=== PATIENT | male | born 1955 | race Caucasian/White ===

== ENCOUNTER 2020-01-27 12:35 | Outpatient (CLI) | payer MEDICARE, SELFPAY ==
--- NOTE | ~2020-01-27 | MR_ITS ---
EXAMINATION: MR cervical spine wo con EXAM DATE: 01/27/2020 13:47 INDICATION: Cervical radiculopathy. TECHNIQUE: Multi-sequential, multiplanar MR images of the cervical spine were obtained without contra st. Axial T2, axial T2 MERGE sequence. Sagittal T1, T2, T2 fat saturation images also obtained. Com parison is made to prior examination from 01/29/2010. FINDINGS: There is cervical fusion with vertebral body osseous bridging at C3-4, interbody fusion at C4-5 and C5-6, with previously seen anterior supporting plate at these 2 levels removed. Anterior fu ermias C6-C7 and C7-T1. The vertebral bodies are aligned in the AP dimension. The spinal cord signal in tensity and intrinsic morphology is normal. Cervicomedullary junction is normal in appearance. Parasp inal soft tissue is unremarkable. Level by level evaluation: C2-C3: Disc does not extend beyond the endplate margin. Uncovertebral joint arthropathy: Mild bilateral. Facet joint arthropathy: Mild to moderate left, mild right. Neural foraminal stenosis: No stenosis. Central canal stenosis: No stenosis. C3-C4: This level is fused. Uncovertebral joint arthropathy: Mild to moderate left, mild right. Facet joint arthropathy: Mild to moderate bilateral. Neural foraminal stenosis: Mild to moderate bilateral. Central canal stenosis: No stenosis. C4-C5: This level is fused. Uncovertebral joint arthropathy: Mild bilateral. Facet joint arthropathy: Mild to moderate bilateral. Neural foraminal stenosis: Mild bilateral. Central canal stenosis: No stenosis. C5-C6: This level is fused. Uncovertebral joint arthropathy: Mild bilateral. Facet joint arthropathy: None. Neural foraminal stenosis: No stenosis. Central canal stenosis: No stenosis. C6-C7: This level is fused. Uncovertebral joint arthropathy: Mild to moderate left, mild right. Facet joint arthropathy: Mild to moderate left, mild right. Neural foraminal stenosis: No stenosis. Central canal stenosis: No stenosis. C7-T1: There is a mild diffuse disc bulge. Uncovertebral joint arthropathy: Moderate bilateral. Facet joint arthropathy: Mild bilateral. Neural foraminal stenosis: Moderate left, mild to moderate right. Central canal stenosis: Mild. IMPRESSION: 1. Cervical fusion C3-T1. 2. Spondylosis as detailed above. Reviewed, dictated and finalized at location B.
--- NOTE | ~2020-01-27 | MR_ITS ---
EXAMINATION: MR lumbar spine wo con EXAM DATE: 01/27/2020 13:53 INDICATION: Low back pain, left arm and leg pain. TECHNIQUE: Multi-sequential, multiplanar MR images of the lumbar spine were obtained without contrast . Sagittal T1, T2, T2 fat saturation images. Axial T2 weighted images. Comparison is made to prior examination from 03/07/2017. FINDINGS: Moderate to severe disc disease L4-5 and L5-S1, mild to moderate at L3-4. The conus medulla ris terminates at the T12-L1 level and has normal signal intensity and morphology. There is 3 mm ret rolisthesis L5 on S1. The vertebral bodies are otherwise aligned. There are no suspicious marrow sign al abnormalities. Paraspinal soft tissue is unremarkable. Level by level evaluation: T12-L1: Disc does not extend beyond the endplate margin. Facet arthropathy: None. Neural foraminal stenosis: No stenosis. Central canal stenosis: No stenosis. L1-L2: There is a mild diffuse disc bulge. Facet arthropathy: Mild. Neural foraminal stenosis: No stenosis. Central canal stenosis: No stenosis. L2-L3: There is a mild diffuse disc bulge. Facet arthropathy: Mild to moderate. Neural foraminal stenosis: Mild bilateral. Central canal stenosis: Mild. L3-L4: There is a mild to moderate diffuse disc bulge. Facet arthropathy: Mild to moderate. Neural foraminal stenosis: Mild to moderate bilateral. Central canal stenosis: Mild. Probable old left hemilaminotomy. L4-L5: There is a moderate diffuse disc bulge. [id number] Facet arthropathy: Mild to moderate. Neural foraminal stenosis: Moderate left, mild to moderate right. Central canal stenosis: Mild. L5-S1: There is a mild diffuse disc bulge. Facet arthropathy: Mild to moderate. Neural foraminal stenosis: Moderate right, mild to moderate left. Central canal stenosis: Mild. Compared to 2017, mild interval progression in spondylosis. IMPRESSION: 1. Lower lumbar predominant spondylosis as detailed above. Reviewed, dictated and finalized at location B.
== END 2020-01-27 12:36 | disposition home or self-care (01) ==
PROVIDERS: PCP Internal Medicine; Visit Provider Nurse Practitioner Adult Health
DX: M47.896 Other spondylosis, lumbar region (principal); M47.22 Other spondylosis with radiculopathy, cervical region; Z98.1 Arthrodesis status
CPT/HCPCS: 72141; 72148

== ENCOUNTER 2020-02-01 12:48 | Outpatient (CLI) | payer MEDICARE, SELFPAY ==
--- NOTE | ~2020-02-01 | CT_ITS ---
EXAMINATION: CT brain wo/w con DATE: 02/01/2020 14:31 INDICATION: Amaurosis fugax. TECHNIQUE: Computed tomography (CT) of the head was performed without and with 100 mL Omnipaque 350 i ntravenous contrast. The mA was adjusted according to patient size. Iterative reconstruction techniqu e was employed. The dose-length product was 1210.67 mGy-cm. COMPARISON: None FINDINGS: There is no intracranial hemorrhage, acute infarction, or abnormal intracranial mass lesion . The ventricles are normal in size. The paranasal sinuses are clear. The orbits are normal. The mast oid air cells are normal. IMPRESSION: 1. Normal brain. Reviewed, dictated and finalized at location B. IMPRESSION: 1. Normal brain.
--- NOTE | ~2020-02-01 | US_ITS ---
EXAMINATION: US carotid duplex BI DATE: 02/01/2020 13:25 INDICATION: Amaurosis fugax TECHNIQUE: Grayscale, color Doppler, and pulsed Doppler images of the cervical carotid arteries were obtained. The degree of vessel stenosis is placed in one of the following categories: normal, <50%, 5 0-69%, >=70% but less than near-occlusion, near-occlusion, or total occlusion. Note that percent sten osis relative to normal distal artery lumen diameter is indirectly measured from velocity measurement s as described by Cristofer, et al. Radiology 2003; 229:340-346. COMPARISON: None. FINDINGS: RIGHT: The right common carotid artery (CCA) peak systolic velocity (PSV) is 66 cm/s. The right internal car otid artery (ICA) PSV is 82 cm/s. The right ICA end-diastolic velocity (EDV) is 18 cm/s. The right IC A/CCA PSV ratio is 1.2. Grayscale and color Doppler images yield an estimate of <50% diameter reducti on from plaque in the ICA. The external carotid artery (ECA) PSV is 117 cm/s. There is antegrade flow in the right vertebral artery. LEFT: The left CCA PSV is 66 cm/s. The left ICA PSV is 102 cm/s. The left ICA EDV is 22 cm/s. The left ICA/ CCA PSV ratio is 1.5. Grayscale and color Doppler images yield an estimate of <50% diameter reduction from plaque in the ICA. The ECA PSV is 73 cm/s. There is antegrade flow in the left vertebral artery . IMPRESSION: 1. <50% stenosis in the right internal carotid artery. 2. <50% stenosis in the left internal carotid artery. Reviewed, dictated and finalized at location A.
--- NOTE | ~2020-02-01 | XR_ITS ---
EXAMINATION: XR hip BI wo pelvis DATE: 02/01/2020 13:44 INDICATION: Osteoarthritis of multiple joints. TECHNIQUE: 2 views of right hip and 2 views of left hip on a total of 5 radiographs were obtained. COMPARISON: Bilateral hip radiographs 02/19/2010, CT 10/12/2012 FINDINGS: There is a total right hip arthroplasty in near-anatomic alignment. No periprosthetic lucen cy to suggest loosening or infection. There is a total left hip arthroplasty in near-anatomic alignme nt with 2 cables around the femoral component. There is lucency adjacent to the proximal aspect of th e femoral component measuring up to 5 mm anteriorly. There is lucency at the lateral and medial aceta bulum adjacent to the acetabular cup. There is an old fracture versus osteotomy involving the left gr eater trochanter with nonunion. No acute fracture. There is at least moderate lumbar spondylosis. IMPRESSION: 1. Total right hip arthroplasty in near-anatomic alignment. 2. Total left hip arthroplasty revision in near-anatomic alignment. Areas of lucency adjacent to the acetabular cup and femoral component may be the normal postoperative appearance or abnormal osteolysi s from loosening, infection, or particle disease. Correlation with postoperative radiographs is recom mended. Reviewed, dictated and finalized at location B. IMPRESSION: 1. Total right hip arthroplasty in near-anatomic alignment. 2. Total left hip arthroplasty revision in near-anatomic alignment. Areas of jerry cency adjacent to the acetabular cup and femoral component may be the normal po stoperative appearance or abnormal osteolysis from loosening, infection, or par ticle disease. Correlation with postoperative radiographs is recommended.
[2020-02-01 14:20] LABS: Estimated Glomerular Filt Rate > 60
== END 2020-02-01 12:49 | disposition home or self-care (01) ==
PROVIDERS: PCP Internal Medicine; Visit Provider Internal Medicine
DX: I65.23 Occlusion and stenosis of bilateral carotid arteries (principal)
CPT/HCPCS: 70470; 73521; 93880; Q9967

== ENCOUNTER 2020-02-16 14:27 | Outpatient (CLI) | payer MEDICARE, SELFPAY ==
--- NOTE | 2020-02-16 | ECHO_ITS ---
Patient Info Name: Brian Bland Age: 64 years : 1955 Gender: Male Ht: 73 in Wt: 215 lbs BSA: 2.26 m2 HR: 95 bpm BP: 149 / 94 mmHg Technical Quality: Good Exam Date: 02/16/2020 3:17 PM Exam Location: [facility] Patient Status: Outpatient Admit Date: 02/16/2020 Staff Ordering Physician: Harry Malagon MD Microwave Supervisor: Meghan Maria RDCS Attending Provider: Harry Malagon MD Referring Physician: Manas ALEXANDER; Exam Type: CA echo doppler color flow Study Info Indications - amaurosis fugax AVR Complete two-dimensional, color flow and Doppler transthoracic echocardiogram is performed. Summary 1. Complete two-dimensional, color flow and Doppler transthoracic echocardiogram is performed. 2. Left ventricular chamber dimension is normal. 3. Left ventricular systolic function is normal, estimated at 65-70%. 4. There is moderately increased left ventricular wall thickness. 5. The left ventricular diastolic function is grade I diastolic dysfunction. 6. E/e' 14 is mildly elevated. 7. The bioprosthetic aortic valve is not well visualized. 8. The mitral valve has moderately calcified annulus. 9. There is trace tricuspid valve regurgitation. 10. No pulmonary hypertension, estimated pulmonary arterial systolic pressure is 26 mmHg. Left Ventricle E/e' 14 is mildly elevated. Left ventricular chamber dimension is normal. Left ventricular systolic function is normal, estimated at 65-70%. There is moderately increased left ventricular wall thickness. The left ventricular diastolic function is grade I diastolic dysfunction. Right Ventricle Right ventricular chamber dimension is normal. Right ventricular systolic function is normal. Left Atria Left atrial chamber dimension is normal. Right Atria Right atrial chamber dimension is normal. Aortic Valve The bioprosthetic aortic valve is not well visualized. There is no bioprosthetic aortic valve stenosis. There is no regurgitation of the bioprosthetic aortic valve. Pulmonic Valve There is no pulmonic regurgitation. Mitral Valve The mitral valve has moderately calcified annulus. There is no mitral valve stenosis. There is no mitral valve regurgitation. Tricuspid Valve There is trace tricuspid valve regurgitation. No pulmonary hypertension, estimated pulmonary arterial systolic pressure is 26 mmHg. Pericardium/Pleural There is no pericardial effusion. Inferior Vena Cava Normal inferior vena cava with >50% collapse upon inspiration consistent with normal right atrial pressure, 5 mmHg. Aorta The aortic root size at the sinus of Valsalva is not well visualized. Left Ventricular Outflow Tract Name Value Normal LVOT 2D LVOT Diameter 2.2 cm LVOT Doppler LVOT Peak Gradient 8 mmHg LVOT Mean Gradient 6 mmHg LVOT VTI 21 cm LVOT VTI/AV VTI Ratio 0.6 LVOT Stroke Volume 82 ml LVOT CO 28.2 l/min LVOT CI 12.5 l/min/m2
== END 2020-02-16 14:28 | disposition home or self-care (01) ==
PROVIDERS: PCP Internal Medicine; Visit Provider Internal Medicine
DX: G45.3 Amaurosis fugax (principal); I05.8 Other rheumatic mitral valve diseases
CPT/HCPCS: 93306

== ENCOUNTER → 2020-11-22 13:52 | Outpatient (CLI) | payer MEDICARE, SELFPAY ==
--- NOTE | ~2020-11-22 | XR_ITS ---
XR shoulder RT min 2V DATE: 11/22/2020 14:16 INDICATION: Right shoulder pain TECHNIQUE: 4 views COMPARISON: None FINDINGS: Status post sternotomy. Status post anterior cervical thoracic spine surgical fusion There is joint space narrowing and spurring at the glenohumeral joint consistent with osteoarthritis. There is mild degenerative change at the acromioclavicular joint. There are calcifications near the insertion site of the rotator cuff at the greater tuberosity sugges ting calcific tendinosis. IMPRESSION: Calcifications at rotator cuff insertion at greater tuberosity suggesting calcific tendin osis Degenerative change of the coronoid navicular joint Osteoarthritis at glenohumeral joint Reviewed, dictated and finalized at location A. 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
== END ==
PROVIDERS: PCP Internal Medicine; Visit Provider Internal Medicine
DX: M25.511 Pain in right shoulder (principal); M25.811 Other specified joint disorders, right shoulder; M19.011 Primary osteoarthritis, right shoulder
CPT/HCPCS: 73030

== ENCOUNTER 2020-12-13 08:45 | Outpatient (CLI) | payer MEDICARE, SELFPAY ==
--- NOTE | ~2020-12-13 | CT_ITS ---
EXAMINATION: CT chest abdomen pelvis w con EXAM DATE: 12/13/2020 09:21 INDICATION: R63.4 - Abnormal weight loss. TECHNIQUE: Spiral CT of the chest, abdomen and pelvis was performed following intravenous injection o f 100 mL Omnipaque 350. Axial, coronal and sagittal images chest, abdomen and pelvis were reviewed. Coronal maximum intensity pixel images of chest reviewed. The dose-length product (DLP) for this ex amination was 1196.02 mGy-cm. The exposure was tailored according to patient size (auto mA exposure control), and iterative reconstruction (ASIR) was used as additional dose reduction technique. Vasquez rison made to CT chest 10/24/2016, CT abdomen 10/12/2012 FINDINGS: CHEST: The lungs are clear. Mild emphysema. There are no pleural or pericardial effusions. Tracheo bronchial tree is patent. There is no mediastinal, hilar or axillary lymphadenopathy. There is no pneumothorax. Heart normal in size. There is mild coronary arterial calcification, arterial scle rosis. Sternotomy wires and aortic valve replacement. Cervical fusion hardware. ABDOMEN PELVIS: The liver, spleen, adrenal glands and pancreas are unremarkable. Gallbladder is unre markable. No biliary obstruction. Portal and splenic veins are patent. Kidneys enhance symmetrical ly. There is no hydronephrosis. The prostate and bladder are poorly visualized due to bilateral hi p replacements. There is no retroperitoneal or pelvic lymphadenopathy. There is moderate scattered arteriosclerotic disease. Possible identification of an unremarkable appendix. No pericecal inflammation. There is mild to mode rate scattered colonic diverticulosis. There is no adjacent inflammatory change to suggest diverticu litis. The stomach and small bowel are unremarkable. There is expected amount of colonic stool. No free intraperitoneal gas. There are no osteoblastic or osteolytic lesions identified. Chronic lucen cies deep to the right hip acetabular component, unchanged. IMPRESSION: 1. Mild to moderate colonic diverticulosis. 2. Clear lungs. Reviewed, dictated and finalized at location B.
== END 2020-12-13 08:46 ==
PROVIDERS: PCP Internal Medicine; Visit Provider Internal Medicine
DX: R63.4 Abnormal weight loss (principal); K57.30 Diverticulosis of large intestine without perforation or abscess without bleeding
CPT/HCPCS: 71260; 74177; Q9967

== ENCOUNTER → 2020-12-14 02:25 | Outpatient (CLI) | payer MEDICARE, SELFPAY ==
[2020-12-14 17:20] LABS: SARS-CoV-2 RNA PCR Negative
== END ==
PROVIDERS: PCP Internal Medicine; Visit Provider Internal Medicine Gastroenterology
DX: U07.1 COVID-19 (principal)
CPT/HCPCS: C9803; U0003; U0005

== ENCOUNTER 2020-12-17 01:53 | Day surgery (SDC) | payer MEDICARE, SELFPAY ==
[2020-12-05 12:07] VITALS: BMI 25.7
[2020-12-17 09:42] VITALS: BP 116/76; PULSE 103; RESP 18; TEMP 36.7; O2SAT 95; BMI 24.7
[2020-12-17 09:51] LABS: Glucose Point of Care 94 mg/dl (65-105)
--- NOTE | 2020-12-17 10:06 | WPDANESEPPF ---
Anes - Initial Pre Proc Eval Procedure: Operation Date: 12/17/20 08:30 Proposed Procedures p Colonoscopy - Viral Quinones MD Date/Time: 12/17/20 10:06 Surgeon: Viral Quinones MD Pre Op Diagnosis: positive cologuard Patient Data Age: 65 Gender: M Height: 1.83 m Weight: 82.6 kg Last Vital Signs Temp 36.7 C 12/17/20 09:42 Pulse 103 H 12/17/20 09:42 Resp 18 12/17/20 09:42 BP 116/76 12/17/20 09:42 Pulse Ox 95 12/17/20 09:42 Allergies Allergy/AdvReac Type Severity Reaction Status Date / Time No Known Allergies Allergy Verified 12/05/20 12:04 Home Medications Medication Instructions Recorded Confirmed Type metformin 1,000 mg tablet 1,000 mg PO BID #180 tablet 04/30/20 12/05/20 Rx syringe with needle 3 mL 23 x 1 #12 ea 05/28/20 12/04/20 Rx nitroglycerin 0.4 mg sublingual See Rx Instructions .ROUTE 06/19/20 12/05/20 Rx tablet .COMPLEX #75 tablet finasteride 5 mg tablet 5 mg PO DAILY #90 tablet 07/05/20 12/05/20 Rx sildenafil (pulm.hypertension) 20 See Rx Instructions PO .COMPLEX 08/22/20 12/05/20 Rx mg tablet #90 tablet cholecalciferol (vitamin D3) 25 25 mcg PO DAILY 09/11/20 12/05/20 History mcg (1,000 unit) capsule rosuvastatin 40 mg tablet 40 mg PO DAILY #90 tablet 09/11/20 12/05/20 Rx carvedilol 25 mg tablet 25 mg PO Q12H #180 tablet 09/24/20 12/05/20 Rx hydralazine 100 mg tablet 100 mg PO TID #270 tablet 09/24/20 12/05/20 Rx testosterone cypionate 200 mg/mL 200 mg IM .every 2 weeks #1 ml 10/10/20 12/05/20 Rx intramuscular oil cyanocobalamin (vitamin B-12) 1,000 mcg SUBCUT MONTHLY #3 ml 10/11/20 12/05/20 Rx 1,000 mcg/mL injection solution syringe with needle 3 mL 21 gauge #6 ea 10/22/20 12/04/20 Rx x 1 alprazolam 1 mg tablet 1 mg PO TID PRN #90 tablet 11/21/20 12/05/20 Rx dextroamphetamine-amphetamine 15 15 mg PO BID 12/04/20 12/05/20 History mg tablet tamsulosin 0.8 mg PO DAILY 12/05/20 12/05/20 History trazodone 100 mg PO HS 12/05/20 12/05/20 History Laboratory Tests 12/17/20 09:48 POC Capillary Glucose 94 mg/dl mg/dl (65-105) Patient hx anesthesia problems: none Family hx anesthesia problems: none PMFSH Past Medical History Medical History Abnormal finding of blood chemistry Abnormal thyroid function test ADD (attention deficit disorder) ADD (attention deficit disorder) Amaurosis fugax Anxiety with depression BMI 25.0-25.9,adult BMI 26.0-26.9,adult BMI 28.0-28.9,adult BMI 29.0-29.9,adult Borderline abnormal TFTs Chronic low back pain Chronic right hip pain Cognitive dysfunction Colon cancer screening Depression DJD (degenerative joint disease), multiple sites DM w/o complication type II Dysuria Encounter for Medicare annual wellness exam Encounter for routine adult health examination with abnormal findings Encounter for routine adult health examination without abnormal findings Encounter for special screening examination for neoplasm of prostate Exposure to hepatitis C Follow up Hyperlipidemia Hypervitaminosis D Insomnia 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 Onychomycosis Possible exposure to STD Pre-diabetes Right shoulder pain Testosterone deficiency Unintentional weight loss URI (upper respiratory infection) Vitamin B 12 deficiency Vitamin D deficiency Surgical History Surgical History History of bilateral knee replacement Hx of bilateral hip replacements Family History Family History Sibling Family history of diabetes mellitus in first degree relative Diabetes mellitus Social History Social History Smoking status: Never smoker Second hand tobacco smoke exposure: No Alcohol intake: never Living arrangements: with family Spiritual care concerns: No Anes - Eval Final PreProcedure Day of Procedur
[2020-12-17] MEDS: LACTATED RINGERS 1,000 ML 150 ML IV CONT (10:18)
[2020-12-17] MEDS: AMPICILLIN 2 GM/NS 100 ML 2 GM/100 ML BAG IVPB (10:19)
--- NOTE | 2020-12-17 10:19 | PM.HPGS ---
History of Present Illness History of Present Illness Consent: Risks, benefits, and alternatives have been discussed and questions answered. Patient agrees to proceed with procedure. Chief complaint: positive cologuard Narrative: Brian Bland Jr. is a 65 year old male referred for colon cancer screening. He had a positive cologuard test. Review of Systems Review of Systems: All systems reviewed & are unremarkable except as noted in HPI and below PMFSH Past Medical History Medical History Abnormal finding of blood chemistry Abnormal thyroid function test ADD (attention deficit disorder) ADD (attention deficit disorder) Amaurosis fugax Anxiety with depression BMI 25.0-25.9,adult BMI 26.0-26.9,adult BMI 28.0-28.9,adult BMI 29.0-29.9,adult Borderline abnormal TFTs Chronic low back pain Chronic right hip pain Cognitive dysfunction Colon cancer screening Depression DJD (degenerative joint disease), multiple sites DM w/o complication type II Dysuria Encounter for Medicare annual wellness exam Encounter for routine adult health examination with abnormal findings Encounter for routine adult health examination without abnormal findings Encounter for special screening examination for neoplasm of prostate Exposure to hepatitis C Follow up Hyperlipidemia Hypervitaminosis D Insomnia 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 Onychomycosis Possible exposure to STD Pre-diabetes Right shoulder pain Testosterone deficiency Unintentional weight loss URI (upper respiratory infection) Vitamin B 12 deficiency Vitamin D deficiency Surgical History Surgical History History of bilateral knee replacement Hx of bilateral hip replacements Family History Family History Sibling Family history of diabetes mellitus in first degree relative Diabetes mellitus Social History Social History Smoking status: Never smoker Second hand tobacco smoke exposure: No Alcohol intake: never Living arrangements: with family Spiritual care concerns: No Meds Home Medications and Allergies Home Medications Medication Instructions Recorded Confirmed Type metformin 1,000 mg tablet 1,000 mg PO BID #180 tablet 04/30/20 12/05/20 Rx syringe with needle 3 mL 23 x 1 #12 ea 05/28/20 12/04/20 Rx nitroglycerin 0.4 mg sublingual See Rx Instructions .ROUTE 06/19/20 12/05/20 Rx tablet .COMPLEX #75 tablet finasteride 5 mg tablet 5 mg PO DAILY #90 tablet 07/05/20 12/05/20 Rx sildenafil (pulm.hypertension) 20 See Rx Instructions PO .COMPLEX 08/22/20 12/05/20 Rx mg tablet #90 tablet cholecalciferol (vitamin D3) 25 25 mcg PO DAILY 09/11/20 12/05/20 History mcg (1,000 unit) capsule rosuvastatin 40 mg tablet 40 mg PO DAILY #90 tablet 09/11/20 12/05/20 Rx carvedilol 25 mg tablet 25 mg PO Q12H #180 tablet 09/24/20 12/05/20 Rx hydralazine 100 mg tablet 100 mg PO TID #270 tablet 09/24/20 12/05/20 Rx testosterone cypionate 200 mg/mL 200 mg IM .every 2 weeks #1 ml 10/10/20 12/05/20 Rx intramuscular oil cyanocobalamin (vitamin B-12) 1,000 mcg SUBCUT MONTHLY #3 ml 10/11/20 12/05/20 Rx 1,000 mcg/mL injection solution syringe with needle 3 mL 21 gauge #6 ea 10/22/20 12/04/20 Rx x 1 alprazolam 1 mg tablet 1 mg PO TID PRN #90 tablet 11/21/20 12/05/20 Rx dextroamphetamine-amphetamine 15 15 mg PO BID 12/04/20 12/05/20 History mg tablet tamsulosin 0.8 mg PO DAILY 12/05/20 12/05/20 History trazodone 100 mg PO HS 12/05/20 12/05/20 History Allergies Allergy/AdvReac Type Severity Reaction Status Date / Time No Known Allergies Allergy Verified 12/05/20 12:04 Vital Signs Vital Signs - 24 hr 12/17/20 09:42 Temperature 36.7 C Pulse Rate 103 H Respiratory Rate 18 Blood Pressure 116/76 Pulse Oximetry 95 Exam Resp: Auscultation: c
[2020-12-17 10:57] VITALS: BP 98/64; PULSE 87; RESP 15; O2SAT 92
[2020-12-17 11:07] VITALS: BP 112/69; PULSE 85; RESP 15; O2SAT 93
[2020-12-17 11:17] VITALS: BP 129/90; PULSE 87; RESP 15; O2SAT 100
[2020-12-17] MEDS: PROPARACAINE HCL 0.5% 15 ML OPHTH SOLN 1 DROP EACH EYE (11:52)
--- NOTE | 2020-12-17 12:54 | SUR.PHASEII ---
Pt woke up in recovery c/o eye feeling scratched. Left eye appeared to be red and watering. Dr. Mills made aware. Eye drops ordered (see MAR). Eye discomfort much improved upon discharge.
== END 2020-12-17 12:10 | disposition home or self-care (01) ==
PROVIDERS: PCP Internal Medicine; Visit Provider Internal Medicine Gastroenterology
PROC: 0DJD8ZZ Inspection of Lower Intestinal Tract, Via Natural or Artificial Opening Endoscopic (ICD-10-PCS; CPT 45378; principal; 2020-12-17 08:30)
DX: Z12.11 Encounter for screening for malignant neoplasm of colon (principal); K63.5 Polyp of colon; K57.30 Diverticulosis of large intestine without perforation or abscess without bleeding; R19.5 Other fecal abnormalities; F98.8 Other specified behavioral and emotional disorders with onset usually occurring in childhood and adolescence; R94.6 Abnormal results of thyroid function studies; F32.9 Major depressive disorder, single episode, unspecified; E11.9 Type 2 diabetes mellitus without complications; M19.90 Unspecified osteoarthritis, unspecified site; E78.5 Hyperlipidemia, unspecified
CPT/HCPCS: 45380; 45385; 82948; 88305; A9270; J0290; J1580; J2001; J2704; J7120

== ENCOUNTER 2021-02-22 11:36 | Outpatient (CLI) | payer MEDICARE, SELFPAY ==
--- NOTE | ~2021-02-22 | XR_ITS ---
EXAMINATION: XR hip BI 2V w AP pelvis EXAM DATE: 02/22/2021 12:41 INDICATION: Bilateral hip pain. TECHNIQUE: Each hip imaged independently (separate right and also left hip) 'frog leg' and frontal p rojections for interpretation. Frontal projection pelvis. Comparison is made to prior examination fr 02/01/2020. FINDINGS: There is bilateral hip replacement hardware. There is lucency surrounding the proximal aspe ct of the left femoral stem component and medial portion of the acetabular cup, similar appearance to the previous examination with differential diagnosis including normal postoperative appearance for r evision, small particle disease, infection. This does not appear significant change compared to previ ous examination. Right hip arthroplasty hardware is intact. No osseous fracture identified. Old left greater trochanteric transverse fracture or osteotomy. IMPRESSION: 1. Persistent lucency surrounding left arthroplasty hardware along the proximal aspect of the stem a nd medial aspect acetabular component, could be small particle disease, loosening, postoperative appe arance, or osteomyelitis. Would favor more chronic process given no change in appearance compared to one year ago. 2. Intact right hip arthroplasty. Reviewed, dictated and finalized at location B. IMPRESSION: 1. Persistent lucency surrounding left arthroplasty hardware along the proxima l aspect of the stem and medial aspect acetabular component, could be small par ticle disease, loosening, postoperative appearance, or osteomyelitis. Would fav or more chronic process given no change in appearance compared to one year ago. 2. Intact right hip arthroplasty.
--- NOTE | ~2021-02-22 | US_ITS ---
EXAMINATION: US joint non vasc comp LT DATE: 02/22/2021 12:28 INDICATION: Left hip pain TECHNIQUE: Multiple grayscale and Doppler ultrasound images of the left hip were obtained. COMPARISON: None FINDINGS: Hypoechoic region measuring approximately 7 mm in maximal thickness along the neck of the femoral com ponent of a left total hip arthroplasty which could represent either synovitis or small joint effusio n. IMPRESSION: 1. Small left hip joint effusion versus small amount of synovitis along the neck of the femoral compo nent of a left total hip arthroplasty. Reviewed, dictated and finalized at location A. IMPRESSION: 1. Small left hip joint effusion versus small amount of synovitis along the nec k of the femoral component of a left total hip arthroplasty.
== END 2021-02-22 11:37 | disposition home or self-care (01) ==
PROVIDERS: PCP Internal Medicine; Visit Provider Internal Medicine
DX: M25.452 Effusion, left hip (principal); Z96.643 Presence of artificial hip joint, bilateral
CPT/HCPCS: 73521; 76881

== ENCOUNTER 2022-08-09 10:12 | Outpatient (CLI) | payer MEDICARE, SELFPAY ==
--- NOTE | ~2022-08-09 | MR_ITS ---
EXAMINATION: MR shoulder RT wo con DATE: 08/09/2022 11:10 INDICATION: Right shoulder pain. TECHNIQUE: Magnetic resonance imaging (MRI) of the right shoulder was performed without intravenous c ontrast. Sequences included axial PD-weighted FS FSE, coronal oblique PD-weighted FS FSE and T2-weigh candi FS FSE, and sagittal oblique T2-weighted FS FSE and T1-weighted FSE. COMPARISON: Right shoulder radiographs 11/22/2020 FINDINGS: Coracoacromial arch: The acromion undersurface is curved in morphology with anterior hook (type III). There is severe acro mioclavicular joint osteoarthritis including inferiorly directed osteophytes. There is moderate subac romial/subdeltoid bursitis. Rotator cuff: There is a full-thickness tear of supraspinatus and infraspinatus tendons measuring 4.0 cm anterior t o posterior by 5.0 cm proximal to distal. Teres minor tendon is normal. There is a partial thickness articular-sided tear of subscapularis tendon. There is volume loss of infraspinatus and subscapularis muscle bellies with mild fatty atrophy. Biceps tendon and glenoid labrum: There is a partial tear of biceps tendon, which is medially dislocated from the bicipital groove. The re is degenerative tearing of the glenoid labrum. Fluid: There is a moderate-sized humeral joint effusion. Bones/cartilage: There is full-thickness cartilage loss of inferior glenoid. There is extensive deep partial thickness cartilage loss of humeral head. Osteophytes are noted. IMPRESSION: 1. Massive full-thickness rotator cuff tear. 2. Severe osteoarthritis of glenohumeral joint and acromioclavicular joint. 3. Partial tear of proximal biceps tendon, which is medially dislocated from the bicipital groove. 4. Moderate-sized glenohumeral joint effusion and moderate subacromial/subdeltoid bursitis. Reviewed, dictated and finalized at location A. ORK LIAISON IMPRESSION: 1. Massive full-thickness rotator cuff tear. 2. Severe osteoarthritis of glenohumeral joint and acromioclavicular joint. 3. Partial tear of proximal biceps tendon, which is medially dislocated from th e bicipital groove. 4. Moderate-sized glenohumeral joint effusion and moderate subacromial/subdelto id bursitis.
== END 2022-08-09 10:13 | disposition home or self-care (01) ==
LOC: ANHIMG 10:21
PROVIDERS: PCP Internal Medicine; Visit Provider Internal Medicine
DX: M19.011 Primary osteoarthritis, right shoulder (principal); M75.101 Unspecified rotator cuff tear or rupture of right shoulder, not specified as traumatic; M25.411 Effusion, right shoulder
CPT/HCPCS: 73221

== ENCOUNTER 2023-01-30 13:03 | Outpatient (CLI) | payer MEDICARE, SELFPAY ==
--- NOTE | ~2023-01-30 | US_ITS ---
EXAMINATION: US carotid duplex BI DATE: 01/30/2023 15:02 INDICATION: Aortic valve disorder TECHNIQUE: Grayscale, color Doppler, and pulsed Doppler images of the cervical carotid arteries were obtained. The degree of vessel stenosis is placed in one of the following categories: normal, <50%, 5 0-69%, >=70% but less than near-occlusion, near-occlusion, or total occlusion. Note that percent sten osis relative to normal distal artery lumen diameter is indirectly measured from velocity measurement s as described by Cristofer, et al. Radiology 2003; 229:340-346. Notes: Normal: Peak systolic velocity <125 centimeters/sec and no plaque <50%. Peak systolic velocity <125 ( EDV <40; ICA/CCA PSV ratio <2.0; used these factors only a tandem lesions or low cardiac output or co ntralateral disease) 50-69 %: PSV 125-230 (EDV 40-100; ratio 2-4) >= 70% but less than near occlusion: PSV greater than 230 (EDV > 100; ratio> 4.0) Near Occlusion: PSV that is variable; markedly narrowed lumen Occlusion: Absent flow on color/spectral Doppler and no lumen on souza scale. COMPARISON: None. FINDINGS: RIGHT: The right common carotid artery (CCA) peak systolic velocity (PSV) is 64 cm/s. The right internal car otid artery (ICA) PSV is 79 cm/s. The right ICA end-diastolic velocity (EDV) is 16 cm/s. The right IC A/CCA PSV ratio is 1.2. The external carotid artery (ECA) PSV is 89 cm/s. There is antegrade flow in the right vertebral artery. LEFT: The left CCA PSV is 74 cm/s. The left ICA PSV is 91 cm/s. The left ICA EDV is 24 cm/s. The left ICA/C CA PSV ratio is 1.2. The ECA PSV is 83 cm/s. There is antegrade flow in the left vertebral artery. IMPRESSION: 1. Less than 50% stenosis in the right internal carotid artery by sonographic criteria. 2. Less than 50% stenosis in the left internal carotid artery by sonographic criteria. Reviewed, dictated and finalized at location B. IMPRESSION: 1. Less than 50% stenosis in the right internal carotid artery by sonographic eliel ely. 2. Less than 50% stenosis in the left internal carotid artery by sonographic kurtis adams.
--- NOTE | ~2023-01-30 | CT_ITS ---
EXAMINATION: CT brain wo/w con DATE: 01/30/2023 13:58 INDICATION: Amaurosis fugax. Visual loss. TECHNIQUE: Computed tomography (CT) of the head was performed without and with 100 mL Omnipaque 350 i ntravenous contrast. The mA was adjusted according to patient size. Iterative reconstruction techniqu e was employed. The dose-length product was 1362.00 mGy-cm. COMPARISON: Head CT 02/01/2020 FINDINGS: There is no intracranial hemorrhage, acute infarction, or abnormal intracranial mass lesion . There are scattered areas of low attenuation in the cerebral white matter, which is within normal l imits for the patient's age. The ventricles are normal in size. The paranasal sinuses are clear. The orbits are normal. The mastoid air cells are normal. IMPRESSION: 1. Normal aging brain. Reviewed, dictated and finalized at location A. IMPRESSION: 1. Normal aging brain.
[2023-01-30 13:47] LABS: Estimated Glomerular Filt Rate > 60
== END 2023-01-30 13:04 | disposition home or self-care (01) ==
PROVIDERS: PCP Internal Medicine; Visit Provider Internal Medicine
DX: G45.3 Amaurosis fugax (principal); I35.9 Nonrheumatic aortic valve disorder, unspecified
CPT/HCPCS: 70470; 93880; Q9967

== ENCOUNTER 2023-02-10 16:21 | Observation (INO) | payer MEDICARE, SELFPAY ==
[2023-02-10] VITALS (15 sets, daily range): BP systolic 137–196; BP diastolic 66–93; PULSE 63–81; RESP 10–20; TEMP 35.8–37.3; O2SAT 94–98
--- NOTE | ~2023-02-10 | MR_ITS ---
MRI of the cervical spine Clinical History: Multiple sclerosis Technique: Axial T2-weighted and gradient images, and sagittal T1-weighted, T2-weighted, and STIR mandy ges were acquired. Following intravenous administration of 18 cc MultiHance gadolinium, T1-weighted f at-sat imaging was performed in the axial and sagittal planes. COMPARISON: 01/27/2020 Findings: There is no acute fracture or subluxation of the cervical spine. Osseous alignment is uncha nged from prior exam. Osseous fusion from C4 through T1 is unchanged. At C2-C3, there is no disc bulge or herniation. No spinal canal stenosis, cord compression, or neural foraminal narrowing. At C3-C4, there is no disc bulge or herniation. No spinal canal stenosis or cord compression. There i s mild facet arthropathy, with left neural foraminal narrowing, and possible minimal right neural for aminal narrowing. At C4-C5, there is no disc bulge or herniation. No central canal stenosis or cord compression. There is facet arthropathy with bilateral neural foraminal narrowing, left worse than right. At C5-C6, there is no disc bulge or herniation. No spinal canal stenosis or cord compression. No defi nite neural foraminal narrowing. At C6-C7, there is no disc bulge or herniation. No spinal canal stenosis, cord compression, or neural foraminal narrowing. No abnormal signal seen in the spinal cord. Paravertebral soft tissues are unremarkable. No abnormal postcontrast enhancement identified. Impression: No evidence for multiple sclerosis/spinal cord lesion. Mild degenerative spondylosis, as above. Stable extensive osseous fusion, as detailed above. Reviewed, dictated and finalized at [facility]. Impression: No evidence for multiple sclerosis/spinal cord lesion. Mild degenerative spondylosis, as above. Stable extensive osseous fusion, as detailed above.
--- NOTE | ~2023-02-10 | MR_ITS ---
MRI of the thoracic spine Clinical History: Multiple sclerosis Technique: Axial T2-weighted and gradient images, and sagittal T1-weighted, T2-weighted, and STIR mandy ges were acquired. Following intravenous administration of 18 cc MultiHance gadolinium, T1-weighted f at-sat imaging was performed in the axial and sagittal planes. Findings: There is no fracture or subluxation of the thoracic spine. Vertebral bodies maintain normal height and alignment. No suspicious bone marrow signal abnormality identified. There is mild left paracentral disc bulge at T4-T5, which mildly flattens the ventral cord. No other significant disc bulge or herniation seen in the thoracic spine. No other areas of canal stenosis or cord compression identified. No epidural mass or collection is seen. No abnormal signal identified in the spinal cord itself. Paravertebral soft tissues are unremarkable. No abnormal postcontrast enhancement identified. Impression: No evidence for multiple sclerosis or intrinsic spinal cord lesion. Left paracentral disc bulge at T4-T5 which mildly flattens the ventral cord. Reviewed, dictated and finalized at [facility]. Impression: No evidence for multiple sclerosis or intrinsic spinal cord lesion. Left paracentral disc bulge at T4-T5 which mildly flattens the ventral cord.
--- NOTE | ~2023-02-10 | XR_ITS ---
EXAMINATION: XR chest 1V portable Exam Date/Time: 02/10/2023 16:55 CDT HISTORY: SLURRED SPEECH, UNSTEADY GAIT Comparison: 03/21/2014. RESULT: Lines, tubes, and devices: ACDF hardware. Intact sternotomy wires. Cardiac valve replacement. Lungs and pleura: Clear. Cardiomediastinal silhouette: Stable. Other: No acute osseous or upper abdominal finding. IMPRESSION: No acute cardiopulmonary process. Reviewed, dictated and finalized at location K.
--- NOTE | ~2023-02-10 | CT_ITS ---
EXAMINATION: CT brain wo con DATE: 02/10/2023 16:39 INDICATION: SLURRED SPEECH, UNSTEADY GAIT . TECHNIQUE: Computed tomography (CT) of the head was performed without intravenous contrast. The mA wa s adjusted according to patient size. Iterative reconstruction technique was employed. The dose-lengt h product was 681.00 mGy-cm. COMPARISON: 01/30/2023. FINDINGS: No acute intracranial hemorrhage or extra-axial fluid collection. No hydrocephalus, mass, or herniation. No acute ischemic infarct. Unremarkable dural venous sinus attenuation. No acute osseous abnormality. The aerated spaces are clear. atrophy and chronic white matter change. Atherosclerotic intracranial calcification. Bilateral lens r eplacements. IMPRESSION: No acute intracranial process. Reviewed, dictated and finalized at location K.
--- NOTE | ~2023-02-10 | CT_ITS ---
EXAMINATION: CTA brain carotid DATE: 02/10/2023 17:17 INDICATION: CVA TECHNIQUE: Computed tomographic angiography (CTA) of the head and neck was performed with 100 mL Omni paque-350 intravenous contrast. Automated exposure control and iterative reconstruction technique wer e employed. The dose-length product was 1219.28 mGy-cm. Maximum intensity projection and volume rende red 3D-reconstructions were created by the technologist on a separate workstation. COMPARISON: CT brain, same date. FINDINGS: CTA HEAD: No large vessel occlusion, aneurysm, high flow vascular malformation, nidus or extravasation. Hypopla stic/absent left A2 segment. Anterior cerebral artery fenestration. Calcified plaque in the carotid s iphons bilaterally, without significant stenosis. Symmetric parenchymal enhancement. Patent cerebral veins. CTA NECK: Aortic arch and proximal great vessels: Atherosclerotic calcifications at the visualized aortic arch and proximal great vessels. Bovine arch. Right common carotid, carotid bifurcation, and internal carotid artery: Calcified and noncalcified pl aque.There is 39% stenosis of the proximal right internal carotid artery relative to normal distal ar micaela lumen diameter (NASCET criteria). Left common carotid, carotid bifurcation, and internal carotid artery: Calcified plaque at the bifurc ation.There is 0% stenosis of the proximal left internal carotid artery relative to normal distal art jon lumen diameter (NASCET criteria). Vertebral arteries: Hypoplastic right distal vertebral artery, terminating in the right PICA. Ectatic distal left vertebral artery. Calcified left distal vertebral artery plaque, without significant segundo nosis. Other findings: Pretracheal lymphadenopathy. Uncomplicated appearing ACDF hardware. Multilevel cervic al vertebral body and facet fusions. Visualized lung parenchyma is clear. IMPRESSION: No large vessel occlusion. No significant carotid or vertebral artery stenosis. Mediastinal lymphadenopathy. Reviewed, dictated and finalized at location K.
--- NOTE | ~2023-02-10 | MR_ITS ---
EXAMINATION: MR brain/brain stem wo/w con DATE: 02/11/2023 07:58 INDICATION: Transient ischemic attack. Left hemiparesis. TECHNIQUE: Magnetic resonance imaging (MRI) of the brain and brainstem was performed without and with 19 mL MultiHance intravenous contrast. COMPARISON: Head CT 02/10/2023 FINDINGS: There are scattered areas of nonspecific increased T2-weighted signal intensity in the cere bral white matter, which is within normal limits for the patient's age. There is a small old infarct in right cerebellum. There is no intracranial hemorrhage, acute infarction, or abnormal intracranial mass lesion. The ventricles are normal in size. The paranasal sinuses are clear. The orbits are lauren l. The mastoid air cells are normal. IMPRESSION: 1. Small old infarct in right cerebellum. Reviewed, dictated and finalized at location A.
--- NOTE | 2023-02-10 16:27 | ECG_ITS ---
Measurements Intervals [place] Rate: 76 P: 27 SD: 193 QRS: -50 QRSD: 140 T: 89 QT: 412 QTc: 465 Interpretive Statements SINUS RHYTHM LEFT AXIS DEVIATION INTRAVENTRICULAR CONDUCTION DELAY LEFT VENTRICULAR HYPERTROPHY AND ST-T CHANGE CANNOT RULE OUT SEPTAL INFARCT, AGE INDETERMINATE ABNORMAL ECG NO PREVIOUS ECG AVAILABLE FOR COMPARISON Electronically Signed On 02-11-2023 8:08:25 CDT by Manjit Flores D.O.
--- NOTE | 2023-02-10 16:51 | ED.NEUROSD ---
HPI - Neuro Symptoms/Deficit General Chief Complaint: Suspected CVA Stated Complaint: left sided weakness - hx of TIAs Time Seen by Provider: 02/10/23 16:33 History of Present Illness HPI Narrative: 67-year-old male presented the emergency department for evaluation of left-sided weakness. Patient reports he does have history of TIA approximately 2 years ago. Patient is unable to describe when the symptoms started. Patient states that he believes he was having some symptoms yesterday but also states when he went to bed last night he was not feeling poorly but when he woke up at 5 AM he was unable to walk to the bathroom. Patient states that he does feel like his symptoms are improving in the ED. Patient reports that he called Dr. Maciel, his primary care physician and was told to present to the ED for evaluation. Patient drove himself to the emergency department. Related Data Home Medications Medication Instructions Recorded Confirmed cholecalciferol (vitamin D3) 25 25 mcg PO DAILY 09/11/20 02/10/23 mcg (1,000 unit) capsule cyanocobalamin (vitamin B-12) 1,000 mcg IM MONTHLY 02/10/23 02/10/23 1,000 mcg/mL injection solution finasteride 5 mg tablet 5 mg PO DAILY 02/10/23 02/10/23 hydralazine 100 mg tablet 100 mg PO TID 02/10/23 02/10/23 metformin 1,000 mg tablet 1,000 mg PO BID 02/10/23 02/10/23 nitroglycerin 0.4 mg sublingual 0.4 mg sublingual Q5-15M PRN Chest 02/10/23 02/10/23 tablet Pain rosuvastatin 20 mg tablet 20 mg PO DAILY 02/10/23 02/10/23 tamsulosin 0.4 mg capsule 0.8 mg PO DAILY 02/11/23 02/11/23 trazodone 50 mg tablet 150 mg PO HS PRN Insomnia 02/11/23 02/11/23 Allergies Allergy/AdvReac Type Severity Reaction Status Date / Time No Known Allergies Allergy Verified 02/10/23 16:23 Review of Systems Review of Systems: All systems reviewed & are unremarkable except as noted in HPI and below PMFSH Past Medical History Medical History Abnormal finding of blood chemistry Abnormal thyroid function test ADD (attention deficit disorder) ADD (attention deficit disorder) Amaurosis fugax Anxiety with depression Aortic valve disease BMI 24.0-24.9, adult BMI 25.0-25.9,adult BMI 26.0-26.9,adult BMI 27.0-27.9,adult BMI 28.0-28.9,adult BMI 29.0-29.9,adult BMI 30.0-30.9,adult Borderline abnormal TFTs Chronic low back pain Chronic right hip pain Chronic right shoulder pain Cognitive dysfunction Colon cancer screening Depression DJD (degenerative joint disease), multiple sites DM w/o complication type II Dysuria Encounter for Medicare annual wellness exam Encounter for routine adult health examination with abnormal findings Encounter for routine adult health examination without abnormal findings Encounter for special screening examination for neoplasm of prostate Exposure to hepatitis C Follow up Hx of colonic polyps Hyperlipidemia Hypervitaminosis D Insomnia Muscle cramps Non-healing skin lesion On alf drug therapy Onychomycosis Possible exposure to STD Pre-diabetes Prostate cancer screening Right shoulder pain Testosterone deficiency Toenail fungus Unintentional weight loss URI (upper respiratory infection) Vitamin B 12 deficiency Vitamin D deficiency Surgical History Surgical History H/O aortic valve replacement History of bilateral knee replacement Hx of bilateral hip replacements Family History Family History Sibling Family history of diabetes mellitus in first degree relative Diabetes mellitus Social History Social History Smoking status: Never smoker Second hand tobacco smoke exposure: No Alcohol intake: never Substance use: never Lack of Transportation: No Lack of Food: Never True Current Housing: I Have Housing Concerned About Future Housing: No D
[2023-02-10 16:52] LABS: Basophils Absolute Auto 0.1 K/mm3 (0.0-0.1); Basophils Percent Auto 0.8 % (0.2-1.2); Eosinophils Absolute Auto 0.3 K/mm3 (0-0.3); Hematocrit 49.7 % (42.0-52.0); Hemoglobin 17.3 g/dL (14.0-18.0); Immature Granulocyte Absolute 0.01 K/mm3 (0.00-0.031); Immature Granulocyte Percent A 0.2 % (0-0.5); Lymphocytes Percent Auto 19.5 % (18.3-44.2); Mean Corpuscular HGB Conc 34.8 g/dl (32-36); Mean Corpuscular Hemoglobin 33.1 pg (26-34); Mean Corpuscular Volume 95.2 fl (80-100); Mean Platelet Volume 9.1 fl (7.4-10.4); Monocytes Absolute Auto 0.9 K/mm3 (0.1-0.6); Neutrophils Absolute Auto 3.7 K/mm3 (1.3-6.7); Neutrophils Percent Auto 60.5 % (45.5-73.1); Platelet Count Result 175 k/mm3 (150-375); Red Blood Count 5.22 M/mm3 (4.6-6.20); Red Cell Distribution Width 12.7 % (11.5-14.5); White Blood Count 6.2 K/mm3 (4.5-10.0)
[2023-02-10 16:59] LABS: Alanine Aminotransferase 47 U/L (6-50); Albumin Level 4.9 g/dL (3.5-5.1); Alkaline Phosphatase 50 U/L (38-126); Anion Gap 7 mmol/L (8-16); Aspartate Amino Transferase 35 U/L (17-59); Bilirubin,Total 0.6 mg/dL (0.2-1.3); Blood Urea Nitrogen 23 mg/dL (9-20); Calcium 9.7 mg/dL (8.4-10.2); Carbon Dioxide 28 mmol/L (22-30); Chloride 102 mmol/L (98-107); Estimated CRCL calculation 64 ml/min; Estimated Glomerular Filt Rate > 60; Glucose 101 mg/dL (65-110); Potassium 4.5 mmol/L (3.4-5.0); Sodium 137 mmol/L (137-145)
[2023-02-10 17:11] LABS: Partial Thromboplastin Time 26.5 SECONDS (22.3-36.8); Prothrombin Time 13.8 Seconds (11.1-14.7); Troponin I 0.025 ng/mL (0.000-0.034)
[2023-02-10] MEDS: ASPIRIN 81 MG CHEWABLE TABLET 324 MG PO (18:39)
--- NOTE | 2023-02-10 20:46 | ADMGEN ---
This patient, Brian Bland JrAdele, was admitted to Medical Room 344-01. Patient/family oriented to hospital policies and general routines including ID bracelet, bed and alarms, visiting hours, pain management, procedures, bathroom and other care routines, personal items, smoking policy, room service/diet, and visiting hours. Information on how to activate the Rapid Response Team has been discussed. Patient/Family are encouraged to report perceived risks to care and to ask questions if they do not understand what they are told or what they should do.
[2023-02-11] VITALS (13 sets, daily range): BP systolic 115–146; BP diastolic 59–66; PULSE 57–104; RESP 18; TEMP 35.9–36.9; O2SAT 94–100
--- NOTE | 2023-02-11 | ECHO_ITS ---
Patient Info Name: Brian Bland Age: 67 years : 1955 Gender: Male Ht: 72 in Wt: 199 lbs BSA: 2.15 m2 HR: 57 bpm BP: 124 / 59 mmHg Heart Rhythm: Sinus Rhythm Technical Quality: Fair Exam Date: 02/11/2023 4:06 PM Exam Location: [facility] Pulmonary Patient Status: Outpatient Admit Date: 02/10/2023 Staff Ordering Physician: Brianna Willoughby DO Soil Conservationist: Kary Chen RDCS Attending Provider: Jamie Chance MD Referring Physician: Fartun ANDERSON; Exam Type: CA echo doppler w bubble study Study Info Indications - tia Complete two-dimensional, color flow and Doppler transthoracic echocardiogram is performed with agitated saline. Contrast/Agitated Saline Contrast/Ag. Saline: Agitated Saline Amount: 20.00 ml Existing IV Access: Yes IV Access Condition: patent with no signs of infiltration Summary 1. Definity contrast administered improved wall motion interpretation. 2. Left ventricular chamber dimension is normal. 3. Left ventricular systolic function is normal, estimated at 60-65%. 4. There is moderate concentric increased left ventricular wall thickness. 5. The left ventricular diastolic function is grade I diastolic dysfunction. 6. E/e' 6 is not elevated. 7. The bioprosthetic aortic valve is not well visualized. 8. There is moderate sclerosis of the bioprosthetic aortic valve leaflets. 9. There is mild regurgitation of the bioprosthetic aortic valve. 10. There is no bioprosthetic aortic valve stenosis. 11. The mitral valve has severely calcified annulus. 12. There is trace mitral valve regurgitation. 13. No pulmonary hypertension, estimated pulmonary arterial systolic pressure is 29 mmHg. Left Ventricle E/e' 6 is not elevated. Definity contrast administered improved wall motion interpretation. Left ventricular chamber dimension is normal. Left ventricular systolic function is normal, estimated at 60-65%. There is moderate concentric increased left ventricular wall thickness. The left ventricular diastolic function is grade I diastolic dysfunction. Right Ventricle Right ventricular chamber dimension is normal. Right ventricular systolic function is normal. Left Atria Left atrial chamber dimension is normal. Right Atria Right atrial chamber dimension is normal. Aortic Valve The bioprosthetic aortic valve is not well visualized. There is moderate sclerosis of the bioprosthetic aortic valve leaflets. There is no bioprosthetic aortic valve stenosis. There is mild regurgitation of the bioprosthetic aortic valve. Pulmonic Valve There is no pulmonic regurgitation. Mitral Valve The mitral valve has severely calcified annulus. There is no mitral valve stenosis. There is trace mitral valve regurgitation. Tricuspid Valve There is no tricuspid valve regurgitation. No pulmonary hypertension, estimated pulmonary arterial systolic pressure is 29 mmHg. Pericardium/Pleural There is no pericardial effusion. Inferior Vena Cava Normal inferior vena cava with >50% collapse upon inspiration consistent with normal right atrial pressure, 5 mmHg. Aorta The aortic root size at the sinus of Valsalva is normal. Left Ventricular Outflow Tract Name Value Normal LVOT 2D LVOT Diameter 2.0 cm LVOT Doppler -
[2023-02-11] MEDS: carvediloL 25 MG TABLET PO ×3 (00:56→20:00)
[2023-02-11] MEDS: ALPRAZolam (*CRX) 0.5 MG TABLET 1.5 MG PO ×2 (00:57→17:07)
[2023-02-11 08:24] LABS: Glucose Point of Care 105 mg/dl (65-105)
[2023-02-11] MEDS: ROSUVASTATIN 10 MG TABLET 20 MG PO (08:27)
[2023-02-11] MEDS: CHOLECALCIFEROL 1,000 UNITS TABLET 1000 UNITS PO (08:27)
[2023-02-11] MEDS: hydrALAZINE HCL 50 MG TABLET 100 MG PO ×3 (08:28→17:03)
[2023-02-11] MEDS: FINASTERIDE 5 MG TABLET PO (08:28)
[2023-02-11] MEDS: CYANOCOBALAMIN INJ 1,000 MCG/ML VIAL 1000 MCG IM (08:28)
[2023-02-11] MEDS: metFORMIN HCL 500 MG TABLET 1000 MG PO ×2 (08:28→17:03)
[2023-02-11] MEDS: TAMSULOSIN HCL 0.4 MG CAPSULE 0.8 MG PO (08:28)
[2023-02-11] MEDS: HYDROcodone/acetaminophen (*CRX) 10-325 MG TABLET 1 TAB PO (08:34)
--- NOTE | 2023-02-11 09:46 | PM.IMHP ---
H&P: HPI History of Present Illness Date/Time: 02/11/23 09:46 Chief Complaint: left sided weakness Narrative: 67-year-old male presenting with intermittent left-sided weakness. He states he has had this episode a few different times and always resolves. This time, he called his PCP who recommended he go to the ER. Symptoms are completely resolved at this time. No chest pain or shortness of breath. No nausea, vomiting or diarrhea. No fevers or chills. Review of Systems Review of Systems: 12 point review of systems was assessed and was negative except as noted in the HPI [facility] Past Medical History Medical History Abnormal finding of blood chemistry Abnormal thyroid function test ADD (attention deficit disorder) ADD (attention deficit disorder) Amaurosis fugax Anxiety with depression Aortic valve disease BMI 24.0-24.9, adult BMI 25.0-25.9,adult BMI 26.0-26.9,adult BMI 27.0-27.9,adult BMI 28.0-28.9,adult BMI 29.0-29.9,adult BMI 30.0-30.9,adult Borderline abnormal TFTs Chronic low back pain Chronic right hip pain Chronic right shoulder pain Cognitive dysfunction Colon cancer screening Depression DJD (degenerative joint disease), multiple sites DM w/o complication type II Dysuria Encounter for Medicare annual wellness exam Encounter for routine adult health examination with abnormal findings Encounter for routine adult health examination without abnormal findings Encounter for special screening examination for neoplasm of prostate Exposure to hepatitis C Follow up Hx of colonic polyps Hyperlipidemia Hypervitaminosis D Insomnia Muscle cramps Non-healing skin lesion On custodial drug therapy Onychomycosis Possible exposure to STD Pre-diabetes Prostate cancer screening Right shoulder pain Testosterone deficiency Toenail fungus Unintentional weight loss URI (upper respiratory infection) Vitamin B 12 deficiency Vitamin D deficiency Surgical History Surgical History H/O aortic valve replacement History of bilateral knee replacement Hx of bilateral hip replacements Family History Family History Sibling Family history of diabetes mellitus in first degree relative Diabetes mellitus Social History Social History Smoking status: Never smoker Second hand tobacco smoke exposure: No Alcohol intake: never Substance use: never Lack of Transportation: No Lack of Food: Never True Current Housing: I Have Housing Concerned About Future Housing: No Difficulty Paying Gas/Electric Bills: No Difficulty Paying for Meds: No Currently Unemployed: No Education: High School Diploma/GED Difficulty w/ Childcare or Family Care: No Living arrangements: alone Gender identity (if verbalized by the patient): Male Spiritual care concerns: No Meds Home Medications and Allergies Home Medications Medication Instructions Recorded Confirmed Type cholecalciferol (vitamin D3) 25 25 mcg PO DAILY 09/11/20 02/10/23 History mcg (1,000 unit) capsule Easy Touch SheathLock Syrg-Ndl 3 #100 ea 07/24/21 02/10/23 Rx mL 21 gauge x 1 1/2 (syringe with needle, safety) carvedilol 25 mg tablet 25 mg PO Q12H #180 tabs 11/25/21 02/10/23 Rx syringe with needle 3 mL 21 gauge #20 ea 04/17/22 02/10/23 Rx x 1 1/2 testosterone cypionate 200 mg/mL 300 mg (1.5 mL) IM .every 2 weeks 11/10/22 02/10/23 Rx intramuscular oil #10 mL alprazolam 1 mg tablet 1.5 mg PO TID PRN anxiety #135 tabs 12/01/22 02/10/23 Rx dextroamphetamine-amphetamine 20 20 mg PO BID #60 tabs 01/26/23 02/10/23 Rx mg tablet (Adderall) hydrocodone 10 mg-acetaminophen 1 tablet PO Q6H PRN pain #90 tabs 02/02/23 02/10/23 Rx 325 mg tablet cyanocobalamin (vitamin B-12) 1,000 mcg IM MONTHLY 02/10/23 02/10/23 Hi
[2023-02-11 10:38] LABS: Basophils Absolute Auto 0.1 K/mm3 (0.0-0.1); Basophils Percent Auto 1.1 % (0.2-1.2); Eosinophils Absolute Auto 0.4 K/mm3 (0-0.3); Eosinophils Percent Auto 7.4 % (0-4.4); Hematocrit 47.6 % (42.0-52.0); Hemoglobin 16.1 g/dL (14.0-18.0); Immature Granulocyte Absolute 0.01 K/mm3 (0.00-0.031); Immature Granulocyte Percent A 0.2 % (0-0.5); Lymphocytes Absolute Auto 1.09 K/mm3 (0.9-3.2); Lymphocytes Percent Auto 23.1 % (18.3-44.2); Mean Corpuscular HGB Conc 33.8 g/dl (32-36); Mean Corpuscular Hemoglobin 32.7 pg (26-34); Mean Corpuscular Volume 96.7 fl (80-100); Mean Platelet Volume 9.3 fl (7.4-10.4); Monocytes Absolute Auto 0.7 K/mm3 (0.1-0.6); Monocytes Percent Auto 13.8 % (2.6-8.5); Neutrophils Absolute Auto 2.6 K/mm3 (1.3-6.7); Neutrophils Percent Auto 54.4 % (45.5-73.1); Platelet Count Result 154 k/mm3 (150-375); Red Blood Count 4.92 M/mm3 (4.6-6.20); Red Cell Distribution Width 12.9 % (11.5-14.5); White Blood Count 4.7 K/mm3 (4.5-10.0)
[2023-02-11 10:58] LABS: Cholesterol 128 mg/dL (0-200); HDL Direct 41 mg/dL; Triglycerides 163 mg/dL (<150)
[2023-02-11 10:59] LABS: Alanine Aminotransferase 40 U/L (6-50); Albumin Level 4.1 g/dL (3.5-5.1); Alkaline Phosphatase 40 U/L (38-126); Anion Gap 8 mmol/L (8-16); Aspartate Amino Transferase 35 U/L (17-59); Bilirubin,Total 0.5 mg/dL (0.2-1.3); Blood Urea Nitrogen 24 mg/dL (9-20); Calcium 9.1 mg/dL (8.4-10.2); Carbon Dioxide 25 mmol/L (22-30); Chloride 103 mmol/L (98-107); Estimated CRCL calculation 78 ml/min; Estimated Glomerular Filt Rate > 60; Glucose 123 mg/dL (65-110); Potassium 4.8 mmol/L (3.4-5.0); Sodium 136 mmol/L (137-145)
[2023-02-11 11:08] LABS: LDL Cholesterol Direct 65 mg/dL
[2023-02-11 11:17] LABS: Hemoglobin A1C 5.9 % (<5.7)
[2023-02-11 12:08] LABS: Folic Acid 12.8 ng/mL (2.76->20); Vitamin B12 > 1000.0 pg/mL (239-931)
[2023-02-11 12:10] LABS: Glucose Point of Care 93 mg/dl (65-105)
--- NOTE | 2023-02-11 14:32 | WPDNEURCNPN ---
Assessment and Plan Assessment and plan (1) Dementia: Qualifiers: Dementia type: unspecified type Dementia severity: moderate Dementia behavioral or psychological symptom: with anxiety Qualified Code(s): F03.B4 - Unspecified dementia, moderate, with anxiety Code(s): F03.90 - Unspecified dementia, unspecified severity, without behavioral disturbance, psychotic disturbance, mood disturbance, and anxiety Status: Acute (2) Neurologic gait dysfunction: Code(s): R26.9 - Unspecified abnormalities of gait and mobility Status: Acute Plan 1 ongoing depression for which he is being treated2 osteoarthritis3 dementia question related to only depression or [id number] plan to order EEG as MRI has already been done which documented 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 Consult date: 02/11/23 HPI: Brian Bland is a 67 year old male admitted to the hospital through the emergency room for the complaint of possible stroke affecting the left side of his body in addition to the history of TIA about 2 years ago though he was unable to give the exact onset time of the symptoms he reported when he went to the bed last night he was not feeling proper and he woke up at 5:00 a.m. when he was unable to walk to the bathroom he also noted some improvement in the symptomatology while in the emergency room he was sent to the ER by his primary physician and he has been taking only D3 supplement he is not allergic to any medication he does have ongoing history of chronic low back pain right hip pain and right shoulder pain and cognitive dysfunction as well in addition to the history of vitamin deficiencies he is not alcohol he take and has had no history of smoking initial evaluation in the emergency room documented blood pressure 196/83 with temp 99.1? normal CBC normal BMP normal routine lab his medications included trazodone 50 mg daily, Wellbutrin XL 150 mg daily carvedilol 25 mg q.12 metformin 1000 mg daily twice a day hydralazine 100 mg daily rosuvastatin 20 mg daily Adderall 20 mg twice a day and hydrocodone on p.r.n. basis Review of Systems Review of Systems: All systems reviewed & are unremarkable except as noted in HPI and below PMFSH Past Medical History Medical History Abnormal finding of blood chemistry Abnormal thyroid function test ADD (attention deficit disorder) ADD (attention deficit disorder) Amaurosis fugax Anxiety with depression Aortic valve disease BMI 24.0-24.9, adult BMI 25.0-25.9,adult BMI 26.0-26.9,adult BMI 27.0-27.9,adult BMI 28.0-28.9,adult BMI 29.0-29.9,adult BMI 30.0-30.9,adult Borderline abnormal TFTs Chronic low back pain Chronic right hip pain Chronic right shoulder pain Cognitive dysfunction Colon cancer screening Depression DJD (degenerative joint disease), multiple sites DM w/o complication type II Dysuria Encounter for Medicare annual wellness exam Encounter for routine adult health examination with abnormal findings Encounter for routine adult health examination without abnormal findings Encounter for special screening examination for neoplasm of prostate Exposure to hepatitis C Follow up Hx of colonic polyps Hyperlipidemia Hypervitaminosis D Insomnia Muscle cramps Non-healing skin lesion On senior care drug therapy Onychomycosis Possible exposure to STD Pre-diabetes Prostate cancer screening Right shoulder pain Testosterone deficiency Toenail fungus Unintentional weight loss URI (upper respiratory infection) Vitamin B 12 deficiency Vitamin D deficiency Surgical History Surgical History H/O aortic valve replacement History of bilateral knee replacement Hx of bilateral hip replacements Family History Family History Sibling Family history of diabetes mellitus in first degree relative Diabetes mellitus Social His
[2023-02-11 15:38] LABS: Glucose Point of Care 111 mg/dl (65-105)
[2023-02-11 17:11] LABS: Glucose Point of Care 130 mg/dl (65-105)
[2023-02-11] MEDS: traZODone HCL 50 MG TABLET 150 MG PO (20:02)
[2023-02-11 20:23] LABS: Glucose Point of Care 119 mg/dl (65-105)
[2023-02-12] VITALS (14 sets, daily range): BP systolic 117–144; BP diastolic 64–87; PULSE 68–95; RESP 16–18; TEMP 36.5–36.6; O2SAT 94–98
[2023-02-12] MEDS: traZODone HCL 50 MG TABLET 150 MG PO ×2 (00:36→23:10)
[2023-02-12] MEDS: ALPRAZolam (*CRX) 0.5 MG TABLET 1.5 MG PO ×3 (00:36→23:10)
[2023-02-12] MEDS: CHOLECALCIFEROL 1,000 UNITS TABLET 1000 UNITS PO (08:12)
[2023-02-12] MEDS: carvediloL 25 MG TABLET PO ×2 (08:12→21:04)
[2023-02-12] MEDS: ROSUVASTATIN 10 MG TABLET 20 MG PO (08:12)
[2023-02-12] MEDS: TAMSULOSIN HCL 0.4 MG CAPSULE 0.8 MG PO (08:12)
[2023-02-12] MEDS: hydrALAZINE HCL 50 MG TABLET 100 MG PO ×3 (08:12→17:36)
[2023-02-12] MEDS: metFORMIN HCL 500 MG TABLET 1000 MG PO ×2 (08:12→17:36)
[2023-02-12] MEDS: HYDROcodone/acetaminophen (*CRX) 10-325 MG TABLET 1 TAB PO ×2 (08:13→17:54)
[2023-02-12] MEDS: FINASTERIDE 5 MG TABLET PO (08:13)
[2023-02-12 08:15] LABS: Glucose Point of Care 113 mg/dl (65-105)
--- NOTE | 2023-02-12 12:13 | P.NEURO_ITS ---
Neurology EEG Report General Information Date of Study: 02/12/23 TEST eeg DIAGNOSIS Slurred speech with memory deficit CONDITION OF RECORDING awake drowsy and sleep EEG NUMBER [id number] CLINICAL HISTORY patient reports he had an episode where his whole body went numb and lost sight in his left eye with slurred speech for about 45 minutes question has been raised about the possibility of TIA versus partial seizures EEG DESCRIPTION basic resting occipital frequency consists of moderate amount of well- organized low to medium voltage 9 to 11 hertz per 2nd alpha admixed with low- voltage 15 to 18 hertz per 2nd beta. Low-voltage beta activity seen diffusely during drowsiness admixed with waxing and waning posterior alpha rhythm. Bilateral symmetrical sleep activity seen during sleep with dysrhythmic beta alpha and delta activity and subsequently bilateral symmetrical sleep spindles are noted. Hyperventilation not done. Photic stimulation Not done. Non paroxysmal. Nonfocal. Nonlateralizing. IMPRESSION Normal record
[2023-02-12 12:21] LABS: Glucose Point of Care 93 mg/dl (65-105)
--- NOTE | 2023-02-12 14:55 | WPDNEUROPN ---
Subjective Date/time seen: 02/12/23 14:55 Interval history: 67 years old evaluated for dementia in addition to the ongoing history of depression and his evaluation during the hospitalization documented the normal routine lab studies but the MRI of the brain documented a small old infarct in the right cerebellum though his CTA is completely normal including the head and neck, question raised whether the gait dysfunction related to only the demyelinating disease or the cerebellar infarct, I thing demyelinating disease extremely unlikely but will obtain the echocardiogram to make sure there is no source of emboli his routine blood studies are normal and in the past also he had normal carotid studies, MRI of the lower back in was compatible with lumbar predominantly spondylosis, had cervical MRI in January of 2020 which documented cervical fusion from C3-T1 but no pathology in the spinal cord. Objective Data Vital Signs Vital Signs: Vital Signs - 24 hr 02/11/23 16:04 02/11/23 20:00 02/11/23 20:00 Temperature Pulse Rate 87 104 H 104 H Respiratory Rate Blood Pressure Pulse Oximetry Oxygen Delivery 02/11/23 20:00 02/11/23 21:36 02/12/23 00:00 Temperature 36.9 C Pulse Rate 104 H 88 77 Respiratory Rate 18 18 Blood Pressure 115/66 Pulse Oximetry 99 94 Oxygen Delivery Room Air 02/12/23 04:00 02/12/23 05:37 02/12/23 08:12 Temperature 36.5 C Pulse Rate 68 72 75 Respiratory Rate 18 Blood Pressure 117/81 Pulse Oximetry 97 Oxygen Delivery 02/12/23 08:10 02/12/23 08:46 02/12/23 08:05 Temperature Pulse Rate 80 71 Respiratory Rate Blood Pressure Pulse Oximetry 98 Oxygen Delivery Room Air Room Air 02/12/23 12:43 02/12/23 12:14 02/12/23 14:00 Temperature 36.6 C Pulse Rate 79 94 Respiratory Rate 16 Blood Pressure 129/79 144/64 H Pulse Oximetry 95 Oxygen Delivery Intake/Output Intake/Output: Intake & Output 02/09/23 02/10/23 02/11/23 02/12/23 23:59 23:59 23:59 23:59 Intake Total 2880 600 Output Total 2000 400 Balance 880 200 Meds/Results Medications: Active Medications Generic Name Dose Route Start Last Admin Trade Name Freq PRN Reason Stop Dose Admin Hydrocodone Bitart/Acetaminophen 1 tab 02/11/23 05:06 02/12/23 08:13 Hydrocodone/Acetaminophen (*Crx) 10-325 Mg Tablet PO 1 tab Q6H PRN Administration pain 7-10 Alprazolam 1.5 mg 02/10/23 23:43 02/12/23 00:36 Alprazolam (*Crx) 0.5 Mg Tablet PO 1.5 mg TID PRN Administration anxiety Carvedilol 25 mg 02/10/23 23:45 02/12/23 08:12 Carvedilol 25 Mg Tablet PO 25 mg Q12HR LISBET Administration Cyanocobalamin 1,000 mcg 03/08/23 09:00 Cyanocobalamin Inj 1,000 Mcg/Ml Vial IM MONTHLY LISBET Dextrose 12.5 gm 02/11/23 05:04 Dextrose 50% 25 Gm/50 Ml Syringe IV PUSH PRN PRN Hypoglycemia Protocol Finasteride 5 mg 02/11/23 09:00 02/12/23 08:13 Finasteride 5 Mg Tablet PO 5 mg DAILY LISBET Administration Glucagon 1 mg 02/11/23 05:04 Glucagon For Inj 1 Mg Vial IM PRN PRN Hypoglycemia Protocol Glucose 15 gm 02/11/23 05:04 Glucose Oral Gel 15 Gm Of Glucse In 37.5 Gm Tube PO PRN PRN Hypoglycemia Protocol Hydralazine HCl 100 mg 02/11/23 08:00 02/12/23 12:41 Hydralazine Hcl 50 Mg Tablet PO 100 mg TIDWM LISBET Administration Dextrose 1,000 mls @ 100 mls/hr 02/11/23 05:04 Dextrose 5% 1,000 Ml IVPB PRN PRN Hypoglycemia Protocol Metformin HCl 1,000 mg 02/11/23 08:00 02/12/23 08:12 Metformin Hcl 500 Mg Tablet PO 1,000 mg BIDWM LISBET Administration Nitroglycerin 0.4 mg 02/11/23 05:03 Nitroglycerin Sl 0.4 Mg Tablet SUBLINGUAL Q5M PRN Chest Pain Perflutren Lipid Microsphere 0 ml 02/11/23 09:48 Perflutren Lipid Microspheres 1.5 Ml Vial Diluted To 10 Ml Total Volume IV PUSH 02/14/23 09:48 ONCE PRN adequate visualization
--- NOTE | 2023-02-12 15:44 | PM.IMPN ---
Progress Note: A&P Assessment and Plan (1) Left-sided weakness: Code(s): R53.1 - Weakness Status: Acute Assessment and Plan: Intermittent, concerning for TIAs History of old infarct noted on MRI Neurology consult appreciated, unsure of etiology, suspect TIAs versus MS due to ocular involvement, will at least recommend dilated eye exam at discharge, does appear to have the triad for NPH, no signs of this on MRI, defer to Neurology for further differentials prior to discharge Echo unremarkable For secondary stroke prevention, will initiate patient on aspirin 81 mg daily and increase Crestor from 20 mg to 40 mg daily (2) Depression: Qualifiers: Depression Type: unspecified Qualified Code(s): F32.9 - Major depressive disorder, single episode, unspecified Code(s): F32.9 - Major depressive disorder, single episode, unspecified Status: Acute Assessment and Plan: Appears stable at this time, monitor (3) Insomnia: Qualifiers: Insomnia type: unspecified Qualified Code(s): G47.00 - Insomnia, unspecified Code(s): G47.00 - Insomnia, unspecified Status: Acute (4) DJD (degenerative joint disease), multiple sites: Qualifiers: Osteoarthritis type: unspecified Qualified Code(s): M15.9 - Polyosteoarthritis, unspecified Code(s): M15.9 - Polyosteoarthritis, unspecified Status: Acute (5) Pre-diabetes: Code(s): R73.03 - Prediabetes Status: Inactive Assessment and Plan: A1c 5.9 (6) Hyperlipidemia: Qualifiers: Hyperlipidemia type: mixed hyperlipidemia Qualified Code(s): E78.2 - Mixed hyperlipidemia Code(s): E78.5 - Hyperlipidemia, unspecified Status: Acute Assessment and Plan: Lipid panel checked, LDL less than 70, HDL 41, recheck in 6 months Continue Crestor 40 mg Plan DVT prophylaxis with SCDs GI prophylaxis not indicated Code status full code Subjective Date/time seen: 02/12/23 15:44 Interval history: 67-year-old male presenting with intermittent left-sided weakness over the last 6 months associated with confusional episodes, occasional urinary incontinence, blurry vision and double vision, ataxia.? He states he has had this episode a few different times and always resolves, however the severity is worsening in the frequency is increasing. Overnight, patient had another episode as is described above. He states that was 1 of the worst once he has had. As usual, all symptoms resolved at this time. No chest pain or shortness of breath. No nausea, vomiting or diarrhea. No fevers or chills. Review of Systems Review of Systems: 12 point review of systems was assessed and was negative except as noted in the HPI Exam Narrative: General: No acute distress, alert and oriented per baseline HEENT: Atraumatic, normocephalic, mucous membranes moist CV: Regular rate and rhythm, S1, S2 Lungs: Clear to auscultation bilaterally, no rales or crackles noted, no wheezes, good air entry Abdomen: Soft, nontender, nondistended Extremities: Normal to inspection Skin: No rashes noted, no lesions or wounds seen Psych: Euthymic, normal affect Neuro: Cranial nerves 2-12 grossly intact, strength +5/5 upper and lower extremities bilaterally Objective Data Vital Signs Vital Signs: Vital Signs - 24 hr 02/11/23 16:04 02/11/23 20:00 02/11/23 20:00 Temperature Pulse Rate 87 104 H 104 H Respiratory Rate Blood Pressure Pulse Oximetry Oxygen Delivery 02/11/23 20:00 02/11/23 21:36 02/12/23 00:00 Temperature 98.4 F Pulse Rate 104 H 88 77 Respiratory Rate 18 18 Blood Pressure 115/66 Pulse Oximetry 99 94 Oxygen Delivery Room Air 02/12/23 04:00 02/12/23 05:37 02/12/23 08:12 Temperature 97.7 F Pulse Rate 68 72 75 Respiratory Rate 18 Blood Pressure 117/81 Pulse Oximetry 97 Oxygen Delivery 02/12/23 08:10 09
[2023-02-12 17:04] LABS: Alanine Aminotransferase 47 U/L (6-50); Albumin Level 4.6 g/dL (3.5-5.1); Alkaline Phosphatase 49 U/L (38-126); Anion Gap 9 mmol/L (8-16); Aspartate Amino Transferase 34 U/L (17-59); Bilirubin,Total 0.6 mg/dL (0.2-1.3); Blood Urea Nitrogen 25 mg/dL (9-20); Calcium 9.3 mg/dL (8.4-10.2); Carbon Dioxide 32 mmol/L (22-30); Chloride 98 mmol/L (98-107); Estimated CRCL calculation 59 ml/min; Estimated Glomerular Filt Rate > 60; Glucose 90 mg/dL (65-110); Potassium 4.3 mmol/L (3.4-5.0); Sodium 139 mmol/L (137-145)
[2023-02-12 17:10] LABS: Basophils Absolute Auto 0.1 K/mm3 (0.0-0.1); Basophils Percent Auto 0.8 % (0.2-1.2); Eosinophils Absolute Auto 0.4 K/mm3 (0-0.3); Eosinophils Percent Auto 5.8 % (0-4.4); Hematocrit 53.8 % (42.0-52.0); Hemoglobin 17.9 g/dL (14.0-18.0); Immature Granulocyte Absolute 0.02 K/mm3 (0.00-0.031); Immature Granulocyte Percent A 0.3 % (0-0.5); Lymphocytes Absolute Auto 1.11 K/mm3 (0.9-3.2); Mean Corpuscular HGB Conc 33.3 g/dl (32-36); Mean Corpuscular Hemoglobin 32.9 pg (26-34); Mean Corpuscular Volume 98.9 fl (80-100); Mean Platelet Volume 9.6 fl (7.4-10.4); Monocytes Absolute Auto 0.8 K/mm3 (0.1-0.6); Monocytes Percent Auto 11.5 % (2.6-8.5); Neutrophils Absolute Auto 4.2 K/mm3 (1.3-6.7); Neutrophils Percent Auto 64.6 % (45.5-73.1); Platelet Count Result 184 k/mm3 (150-375); Red Blood Count 5.44 M/mm3 (4.6-6.20); Red Cell Distribution Width 12.9 % (11.5-14.5); White Blood Count 6.5 K/mm3 (4.5-10.0)
[2023-02-12 17:19] LABS: Glucose Point of Care 100 mg/dl (65-105)
--- NOTE | 2023-02-12 20:30 | PM.EVENT ---
Event Note Event Note Event Note: Patient reporting shoulder pain, takes Aleve at home for discomfort. Diclofenac Gel QID ordered as first line for discomfort and Naproxen 375 mg BIDWM as second line for pain.
[2023-02-12] MEDS: DICLOFENAC SODIUM 1% 100 GM GEL (*BKC) 1 APPLIC TOPICAL (21:05)
[2023-02-12 21:37] LABS: Glucose Point of Care 143 mg/dl (65-105)
[2023-02-12] MEDS: NAPROXEN 375 MG TABLET PO (23:10)
[2023-02-13] VITALS: PULSE 76
[2023-02-13 04:00] VITALS: PULSE 68
[2023-02-13 04:09] VITALS: BP 138/70; PULSE 74; RESP 16; TEMP 36.4; O2SAT 95
[2023-02-13 05:45] LABS: Basophils Absolute Auto 0.1 K/mm3 (0.0-0.1); Basophils Percent Auto 1.1 % (0.2-1.2); Eosinophils Absolute Auto 0.5 K/mm3 (0-0.3); Eosinophils Percent Auto 8.5 % (0-4.4); Hematocrit 47.7 % (42.0-52.0); Hemoglobin 16.2 g/dL (14.0-18.0); Immature Granulocyte Absolute 0.01 K/mm3 (0.00-0.031); Immature Granulocyte Percent A 0.2 % (0-0.5); Lymphocytes Absolute Auto 1.53 K/mm3 (0.9-3.2); Lymphocytes Percent Auto 27.1 % (18.3-44.2); Mean Corpuscular Hemoglobin 33.2 pg (26-34); Mean Corpuscular Volume 97.7 fl (80-100); Mean Platelet Volume 9.5 fl (7.4-10.4); Monocytes Absolute Auto 0.7 K/mm3 (0.1-0.6); Monocytes Percent Auto 13.1 % (2.6-8.5); Neutrophils Absolute Auto 2.8 K/mm3 (1.3-6.7); Platelet Count Result 168 k/mm3 (150-375); Red Blood Count 4.88 M/mm3 (4.6-6.20); Red Cell Distribution Width 12.4 % (11.5-14.5); White Blood Count 5.6 K/mm3 (4.5-10.0)
[2023-02-13 05:57] LABS: Alanine Aminotransferase 37 U/L (6-50); Albumin Level 3.8 g/dL (3.5-5.1); Alkaline Phosphatase 46 U/L (38-126); Anion Gap 9 mmol/L (8-16); Aspartate Amino Transferase 27 U/L (17-59); Bilirubin,Total 0.6 mg/dL (0.2-1.3); Blood Urea Nitrogen 26 mg/dL (9-20); Calcium 8.4 mg/dL (8.4-10.2); Carbon Dioxide 26 mmol/L (22-30); Chloride 102 mmol/L (98-107); Estimated CRCL calculation 59 ml/min; Estimated Glomerular Filt Rate > 60; Glucose 101 mg/dL (65-110); Sodium 137 mmol/L (137-145)
[2023-02-13 08:00] VITALS: PULSE 71
[2023-02-13 08:19] LABS: Glucose Point of Care 127 mg/dl (65-105)
[2023-02-13] MEDS: CHOLECALCIFEROL 1,000 UNITS TABLET 1000 UNITS PO (08:40)
[2023-02-13] MEDS: ROSUVASTATIN 20 MG TABLET 40 MG PO (08:40)
[2023-02-13] MEDS: FINASTERIDE 5 MG TABLET PO (08:40)
[2023-02-13] MEDS: metFORMIN HCL 500 MG TABLET 1000 MG PO (08:40)
[2023-02-13] MEDS: hydrALAZINE HCL 50 MG TABLET 100 MG PO ×2 (08:40→13:06)
[2023-02-13 08:41] VITALS: PULSE 68
[2023-02-13] MEDS: TAMSULOSIN HCL 0.4 MG CAPSULE 0.8 MG PO (08:41)
[2023-02-13] MEDS: carvediloL 25 MG TABLET PO (08:41)
[2023-02-13] MEDS: ASPIRIN 81 MG ENTERIC TABLET PO (08:41)
[2023-02-13] MEDS: HYDROcodone/acetaminophen (*CRX) 10-325 MG TABLET 1 TAB PO (08:45)
[2023-02-13] MEDS: DICLOFENAC SODIUM 1% 100 GM GEL (*BKC) 1 APPLIC TOPICAL ×2 (09:00→13:09)
[2023-02-13 12:41] LABS: Glucose Point of Care 92 mg/dl (65-105)
[2023-02-13 14:24] VITALS: BP 114/59; PULSE 73; RESP 14; TEMP 36.6; O2SAT 97
--- NOTE | 2023-02-13 15:21 | PM.DS ---
DS: Admitting Diagnosis Discharge Date 02/13/2023 Admitting Diagnosis Altered mental status DS: Discharge Diagnosis Discharge Diagnosis (1) Left-sided weakness: Code(s): R53.1 - Weakness Status: Acute Assessment and Plan: Intermittent, concerning for TIAs History of old infarct noted on MRI Neurology consult appreciated, unsure of etiology, suspect TIAs versus MS due to ocular involvement, will at least recommend dilated eye exam at discharge, does appear to have the triad for NPH, no signs of this on MRI, defer to Neurology for further differentials prior to discharge Echo unremarkable For secondary stroke prevention, will initiate patient on aspirin 81 mg daily and increase Crestor from 20 mg to 40 mg daily (2) Depression: Qualifiers: Depression Type: unspecified Qualified Code(s): F32.9 - Major depressive disorder, single episode, unspecified Code(s): F32.9 - Major depressive disorder, single episode, unspecified Status: Acute Assessment and Plan: Appears stable at this time, monitor (3) Insomnia: Qualifiers: Insomnia type: unspecified Qualified Code(s): G47.00 - Insomnia, unspecified Code(s): G47.00 - Insomnia, unspecified Status: Acute (4) DJD (degenerative joint disease), multiple sites: Qualifiers: Osteoarthritis type: unspecified Qualified Code(s): M15.9 - Polyosteoarthritis, unspecified Code(s): M15.9 - Polyosteoarthritis, unspecified Status: Acute (5) Pre-diabetes: Code(s): R73.03 - Prediabetes Status: Inactive Assessment and Plan: A1c 5.9 (6) Hyperlipidemia: Qualifiers: Hyperlipidemia type: mixed hyperlipidemia Qualified Code(s): E78.2 - Mixed hyperlipidemia Code(s): E78.5 - Hyperlipidemia, unspecified Status: Acute Assessment and Plan: Lipid panel checked, LDL less than 70, HDL 41, recheck in 6 months Continue Crestor 40 mg Plan DVT prophylaxis with SCDs GI prophylaxis not indicated Code status full code DS: Summary Hospital Course Hospital Course: 67-year-old male presenting with intermittent left-sided weakness over the last 6 months associated with confusional episodes, occasional urinary incontinence, blurry vision and double vision, ataxia.? He states he has had this episode a few different times and always resolves, however the severity is worsening in the frequency is increasing. Overnight, patient had another episode as is described above.? He states that was 1 of the worst once he has had.? As usual, all symptoms resolved at this time.? No chest pain or shortness of breath.? No nausea, vomiting or diarrhea.? No fevers or chills. Intermittent, concerning for TIAs History of old infarct noted on MRI Neurology consult appreciated, unsure of etiology, suspect TIAs versus MS due to ocular involvement, will at least recommend dilated eye exam at discharge, does appear to have the triad for NPH, no signs of this on MRI, defer to Neurology for further differentials prior to discharge Echo unremarkable For secondary stroke prevention, will initiate patient on aspirin 81 mg daily and increase Crestor from 20 mg to 40 mg daily Please see above and med rec for details. Time Spent with Patient Time attestation: Total time spent providing and/or coordinating discharge services: Exam Narrative: General: No acute distress, alert and oriented per baseline HEENT: Atraumatic, normocephalic, mucous membranes moist CV: Regular rate and rhythm, S1, S2 Lungs: Clear to auscultation bilaterally, no rales or crackles noted, no wheezes, good air entry Abdomen: Soft, nontender, nondistended Extremities: Normal to inspection Skin: No rashes noted, no lesions or wounds seen Psych: Euthymic, normal affect Neuro: Cranial nerves 2-12 grossly intact, strength +5/5 upper and lower extremities bilaterally DS: Data Data Complete
== END 2023-02-13 17:00 | disposition home or self-care (01) ==
LOC: ANHED 17:01 → ANH3MED 02-12 11:46
PROVIDERS: Hospitalist; Preventive Medicine Aerospace Medicine; Admitting Provider Student in an Organized Health Care Education/Training Program; Emergency Provider Emergency Medicine; PCP Internal Medicine; Visit Provider Student in an Organized Health Care Education/Training Program
DX: R53.1 Weakness (principal); F32.9 Major depressive disorder, single episode, unspecified; G47.00 Insomnia, unspecified; M15.9 Polyosteoarthritis, unspecified; E78.2 Mixed hyperlipidemia; I08.0 Rheumatic disorders of both mitral and aortic valves; Z95.2 Presence of prosthetic heart valve; F41.9 Anxiety disorder, unspecified; R59.0 Localized enlarged lymph nodes; G89.29 Other chronic pain; E11.9 Type 2 diabetes mellitus without complications; M54.50 Low back pain, unspecified; M47.812 Spondylosis without myelopathy or radiculopathy, cervical region; M25.551 Pain in right hip; M25.511 Pain in right shoulder; F03.B4 Unspecified dementia, moderate, with anxiety; R94.6 Abnormal results of thyroid function studies; R94.31 Abnormal electrocardiogram [ECG] [EKG]; E53.8 Deficiency of other specified B group vitamins; E55.9 Vitamin D deficiency, unspecified; Z86.73 Personal history of transient ischemic attack (TIA), and cerebral infarction without residual deficits; Z79.899 Other long term (current) drug therapy
CPT/HCPCS: 36415; 70450; 70496; 70498; 70553; 71045; 72156; 72157; 80053; 80061; 82607; 82746; 82948; 83036; 84443; 84484; 85025; 85610; 85730; 93005; 93306; 95816; 96372; 96375; 99285; A9270; A9577; G0378; J3420; Q9967

== ENCOUNTER 2023-04-13 12:25 | Outpatient (CLI) | payer MEDICARE, SELFPAY ==
--- NOTE | ~2023-04-13 | MR_ITS ---
MRI of the lumbar spine Clinical History: Back pain Technique: Axial T2-weighted images, and sagittal T1-weighted, T2-weighted, and and T2 fat-sat images were acquired. Findings: There is no fracture of the lumbar spine. There is minimal grade 1 retrolisthesis of L5 ove r S1. There are reactive marrow signal changes at the L3, L4, L5 vertebral bodies due to underlying d egenerative disc disease. At L1-L2, there is no significant disc bulge or herniation. There is moderate facet arthropathy. No c entral canal stenosis or definite neural foraminal narrowing. At L2-L3, there is minimal disc bulge with moderate facet arthropathy. No jade central canal stenosi s or neural foraminal narrowing. At L3-L4, there is disc bulge and moderate to advanced facet arthropathy. No jade central canal sten osis. There is mild left neural foraminal narrowing, and moderate to severe right neural foraminal na rrowing. At L4-L5, there is advanced degenerative disc disease. There is mild disc bulge with moderate to adva nced facet arthropathy. No jade central canal stenosis. There is severe left neural foraminal narrow ing, and moderate right neural foraminal narrowing. At L5-S1, there is advanced degenerative disc narrowing. There is mild disc bulge and moderate facet arthropathy. No central canal stenosis. There is mild to moderate bilateral neural foraminal narrowin g. Paravertebral soft tissues are unremarkable. Impression: Moderate degenerative spondylosis, as detailed above. Minimal grade 1 retrolisthesis of L5 over S1. Reviewed, dictated and finalized at [facility]. DAY CONSULTANT Impression: Moderate degenerative spondylosis, as detailed above. Minimal grade 1 retrolisthesis of L5 over S1.
== END 2023-04-13 12:26 ==
LOC: MICIMG 12:26
PROVIDERS: PCP Internal Medicine; Visit Provider Internal Medicine
DX: M15.9 Polyosteoarthritis, unspecified (principal); G89.29 Other chronic pain; Z98.890 Other specified postprocedural states; M54.50 Low back pain, unspecified; M47.896 Other spondylosis, lumbar region
CPT/HCPCS: 72148

== ENCOUNTER 2023-05-04 08:05 | Outpatient (CLI) | payer MEDICARE, SELFPAY ==
--- NOTE | ~2023-05-04 | CT_ITS ---
EXAMINATION: CTA chest DATE: 05/04/2023 08:40 INDICATION: Aortic root enlargement. TECHNIQUE: Computed tomographic angiography (CTA) of the chest was performed with 100 mL Omnipaque-35 0 intravenous contrast. Automated exposure control and iterative reconstruction technique were employ ed. The dose-length product was 648.04 mGy-cm. Maximum intensity projection 3D-reconstructions of the aorta and other arteries were constructed by the technologist on a separate workstation. COMPARISON: Chest CT 12/13/2020 FINDINGS: The lungs demonstrate mild atelectasis. There is a pneumatocele in right lower lobe. No ple ural effusion. There are changes of aortic valve replacement. The heart size is normal. No pericardia l effusion. The aorta measures 4.6 cm at the sinuses of Valsalva, 3.9 cm at the sinotubular junction, 3.4 cm in the mid ascending aorta, 2.9 cm at the aortic isthmus, and 2.9 cm in the mid descending ao rta. Aortic atherosclerosis is noted. There is cortical thinning of the kidneys. There are changes of anterior fusion procedure from cervical spine to T1. There is mild chronic anterior wedging of multi ple thoracic vertebral bodies. There is mild thoracic spondylosis. IMPRESSION: 1. Ectasia of the proximal aorta measuring up to 4.6 cm at the sinuses of Valsalva. Reviewed, dictated and finalized at location A. ERY CLERK IMPRESSION: 1. Ectasia of the proximal aorta measuring up to 4.6 cm at the sinuses of Valsa lva.
[2023-05-04 08:31] LABS: Estimated Glomerular Filt Rate 55
== END 2023-05-04 08:06 | disposition home or self-care (01) ==
PROVIDERS: PCP Internal Medicine; Visit Provider Internal Medicine Cardiovascular Disease
DX: I77.89 Other specified disorders of arteries and arterioles (principal)
CPT/HCPCS: 71275; Q9967

== ENCOUNTER 2023-09-25 12:34 | Outpatient (CLI) | payer MEDICARE, SELFPAY ==
--- NOTE | ~2023-09-25 | XR_ITS ---
EXAMINATION: XR chest 2V 09/25/2023 13:10 INDICATION: Back pain PROCEDURE: 2 view chest COMPARISON: No prior studies for comparison. FINDINGS: The lungs are clear. The cardiomediastinal silhouette is within normal limits. There are no pleural effusions. There is no pneumothorax suspected. Status post median sternotomy for CABG. IMPRESSION: 1: NO ACUTE CARDIOPULMONARY DISEASE. Reviewed, dictated and finalized at location B.
--- NOTE | ~2023-09-25 | XR_ITS ---
EXAMINATION: XR thoracic spine 3V DATE: 09/25/2023 13:10 INDICATION: Back pain. TECHNIQUE: 3 views of the thoracic spine including standing views were obtained. COMPARISON: None. FINDINGS: Bone alignment is normal. There is mild chronic anterior wedging of multiple vertebral bodi es. There is mildly decreased disc height at most levels. There is moderately decreased disc height a t several levels in mid thoracic spine. There are endplate osteophytes at all levels. There is multil evel mild facet joint osteoarthritis in thoracic spine There are changes of anterior fusion procedure in cervical spine. Median sternotomy wires and mediastinal surgical clips are seen, likely from prio r coronary artery bypass grafting. IMPRESSION: 1. Moderate thoracic spondylosis. Reviewed, dictated and finalized at location E.
== END 2023-09-25 12:35 ==
LOC: MICIMG 12:36
PROVIDERS: PCP Internal Medicine; Visit Provider Internal Medicine
DX: M54.9 Dorsalgia, unspecified (principal); R07.81 Pleurodynia; M47.894 Other spondylosis, thoracic region
CPT/HCPCS: 71046; 72072

== ENCOUNTER 2024-02-01 10:45 | Outpatient (CLI) | payer MEDICARE, SELFPAY ==
--- NOTE | ~2024-02-01 | XR_ITS ---
Left Knee Technique: AP, lateral, and sunrise views were obtained. Clinical History: Injury Findings: No fracture or dislocation is seen. Osseous alignment is anatomic. Mild degenerative spurri ng present.. There is prepatellar soft tissue edema/thickening. No joint effusion is seen. Impression: Prepatellar soft tissue edema/thickening. Mild degenerative spurring, especially at the patella. Reviewed, dictated and finalized at location . Impression: Prepatellar soft tissue edema/thickening. Mild degenerative spurring, especially at the patella.
== END 2024-02-01 10:46 ==
LOC: MICIMG 10:46
PROVIDERS: PCP Internal Medicine; Visit Provider Internal Medicine
DX: S89.92XA Unspecified injury of left lower leg, initial encounter (principal); X58.XXXA Exposure to other specified factors, initial encounter
CPT/HCPCS: 73564

== ENCOUNTER 2024-02-09 08:49 | Outpatient (CLI) | payer MEDICARE, SELFPAY ==
--- NOTE | ~2024-02-09 | MR_ITS ---
MRI of the left knee Clinical history: Pain Technique: Coronal proton density and proton density-weighted images, sagittal proton-density and T2 fat-sat images, and axial proton-density fat-saturated images were acquired. Findings: Anterior and posterior cruciate ligaments are intact. Medial collateral ligament and the la teral collateral ligament complex are intact. Popliteus tendon is intact. Medial and lateral menisci are intact, without evidence of tear. There is extensive moderate to high-grade chondral malacia the femoral trochlea. Articular cartilage in the medial lateral versus well-preserved. Possible focal high-grade chondral medial patellar pole. There is high-grade, probable complete rupture of the distal quadriceps tendon. There is cystic small e in the anterior mid patellar pole. Patellar tendon intact. Small to moderate joint effusion present , with [id number] Santamaria's cyst. Impression: High-grade, probable complete tear of the distal quadriceps tendon. There is surrounding soft tissue edema. Small to moderate joint effusion and small to moderate Santamaria's cyst. High-grade chondromalacia of the femoral trochlea. Reviewed, dictated and finalized at [facility]. Impression: High-grade, probable complete tear of the distal quadriceps tendon. There is martinez rrounding soft tissue edema. Small to moderate joint effusion and small to moderate Santamaria's cyst. High-grade chondromalacia of the femoral trochlea.
== END 2024-02-09 08:50 | disposition home or self-care (01) ==
LOC: MICIMG 08:50
PROVIDERS: PCP Internal Medicine; Visit Provider Internal Medicine
DX: M25.462 Effusion, left knee (principal); M71.22 Synovial cyst of popliteal space [Baker], left knee
CPT/HCPCS: 73721

== ENCOUNTER 2024-02-19 13:04 | Outpatient (CLI) | payer MEDICARE, SELFPAY ==
--- NOTE | 2024-02-19 13:36 | ECG_ITS ---
Test Date: 2024-02-19 13:45:09 Measurements Intervals [place] Rate: 78 P: 30 IN: 201 QRS: -51 QRSD: 133 T: 107 QT: 398 QTc: 455 Interpretive Statements SINUS RHYTHM BORDERLINE AV CONDUCTION DELAY LEFT BUNDLE BRANCH BLOCK BASELINE ARTIFACT- I, II, III, AVR, AVL, AVF ABNORMAL ECG No previous ECG available for comparison Electronically Signed On 02-19-2024 14:14:11 CDT by Manjit Flores D.O.
[2024-02-19 14:09] LABS: Anion Gap 13 mmol/L (4-12); Blood Urea Nitrogen 19 mg/dL (9-20); Calcium 9.6 mg/dL (8.4-10.2); Carbon Dioxide 24 mmol/L (22-30); Chloride 99 mmol/L (98-107); Estimated Glomerular Filt Rate > 60; Glucose 131 mg/dL (65-110); Potassium 4.7 mmol/L (3.4-5.0); Sodium 136 mmol/L (137-145)
== END 2024-02-19 13:05 | disposition home or self-care (01) ==
LOC: ANHSURGERY 13:09
PROVIDERS: Anesthesiology; PCP Internal Medicine; Visit Provider Orthopaedic Surgery
DX: I10 Essential (primary) hypertension (principal); E78.5 Hyperlipidemia, unspecified; R73.03 Prediabetes; Z01.818 Encounter for other preprocedural examination
CPT/HCPCS: 36415; 80048; 93005

== ENCOUNTER 2024-02-25 02:10 | Day surgery (SDC) | payer MEDICARE, SELFPAY ==
[2024-02-19 10:06] VITALS: BMI 26.4
--- NOTE | 2024-02-19 10:19 | PC.NURSE ---
Report to the Outpatient Waiting Room, entrance under the green pavilion located off [facility], at time _1130_ on date _[id number]_. Planned Procedure Time: _130pm_.? Time changes happen often and if your time is changed the preop area will call you the afternoon before. - You and your visitor will be asked to self-screen and do not enter if you have any COVID symptoms. Please call surgeon if you need to reschedule. - A mask is optional within the hospital at this time. Patients may have clear liquids (water, carbonated beverages, clear teas, apple juice) until 3 hours prior to surgery with a maximum of 20 ounces. - No food from midnight until time of surgery and no smoking Take only the following medications with a SIP of water on the morning of surgery: ____Amlodipine, Carvidilol, Hydralazine, and if needed Alprazolam and or Hydrocodone. DO NOT STOP ANY OF YOUR OTHER PRESCRIPTION MEDICATIONS PRIOR TO SURGERY EXCEPT THE FOLLOWING Medications to discontinue per physician ____Brian says he's stopping his Clopidogrel and Diclofenac 5 days before surgery. Please no make-up, nail kinyarwanda, hairspray, perfume, deodorant, or body powder the day of surgery.? No jewelry (including any body piercings) or valuables the day of surgery, leave them at home.? Please take a shower or bath the night before, or the morning of, surgery with an antibacterial soap.? Wear comfortable, loose fitting clothing.? - Jewelry must be removed prior to entering the operating room.? Rings and piercings that are not removed may be cut off. - The hospital will not accept responsibility for valuables.? - Please leave all valuables, including medications, at home the day of surgery. If you are going home after surgery, a licensed mobile lounge driver or operator must drive you home.? - NO public transportation without another adult if you receive anesthesia. - We recommend that an adult stay with you for 24 hours following discharge. - We also recommend that you do not drive, make important decision, drink alcoholic beverages, or take any drugs that were not prescribed by your health care provider for at least 24 hours after your discharge time. Follow any additional instructions given to you from your surgeon. Telephone instructions given to _Miguel_and asked if any additional questions and then verbalized understanding. Patient advised to call surgeon office or pre surgery nurse liaison [phone] if any additional questions.
[2024-02-25] VITALS (15 sets, daily range): BP systolic 157–187; BP diastolic 68–90; PULSE 74–108; RESP 14–20; TEMP 36.3–37.3; O2SAT 94–99
[2024-02-25] MEDS: ACETAMINOPHEN 500 MG TABLET 1000 MG PO (11:45)
[2024-02-25] MEDS: LACTATED RINGERS 1,000 ML 30 ML IV CONT (11:55)
[2024-02-25] MEDS: KETOROLAC 15 MG/ML VIAL (*BKC) IV PUSH (11:57)
--- NOTE | 2024-02-25 12:11 | WPDHPUPDATE1 ---
History and Physical Update Update Date/Time: 02/25/24 12:11 History and Physical has been reviewed, including an updated exam of the patient. There are NO changes in the patient's condition. Risks, benefits, and alternatives have been discussed and questions answered. Patient agrees to proceed with procedure.
--- NOTE | 2024-02-25 12:20 | WPDANESEPPF ---
Anes - Initial Pre Proc Eval Procedure: Operation Date: 02/25/24 13:30 Proposed Procedures p Left Quadriceps Tendon Repair - Trung Paulino MD Date/Time: 02/25/24 12:20 Surgeon: Trung Paulino MD Pre Op Diagnosis: Lt Quadricep Tendon Rupture Patient Data Age: 68 Gender: M Height: 1.85 m Weight: 90.9 kg Allergies Allergy/AdvReac Type Severity Reaction Status Date / Time No Known Allergies Allergy Verified 02/19/24 09:59 Home Medications Medication Instructions Recorded Confirmed Type cholecalciferol (vitamin D3) 25 25 mcg PO DAILY 09/11/20 02/19/24 History mcg (1,000 unit) capsule Easy Touch SheathLock Syrg-Ndl 3 #100 ea 07/24/21 02/19/24 Rx mL 21 gauge x 1 1/2 (syringe with needle, safety) syringe with needle 3 mL 21 gauge #20 ea 04/17/22 02/19/24 Rx x 1 1/2 cyanocobalamin (vitamin B-12) 1,000 mcg IM MONTHLY 02/10/23 02/19/24 History 1,000 mcg/mL injection solution aspirin 81 mg capsule 81 mg PO DAILY 1 month #30 caps 02/12/23 02/19/24 Rx rosuvastatin 10 mg tablet 10 mg PO DAILY #30 tabs 04/15/23 02/19/24 Rx nitroglycerin 0.4 mg sublingual 0.4 mg sublingual Q5-15M PRN Chest 07/27/23 02/19/24 Rx tablet Pain #25 tabs diclofenac sodium 75 mg 75 mg PO BID PRN pain #60 tabs 09/23/23 02/19/24 Rx tablet,delayed release baclofen 10 mg tablet 10 mg PO TID PRN muscle spasm #90 10/19/23 02/19/24 Rx tabs syringe with needle 3 mL 21 gauge #100 ea 10/30/23 02/19/24 Rx x 1 (BD Luer-Haley Syringe) tamsulosin 0.4 mg capsule See Rx Instructions .Route 10/30/23 02/19/24 Rx .COMPLEX #180 caps testosterone cypionate 200 mg/mL 200 mg IM .q 2 weeks #10 mL 10/30/23 02/19/24 Rx intramuscular oil finasteride 5 mg tablet See Rx Instructions .Route 11/04/23 02/19/24 Rx .COMPLEX #90 tabs hydralazine 100 mg tablet See Rx Instructions .Route 12/25/23 02/19/24 Rx .COMPLEX #270 tabs metformin 1,000 mg tablet 1,000 mg PO BID #180 tabs 01/11/24 02/19/24 Rx sildenafil (pulm.hypertension) 20 See Rx Instructions .Route 01/11/24 02/19/24 Rx mg tablet .COMPLEX PRN Erectile Dysfunction #30 tabs carvedilol 25 mg tablet 25 mg PO Q12H #180 tabs 01/25/24 02/19/24 Rx dextroamphetamine-amphetamine 20 20 mg PO BID #60 tabs 01/25/24 02/19/24 Rx mg tablet (Adderall) alprazolam 1 mg tablet 1.5 mg PO TID PRN anxiety #135 tabs 01/28/24 02/19/24 Rx azelastine 205.5 mcg (0.15 %) 1 spray intranasal QHS #30 mL 02/01/24 02/19/24 Rx nasal spray amoxicillin 500 mg capsule See Rx Instructions .Route 02/15/24 02/19/24 Rx .COMPLEX PRN dental prophylaxis #6 caps trazodone 50 mg tablet See Rx Instructions PO HS PRN 02/16/24 02/19/24 Rx Insomnia #60 tabs hydrocodone 10 mg-acetaminophen 1 tablet PO Q6H PRN pain #90 tabs 02/19/24 Rx 325 mg tablet amlodipine 5 mg tablet See Rx Instructions .Route 02/22/24 Rx .COMPLEX #90 tabs clopidogrel 75 mg tablet See Rx Instructions .Route 02/22/24 Rx .COMPLEX #90 tabs Patient hx anesthesia problems: none Family hx anesthesia problems: none Results Review: All pre-operative results and documents have been reviewed as part of the pre-operative evaluation. [facility] Past Medical History Medical History Abnormal finding of blood chemistry Abnormal thyroid function test ADD (attention deficit disorder) ADD (attention deficit disorder) Amaurosis fugax Anxiety with depression Aortic valve disease BMI 24.0-24.9, adult BMI 25.0-25.9,adult BMI 26.0-26.9,adult BMI 27.0-27.9,adult BMI 28.0-28.9,adult BMI 29.0-29.9,adult BMI 30.0-30.9,adult Borderline abnormal TFTs Chronic low back pain Chronic right hip pain Chronic right shoulder pain Cognitive dysfunction Colon cancer screening Congestion of right ear Depression DJD (degenerative joint disease), multiple sites DM w/o complication type II Dysuria Encounter for Medicare annual wellness exam Encounter for routine adult h
[2024-02-25] MEDS: ceFAZolin 2 GM/D5W 50 ML 2 GM/50 ML BAG IVPB (12:37)
--- NOTE | 2024-02-25 12:49 | SUR.PREOP ---
1230-Dr. Paulino made aware pt was ask prior to Acetaminophen dose if he had taken any Acetaminophen/Tylenol products today and he responded no and was given scheduled dose, then prior to going to OR, states he took Hydrocodone at 1000.
[2024-02-25] MEDS: VANCOMYCIN HCL 1,000 MG VIAL 1000 MG TOPICAL (13:23)
[2024-02-25] MEDS: BUPIVACAINE/EPINEPHRINE 0.5% 10 ML VIAL 20 ML INFILTRATE (13:24)
[2024-02-25 14:07] LABS: Glucose Point of Care 140 mg/dl (65-105)
[2024-02-25] MEDS: fentaNYL CITRATE INJ (*CRX) 100 MCG/2 ML VIAL 25 MCG IV PUSH ×8 (14:39→15:21)
--- NOTE | 2024-02-25 16:17 | ADMGEN ---
This patient, Brian Bland , was admitted to Medical Room 248-. Patient/family oriented to hospital policies and general routines including ID bracelet, bed and alarms, visiting hours, pain management, procedures, bathroom and other care routines, personal items, smoking policy, room service/diet, and visiting hours. Information on how to activate the Rapid Response Team has been discussed. Patient/Family are encouraged to report perceived risks to care and to ask questions if they do not understand what they are told or what they should do.
--- NOTE | 2024-02-25 16:28 | W.PM.PROC2 ---
Procedure Note - Detailed Date of Procedure 02/25/24 Pre-op Diagnosis Lt Quadricep Tendon Rupture Post-op Diagnosis Same Procedure Performed Quadriceps tendon repair, left knee Surgeon Trung Paulino MD Screen Printing Stencil Preparer Carmen Cortes PA-C Anesthesia General Indications Subacute quadriceps tendon rupture. Findings Complete rupture through the central tendon. Moderate retraction. Good tendon quality remaining for repair. Three bone tunnel repair with 2 Krackow sutures woven through the tendon. Anatomic repair without undue tension. Supplemented with 0 Vicryl suture. Description of Procedure General anesthetic application development specialist. Preoperative antibiotics given. General anesthetic administered. The limb was prepped and draped in the usual sterile fashion. A well-padded tourniquet placed high on the thigh. The limb was exsanguinated and the tourniquet inflated to 300 mmHg during the procedure. A longitudinal incision was centered over the center of the patella and quadriceps tendon. The healed scarred tendon was opened. The retracted tendon edge was debrided gently. The attachment site on the patella was obvious and debrided in preparation for repair. A Krackow stitch was woven into the tendon medially proximal and then distal. A 2nd suture was used laterally in the tendon. Three bone tunnels were drilled proximal to distal through the patella. The sutures were passed into the tunnels and tied over the bony bridge under the patella tendon distally. The repair was anatomic without undue tension. Good coaptation of the tendon on bone was confirmed. The peritenon tissue was oversewn with 0 Vicryl suture covering the defect very nicely. The wound was copiously irrigated with saline periodically. Tourniquet was released and meticulous hemostasis obtained. 1 g of vancomycin powder was placed along the suture line and the wound. The wound was closed with interrupted 2-0 Vicryl suture, 2-0 Stratafix and 3-0 Stratafix. Steri-Strips placed on the skin. Mepilex dressing with a light compressive wrap and knee immobilizer. Physician hospital clinic assistant, Carmen Cortes PA-C, required for surgery; including patient positioning, draping, tissue retraction, maintaining instrument position, suture passage, wound closure, and dressing placement. Estimated Blood Loss 20 Drains No Pathology None sent Complications No immediate complications Condition Stable Disposition PACU [facility] Billing Surgery - Charge Forward: Surgery Billing
[2024-02-25] MEDS: oxyCODONE/ACETAMINOPHEN (*CRX) 10-325 MG TABLET 1 TAB PO ×2 (16:32→20:50)
[2024-02-25] MEDS: SENNA/DOCUSATE SODIUM TABLET 2 TAB PO (16:32)
[2024-02-25] MEDS: metFORMIN HCL 500 MG TABLET 1000 MG PO (16:32)
[2024-02-25] MEDS: hydrALAZINE HCL 50 MG TABLET PO ×2 (16:32→22:49)
--- NOTE | 2024-02-25 18:19 | PC.NURSE ---
Attempted to reach Dr. Paulino in regards to patient requesting home dose of adderall tonight. Patient worried about not being able to sleep without it. Left a voicemail at 1820.
[2024-02-25] MEDS: carvediloL 25 MG TABLET PO (20:49)
[2024-02-25] MEDS: ASPIRIN 81 MG ENTERIC TABLET PO (20:49)
[2024-02-25] MEDS: ALPRAZolam (*CRX) 0.5 MG TABLET 1 MG PO (21:39)
[2024-02-25] MEDS: AZELASTINE HCL NASAL 0.1% 137 MCG/SPR 30 ML BTL 1 SPRAY NASAL (22:08)
[2024-02-25] MEDS: ALPRAZolam (*CRX) 0.5 MG TABLET 1.5 MG PO (22:09)
[2024-02-25] MEDS: traZODone HCL 50 MG TABLET 100 MG PO (22:50)
[2024-02-26 01:15] VITALS: BP 153/68; PULSE 84; RESP 16; TEMP 36.6; O2SAT 94
[2024-02-26] MEDS: oxyCODONE/ACETAMINOPHEN (*CRX) 10-325 MG TABLET 1 TAB PO ×2 (02:22→09:16)
[2024-02-26 05:03] VITALS: BP 174/83; PULSE 79; RESP 16; TEMP 37.1; O2SAT 96
[2024-02-26 05:39] LABS: Basophils Percent Auto 0.3 % (0.2-1.2); Eosinophils Absolute Auto 0.1 K/mm3 (0-0.3); Eosinophils Percent Auto 0.8 % (0-4.4); Hematocrit 46.1 % (42.0-52.0); Hemoglobin 15.7 g/dL (14.0-18.0); Immature Granulocyte Absolute 0.04 K/mm3 (0.00-0.031); Immature Granulocyte Percent A 0.3 % (0-0.5); Lymphocytes Absolute Auto 1.09 K/mm3 (0.9-3.2); Lymphocytes Percent Auto 9.1 % (18.3-44.2); Mean Corpuscular HGB Conc 34.1 g/dl (32-36); Mean Corpuscular Hemoglobin 32.1 pg (26-34); Mean Corpuscular Volume 94.3 fl (80-100); Mean Platelet Volume 9.3 fl (7.4-10.4); Monocytes Absolute Auto 1.8 K/mm3 (0.1-0.6); Monocytes Percent Auto 14.8 % (2.6-8.5); Neutrophils Absolute Auto 8.9 K/mm3 (1.3-6.7); Neutrophils Percent Auto 74.7 % (45.5-73.1); Platelet Count Result 186 k/mm3 (150-375); Red Blood Count 4.89 M/mm3 (4.6-6.20); Red Cell Distribution Width 13.1 % (11.5-14.5); White Blood Count 11.9 K/mm3 (4.5-10.0)
[2024-02-26 05:50] LABS: Anion Gap 9 mmol/L (4-12); Blood Urea Nitrogen 23 mg/dL (9-20); Calcium 8.7 mg/dL (8.4-10.2); Carbon Dioxide 26 mmol/L (22-30); Chloride 99 mmol/L (98-107); Estimated CRCL calculation 65 ml/min; Estimated Glomerular Filt Rate > 60; Glucose 96 mg/dL (65-110); Potassium 4.1 mmol/L (3.4-5.0); Sodium 134 mmol/L (137-145)
--- NOTE | 2024-02-26 08:06 | PM.DS ---
DS: Admitting Diagnosis Discharge Date 02/26/24 Admitting Diagnosis Quad tendon rupture. DS: Discharge Diagnosis Discharge Diagnosis (1) Rupture of left quadriceps tendon: Qualifiers: Encounter type: initial encounter Qualified Code(s): S76.112A - Strain of left quadriceps muscle, fascia and tendon, initial encounter Code(s): S76.112A - Strain of left quadriceps muscle, fascia and tendon, initial encounter Status: Acute Assessment and Plan: Postop day 1: Left quadriceps tendon repair. Patient tolerated procedure well. No complications. Pain manageable with pain medication. No numbness or tingling. We had a lengthy discussion regarding postoperative wound care, limitations, expectations, and exercises. Patient shows good understanding. He has had initial physical therapy and is tolerating it well. No bending the knee. DVT prophylaxis: Continue Plavix and ASA. Pain medication: Percocet. May resume home meds. Patient has followup appointment with Dr. Paulino in 2 weeks. DS: Summary Hospital Course Reason for hospitalization: Total knee arthroplasty Hospital Course: Patient tolerated procedure well. Has had initial PT/OT. No complications. Pain well managed. Status at Discharge Functional status at discharge: uses cane/walker Overall status at discharge: patient is progressing back to baseline Time Spent with Patient Time attestation: Total time spent providing and/or coordinating discharge services: Exam Narrative: Normal weight Male. Resting comfortably in bed. Wearing knee immobilizer. No acute distress. A&O x3. Dressing intact with no drainage. Mild swelling. Small area of ecchymosis. No erythema. No hematoma. Calf nontender. Neurologic status intact. No varicosities. Distal pulses palpable. DS: Data Data Completed and Pending Labs on day of discharge: Labs from last 24 hours 02/26/24 02/25/24 05:20 14:06 WBC 11.9 H RBC 4.89 Hgb 15.7 Hct 46.1 MCV 94.3 MCH 32.1 MCHC 34.1 RDW 13.1 Plt Count 186 MPV 9.3 Immature Gran % (Auto) 0.3 Neut % (Auto) 74.7 H Lymph % (Auto) 9.1 L Gaston % (Auto) 14.8 H Eos % (Auto) 0.8 Baso % (Auto) 0.3 Lymph # (Auto) 1.09 Gaston # (Auto) 1.8 H Eos # (Auto) 0.1 Baso # (Auto) 0.0 Abs Immat Gran (auto) 0.04 H Absolute Neuts (auto) 8.9 H Absolute Nucleated RBC 0.000 Nucleated RBC % 0.0 Sodium 134 L Potassium 4.1 Chloride 99 Carbon Dioxide 26 Anion Gap 9 BUN 23 H Creatinine 1.10 Estim Creat Clear Calc 65 Estimated GFR > 60 Glucose 96 POC Capillary Glucose 140 H Calcium 8.7 Discharge Plan Discharge Patient Disposition: Home, Self-Care Discharge Instructions: See green instruction sheets Stand Alone Forms: General Discharge Instructions Discharge Medications: New oxycodone-acetaminophen 5-325 mg tablet 1 - 2 tablet PO Q4-6H PRN (Reason: pain) 7 Days Qty: 30 0RF Continued azelastine 205.5 mcg (0.15 %) spray,non-aerosol 1 spray intranasal QHS Qty: 30 1RF Rx Instructions: administer into each nostril cholecalciferol (vitamin D3) 25 mcg (1,000 unit) capsule 25 mcg PO DAILY Hold Instructions: .Provider Order tamsulosin 0.4 mg capsule See Rx Instructions .ROUTE .COMPLEX Qty: 180 0RF Dose Instruction: TAKE 2 CAPSULES BY MOUTH DAILY Rx Instructions: TAKE 2 CAPSULES BY MOUTH DAILY (DME) BD Luer-Haley Syringe 3 mL 21 gauge x 1 syringe See Rx Instructions .Route Qty: 100 0RF Rx Instructions: As directed testosterone cypionate 200 mg/mL oil 200 mg IM .q 2 weeks Qty: 10 0RF Rx Instructions: as a single dose cyanocobalamin (vitamin B-12) 1,000 mcg/mL Solution 1,000 mcg IM MONTHLY aspirin 81 mg capsule 81 mg PO DAILY 30 Days Qty: 30 0RF amlodipine 5 mg tablet 5 mg PO DAILY clopidogrel 75 mg tablet 75 mg PO DAILY Rx Inst
[2024-02-26] MEDS: ASPIRIN 81 MG ENTERIC TABLET PO (09:11)
[2024-02-26 09:13] VITALS: PULSE 80
[2024-02-26] MEDS: CLOPIDOGREL BISULFATE 75 MG TABLET PO (09:13)
[2024-02-26] MEDS: carvediloL 25 MG TABLET PO (09:13)
[2024-02-26] MEDS: hydrALAZINE HCL 50 MG TABLET PO (09:14)
[2024-02-26] MEDS: SENNA/DOCUSATE SODIUM TABLET 2 TAB PO (09:14)
[2024-02-26] MEDS: amLODIPine BESYLATE 5 MG TABLET PO (09:14)
[2024-02-26] MEDS: FINASTERIDE 5 MG TABLET PO (09:14)
[2024-02-26 09:15] VITALS: BP 177/77; PULSE 95; RESP 16; TEMP 37.2; O2SAT 96
[2024-02-26] MEDS: ROSUVASTATIN 10 MG TABLET PO (09:15)
[2024-02-26] MEDS: TAMSULOSIN HCL 0.4 MG CAPSULE 0.8 MG PO (09:15)
[2024-02-26] MEDS: metFORMIN HCL 500 MG TABLET 1000 MG PO (09:16)
== END 2024-02-26 11:20 | disposition home or self-care (01) ==
LOC: ANHSURGERY 12:06 → ANH2MED 15:35
PROVIDERS: Physician Assistant Surgical; PCP Internal Medicine; Visit Provider Orthopaedic Surgery
PROC: (CPT 27385; principal; 2024-02-25 13:30)
DX: S76.112A Strain of left quadriceps muscle, fascia and tendon, initial encounter (principal); E11.9 Type 2 diabetes mellitus without complications; I10 Essential (primary) hypertension; E78.5 Hyperlipidemia, unspecified; E67.3 Hypervitaminosis D; G47.00 Insomnia, unspecified; E53.8 Deficiency of other specified B group vitamins; F41.8 Other specified anxiety disorders; F98.8 Other specified behavioral and emotional disorders with onset usually occurring in childhood and adolescence; I35.9 Nonrheumatic aortic valve disorder, unspecified; G89.29 Other chronic pain; M54.50 Low back pain, unspecified; M25.551 Pain in right hip; M25.511 Pain in right shoulder; Z79.82 Long term (current) use of aspirin; Z79.84 Long term (current) use of oral hypoglycemic drugs; Z79.891 Long term (current) use of opiate analgesic; Z79.02 Long term (current) use of antithrombotics/antiplatelets; Z98.890 Other specified postprocedural states; Z96.653 Presence of artificial knee joint, bilateral; Z96.643 Presence of artificial hip joint, bilateral; Z95.2 Presence of prosthetic heart valve; Z86.010 Personal history of colon polyps; W01.0XXA Fall on same level from slipping, tripping and stumbling without subsequent striking against object, initial encounter
CPT/HCPCS: 27385; 36415; 80048; 82948; 85025; A9270; J0690; J1100; J1170; J1885; J2250; J2405; J2704; J3010; J3370; J7120

== ENCOUNTER 2024-03-11 12:24 | Outpatient (CLI) | payer MEDICARE, SELFPAY ==
--- NOTE | ~2024-03-11 | XR_ITS ---
EXAMINATION: XR knee LT 3V DATE: 03/11/2024 13:01 INDICATION: Left knee quadriceps tendon repair. TECHNIQUE: 3 views of left knee standing were obtained. COMPARISON: Left knee radiographs 02/01/24 FINDINGS: Alignment is normal. No fracture. There is mild tricompartmental osteoarthritis. No knee leana int effusion. There is anterior soft tissue swelling. IMPRESSION: 1. Mild left knee osteoarthritis. Reviewed, dictated and finalized at location A.
== END 2024-03-11 12:25 | disposition home or self-care (01) ==
PROVIDERS: PCP Internal Medicine; Visit Provider Orthopaedic Surgery
DX: S76.112A Strain of left quadriceps muscle, fascia and tendon, initial encounter (principal); Z47.89 Encounter for other orthopedic aftercare; X58.XXXA Exposure to other specified factors, initial encounter; M17.12 Unilateral primary osteoarthritis, left knee
CPT/HCPCS: 73562

== ENCOUNTER 2024-09-23 12:29 | Outpatient (CLI) | payer MEDICARE, SELFPAY ==
--- NOTE | ~2024-09-23 | CT_ITS ---
Clinical Indication: Abnormal weight loss CT Scan of the Chest, Abdomen, and Pelvis with Contrast: Technique: Contiguous sections were acquired throughout the chest, abdomen, and pelvis after intraven ous administration of 100 cc of Omnipaque 350. Dose reduction technique was used on this scan by uti zairaing automated exposure control and iterative reconstruction technique. The dose-length product (DL P) was 1005.17 mGy-cm. Comparison: 05/04/2023 Findings: There are mildly enlarged hilar and mediastinal lymph nodes. Largest node at the right paratracheal s tripe/precarinal region measures 15 mm in short axis. Ascending aorta measures 4.5 cm in diameter. No aortic dissection. No pericardial effusion. Minimal right pleural effusion present. No left pleural effusion. Possible minimal bibasilar interstitial edema. No suspicious pulmonary nodule or consolidation seen. The liver, spleen, pancreas, gallbladder, adrenals and kidneys are within normal limits. There are atherosclerotic calcifications of the aorta. No lymphadenopathy. No bowel obstruction or bowel wall thickening. There is no evidence to suggest acute appendicitis. Pelvic images are degraded by streak artifact from bilateral hip arthroplasty. Urinary bladder grossl y unremarkable. No definite pelvic mass seen. No definite ascites seen. Impression: Mild mediastinal/hilar lymphadenopathy, nonspecific. Correlate for reactive/inflammatory nodes, sarco id, versus any possibility of neoplastic disease. Probable minimal residual edema and minimal right pleural effusion. 4.5 cm ascending aortic aneurysm. No significant abnormality seen in the abdomen or pelvis. Reviewed, dictated and finalized at [facility]. Impression: Mild mediastinal/hilar lymphadenopathy, nonspecific. Correlate for reactive/inf lammatory nodes, sarcoid, versus any possibility of neoplastic disease. Probable minimal residual edema and minimal right pleural effusion. 4.5 cm ascending aortic aneurysm. No significant abnormality seen in the abdomen or pelvis.
--- NOTE | ~2024-09-23 | US_ITS ---
EXAMINATION: US carotid duplex BI DATE: 09/23/2024 13:26 INDICATION: Transient cerebral ischemic attack TECHNIQUE: Grayscale, color Doppler, and pulsed Doppler images of the cervical carotid arteries were obtained. The degree of vessel stenosis is placed in one of the following categories: normal, <50%, 5 0-69%, >=70% but less than near-occlusion, near-occlusion, or total occlusion. Note that percent sten osis relative to normal distal artery lumen diameter is indirectly measured from velocity measurement s as described by Cristofer, et al. Radiology 2003; 229:340-346. Notes: Normal: Peak systolic velocity <125 centimeters/sec and no plaque <50%. Peak systolic velocity <125 ( EDV <40; ICA/CCA PSV ratio <2.0; used these factors only a tandem lesions or low cardiac output or co ntralateral disease) 50-69 %: PSV 125-230 (EDV 40-100; ratio 2-4) >= 70% but less than near occlusion: PSV greater than 230 (EDV > 100; ratio> 4.0) Near Occlusion: PSV that is variable; markedly narrowed lumen Occlusion: Absent flow on color/spectral Doppler and no lumen on souza scale. COMPARISON: None. FINDINGS: RIGHT: The right common carotid artery (CCA) peak systolic velocity (PSV) is 139 cm/s. The right internal ca rotid artery (ICA) PSV is 127 cm/s. The right ICA end-diastolic velocity (EDV) is cm/s. The right ICA /CCA PSV ratio is 9. The external carotid artery (ECA) PSV is 0.9 cm/s. There is antegrade flow in th e right vertebral artery. LEFT: The left CCA PSV is 116 cm/s. The left ICA PSV is 91 cm/s. The left ICA EDV is 9 cm/s. The left ICA/C CA PSV ratio is 0.8. The ECA PSV is 117 cm/s. There is antegrade flow in the left vertebral artery. IMPRESSION: 1. 50-69% stenosis in the right internal carotid artery by sonographic criteria. 2. Less than 50% stenosis in the left internal carotid artery by sonographic criteria. Reviewed, dictated and finalized at location B. IMPRESSION: 1. 50-69% stenosis in the right internal carotid artery by sonographic criteria . 2. Less than 50% stenosis in the left internal carotid artery by sonographic cr iteria.
--- OUTSIDE RECORDS SUMMARY | 2024-09-23 12:33 | XMS_ITS | Encounter Summary ---
Author Organization [facility] Health Address [address] [place] [address] Care Team Providers Care Nursing Faculty Name Role Phone Harry Malagon MD Primary Care Provider [phone] Harry Malagon MD Primary Care Provider Harry Malagon MD Unavailable [phone] Sarita Fuller RN Unavailable [phone] Kristel Gonzalez LCSW Unavailable [phone] Encounter Details Date Type Department Care Team (Late st Contact Info) Description 10/20/2014 [facility] Outpatient Visit [facility] [address] [place] [address] Rony Ibanez F, DO [address] [place] [address] Social History Tobacco Use Types Packs/Day Years Used Date Smoking Tobacco: Never Alcohol Use Standard Drinks/Week Comments Not Asked 0 (1 standard drink = 0.6 oz pur e alcohol) Sex and Gender Information Value Date Recorded Sex Assigned at Not on file Legal Sex Male 2:45 PM CDT Gender Identity Not on file Sexual Orientation Not on file documented as of this encounter Plan of Treatment Not on file documented as of this encounter Visit Diagnoses Not on filedocumented in this encounter Care Teams Nursing Faculty Relationship Specialty Start Date End Date Harry Malagon MD [address] [place] [address] PCP - General Internal Medicine 09/14/14 01/06/21 Harry Malagon MD [address] [place] [address] PCP - General 01/07/21 Harry Malagon MD [address] [place] [id number] Internal Medicine 01/07/21 Sarita Fuller, RN Treatment Supervisor 11/15/14 Kristel Gonzalez, [facility] Upper Leather Sorter 11/17/14 documented as of this encounter
--- OUTSIDE RECORDS SUMMARY | 2024-09-23 12:33 | XMS_ITS | Clinical Summary ---
Author Organization [facility] Address [address] [place] [address] Care Team Providers Care Post Anesthesia Nurse Name Role Phone Harry Malagon MD Primary Care Provider [phone] Harry Malagon MD Unavailable Sarita Fuller RN Unavailable [phone] Kristel GonzalezW Unavailable [phone] Source Comments [facility],non-owned Affiliates and Associated Physician Practices is amultiple site organization consisting of ambulatory clinics and hospital sitesin [place] and [place]. This disclosure is being madepursuant to the Care Everywhere program and may not contain all information available regarding this patient. Last updated 18.[facility] Allergies Active Allergy Reactions Criticality Noted Date Comments Celecoxib Other 11/18/[address] Luna - impaired renal function Nsaids Other 11/18/[address] Luna - impaired renal function Medications * Be aware that medications may not be up to date on this document. Alwaysverify current medications with the patient. ALPRAZolam (XANAX) 2 MG tablet Take 2 mg by mouth 3 times daily as needed for Anxiety Active tiZANidine (ZANAFLEX) 4 MG tablet Take 4 mg by mouth every 8 hours as needed for Muscle Spasms Active pravastatin (PRAVACHOL) 80 MG tablet Take 80 mg by mouth at bedtime Active zolpidem (AMBIEN) 10 MG tablet Take 10 mg by mouth at bedtime Active testosterone cypionate (DEPO-TESTOTERO NE) 200 MG/ML injection Inject 50 mg into muscle every 14 days Active oxyCODONE CR 12hr (OXYCONTIN) 20 MG tablet Take 1 Tab by mouth every 12 hours 12/02/19 15 Active oxyCODONE-aceta minophen (PERCOCET) 10-325 MG tablet Take 2 Tabs by mouth every 6 hours as needed 12/02/19 15 Active acetaminophen (TYLENOL) 325 MG tablet Take 2 Tabs by mouth every 4 hours as needed Maximum allowable Acetaminophen amount = 4 Grams (4000 mg) / 24 hours. 12/02/19 15 Active enoxaparin (LOVENOX) injection Inject 40 mg subcutaneously once daily 12/02/19 15 Active carvedilol (COREG) 3.125 MG tablet Take 1 Tab by mouth 2 times daily after meals 12/02/19 15 Active hydrocortisone (HYTONE) 1 % cream Apply to affected area 3 times daily 12/02/19 15 Active bisACODYL (DULCOLAX) 10 MG suppository Insert 1 Suppository into the rectum once daily as needed for Constipation 12/02/19 15 Active polyethylene glycol 3350 (MIRALAX) packet Take 17 g by mouth once daily 12/02/19 15 Active senna-docusate (SENOKOT-S) 8.6-50 MG tablet Take 1 Tab by mouth 2 times daily 12/02/19 15 Active finasteride (PROSCAR) 5 MG tablet Take 1 Tab by mouth once daily 12/02/19 15 Active tamsulosin CR 24hr (FLOMAX) 0.4 MG capsule Take 2 Caps by mouth every evening Take 30 minutes after a meal at the same time each day. 12/02/19 15 Active famotidine (PEPCID) 20 MG tablet Take 1 Tab by mouth once daily as needed for Heartburn (for heartburn unrelieved by gaviscon) 12/02/19 15 Active vitamin D, ergocalciferol, (DRISDOL) 79771 UNITS capsule Take 1 Cap by mouth every 30 days 12/02/19 15 Active Other meds may be adjusted per renal function 12/02/19 15 Active oxyCODONE CR 12hr (OXYCONTIN) 20 MG tablet Take 1 Tab by mouth every 12 hours 30 Tab 0 12/02/19 15 Active oxyCODONE-aceta minophen (PERCOCET) 10-325 MG tablet Take 1 Tab by mouth every 4 hours as needed for Pain 120 Tab 0 12/02/19 15 Active Active Problems Problem Noted Date Diagnosed Date Status post hip surgery 11/15/2014 Family History Medical History Relation Name Comments Cancer - Other Other kidney Diabetes Other Emphysema Other High Blood Pressure Other Kidney Disease Other Relation Name Status Comments Other Social History Tobacco Use Types Packs/Day Years Used Date Smoking Tobacco: Never Alcohol Use Standard Drinks/Week Comments No 0 (1 standard drink = 0.6 oz pur e alcohol) Sex and Gender Information Value Date Recorded Sex Assigned at Not on file Legal Sex Male 2:45 PM CDT Gender Identity Not on file Sexual Orientation Not on file Last Filed Vital Signs Vital Sign Reading Time Taken Comments Blood Pressure 115/70 12/01/2014 5:17 PM CDT Pulse 95 12/01/2014 5:17 PM CDT Temperature 36.7 C (98 F) 12/01/2014 5:17 PM CDT Respiratory Rate 16 12/01/2014 5:17 PM CDT Oxygen Saturation 97% 12/01/2014 5:17 PM CDT Inhaled Oxygen Concentration - - Weight 98 kg (216 lb) 11/27/2014 11:00 AM CDT Height 185.4 cm (6' 1 ) 11/27/2014 11:00 AM CDT Body Mass Index 28.5 11/27/2014 11:00 AM CDT Plan of Treatment Health Maintenance Due Date Last Done Comments COLOGUARD (AGES 45-75) - COL ON CA SCREENING 1956 COLON MONITORING 1956 COLONOSCOPY - COLON CA SCREENING 1956 CT COLONOGRAPHY - COLON CA SCREENING 1956 Colorectal Cancer Screening 1956 FIT - COLON CA SCREENING 1956 FLEX SIG - COLON CA SCREENING 1956 HEPATITIS C SCREENING 06/19/1974 DTAP/TDAP/TD VACCINES (1 - Tdap) 1975 PNEUMOCOCCAL VACCINE 50+ (1 of 1 - PCV) 2006 ZOSTER VACCINE (1 of 2) 2006 COVID-19 VACCINE ( - 2023-2 5 season) 2024 DEPRESSION SCREENING 06/08/2024 MEDICARE AWV CALENDAR YEAR 2024 INFLUENZA VACCINE (Season Ended) 2025 Respiratory Syncytial Virus (RSV) Vaccine Pt: or over 60 yrs (1 - 1-dose 75+ series) 2031 HEPATITIS B VACCINE Aged Out No longe r eligible based on patient's age to complete this topic HIB VACCINE Aged Out No longer eligi ble based on patient's age to complete this topic HPV VACCINE Aged Out No longer eligi ble based on patient's age to complete this topic MENINGOCOCCAL (Group B) VACC INE SHARED DECISION-MAKING Aged Out No longer eligibl e based on patient's age to complete this topic MENINGOCOCCAL GROUPS A/C/Y/W VACCINE Aged Out No longer eligible b ased on patient's age to complete this topic Medical Devices Implanted Type Area Census Enumerator Device Identifier Shelf Expiration Date Model / Serial / Lot Cortes Bone Davis-G Hv 40/20 Implanted:Qty: 4 on 11/15/2014 by Rony Ibanez, DO at [facility] Left: Hip [employer] 11/07/2015 [id number] / / [id number] Cortes Bone Davis-G Hv 40/20 Implanted:Qty: 1 on 11/15/2014 by Rony Ibanez, DO at [facility] Left: Hip [employer] Inc 05/08/2016 [id number] / / [id number] Cbl Accord Troch W/Clmp 2.0mm Implanted:Qty: 1 on 11/15/2014 by Rony Ibanez, DO at [facility] Left: Hip [employer]es [employer] Nephew Trauma 11/06/2025 [id number] / / [id number] Cbl Accord Troch W/Clmp 2.0mm Implanted:Qty: 1 on 11/15/2014 by Rony Ibanez, DO at [facility] Left: Hip [employer] Nephew Trauma 03/08/2024 [id number] / / [id number] Cbl Accord Troch W/Clmp 2.0mm Implanted:Qty: 1 on 11/15/2014 by Rony Ibanez, DO at [facility] Left: Hip [employer] Nephew Trauma 07/09/2021 [id number] / / [id number] Cbl Accord Troch W/Clmp 2.0mm Implanted:Qty: 1 on 11/15/2014 by Rony Ibanez DO at [facility] Left: Hip [employer] Nephew Trauma 02/07/2024 [id number] / / [id number] Cbl Accord Ss W/Clmp 2.0mm Implanted:Qty: 1 on 11/15/2014 by Rony Ibanez DO at [facility] Left: Hip [employer]hew [employer]opaedics 01/07/2024 [id number] / / [id number] Explanted Type Area Census Enumerator Device Identifier Shelf Expiration Date Model / Serial / Lot Cbl Accord Troch Polisher Dial Std 125mm Explanted:Qty: 1 on 11/15/2014 at [facility] Left: Hip [employer] Nephew Trauma 07/09/2020 [id number] / / [id number] Insurance MANAGED MEDICARE ADV MANAGED MEDICARE ADV Advance Directives * Full Code (Latest Code Status on File) Date Activated Date Inactivated Comments 11/19/2014 11:47 AM 12/01/2014 7:05 PM Care Teams Post Anesthesia Nurse Relationship Specialty Start Date End Date Harry Malagon MD [address] [facility] [address] [facility] [address] [place] [id number] PCP - General 01/07/21 Harry Malagon MD [address] [place] [address] Internal Medicine 01/07/21 Sarita Fuller, RN Foundry Equipment Mechanic 11/15/14 Kristel Gonzalez, BUTT PRESSER Retort Condenser Attendant 11/17/14
--- OUTSIDE RECORDS SUMMARY | 2024-09-23 12:33 | XMS_ITS | Encounter Summary ---
Author Organization [facility] Health Address [address] [place] [address] Care Team Providers Care Fish Farm Laborer Name Role Phone Harry Malagon MD Primary Care Provider [phone] Harry Malagon MD Primary Care Provider [phone] Harry Malagon MD Unavailable [phone] Sarita Fuller RN Unavailable [phone] Kristel Gonzalez LCSW Unavailable [phone] Encounter Details Date Type Department Care Team (Late st Contact Info) Description 10/20/2014 [facility] Outpatient Visit [facility] [address] [place] [address] Rony Ibanez F, DO [address] [place] [address] Social History Tobacco Use Types [...] on filedocumented in this encounter Care Teams Fish Farm Laborer Relationship Specialty Start Date End Date Harry Malagon MD [address] [place] [address] PCP - General Internal Medicine 09/14/14 01/06/21 Harry Malagon MD [address] [place] [address] PCP - General 01/07/21 Harry Malagon MD [address] [place] [address] Internal Medicine 01/07/21 Sarita Fuller, RN Compressor Station Engineer 11/15/14 Kristel Gonzalez, [facility] Crew Leader Gluing 11/17/14 documented as of this encounter
--- OUTSIDE RECORDS SUMMARY | 2024-09-23 12:33 | XMS_ITS | Clinical Summary ---
Author Organization [facility] Address [address] [facility] [facility] Attn: Epic Prelude ADT ELLIE AVALOS MARYAN [address] Care Team Providers Care Hub Cutter Apprentice Name Role Phone Unavailable Primary Care Provider Unavailabl e Social History Tobacco Use Types Packs/Day Years Used Date Smoking Tobacco: Never Assessed Sex and Gender Information Value Date Recorded Sex Assigned at Not on file Legal Sex Male 2:58 AM PRIVATE EYE Gender Identity Not on file Sexual Orientation Not on file Plan of Treatment Health Maintenance Due Date Last Done Comments DTAP/TDAP/TD VACCINES (1 - Tdap) 1975 COLORECTAL SCREENING 2001 Colorectal Cancer Screening 2001 FIT-DNA Q 3 years 2001 FIT/FOBT Q 1 year 2001 Flex Sig/CT Colonography Q 5 years 2001 PNEUMOCOCCAL VACCINE 50+ YEARS (1 of 1 - PCV) 06/23/19 07 ZOSTER VACCINE (1 of 2) 2006 INFLUENZA VACCINE (#1) 2024 RSV VACCINE (60+ or ) (1 - 1-dose 75+ series) 2031
--- OUTSIDE RECORDS SUMMARY | 2024-09-23 12:35 | XMS_ITS | Encounter Summary ---
Author Organization [facility] Health Address [address] [place] [place] [address] Care Team Providers Care Manager Cath Lab Name Role Phone Harry Malagon MD Primary Care Provider [phone] Harry Malagon MD Primary Care Provider [phone] Harry Malagon MD Unavailable [phone] Sarita Fuller RN Unavailable [phone] Kristel GonzalezW Unavailable [phone] Encounter Details Date Type Department Care Team (Late st Contact Info) Description 11/20/2014 [facility] Outpatient Visit [facility] [address] [place] [address] Rony Ibanez F, DO [address] [place] [address] Social History Tobacco Use Types [...] on file documented as of this encounter Functional Status * Is person deaf or have serious hearing difficulty? Answer Date of Assessment Author No 11/15/2014 8:00 PM CDT Ella Barlow RN * Is person blind or have serious difficulty seeing? Answer Date of Assessment Author No 11/15/2014 8:00 PM Ella Locke RN * Does person have serious difficulty walking/climbing stairs? Answer Date of Assessment Author No 11/15/2014 8:00 PM Ella Locke RN * Does person have difficulty dressing/bathing? Answer Date of Assessment Author No 11/15/2014 8:00 PM Ella Locke RN * Does person have difficulty doing errands alone? Answer Date of Assessment Author No 11/15/2014 8:00 PM Ella Locke RN documented as of this encounter Mental Status * Does person have difficulty concentrating/remembering/making decisions? Answer Entry Date Author No 11/15/2014 8:00 PM Ella Locke RN documented in this encounter Plan of Treatment Not on file documented as of this encounter Visit Diagnoses Not on filedocumented in this encounter Care Teams Manager Cath Lab Relationship Specialty Start Date End Date Harry Malagon MD [address] [place] [address] PCP - General Internal Medicine 09/14/14 01/06/21 Harry Malagon MD [address] [address] PCP - General 01/07/21 Harry Malagon MD [address] [place] [address] Internal Medicine 01/07/21 Sarita Fuller RN Well Services Operator 11/15/14 Kristel Gonzalez, [facility] Residential Sales Manager 11/17/14 documented as of this encounter
--- OUTSIDE RECORDS SUMMARY | 2024-09-23 12:35 | XMS_ITS | CONTINUITY OF CARE DOCUMENT ---
Author Name janel islas Address Unknown Organization [facility] Address [address] [place] [address] Phone [phone] Care Team Providers Care Windows Admin Name Role Phone Tavares TAPIA, Kevin Unavailable [phone] INSURANCE PROVIDERS Payer name Policy type / Coverage type [place] red constitution party ID [facility] MEDICARE COMPLETE POS HMO Other [id number]
[2024-09-23 13:49] LABS: Estimated Glomerular Filt Rate 47
== END 2024-09-23 12:30 | disposition home or self-care (01) ==
PROVIDERS: PCP Internal Medicine; Visit Provider Internal Medicine
DX: R63.4 Abnormal weight loss (principal); G45.9 Transient cerebral ischemic attack, unspecified; I71.40 Abdominal aortic aneurysm, without rupture, unspecified
CPT/HCPCS: 71260; 74177; 93880; Q9967

== ENCOUNTER 2024-10-12 13:29 | Outpatient (CLI) | payer MEDICARE, SELFPAY ==
--- NOTE | ~2024-10-12 | CT_ITS ---
CT ANGIOGRAM NECK History: Abnormal ultrasound. Technique: Serial spiral axial images through the neck were obtained during arterial phase IV injecti on of 100 cc of Omnipaque 350. 3-D postprocessing and MIP images were then reconstructed on the [employer] workstation. Dose reduction technique was used on this scan by utilizing automated exposure control and iterative reconstruction technique. The dose-length product (DLP) was 549.18 mGy-cm. Correlation made with carotid duplex ultrasound dated 09/23/2024. Findings: Bilateral vertebral arteries are patent. Right vertebral artery terminates as the right PI CA, normal variant. Left common carotid, internal carotid, and external carotid arteries are patent. There is focal calci fied plaque at the origin of the left internal carotid artery without stenosis. Right common carotid, internal carotid, and external carotid arteries are patent. There is calcified plaque at the origin of the right internal carotid artery, with probable focal 50-60% stenosis. The p roximal right internal carotid artery demonstrates 50-60% stenosis relative to the normal distal shanique ry lumen diameter. The proximal left internal carotid artery demonstrates 0% stenosis relative to the normal distal artery lumen diameter. There are partially imaged probable moderate bilateral pleural effusions. There are partially imaged focal ground glass opacities most notably left upper lobe, which could reflect focal areas of pulmona ry edema versus pneumonitis. Impression: Calcified plaque at the origin of the right internal carotid artery with probable focal 50-60% stenos is. Moderate bilateral pleural effusions with probable patchy pulmonary edema. Correlate clinically for p neumonia. Reviewed, dictated and finalized at [facility]. Impression: Calcified plaque at the origin of the right internal carotid artery with probab le focal 50-60% stenosis. Moderate bilateral pleural effusions with probable patchy pulmonary edema. Cristin elate clinically for pneumonia.
--- OUTSIDE RECORDS SUMMARY | 2024-10-12 13:42 | XMS_ITS | Clinical Summary ---
Author Organization [facility] Address [address] [facility] [place] [address] Care Team Providers Care Microsoft Developer Name Role Phone Harry Malagon MD Primary Care Provider [phone] Harry Malagon MD Unavailable [phone] Sarita Fuller RN Unavailable [phone] Kristel GonzalezW Unavailable [phone] Source Comments [facility],non-owned Affiliates and Associated Physician Practices is amultiple site organization consisting of ambulatory clinics and hospital sitesin [place], [place], [place] and [place]. This disclosure is being madepursuant to the Care Everywhere program and may not contain all information available regarding this patient. Last updated 18.[facility] Allergies Active Allergy Reactions Criticality [...] 12/02/19 15 Active vitamin D, ergocalciferol, (DRISDOL) 46442 UNITS capsule Take 1 Cap by mouth [...] 2023-2 5 season) 2024 DEPRESSION SCREENING 06/08/2024 INFLUENZA VACCINE (Season Ended) 2025 Respiratory Syncytial [...] this topic Medical Devices Implanted Type Area Power Plant Operator Apprentice Device Identifier Shelf Expiration Date Model / Serial / Lot Cortes Bone [place]-G Hv 40/20 Implanted:Qty: 4 on 11/15/2014 by Rony Ibanez, DO at [facility] Left: Hip [employer] 11/07/2015 [id number] / / [id number] Cortes Bone [place]-G Hv 40/20 Implanted:Qty: 1 on 11/15/2014 by Rony Ibanez, DO at [facility] Left: Hip [employer] 05/08/2016 [id number] / / [id number] Cbl Accord Troch W/Clmp 2.0mm Implanted:Qty: 1 on 11/15/2014 by Rony Ibanez, DO at [facility] Left: Hip [employer] Nephew Tra[employer] 11/06/2025 [id number] / / [id number] Cbl Accord Troch W/Clmp 2.0mm Implanted:Qty: 1 on 11/15/2014 by Rony Ibanez, DO at [facility] Left: Hip [employer]hew Trauma 03/08/2024 [id number] / / [id number] Cbl Accord Troch W/Clmp 2.0mm Implanted:Qty: 1 on 11/15/2014 by Rony Ibanez, DO at [facility] Left: Hip [employer]hew Trauma 07/09/2021 [id number] / / [id number] Cbl Accord Troch W/Clmp 2.0mm Implanted:Qty: 1 on 11/15/2014 by Rony Ibanez DO at [facility] Left: Hip [employer] Nephew Trauma 02/07/2024 [id number] / / [id number] Cbl Accord Ss W/Clmp 2.0mm Implanted:Qty: 1 on 11/15/2014 by Rony Ibanez DO at [facility] Left: Hip [employer] 01/07/2024 [id number] / / [id number] Explanted Type Area Power Plant Operator Apprentice Device Identifier Shelf Expiration Date Model / Serial / Lot Cbl Accord Troch Orchard Worker Std 125mm Explanted:Qty: 1 on 11/15/2014 at [facility] Left: Hip [employer] Nephew Trauma 07/09/2020 [id number] / / [id number] Insurance MANAGED MEDICARE ADV MANAGED MEDICARE ADV Advance Directives * Full Code (Latest Code Status on File) Date Activated Date Inactivated Comments 11/19/2014 11:47 AM 12/01/2014 7:05 PM Care Teams Microsoft Developer Relationship Specialty Start Date End Date Harry Malagon MD [address] [facility] [address] [place] [address] PCP - General 01/07/21 Harry Malagon MD [address] [place] [address] Internal Medicine 01/07/21 Sarita Fuller, RN Data Recovery Planner 11/15/14 Kristel Gonzalez, TOOL MECHANIC Watch Dial Stoner 11/17/14
--- OUTSIDE RECORDS SUMMARY | 2024-10-12 13:42 | XMS_ITS | Encounter Summary ---
Author Organization [facility] Health Address [address] [place] [address] Care Team Providers Care Slider Assembler Name Role Phone Harry Malagon MD Primary Care Provider [phone] Harry Malagon MD Primary Care Provider [phone] Harry Malagon MD Unavailable [phone] Sarita Fuller RN Unavailable [phone] Kristel Gonzalez LCSW Unavailable [phone] Encounter Details Date Type Department Care Team (Late st Contact Info) Description 10/20/2014 [facility] Outpatient Visit [facility] [address] [place] [address] Rony Ibanez F, DO [address] [place] [address] Social History Tobacco Use Types [...] on filedocumented in this encounter Care Teams Slider Assembler Relationship Specialty Start Date End Date Harry Malagon MD [address] [place] [address] PCP - General Internal Medicine 09/14/14 01/06/21 Harry Malagon MD [address] [place] [address] PCP - General 01/07/21 Harry Malagon MD [address] [place] [address] Internal Medicine 01/07/21 Sarita Fuller, RN Gill Box Tender 11/15/14 Kristel Gonzalez, [facility] Director Labor Standards 11/17/14 documented as of this encounter
--- OUTSIDE RECORDS SUMMARY | 2024-10-12 13:42 | XMS_ITS | Encounter Summary ---
Author Organization [facility] Health Address [address] [place] [address] Care Team Providers Care Furnace Process Plant Operator Name Role Phone Harry Malagon MD Primary Care Provider [phone] Harry Malagon MD Primary Care Provider [phone] Harry Malagon MD Unavailable [phone] Sarita Fuller RN Unavailable [phone] Kristel GonzalezW Unavailable Encounter Details Date Type Department Care Team (Late st Contact Info) Description 11/20/2014 [facility] Outpatient Visit [facility] [address] [place] [address] Rony Ibanez F, DO [address] [place] [address] Social History Tobacco Use Types [...] on filedocumented in this encounter Care Teams Furnace Process Plant Operator Relationship Specialty Start Date End Date Harry Malagon MD [address] [place] [address] PCP - General Internal Medicine 09/14/14 01/06/21 Harry Malagon MD [address] [address] PCP - General 01/07/21 Harry Malagon MD [address] [place] [address] Internal Medicine 01/07/21 Sarita Fuller RN Junior Accountant 11/15/14 Kristel Gonzalez, [facility] Supervisor Calibration 11/17/14 documented as of this encounter
--- OUTSIDE RECORDS SUMMARY | 2024-10-12 13:42 | XMS_ITS | Encounter Summary ---
Author Organization [facility] Health Address [address] [facility] [place] [address] Care Team Providers Care Hybrid Powertrain Development Engineer Name Role Phone Harry Malagon MD Primary Care Provider [phone] Harry Malagon MD Primary Care Provider [phone] Harry Malagon MD Unavailable [phone] Sarita Fuller RN Unavailable [phone] Kristel Gonzalez LCSW Unavailable [phone] Encounter Details Date Type Department Care Team (Late st Contact Info) Description 10/20/2014 [facility] Outpatient Visit [facility] [address] [place] [address] Rony Ibanez F, DO [address] [place] [address] Social History Tobacco Use Types [...] on filedocumented in this encounter Care Teams Hybrid Powertrain Development Engineer Relationship Specialty Start Date End Date Harry Malagon MD [address] [place] [address] PCP - General Internal Medicine 09/14/14 01/06/21 Harry Malagon MD [address] [place] [address] PCP - General 01/07/21 Harry Malagon MD [address] [place] [address] Internal Medicine 01/07/21 Sarita Fuller, RN Bridge Instructor 11/15/14 Kristel Gonzalez, [facility] SA[facility] Dressmaking Teacher 11/17/14 documented as of this encounter
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
--- OUTSIDE RECORDS SUMMARY | 2024-10-12 13:42 | XMS_ITS | Clinical Summary ---
Author Organization [facility] Address [address] [facility] Attn: Epic Prelude ADT ELLIE AVALOS MARYAN [address] Care Team Providers Care Insurance Customer Service Specialist Name Role Phone Unavailable Primary Care Provider Unavailabl e Social History Tobacco Use Types Packs/Day Years Used Date Smoking Tobacco: Never Assessed Sex and Gender Information Value Date Recorded Sex Assigned at Not on file Legal Sex Male 2:58 AM STRIPER MACHINE Gender Identity Not on file Sexual Orientation [...]
== END 2024-10-12 13:30 | disposition home or self-care (01) ==
PROVIDERS: PCP Internal Medicine; Visit Provider Internal Medicine
DX: E78.2 Mixed hyperlipidemia (principal); I35.9 Nonrheumatic aortic valve disorder, unspecified; I71.21 Aneurysm of the ascending aorta, without rupture; R93.89 Abnormal findings on diagnostic imaging of other specified body structures; J90 Pleural effusion, not elsewhere classified
CPT/HCPCS: 70498; Q9967

== ENCOUNTER 2024-11-08 12:53 | Outpatient (CLI) | payer MEDICARE, SELFPAY ==
--- NOTE | ~2024-11-08 | XR_ITS ---
XR chest 2V 11/08/2024 13:47 Indication: Cough Procedure: 2 view chest Comparison: 09/25/2023 Findings: Status post median sternotomy for CABG. Cardiomegaly. Right basilar airspace disease may re present atelectasis or pneumonia. Small right pleural effusion. No pneumothorax. No acute osseous abn ormality. Impression: 1: Right basilar airspace disease may represent atelectasis or pneumonia. 2: Small right pleural effusion. Reviewed, dictated and finalized at location A. Impression: 1: Right basilar airspace disease may represent atelectasis or pneumonia. 2: Small right pleural effusion.
--- NOTE | ~2024-11-08 | XR_ITS ---
XR abdomen/kub 1V 11/08/2024 13:47 INDICATION: Abdomen pain TECHNIQUE: KUB COMPARISON: None FINDINGS: Bowel gas pattern is normal. There is no evidence of free air, mass, organomegaly, ascites or obstruction. No abnormal calculi are seen. The bones appear intact. There are bilateral total h ip arthroplasties. There is right basilar airspace consolidation which may represent atelectasis or p neumonia. IMPRESSION: 1: No acute abdominal abnormality identified. 2: Right basilar airspace consolidation which may represent atelectasis or pneumonia. Recommend waleska elation with chest x-ray. Reviewed, dictated and finalized at location A. IMPRESSION: 1: No acute abdominal abnormality identified. 2: Right basilar airspace consolidation which may represent atelectasis or pne umonia. Recommend correlation with chest x-ray.
--- OUTSIDE RECORDS SUMMARY | 2024-11-08 13:04 | XMS_ITS | Clinical Summary ---
Author Organization [facility] Address [address] [place] [address] Phone Care Team Providers Care Curtain Roller Assembler Name Role Phone Harry Malagon MD [...] on file Legal Sex Male 2:00 AM RESEARCH CONSULTANT Gender Identity Not on file Sexual Orientation Not on file Obstetrics History Last Filed Vital Signs Vital Sign Reading Time Taken Comments Blood Pressure 146/68 03/14/2024 1:28 PM CDT Pulse 83 03/14/2024 1:28 PM CDT Temperature 36.7 C (98 F) 04/21/2023 8:22 AM RESEARCH CONSULTANT Respiratory Rate 16 04/21/2023 8:22 AM RESEARCH CONSULTANT Oxygen Saturation 97% 03/14/2024 1:28 PM CDT Inhaled Oxygen Concentration - - Weight 90.3 kg (199 lb 1.9 oz) 03/14/2024 1:28 P M CDT Height 184.2 cm (6' 0.5) 03/14/2024 1:28 PM CDT Body Mass Index [...] Completed 07/08/2016 Medical Devices Implanted Type Area Abrasive Grinder Device Identifier Shelf Expiration Date Model / Serial / Lot [employer] Device Closure Vascade Od5 Fr Femoral Artery [id number] - [id number] Implanted:Qty: 1 on 04/21/2023 by Shan Chamorro MD at [facility] [employer] 02/04/2025 700-500DX-0 5U / / [id number] Procedures Procedure Name Priority Date/Time Associated Diagnosis Comments SERUM HEPATITIS PANEL Routine 07/08/2016 10:26 AM RESEARCH CONSULTANT from Last 3 Months or Most Recently Relevant to Health Maintenance Results * Serum Hepatitis panel (07/08/2016 10:26 AM RESEARCH CONSULTANT) HAV ab, IgM Nonreactive CDR HISTORICAL RESULTS [...] RNA Detection and Quantitation by Real-Time Reverse Shot Hole Shooter-PCR (RT-PCR). Current interpretive data was last revised on 2016. HBV surface ag Nonreactive CDR HISTORICAL RESULTS Serum 07/08/2016 10:2 6 AM RESEARCH CONSULTANT us Historical Provider LAB BLOOD ORDERABLES Latrice kuhn Result CDR HISTORICAL RESULTS from Last 3 Months or Most Recently Relevant to Health Maintenance Insurance [id number] MDCR HMO REF [facility] Address: [address] [address] [place] [address] MEDICARE ADVANTAGE [facility] Address: [address] [address] [place] [address] Advance Directives For more information, please contact: [phone] * Full Code (Latest Code Status on File) Date Activated Date Inactivated Comments 04/21/2023 1:20 PM 04/21/2023 8:17 PM Care Teams Curtain Roller Assembler Relationship Specialty Start Date End Date Harry Malagon MD [address] [place] [id number] PCP - General 09/26/16
--- OUTSIDE RECORDS SUMMARY | 2024-11-08 13:04 | XMS_ITS | CONTINUITY OF CARE DOCUMENT ---
Author Name janel islas Address Unknown Organization [facility] Address [address] [facility] [address] [place] [address] Phone [phone] Care Team Providers Care Lifeguard Name Role Phone Tavares TAPIA, Kevin Unavailable INSURANCE PROVIDERS Payer name Policy type / Coverage type [place] red libertarian ID [facility] MEDICARE COMPLETE POS HMO Other [id number]
--- OUTSIDE RECORDS SUMMARY | 2024-11-08 13:04 | XMS_ITS | Referral Summary ---
Author Organization [facility] Address [address] [place] [address] Phone Care Team Providers Care Microstrategy Architect Name Role Phone Harry Malagon MD Primary Care Provider [phone] Allergies Active Allergy Reactions Criticality Noted Date [...] on file Legal Sex Male 2:00 AM VIDEO GAME PROGRAMMER Gender Identity Not on file Sexual Orientation Not on file Last Filed Vital Signs Vital Sign Reading Time Taken Comments Blood Pressure 146/68 03/14/2024 1:28 PM CDT Pulse 83 03/14/2024 1:28 PM CDT Temperature 36.7 C (98 F) 04/21/2023 8:22 AM VIDEO GAME PROGRAMMER Respiratory Rate 16 04/21/2023 8:22 AM VIDEO GAME PROGRAMMER Oxygen Saturation 97% 03/14/2024 1:28 PM CDT Inhaled Oxygen Concentration - - Weight 90.3 kg (199 lb 1.9 oz) 03/14/2024 1:28 P M CDT Height 184.2 cm (6' 0.5) 03/14/2024 1:28 PM CDT Body Mass Index 26.63 03/14/2024 1:28 PM CDT Plan of Treatment Not on file Medical Devices Implanted Type Area Instructional Technology Coach Device Identifier Shelf Expiration Date Model / Serial / Lot [employer] Device Closure Vascade Od5 Fr Femoral Artery [id number] - [id number] Implanted:Qty: 1 on 04/21/2023 by Shan Chamorro MD at [facility] [email or web address] [facility] 02/04/2025 700-500DX-0 5U / / [id number] Procedures Procedure Name Priority Date/Time Associated Diagnosis Comments SERUM HEPATITIS PANEL Routine 07/08/2016 10:26 AM VIDEO GAME PROGRAMMER from Last 3 Months or Most Recently Relevant to Health Maintenance Results * Serum Hepatitis panel (07/08/2016 10:26 AM VIDEO GAME PROGRAMMER) HAV ab, IgM Nonreactive CDR HISTORICAL RESULTS [...] RNA Detection and Quantitation by Real-Time Reverse Medieval English Literature Professor-PCR (RT-PCR). Current interpretive data was last revised on 2016. HBV surface ag Nonreactive CDR HISTORICAL RESULTS Serum 07/08/2016 10:2 6 AM VIDEO GAME PROGRAMMER us Historical Provider LAB BLOOD ORDERABLES Latrice kuhn Result CDR HISTORICAL RESULTS from Last 3 Months or Most Recently Relevant to Health Maintenance Insurance [facility]CR HMO REF [facility] Address: [facility] [address] [place] [address] [id number] MEDIC[facility] ADVANTAGE Advance Directives For more information, please contact: [phone] * Full Code (Latest Code Status on File) Date Activated Date Inactivated Comments 04/21/2023 1:20 PM 04/21/2023 8:17 PM Care Teams Microstrategy Architect Relationship Specialty Start Date End Date Harry Malagon MD [address] [place] [address] PCP - General 09/26/16
--- OUTSIDE RECORDS SUMMARY | 2024-11-08 13:04 | XMS_ITS | Encounter Summary ---
Author Organization [facility] Health Address [address] [address] Care Team Providers Care Beaming Machine Operator Name Role Phone Harry Malagon MD Primary Care Provider [phone] Harry Malagon MD Primary Care Provider [phone] Harry Malagon MD Unavailable [phone] Sarita Fuller RN Unavailable [phone] Kristel Gonzalez LCSW Unavailable [phone] Encounter Details Date Type Department Care Team (Late st Contact Info) Description 10/20/2014 [facility] Outpatient Visit [facility] [address] [place] [address] Rony Ibanez F, DO [address] [place] [address] Social History Tobacco Use Types [...] on filedocumented in this encounter Care Teams Beaming Machine Operator Relationship Specialty Start Date End Date Harry Malagon MD [address] [place] [address] PCP - General Internal Medicine 09/14/14 01/06/21 Harry Malagon MD [address] [place] [address] PCP - General 01/07/21 Harry Malagon MD [address] [place] [address] Internal Medicine 01/07/21 Sarita Fuller, RN Fur Coat Sewer 11/15/14 Kristel Gonzalez, [facility] Groundhand 11/17/14 documented as of this encounter
--- OUTSIDE RECORDS SUMMARY | 2024-11-08 13:04 | XMS_ITS | Encounter Summary ---
Author Organization [facility] Health Address [address] [place] [address] Care Team Providers Care Booster Pump Operator Name Role Phone Harry Malagon MD Primary Care Provider [phone] Harry Malagon MD Primary Care Provider [phone] Harry Malagon MD Unavailable [phone] Sarita Fuller RN Unavailable [phone] Kristel GonzalezW Unavailable [phone] Encounter Details Date Type Department Care Team (Late st Contact Info) Description 11/20/2014 [facility] Outpatient Visit [facility] [address] [place] [address] Rony Ibanez F, DO [address] [place] [address] Social History Tobacco Use Types [...] on filedocumented in this encounter Care Teams Booster Pump Operator Relationship Specialty Start Date End Date Harry Malagon MD [address] [place] [address] PCP - General Internal Medicine 09/14/14 01/06/21 Harry Malagon MD [address] [address] PCP - General 01/07/21 Harry Malagon MD [address] [place] [address] Internal Medicine 01/07/21 Sarita Fuller RN Glassware Maker 11/15/14 Kristel Gonzalez, [facility] Web Assistant 11/17/14 documented as of this encounter
--- OUTSIDE RECORDS SUMMARY | 2024-11-08 13:04 | XMS_ITS | Clinical Summary ---
Author Organization [employer] Address [address] [facility] Attn: Epic Prelude ADT ELLIE AVALOS [place]ARYAN [address] Care Team Providers Care Signal Worker Helper Name Role Phone Unavailable Primary Care Provider Unavailabl e Social History Tobacco Use Types Packs/Day Years Used Date Smoking Tobacco: Never Assessed Sex and Gender Information Value Date Recorded Sex Assigned at Not on file Legal Sex Male 2:58 AM DRY HEAT CABINET ATTENDANT Gender Identity Not on file Sexual Orientation [...]
--- OUTSIDE RECORDS SUMMARY | 2024-11-08 13:04 | XMS_ITS | Clinical Summary ---
Author Organization [facility] Address [address] [place] [address] Care Team Providers Care Reinstatement Clerk Name Role Phone Harry Malagon MD Primary Care Provider [phone] Harry Malagon MD Unavailable [phone] Sarita Fuller RN Unavailable [phone] Kristel GonzalezW Unavailable [phone] Source Comments [facility],non-owned Affiliates and Associated Physician Practices is amultiple site organization consisting of ambulatory clinics and hospital sitesin [place], [place], [place] and [place]. This disclosure is being madepursuant to the Care Everywhere program and may not contain all information available regarding this patient. Last updated 18.[facility] Allergies Active Allergy Reactions Criticality Noted Date [...] 12/02/19 15 Active vitamin D, ergocalciferol, (DRISDOL) 98167 UNITS capsule Take 1 Cap by mouth [...] 11:00 AM CDT Height 185.4 cm (6' 1) 11/27/2014 11:00 AM CDT Body Mass Index [...] this topic Medical Devices Implanted Type Area Heater Furnace Device Identifier Shelf Expiration Date Model / Serial / Lot Cortes Bone Walden-G Hv 40/20 Implanted:Qty: 4 on 11/15/2014 by Rony Ibanez, DO at [facility] Left: Hip Biomet Inc 11/07/2015 [id number] / / [id number] Cortes Bone Walden-G Hv 40/20 Implanted:Qty: 1 on 11/15/2014 by Rony Ibanez, DO at [facility] Left: Hip [employer]omet Inc 05/08/2016 [id number] / / [id number] Cbl Accord Troch W/Clmp 2.0mm Implanted:Qty: 1 on 11/15/2014 by Rony Ibanez, DO at [facility] Left: Hip Cortes & Nephew Trauma 11/06/2025 [id number] / / [id number] Cbl Accord Troch W/Clmp 2.0mm Implanted:Qty: 1 on 11/15/2014 by Rony Ibanez, DO at [facility] Left: Hip Cortes & Nephew Trauma 03/08/2024 [id number] / / [id number] Cbl Accord Troch W/Clmp 2.0mm Implanted:Qty: 1 on 11/15/2014 by Rony Ibanez, DO at [facility] Left: Hip Cortes & Nephew Trauma 07/09/2021 [id number] / / [id number] Cbl Accord Troch W/Clmp 2.0mm Implanted:Qty: 1 on 11/15/2014 by Rony Ibanez DO at [facility] Left: Hip Cortes & Nephew Trauma 02/07/2024 [id number] / / [id number] Cbl Accord Ss W/Clmp 2.0mm Implanted:Qty: 1 on 11/15/2014 by Rony Ibanez DO at [facility] Left: Hip Cortes & Nephew Orthopaedics 01/07/2024 [id number] / / [id number] Explanted Type Area Heater Furnace Device Identifier Shelf Expiration Date Model / Serial / Lot Cbl Accord Troch Bladder Trimmer Std 125mm Explanted:Qty: 1 on 11/15/2014 at [facility] Left: Hip Cortes & Nephew Trauma 07/09/2020 [id number] / / [id number] Insurance MANAGED MEDICARE ADV MANAGED MEDICARE ADV Advance Directives * Full Code (Latest Code Status on File) Date Activated Date Inactivated Comments 11/19/2014 11:47 AM 12/01/2014 7:05 PM Care Teams Reinstatement Clerk Relationship Specialty Start Date End Date Harry Malagon MD [address] [facility] [address] [place] [address] PCP - General 01/07/21 Harry Malagon MD [address] [place] [address] Internal Medicine 01/07/21 Sarita Fuller, RN Warehouse Supervisor 11/15/14 Kristel Gonzalez, CLINICAL INFORMATICS STRATEGIST Faith Healer 11/17/14
--- OUTSIDE RECORDS SUMMARY | 2024-11-08 13:04 | XMS_ITS | Encounter Summary ---
Author Organization [facility] Health Address [address] [place] [address] Care Team Providers Care Guest Specialist Name Role Phone Harry Malagon MD Primary Care Provider [phone] Harry Malagon MD Primary Care Provider [phone] Harry Malagon MD Unavailable [phone] Sarita Fuller RN Unavailable [phone] Kristel Gonzalez LCSW Unavailable [phone] Encounter Details Date Type Department Care Team (Late st Contact Info) Description 10/20/2014 [facility] Outpatient Visit [facility] Orthopedics [address] [place] [address] Rony Ibanez F, DO [address] [place] [address] Social History Tobacco Use Types [...] on filedocumented in this encounter Care Teams Guest Specialist Relationship Specialty Start Date End Date Harry Malagon MD [address] [place] [address] PCP - General Internal Medicine 09/14/14 01/06/21 Harry Malagon MD [address] [place] [address] PCP - General 01/07/21 Harry Malagon MD [address] [place] [address] Internal Medicine 01/07/21 Sarita Fuller, RN Insulation Cutter And Former 11/15/14 Kristel Gonzalez, [facility] Metal Mover 11/17/14 documented as of this encounter
[2024-11-08 13:39] LABS: Basophils Absolute Auto 0.1 K/mm3 (0.0-0.1); Basophils Percent Auto 0.9 % (0.2-1.2); Eosinophils Absolute Auto 0.4 K/mm3 (0-0.3); Eosinophils Percent Auto 6.3 % (0-4.4); Hematocrit 46.9 % (42.0-52.0); Hemoglobin 16.4 g/dL (14.0-18.0); Immature Granulocyte Absolute 0.02 K/mm3 (0.00-0.031); Immature Granulocyte Percent A 0.3 % (0-0.5); Lymphocytes Absolute Auto 1.04 K/mm3 (0.9-3.2); Mean Corpuscular Hemoglobin 32.9 pg (26-34); Mean Corpuscular Volume 94.2 fl (80-100); Mean Platelet Volume 10.3 fl (7.4-10.4); Monocytes Absolute Auto 0.8 K/mm3 (0.1-0.6); Monocytes Percent Auto 12.8 % (2.6-8.5); Neutrophils Absolute Auto 4.1 K/mm3 (1.3-6.7); Neutrophils Percent Auto 63.7 % (45.5-73.1); Platelet Count Result 163 k/mm3 (150-375); Red Blood Count 4.98 M/mm3 (4.6-6.20); Red Cell Distribution Width 14.1 % (11.5-14.5); White Blood Count 6.5 K/mm3 (4.5-10.0)
[2024-11-08 13:56] LABS: Add Urine Microscopic? YES; Appearance Urine Clear (Clear); Bacteria Urine None Seen /hpf; Bilirubin Urine Negative (Negative); Blood Urine Negative (Negative); Color Urine Yellow (Yellow); Glucose Urine UA Negative (Negative); Ketones Urine Trace mg/dL (Negative); Leukocyte Esterase Ur Negative LEU/UL (Negative); Nitrate Urine Negative (Negative); Non Pathogenic Casts 0-2; Protein Urine 2+ mg/dL (Negative); RBC Urine 0-2 /hpf (0-2); Specific Grav Ur 1.025 (1.001-1.035); Squamous Epithelial Cell Urine None Seen /hpf (Few); Urobilinogen Urine 0.2 mg/dL (<2.0); WBC Urine 0-5 /hpf (0-3)
[2024-11-08 14:24] LABS: Rheumatoid Factor < 12.0 IU/ML (<12)
[2024-11-08 15:29] LABS: Alanine Aminotransferase 166 U/L (6-50); Albumin Level 3.8 g/dL (3.5-5.1); Alkaline Phosphatase 67 U/L (38-126); Anion Gap 7 mmol/L (4-12); Aspartate Amino Transferase 56 U/L (17-59); Bilirubin,Total 0.8 mg/dL (0.2-1.3); Blood Urea Nitrogen 30 mg/dL (9-20); CRP < 0.5 mg/dL (<1.0); Calcium 9.2 mg/dL (8.4-10.2); Carbon Dioxide 24 mmol/L (22-30); Chloride 109 mmol/L (98-107); Estimated Glomerular Filt Rate > 60; Glucose 101 mg/dL (65-110); Potassium 4.5 mmol/L (3.4-5.0); Sodium 140 mmol/L (137-145); Total Protein 6.4 g/dL (6.3-8.2)
== END 2024-11-08 12:54 | disposition home or self-care (01) ==
LOC: ANHLAB 12:55
PROVIDERS: PCP Internal Medicine; Referring Provider Registered Nurse; Visit Provider Internal Medicine
DX: N39.0 Urinary tract infection, site not specified (principal); R50.9 Fever, unspecified; R10.9 Unspecified abdominal pain; R05.9 Cough, unspecified; D22.5 Melanocytic nevi of trunk; L81.4 Other melanin hyperpigmentation; L82.1 Other seborrheic keratosis; L72.0 Epidermal cyst; L85.3 Xerosis cutis; M25.50 Pain in unspecified joint; J90 Pleural effusion, not elsewhere classified
CPT/HCPCS: 36415; 71046; 74018; 80053; 81001; 85025; 86038; 86039; 86140; 86430

== ENCOUNTER 2024-11-15 16:10 | Outpatient (CLI) | payer MEDICARE, SELFPAY ==
--- NOTE | ~2024-11-15 | XR_ITS ---
Lumbosacral Spine: AP and lateral views Clinical History: Pain Findings: The normal lordotic curve is maintained. No fracture or subluxation. There is advanced dege nerative disc narrowing at L3-L4, L4-L5, L5-S1. There is advanced facet arthropathy at these levels. No instability evident on flexion or extension.. The sacroiliac joints are normally outlined. Impression: Advanced degenerative spondylosis from L3 through S1. Reviewed, dictated and finalized at location . Impression: Advanced degenerative spondylosis from L3 through S1.
--- NOTE | ~2024-11-15 | XR_ITS ---
XR chest 2V 11/15/2024 17:12 Indication: Pneumonia Procedure: 2 view chest Comparison: Comparison to multiple prior studies sequentially, with oldest reviewed study dated 09/24. Findings: Status post median sternotomy for CABG. Cardiomegaly. Stable right basilar airspace disease , consistent with pneumonia. Small right pleural effusion. No pneumothorax. No edema. The lungs are h yperinflated which is consistent with, but not diagnostic of chronic obstructive pulmonary disease. Impression: 1: Stable right basilar pneumonia with small right pleural effusion. Reviewed, dictated and finalized at location B. Impression: 1: Stable right basilar pneumonia with small right pleural effusion.
--- NOTE | ~2024-11-15 | XR_ITS ---
AP and lateral views of the bilateral hips Clinical history: Pain Findings: No acute fracture or dislocation is seen. Bilateral hip arthroplasties are in place. No maury dware complication is evident. No acute osseous abnormality. Soft tissues are unremarkable. Impression: No acute abnormality. Bilateral hip arthroplasties. Reviewed, dictated and finalized at location . Impression: No acute abnormality. Bilateral hip arthroplasties.
[2024-11-15 16:48] LABS: Basophils Absolute Auto 0.1 K/mm3 (0.0-0.1); Basophils Percent Auto 0.6 % (0.2-1.2); Eosinophils Absolute Auto 0.3 K/mm3 (0-0.3); Eosinophils Percent Auto 3.5 % (0-4.4); Hematocrit 43.5 % (42.0-52.0); Hemoglobin 13.8 g/dL (14.0-18.0); Immature Granulocyte Absolute 0.02 K/mm3 (0.00-0.031); Immature Granulocyte Percent A 0.2 % (0-0.5); Lymphocytes Absolute Auto 0.94 K/mm3 (0.9-3.2); Lymphocytes Percent Auto 11.4 % (18.3-44.2); Mean Corpuscular HGB Conc 31.7 g/dl (32-36); Mean Corpuscular Hemoglobin 29.4 pg (26-34); Mean Corpuscular Volume 92.6 fl (80-100); Monocytes Percent Auto 11.8 % (2.6-8.5); Neutrophils Percent Auto 72.5 % (45.5-73.1); Platelet Count Result 181 k/mm3 (150-375); Red Cell Distribution Width 14.4 % (11.5-14.5); White Blood Count 8.3 K/mm3 (4.5-10.0)
--- OUTSIDE RECORDS SUMMARY | 2024-11-15 17:14 | XMS_ITS | Encounter Summary ---
Author Organization [facility] Health Address [address] [place] [address] Care Team Providers Care Sagger Maker Name Role Phone Harry Malagon MD Primary Care Provider [phone] Harry Malagon MD Primary Care Provider [phone] Harry Malagon MD Unavailable [phone] Sarita Fuller RN Unavailable [phone] Kristel GonzalezW Unavailable [phone] Encounter Details Date Type Department Care Team (Late st Contact Info) Description 11/20/2014 [facility] Outpatient Visit [facility] Orthopedics [address] [place] [address] Rony Ibanez F, DO [address] [place] [address] Social History Tobacco Use Types [...] on filedocumented in this encounter Care Teams Sagger Maker Relationship Specialty Start Date End Date Harry Malagon MD [address] [place] [address] PCP - General Internal Medicine 09/14/14 01/06/21 Harry Malagon MD [address] [address] PCP - General 01/07/21 Harry Malagon MD [address] [place] [address] Internal Medicine 01/07/21 Sarita Fuller RN Food Tray Assembler 11/15/14 Kristel Gonzalez, [facility] Wire Welder 11/17/14 documented as of this encounter
--- OUTSIDE RECORDS SUMMARY | 2024-11-15 17:14 | XMS_ITS | Clinical Summary ---
Author Organization [facility] Address [address] [facility] [place] [address] Care Team Providers Care Composition Floor Layer Name Role Phone Harry Malagon MD Primary Care Provider [phone] Harry Malagon MD Unavailable [phone] Sarita Fuller RN Unavailable [phone] Kristel GonzalezW Unavailable [phone] Source Comments [facility],non-owned Affiliates and Associated Physician Practices is amultiple site organization consisting of ambulatory clinics and hospital sitesin [place], [place], [place] and [place]. This disclosure is being madepursuant to the Care Everywhere program and may not contain all information available regarding this patient. Last updated 18.[facility] Allergies Active Allergy Reactions Criticality Noted Date [...] 12/02/19 15 Active vitamin D, ergocalciferol, (DRISDOL) 86492 UNITS capsule Take 1 Cap by mouth [...] this topic Medical Devices Implanted Type Area Rubber Attacher Device Identifier Shelf Expiration Date Model / Serial / Lot Cortes Bone [place]-G Hv 40/20 Implanted:Qty: 4 on 11/15/2014 by Rony Ibanez, DO at [facility] Left: Hip Biomet Inc 11/07/2015 [id number] / / [id number] Cortes Bone Swan[place]-G Hv 40/20 Implanted:Qty: 1 on 11/15/2014 by Rony Ibanez, DO at [facility] Left: Hip [employer] Inc 05/08/2016 [id number] / / [id number] Cbl Accord Troch W/Clmp 2.0mm Implanted:Qty: 1 on 11/15/2014 by Rony Ibanez, DO at [facility] Left: Hip Cortes & Nephew Trauma 11/06/2025 [id number] / / [id number] Cbl Accord Troch W/Clmp 2.0mm Implanted:Qty: 1 on 11/15/2014 by Rony Ibanez, DO at [facility] Left: Hip Cortes & Nephew Trauma 03/08/2024 [id number] / / [id number] Cbl Accord Troch W/Clmp 2.0mm Implanted:Qty: 1 on 11/15/2014 by Rony Ibanez, DO at [facility] Left: Hip Cortes & Nephew Trauma 07/09/2021 [id number] / / [id number] Cbl Accord Troch W/Clmp 2.0mm Implanted:Qty: 1 on 11/15/2014 by Rony Ibanez DO at [facility] Left: Hip Cortes & Nephew Trauma 02/07/2024 [id number] / / [id number] Cbl Accord Ss W/Clmp 2.0mm Implanted:Qty: 1 on 11/15/2014 by Rony Ibanez DO at [facility] Left: Hip Cortes & Nephew Orthopaedics 01/07/2024 [id number] / / [id number] Explanted Type Area Rubber Attacher Device Identifier Shelf Expiration Date Model / Serial / Lot Cbl Accord Troch Ion Implant Machine Operator Std 125mm Explanted:Qty: 1 on 11/15/[address] [facility] Left: Hip Cortes & Nephew Trauma 07/09/2020 [id number] / / [id number] Insurance MANAGED MEDICARE ADV MANAGED MEDICARE ADV Advance Directives * Full Code (Latest Code Status on File) Date Activated Date Inactivated Comments 11/19/2014 11:47 AM 12/01/2014 7:05 PM Care Teams Composition Floor Layer Relationship Specialty Start Date End Date Harry Malagon MD [address] [facility] [address] [place] [address] PCP - General 01/07/21 Harry Malagon MD [address] [place] [address] Internal Medicine 01/07/21 Sarita Fuller, RN Compilation Clerk 11/15/14 Kristel Gonzalez, BULK COOLERS INSTALLER Bell Staff 11/17/14
--- OUTSIDE RECORDS SUMMARY | 2024-11-15 17:14 | XMS_ITS | Clinical Summary ---
Author Organization [facility] Address [address] [facility] Attn: Epic Prelude ADT ELLIE AVALOS MARYAN [address] Care Team Providers Care Credit Consultant Name Role Phone Unavailable Primary Care Provider Unavailabl e Social History Tobacco Use Types Packs/Day Years Used Date Smoking Tobacco: Never Assessed Sex and Gender Information Value Date Recorded Sex Assigned at Not on file Legal Sex Male 2:58 AM TEACHING SUPERVISOR Gender Identity Not on file Sexual Orientation [...]
--- OUTSIDE RECORDS SUMMARY | 2024-11-15 17:14 | XMS_ITS | CONTINUITY OF CARE DOCUMENT ---
Author Name janel islas Address Unknown Organization [facility] Address [address] [facility] [address] [place] [address] Phone [phone] Care Team Providers Care Broker Name Role Phone Tavares TAPIA, Kevin Unavailable INSURANCE PROVIDERS Payer name Policy type / Coverage type [place] red democrat ID [facility] MEDICARE COMPLETE POS HMO Other 83 [id number]
--- OUTSIDE RECORDS SUMMARY | 2024-11-15 17:14 | XMS_ITS | Referral Summary ---
Author Organization [facility] Address [address] [place] [address] Phone Care Team Providers Care Portuguese Tutor Name Role Phone Harry Malagon MD Primary Care Provider [phone] Allergies Active Allergy Reactions Criticality Noted Date [...] on file Legal Sex Male 2:00 AM INTERNET DEVELOPER Gender Identity Not on file Sexual Orientation Not on file Last Filed Vital Signs Vital Sign Reading Time Taken Comments Blood Pressure 146/68 03/14/2024 1:28 PM CDT Pulse 83 03/14/2024 1:28 PM CDT Temperature 36.7 C (98 F) 04/21/2023 8:22 AM INTERNET DEVELOPER Respiratory Rate 16 04/21/2023 8:22 AM INTERNET DEVELOPER Oxygen Saturation 97% 03/14/2024 1:28 PM CDT Inhaled Oxygen Concentration - - Weight 90.3 kg (199 lb 1.9 oz) 03/14/2024 1:28 P M CDT Height 184.2 cm (6' 0.5) 03/14/2024 1:28 PM CDT Body Mass Index 26.63 03/14/2024 1:28 PM CDT Plan of Treatment Not on file Medical Devices Implanted Type Area Factory Helper Device Identifier Shelf Expiration Date Model / Serial / Lot Altacor Device Closure Vascade Od5 Fr Femoral Artery [id number] - [id number] Implanted:Qty: 1 on 04/21/2023 by Shan Chamorro MD at [facility] [employer] [facility] 02/04/2025 [id number] / / [id number] Procedures Procedure Name Priority Date/Time Associated Diagnosis Comments SERUM HEPATITIS PANEL Routine 07/08/2016 10:26 AM INTERNET DEVELOPER from Last 3 Months or Most Recently Relevant to Health Maintenance Results * Serum Hepatitis panel (07/08/2016 10:26 AM INTERNET DEVELOPER) HAV ab, IgM Nonreactive CDR HISTORICAL RESULTS [...] RNA Detection and Quantitation by Real-Time Reverse Mat Cleaning Machine Operator-PCR (RT-PCR). Current interpretive data was last revised on 2016. HBV surface ag Nonreactive CDR HISTORICAL RESULTS Serum 07/08/2016 10:2 6 AM INTERNET DEVELOPER us Historical Provider LAB BLOOD ORDERABLES Latrice kuhn Result CDR HISTORICAL RESULTS from Last 3 Months or Most Recently Relevant to Health Maintenance Insurance MDCR HMO REF [id number] MEDICARE ADVANTAGE Advance Directives For more information, please contact: [phone] * Full Code (Latest Code Status on File) Date Activated Date Inactivated Comments 04/21/2023 1:20 PM 04/21/2023 8:17 PM Care Teams Portuguese Tutor Relationship Specialty Start Date End Date Harry Malagon MD [address] [place] [address] PCP - General 09/26/16
--- OUTSIDE RECORDS SUMMARY | 2024-11-15 17:14 | XMS_ITS | Encounter Summary ---
Author Organization [facility] Health Address [address] [facility] [place] [address] Care Team Providers Care Early Interventionist Name Role Phone Harry Malagon MD Primary Care Provider [phone] Harry Malagon MD Primary Care Provider [phone] Harry Malagon MD Unavailable [phone] Sarita Fuller RN Unavailable [phone] Kristel Gonzalez LCSW Unavailable [phone] Encounter Details Date Type Department Care Team (Late st Contact Info) Description 10/20/2014 [facility] Outpatient Visit [facility] Orthopedics [address] [place] [address] Rony Ibanez F, DO [address] [place] [address] Social History Tobacco Use Types [...] on filedocumented in this encounter Care Teams Early Interventionist Relationship Specialty Start Date End Date Harry Malagon MD [address] [place] [address] PCP - General Internal Medicine 09/14/14 01/06/21 Harry Malagon MD [address] [place] [address] PCP - General 01/07/21 Harry Malagon MD [address] [place] [address] Internal Medicine 01/07/21 Sarita Fuller, RN Signal Intelligence/Electronic Warfare 11/15/14 Kristel Gonzalez, [facility] Sustainability Communicator 11/17/14 documented as of this encounter
--- OUTSIDE RECORDS SUMMARY | 2024-11-15 17:14 | XMS_ITS | Encounter Summary ---
Author Organization [facility] Health Address [address] [place] [address] Care Team Providers Care Financial Service Representative Name Role Phone Harry Malagon MD Primary Care Provider [phone] Harry Malagon MD Primary Care Provider [phone] Harry Malagon MD Unavailable [phone] Sarita Fuller RN Unavailable [phone] Kristel Goznalez LCSW Unavailable [phone] Encounter Details Date Type Department Care Team (Late st Contact Info) Description 10/20/2014 [facility] Outpatient Visit [facility] Orthopedics [address] [place] [address] Rony Ibanez F, DO [address] [place] [address] Social History Tobacco Use Types [...] on filedocumented in this encounter Care Teams Financial Service Representative Relationship Specialty Start Date End Date Harry Malagon MD [address] [place] [address] PCP - General Internal Medicine 09/14/14 01/06/21 Harry Malagon MD [address] [place] [address] PCP - General 01/07/21 Harry Malagon MD [address] [place] [address] Internal Medicine 01/07/21 Sarita Fuller, RN Clerical Support Specialist 11/15/14 Kristel Gonzalez, [facility] Steel Handler 11/17/14 documented as of this encounter
--- OUTSIDE RECORDS SUMMARY | 2024-11-15 17:14 | XMS_ITS | Continuity of Care Document ---
Author Organization [facility] Address [address] [place] [address] Phone Care Team Providers Care Boatwright Name Role Phone Brian Ennis MD Unavailable Unavailable Advance Directives Directive Yes / No Effective Date File Name No Information Encounters Encounter Description Practice Location Reason(s) For Visit Diagnoses Date Provider Providers Copied on Encounter [facility], [address], [place], [place], [id number], tel:[phone] [facility] No Information Raymon Torres. [address] , [place], [place], [id number], [place]. tel:[phone] Referring Provider: Parveen Hernandez DO, [address], [place], [address]. tel:[phone] [facility], [address], [place], [place], [id number], [place] tel:[phone] [facility] ([facility] JOINT REPLACED KNEEFOLLOW-UP SURGERY NOS No Information [facility], [address], [place], [place], [address], [place] tel:[phone] [facility] [place] [facility] TRAFFIC ACC NOS-PERS NOSHIP & THIGH INJURY NOSLUMBAGO No Information [facility], [address], [place], [place], [address], [place] tel:[phone] [facility] [place]) CERVICALGIA Conversion Doctor. [address], [place], [address], [place]. Family History Family Member Type Diagnosis Age At Onset No Information Payers Payer name Insurance type Covered libertarian ID Authoriza tion(s) [facility] MDCR COMPLETE HMO [id number] Social History Type Description Quantity Date Captured Comments Sex Male Smoking Status No Information Chief Complaint And Reason For Visit No Information Reason For Referral Reason For Referral No Information History Of Present Illness Encounter Date Complaint History Of Prese nt Illness No Information Functional Status Date Functional Assessmen t No Information Instructions Date Instruction Additional Infor mation No Information Assessments Type Assessment Date No Information Patient Care Teams Name Effective Dates (start - stop) Status Members No Information
--- OUTSIDE RECORDS SUMMARY | 2024-11-15 17:14 | XMS_ITS | Clinical Summary ---
Author Organization [facility] Address [address] [place] [address] Phone Care Team Providers Care Aligning Inspector Name Role Phone Harry Malagon MD Primary Care Provider [phone] Allergies Active Allergy Reactions Criticality Noted Date [...] on file Legal Sex Male 2:00 AM WHITESMITH Gender Identity Not on file Sexual Orientation Not on file Obstetrics History Last Filed Vital Signs Vital Sign Reading Time Taken Comments Blood Pressure 146/68 03/14/2024 1:28 PM CDT Pulse 83 03/14/2024 1:28 PM CDT Temperature 36.7 C (98 F) 04/21/2023 8:22 AM WHITESMITH Respiratory Rate 16 04/21/2023 8:22 AM WHITESMITH Oxygen Saturation 97% 03/14/2024 1:28 PM CDT [...] Completed 07/08/2016 Medical Devices Implanted Type Area Tanyard Worker Device Identifier Shelf Expiration Date Model / Serial / Lot [employer] Device Closure Vascade Od5 Fr Femoral Artery [id number] - [id number] Implanted:Qty: 1 on 04/21/2023 by Shan Chamorro MD at [facility] [employer] 02/04/2025 700-500DX-0 [id number] / / [id number] Procedures Procedure Name Priority Date/Time Associated Diagnosis Comments SERUM HEPATITIS PANEL Routine 07/08/2016 10:26 AM WHITESMITH from Last 3 Months or Most Recently Relevant to Health Maintenance Results * Serum Hepatitis panel (07/08/2016 10:26 AM WHITESMITH) HAV ab, IgM Nonreactive CDR HISTORICAL RESULTS [...] RNA Detection and Quantitation by Real-Time Reverse Poultry Raiser-PCR (RT-PCR). Current interpretive data was last revised on 2016. HBV surface ag Nonreactive CDR HISTORICAL RESULTS Serum 07/08/2016 10:2 6 AM WHITESMITH us Historical Provider LAB BLOOD ORDERABLES Latrice kuhn Result CDR HISTORICAL RESULTS from Last 3 Months or Most Recently Relevant to Health Maintenance Insurance MEDICARE ADVANTAGE Advance Directives For more information, please contact: [phone] * Full Code (Latest Code Status on File) Date Activated Date Inactivated Comments 04/21/2023 1:20 PM 04/21/2023 8:17 PM Care Teams Aligning Inspector Relationship Specialty Start Date End Date Harry Malagon MD [address] [place] [place] [id number] PCP - General 09/26/16
[2024-11-15 17:18] LABS: Erythrocyte Sedimentation Rate 4 mm/hr (0-20)
[2024-11-15 17:23] LABS: CRP < 0.5 mg/dL (<1.0)
== END 2024-11-15 16:11 | disposition home or self-care (01) ==
PROVIDERS: PCP Internal Medicine; Visit Provider Internal Medicine
DX: R50.9 Fever, unspecified (principal); M25.551 Pain in right hip; M25.552 Pain in left hip; G89.28 Other chronic postprocedural pain; Z96.643 Presence of artificial hip joint, bilateral; J18.9 Pneumonia, unspecified organism; G89.29 Other chronic pain; R05.9 Cough, unspecified; M54.50 Low back pain, unspecified; M43.06 Spondylolysis, lumbar region; J90 Pleural effusion, not elsewhere classified
CPT/HCPCS: 36415; 71046; 72110; 73521; 85025; 85652; 86140; 87040

== ENCOUNTER 2024-12-06 12:11 | Outpatient (CLI) | payer MEDICARE, SELFPAY ==
--- OUTSIDE RECORDS SUMMARY | 2024-12-06 12:14 | XMS_ITS | Encounter Summary ---
Author Organization [facility] Health Address [address] [place] [address] Care Team Providers Care Four Slide Machine Setter Name Role Phone Harry Malagon MD Primary Care Provider [phone] Harry Malagon MD Primary Care Provider [phone] Harry Malaogn MD Unavailable [phone] Sarita Fuller RN Unavailable [phone] Kristel GonzalezW Unavailable Encounter Details Date Type Department Care Team (Late st Contact Info) Description 11/20/2014 [facility] Outpatient Visit [facility] Orth[facility]ics [address] [place] [address] Rony Ibanez F, DO [address] [place] [address] Social History Tobacco Use Types [...] on filedocumented in this encounter Care Teams Four Slide Machine Setter Relationship Specialty Start Date End Date Harry Malagon MD [address] [place] [address] PCP - General Internal Medicine 09/14/14 01/06/21 Harry Malagon MD [address] [id number] PCP - General 01/07/21 Harry Malagon MD [address] [place] [address] Internal Medicine 01/07/21 Sarita Fuller RN Piling Cutter 11/15/14 Kristel Gonzalez, [facility] Master Control Engineer 11/17/14 documented as of this encounter
--- OUTSIDE RECORDS SUMMARY | 2024-12-06 12:14 | XMS_ITS | Encounter Summary ---
Author Organization [facility] Health Address [address] [place] [address] Care Team Providers Care Emergency Room Tech Name Role Phone Harry Malagon MD Primary Care Provider [phone] Harry Malagon MD Primary Care Provider [phone] Harry Malagon MD Unavailable [phone] Sarita Fuller RN Unavailable [phone] Kristel Gonzalez LCSW Unavailable [phone] Encounter Details Date Type Department Care Team (Late st Contact Info) Description 10/20/2014 [facility] Outpatient Visit [facility] Orthopedics [address] [place] [address] Rony Ibanez F, DO [address] [place] [address] Social History Tobacco Use Types [...] on filedocumented in this encounter Care Teams Emergency Room Tech Relationship Specialty Start Date End Date Harry Malagon MD [address] [place] [address] PCP - General Internal Medicine 09/14/14 01/06/21 Harry Malagon MD [address] [place] [address] PCP - General 01/07/21 Harry Malagon MD [address] [place] [address] Internal Medicine 01/07/21 Sarita Fuller, RN Front Office Director 11/15/14 Kristel Gonzalez, [facility] Private Branch Exchange Installer 11/17/14 documented as of this encounter
--- OUTSIDE RECORDS SUMMARY | 2024-12-06 12:14 | XMS_ITS | Referral Summary ---
Author Organization [facility] Address [address] [place] [address] Phone Care Team Providers Care Longwall Shearer Operator Name Role Phone Harry Malagon MD Primary Care Provider [phone] Allergies Active Allergy Reactions Criticality Noted Date [...] on file Legal Sex Male 2:00 AM WATER SYSTEM OPERATOR Gender Identity Not on file Sexual Orientation Not on file Last Filed Vital Signs Vital Sign Reading Time Taken Comments Blood Pressure 146/68 03/14/2024 1:28 PM CDT Pulse 83 03/14/2024 1:28 PM CDT Temperature 36.7 C (98 F) 04/21/2023 8:22 AM WATER SYSTEM OPERATOR Respiratory Rate 16 04/21/2023 8:22 AM WATER SYSTEM OPERATOR Oxygen Saturation 97% 03/14/2024 1:28 PM CDT Inhaled Oxygen Concentration - - Weight 90.3 kg (199 lb 1.9 oz) 03/14/2024 1:28 P M CDT Height 184.2 cm (6' 0.5) 03/14/2024 1:28 PM CDT Body Mass Index 26.63 03/14/2024 1:28 PM CDT Plan of Treatment Not on file Medical Devices Implanted Type Area Line Worker Device Identifier Shelf Expiration Date Model / Serial / Lot RRT Global Device Closure Vascade Od5 Fr Femoral Artery [id number] - [id number] Implanted:Qty: 1 on 04/21/2023 by Shan Chamorro MD at [facility] [employer] [facility] 02/04/2025 [id number]-[id number] / / [id number] Procedures Procedure Name Priority Date/Time Associated Diagnosis Comments SERUM HEPATITIS PANEL Routine 07/08/2016 10:26 AM WATER SYSTEM OPERATOR from Last 3 Months or Most Recently Relevant to Health Maintenance Results * Serum Hepatitis panel (07/08/2016 10:26 AM WATER SYSTEM OPERATOR) HAV ab, IgM Nonreactive CDR HISTORICAL RESULTS [...] RNA Detection and Quantitation by Real-Time Reverse Repairer Recreational Vehicle-PCR (RT-PCR). Current interpretive data was last revised on 2016. HBV surface ag Nonreactive CDR HISTORICAL RESULTS Serum 07/08/2016 10:2 6 AM WATER SYSTEM OPERATOR us Historical Provider LAB BLOOD ORDERABLES Latrice kuhn Result CDR HISTORICAL RESULTS from Last 3 Months or Most Recently Relevant to Health Maintenance Insurance MD[employer] HMO REF [id number] MEDICARE ADVANTAGE Advance Directives For more information, please contact: [phone] * Full Code (Latest Code Status on File) Date Activated Date Inactivated Comments 04/21/2023 1:20 PM 04/21/2023 8:17 PM Care Teams Longwall Shearer Operator Relationship Specialty Start Date End Date Harry Malagon MD [address] [place] [address] PCP - General 09/26/16
--- OUTSIDE RECORDS SUMMARY | 2024-12-06 12:14 | XMS_ITS | Encounter Summary ---
Author Organization [facility] Health Address [address] [place] [address] Care Team Providers Care Water/Wastewater Engineer Name Role Phone Harry Malagon MD Primary Care Provider [phone] Harry Malagon MD Primary Care Provider [phone] Harry Malagon MD Unavailable [phone] Sarita Fuller RN Unavailable [phone] Kristel Gonzalez LCSW Unavailable [phone] Encounter Details Date Type Department Care Team (Late st Contact Info) Description 10/20/2014 [facility] Outpatient Visit [facility] Orthopedics [address] [place] [address] Rony Ibanez F, DO [address] [place] [address] Social History Tobacco Use Types [...] on filedocumented in this encounter Care Teams Water/Wastewater Engineer Relationship Specialty Start Date End Date Harry Malagon MD [address] [place] [address] PCP - General Internal Medicine 09/14/14 01/06/21 Harry Malagon MD [address] [place] [address] PCP - General 01/07/21 Harry Malagon MD [address] [place] [address] Internal Medicine 01/07/21 Sarita Fuller, RN Cnc Machine Setter 11/15/14 Kristel Gonzalez, [facility] Optical Engineering Technician 11/17/14 documented as of this encounter
--- OUTSIDE RECORDS SUMMARY | 2024-12-06 12:14 | XMS_ITS | Clinical Summary ---
Author Organization [facility] Address [address] [place] [address] Phone Care Team Providers Care Cigarette Stamper Name Role Phone Harry Malagon MD Primary Care Provider [phone] Allergies Active Allergy Reactions Criticality Noted Date [...] on file Legal Sex Male 2:00 AM UNSCRAMBLER Gender Identity Not on file Sexual Orientation Not on file Obstetrics History Last Filed Vital Signs Vital Sign Reading Time Taken Comments Blood Pressure 146/68 03/14/2024 1:28 PM CDT Pulse 83 03/14/2024 1:28 PM CDT Temperature 36.7 C (98 F) 04/21/2023 8:22 AM UNSCRAMBLER Respiratory Rate 16 04/21/2023 8:22 AM UNSCRAMBLER Oxygen Saturation 97% 03/14/2024 1:28 PM CDT [...] Completed 07/08/2016 Medical Devices Implanted Type Area Aircraft Magneto Mechanic Device Identifier Shelf Expiration Date Model / Serial / Lot [employer] Device Closure Vascade Od5 Fr Femoral Artery [id number] - [id number] Implanted:Qty: 1 on 04/21/2023 by Shan Chamorro MD at [facility] [employer] 02/04/2025 700-500DX-0 [id number] / / [id number] Procedures Procedure Name Priority Date/Time Associated Diagnosis Comments SERUM HEPATITIS PANEL Routine 07/08/2016 10:26 AM UNSCRAMBLER from Last 3 Months or Most Recently Relevant to Health Maintenance Results * Serum Hepatitis panel (07/08/2016 10:26 AM UNSCRAMBLER) HAV ab, IgM Nonreactive CDR HISTORICAL RESULTS [...] RNA Detection and Quantitation by Real-Time Reverse Rn Examiner-PCR (RT-PCR). Current interpretive data was last revised on 2016. HBV surface ag Nonreactive CDR HISTORICAL RESULTS Serum 07/08/2016 10:2 6 AM UNSCRAMBLER us Historical Provider LAB BLOOD ORDERABLES Latrice kuhn Result CDR HISTORICAL RESULTS from Last 3 Months or Most Recently Relevant to Health Maintenance Insurance MEDICARE ADVANTAGE Advance Directives For more information, please contact: [phone] * Full Code (Latest Code Status on File) Date Activated Date Inactivated Comments 04/21/2023 1:20 PM 04/21/2023 8:17 PM Care Teams Cigarette Stamper Relationship Specialty Start Date End Date Harry Malagon MD [address] [facility] [place] [id number] PCP - General 09/26/16
--- OUTSIDE RECORDS SUMMARY | 2024-12-06 12:14 | XMS_ITS | Clinical Summary ---
Author Organization [facility] Address [address] [facility] Attn: Epic Prelude ADT [place] [address] Care Team Providers Care Regulatory Scientist Name Role Phone Unavailable Primary Care Provider Unavailabl e Social History Tobacco Use Types Packs/Day Years Used Date Smoking Tobacco: Never Assessed Sex and Gender Information Value Date Recorded Sex Assigned at Not on file Legal Sex Male 2:58 AM WIND PLANT MANAGER Gender Identity Not on file Sexual Orientation [...]
--- OUTSIDE RECORDS SUMMARY | 2024-12-06 12:14 | XMS_ITS | Clinical Summary ---
Author Organization [facility] Address [address] [place] [address] Care Team Providers Care Prn Occupational Therapist Name Role Phone Harry Malagon MD Primary Care Provider [phone] Harry Malagon MD Unavailable [phone] Sarita Fuller RN Unavailable [phone] Kristel GonzalezW Unavailable [phone] Source Comments [facility],non-owned Affiliates and Associated Physician Practices is amultiple site organization consisting of ambulatory clinics and hospital sitesin [place], [place], [place] and [place]. This disclosure is being madepursuant to the Care Everywhere program and may not contain all information available regarding this patient. Last updated 18.[facility] Allergies Active Allergy Reactions Criticality Noted Date [...] 12/02/19 15 Active vitamin D, ergocalciferol, (DRISDOL) 40009 UNITS capsule Take 1 Cap by mouth [...] this topic Medical Devices Implanted Type Area Animal Husbandry Manager Device Identifier Shelf Expiration Date Model / Serial / Lot [employer] Bone [place]-[employer] Hv 40/20 Implanted:Qty: 4 on 11/15/2014 by Rony Ibanez, DO at [facility] Left: Hip [employer] 11/07/2015 [id number] / / [id number] Cortes [employer] [place]-G Hv 40/20 Implanted:Qty: 1 on 11/15/2014 by Rony Ibanez, DO at [facility] Left: Hip [employer] 05/08/2016 [id number] / / [id number] Cbl Accord Troch W/Clmp 2.0mm Implanted:Qty: 1 on 11/15/2014 by Rony Ibanez, DO at [facility] Left: Hip [employer] 11/06/2025 [id number] / / [id number] Cbl Accord Troch W/Clmp 2.0mm Implanted:Qty: 1 on 11/15/2014 by Rony Ibanez, DO at [facility] Left: Hip [employer] 03/08/2024 [id number] / / [id number] Cbl Accord Troch W/Clmp 2.0mm Implanted:Qty: 1 on 11/15/2014 by Rony Ibanez, DO at [facility] Left: Hip [employer] 07/09/2021 [id number] / / [id number] Cbl Accord Troch W/Clmp 2.0mm Implanted:Qty: 1 on 11/15/2014 by Rony Ibanez DO at [facility] Left: Hip [employer] 02/07/2024 [id number] / / [id number] Cbl Accord Ss W/Clmp 2.0mm Implanted:Qty: 1 on 11/15/2014 by Rony Ibanez DO at [facility] Left: Hip [employer] 01/07/2024 [id number] / / [id number] Explanted Type Area Animal Husbandry Manager Device Identifier Shelf Expiration Date Model / Serial / Lot Cbl Accord Troch Color Developer Std 125mm Explanted:Qty: 1 on 11/15/2014 at [facility] Left: Hip [employer] 07/09/2020 [id number] / / [id number] Insurance MANAGED MEDICARE ADV MANAGED MEDICARE ADV Advance Directives * Full Code (Latest Code Status on File) Date Activated Date Inactivated Comments 11/19/2014 11:47 AM 12/01/2014 7:05 PM Care Teams Prn Occupational Therapist Relationship Specialty Start Date End Date Harry Malagon MD [address] [facility] [address] [place] [address] PCP - General 01/07/21 Harry Malagon MD [address] [place] [address] Internal Medicine 01/07/21 Sarita Fuller, RN Biochemical Engineer 11/15/14 Kristel Gonzalez, CLINICAL LEADER Bicycle Designer 11/17/14
[2024-12-06 12:54] LABS: Hematocrit 47.8 % (42.0-52.0); Hemoglobin 15.3 g/dL (14.0-18.0); Immature Granulocyte Percent A 0.3 % (0-0.5); Lymphocytes Absolute Auto 1.17 K/mm3 (0.9-3.2); Mean Corpuscular HGB Conc 32.0 g/dl (32-36); Mean Corpuscular Hemoglobin 28.1 pg (26-34); Mean Corpuscular Volume 87.7 fl (80-100); Nucleated Red Blood Cells Absolute Auto 0.000 K/mm3 (0.0-0.012); Nucleated Red Blood Cells Perc 0.0 % (0.0-0.2); Platelet Count Result 191 k/mm3 (150-375); Red Blood Count 5.45 M/mm3 (4.6-6.20); White Blood Count 7.3 K/mm3 (4.5-10.0)
[2024-12-08 13:13] LABS: Angiotensin Converting Enzyme. 28 U/L (9-67)
== END 2024-12-06 12:12 | disposition home or self-care (01) ==
PROVIDERS: PCP Internal Medicine; Visit Provider Internal Medicine
DX: D86.9 Sarcoidosis, unspecified (principal)
CPT/HCPCS: 36415; 82164; 85025

== ENCOUNTER 2024-12-20 10:44 | Day surgery (SDC) | payer MEDICARE, SELFPAY ==
--- NOTE | ~2024-12-20 | XR_ITS ---
XR fluoroscopy no charge Indication: Bilateral L4-5 and L5-S1 transforaminal epidural steroid injection TECHNIQUE: Fluoroscopy used during Bilateral L4-5 and L5-S1 transforaminal epidural steroid injectio n performed by [Josesito Chan MD] on 12/20/2024. 38 seconds of fluoroscopy with 10 fluoroscopic images captured. FINDINGS: Correlate with procedure note. IMPRESSION: Fluoroscopy used during Bilateral L4-5 and L5-S1 transforaminal epidural steroid injectio n. Reviewed, dictated and finalized at location B. IMPRESSION: Fluoroscopy used during Bilateral L4-5 and L5-S1 transforaminal epi dural steroid injection.
--- NOTE | 2024-12-20 10:23 | WPDHPUPDATE1 ---
History and Physical Update Update Date/Time: 12/20/24 10:23 History and Physical has been reviewed, including an updated exam of the patient. There are NO changes in the patient's condition. Risks, benefits, and alternatives have been discussed and questions answered. Patient agrees to proceed with procedure.
--- NOTE | 2024-12-20 10:24 | W.PM.PROC2 ---
Procedure Note - Detailed Date of Procedure 12/20/24 Pre-op Diagnosis Lumbosacral Spinal Stenosis Post-op Diagnosis Same Procedure Performed Bilateral Lumbar Transforaminal Epidural Steroid Injection under Fluoroscopic Guidance and with Contrast Control at L4-5, L5-S1. Surgeon Josesito Chan MD Anesthesia Local Description of Procedure INFORMED CONSENT: Risks, benefits and alternatives to the procedure were discussed in detail with the patient who expressed explicit understanding and consent to proceed. Patient was informed verbally and in written form regarding the risks associated with the procedure including the low risk of serious infection, bleeding/bruising, allergic reaction, nerve or organ injury, paralysis, procedural site pain or discomfort, worsening pain and/or mobility, failure to treat and/or disfigurement. The patient expressed explicit understanding and consent to proceed. All materials required for the procedure were available prior to procedure start. Site and side was marked prior to procedure and confirmed in the presence of the patient. PROCEDURE IN DETAIL: The patient was brought to the procedural suite and placed in the prone position. Patient was made comfortable with use of pillows under the head/chest, hips and ankles. Skin overlying the injection site was prepared broadly with ChloraPrep applicator and draped in a sterile manner. Aseptic technique was employed throughout. The endplates of the vertebral body at the site of interest were aligned in the AP view. Ipsilateral oblique angulation was utilized to better visualize the neuroforamen of interest. Local anesthesia was established by infiltration with approximately 5 mL of 0.5% PF lidocaine via a 1-1/2 inch 27-gauge needle. A 22-gauge 5.0 inch Nat (pencil point) spinal needle was advanced until the needle approached the 6 o'clock position on the pedicle just superior to the exiting nerve root. on the right at L4-5. Lateral view was utilized to confirm appropriate position of the needle tip within the superior and posterior portion of the respective foramen. In an AP view, 1 mL of Omnipaque 300 contrast medium was injected after negative aspiration for CSF, blood or other bodily fluid, showing appropriate neurogram without evidence of intravascular or intrathecal spread of contrast. Digital subtraction imaging was used with an additional 1ml of the same contrast medium to confirm absence of intravascular contrast spread. A 1mL solution containing 1.5 mg of betamethasone was injected after negative repeat aspiration. Appropriate spread of the injectate was confirmed with washout of previously injected contrast. No parasthesias were elicited. Needle was removed completely intact without difficulty. The same exact procedure was repeated for all remaining levels on the ipsilateral side, right L5-S1 neuroforamen, modified as necessary to accommodate for the new target location with identical findings and results and no evidence of complication. The same exact procedure was repeated for all remaining levels on the contralateral side, left L4-5, L5-S1 neuroforamen, modified as necessary to accommodate for the new target location with identical findings and results and no evidence of complication. Images were saved and documented in the patient chart. Patient's skin was cleaned and sterile bandage applied. The patient tolerated the procedure well. The patient was transported to the recovery area in stable condition where they were observed for an appropriate amount of time prior to discharge, without evidence of complication. The patient was instructed to avoid excessive activity for the next 48 hours, including climbing and frequent use of stairs. Showers only for 48 hours. They were instructed not to drive or operate heavy machinery for 24 hours. They are to monitor for severe headaches, fevers, chills, night sweats, erythema/swelling at the site or any other signs of infection, bleeding/bruising, bowel or bladder changes as well as new pain, weakness or numbness in the upper or lower extremity. Should they notice these changes, they are instructed to call our office immediately or report directly to the nearest Emergency Department if no answer or if after posted office hours. COMPLICATIONS: None COMMENTS: None CONTRAST WASTED: 22 mL Omnipaque 300. STEROID WASTED: 0 mg of betamethasone. Complications No immediate complications Condition Stable Disposition Same day [facility] Billing Surgery - Charge Forward: Surgery Billing
[2024-12-20 10:56] VITALS: BMI 25.7
--- OUTSIDE RECORDS SUMMARY | 2024-12-20 10:58 | XMS_ITS | Encounter Summary ---
Author Organization [facility] Health Address [address] [place] [address] Care Team Providers Care Check Airman Name Role Phone Harry Malagon MD Primary Care Provider [phone] Harry Malagon MD Primary Care Provider [phone] Harry Malagon MD Unavailable [phone] Sarita Fuller RN Unavailable [phone] Kristel Gonzalez LCSW Unavailable [phone] Encounter Details Date Type Department Care Team (Late st Contact Info) Description 10/20/2014 [facility] Outpatient Visit [facility] Orthopedics [address] [place] [address] Rony Ibanez F, DO [address] [place] [address] Social History Tobacco Use Types [...] on filedocumented in this encounter Care Teams Check Airman Relationship Specialty Start Date End Date Harry Malagon MD [address] [place] [address] PCP - General Internal Medicine 09/14/14 01/06/21 Harry Malagon MD [address] [place] [address] PCP - General 01/07/21 Harry Malagon MD [address] [place] [address] Internal Medicine 01/07/21 Sarita Fuller, RN Lighting Engineer 11/15/14 Kristel Gonzalez, [facility] Personnel Director 11/17/14 documented as of this encounter
--- OUTSIDE RECORDS SUMMARY | 2024-12-20 10:58 | XMS_ITS | Clinical Summary ---
Author Organization [facility] Address [address] [facility] Attn: Epic Prelude ADT [place] [address] Care Team Providers Care Make Up Artist Name Role Phone Unavailable Primary Care Provider Unavailabl e Social History Tobacco Use Types Packs/Day Years Used Date Smoking Tobacco: Never Assessed Sex and Gender Information Value Date Recorded Sex Assigned at Not on file Legal Sex Male 2:58 AM FISH LIVER SORTER Gender Identity Not on file Sexual Orientation [...] (1 of 2) 2006 INFLUENZA VACCINE (#1) 2025 RSV VACCINE (60+ or ) (1 - 1-dose 75+ series) 2031
--- OUTSIDE RECORDS SUMMARY | 2024-12-20 10:58 | XMS_ITS | Encounter Summary ---
Author Organization [facility] Health Address [address] [place] [address] Care Team Providers Care Armhole Baster Jumpbasting Name Role Phone Harry Malagon MD Primary Care Provider [phone] Harry Malagon MD Primary Care Provider Harry Malagon MD Unavailable [phone] Sarita Fuller RN Unavailable [phone] Kristel Gonzalez LCSW Unavailable Encounter Details Date Type Department Care Team (Late st Contact Info) Description 10/20/2014 [facility] Outpatient Visit [facility] Orthopedics [address] [place] [address] Rony Ibanez F, DO [address] [place] [address] Social History Tobacco Use Types [...] on filedocumented in this encounter Care Teams Armhole Baster Jumpbasting Relationship Specialty Start Date End Date Harry Malagon MD [address] [place] [address] PCP - General Internal Medicine 09/14/14 01/06/21 Harry Malagon MD [address] [place] [address] PCP - General 01/07/21 Harry Malagon MD [address] [place] [address] Internal Medicine 01/07/21 Sarita Fuller, RN Radiation Protection Engineer 11/15/14 Kristel Gonzalez, [facility] Continuous Wave Operator 11/17/14 documented as of this encounter
--- OUTSIDE RECORDS SUMMARY | 2024-12-20 10:58 | XMS_ITS | Clinical Summary ---
Author Organization [facility] Address [address] [place] [address] Care Team Providers Care Paper Carrier Name Role Phone Harry Malagon MD Primary Care Provider [phone] Harry Malagon MD Unavailable [phone] Sarita Fuller RN Unavailable [phone] Kristel GonzalezW Unavailable Source Comments [facility],non-owned Affiliates and Associated Physician Practices is amultiple site organization consisting of ambulatory clinics and hospital sitesin [place], [place], [place] and [place]. This disclosure is being madepursuant to the Care Everywhere program and may not contain all information available regarding this patient. Last updated 18.[facility] Allergies Active Allergy Reactions Criticality Noted [...] 12/02/19 15 Active vitamin D, ergocalciferol, (DRISDOL) 27737 UNITS capsule Take 1 Cap by mouth [...] season) 2024 DEPRESSION SCREENING 06/08/2024 INFLUENZA VACCINE (#1) 2025 Respiratory Syncytial Virus (RSV) Vaccine Pt: [...] this topic Medical Devices Implanted Type Area Transport Operations Inspector Device Identifier Shelf Expiration Date Model / Serial / Lot Cortes Bone Hudson-G Hv 40/20 Implanted:Qty: 4 on 11/15/2014 by Rony Ibanez, DO at [facility] Left: Hip Biomet Inc 11/07/2015 [id number] / / [id number] Cortes Bone Hudson-G Hv 40/20 Implanted:Qty: 1 on 11/15/2014 by Rony Ibanez, DO at [facility] Left: Hip Biomet Inc 05/08/2016 [id number] / / [id number] Cbl Accord Troch W/Clmp 2.0mm Implanted:Qty: 1 on 11/15/2014 by Rony Ibanez, DO at [facility] Left: Hip Cortes & Nephew Trauma 11/06/2025 [id number] / / [id number] Cbl Accord Troch W/Clmp 2.0mm Implanted:Qty: 1 on 11/15/2014 by Rony Ibanez, DO at [facility] Left: Hip Cortes & Nephew Trauma 03/08/2024 [id number] / / [id number] Cbl Accord Troch W/Clmp 2.0mm Implanted:Qty: 1 on 11/15/2014 by Rony Ibanez, DO at [facility] Left: Hip Cortes & Nephew Trauma 07/09/2021 [id number] / / [id number] Cbl Accord Troch W/Clmp 2.0mm Implanted:Qty: 1 on 11/15/2014 by Rony Ibanez DO at [facility] Left: Hip Cortes & Nephew Trauma 02/07/2024 [id number] / / [id number] Cbl Accord Ss W/Clmp 2.0mm Implanted:Qty: 1 on 11/15/2014 by Rony Ibanez DO at [facility] Left: Hip Cortes [employer] Nephew Orthopaedics 01/07/2024 [id number] / / [id number] Explanted Type Area Transport Operations Inspector Device Identifier Shelf Expiration Date Model / Serial / Lot Cbl Accord Troch Production Director Std 125mm Explanted:Qty: 1 on 11/15/2014 at [facility] Left: Hip Cortes [employer] Nephew Trauma 07/09/2020 [id number] / / [id number] Insurance MANAGED MEDICARE ADV MANAGED MEDICARE ADV Advance Directives * Full Code (Latest Code Status on File) Date Activated Date Inactivated Comments 11/19/2014 11:47 AM 12/01/2014 7:05 PM Care Teams Paper Carrier Relationship Specialty Start Date End Date Harry Malagon MD [address] [facility] [address] [place] [address] PCP - General 01/07/21 Harry Malagon MD [address] [place] [address] Internal Medicine 01/07/21 Sarita Fuller, RN Control Equipment Electrician 11/15/14 Kristel Gonzalez, ENERGY CONTROL OFFICER Nursing Informatics Clinical Analyst 11/17/14
--- OUTSIDE RECORDS SUMMARY | 2024-12-20 10:59 | XMS_ITS | Patient Health Record ---
Author Organization [facility] [employer] Address [address] [facility] [address] [place] [address] Care Team Providers Care Beauty School Instructor Name Role Phone Slick Mcgrath Unavailable [phone] Reason For Referral No Information Plan Of Treatment No Information Insurance Providers Payer Name Payer Address Payer Phone Subscriber Number Group Number Insured Name Patient Relationship to Insured Coverage Start Date Coverage End Date Medicare-I l Medicare [address] [place] [phone] [id number] PAYAL GREEN Self - patient is the insured
--- OUTSIDE RECORDS SUMMARY | 2024-12-20 10:59 | XMS_ITS | Encounter Summary ---
Author Organization [facility] Address [address] [place] [address] Care Team Providers Care Roller Skates Assembler Name Role Phone Harry Malagon MD Primary Care Provider [phone] Harry Malagon MD Primary Care Provider [phone] Harry Malagon MD Unavailable [phone] Sarita Fuller RN Unavailable [phone] Kristel GonzalezW Unavailable [phone] Encounter Details Date Type Department Care Team (Late st Contact Info) Description 11/20/[address] [facility] Outpatient Visit [facility] [address] [place] [address] Rony Ibanez F, DO [address] [place] [address] Social History Tobacco Use Types [...] on filedocumented in this encounter Care Teams Roller Skates Assembler Relationship Specialty Start Date End Date Harry Malagon MD [address] [place] [address] PCP - General Internal Medicine 09/14/14 01/06/21 Harry Malagon MD [address] [address] PCP - General 01/07/21 Harry Malagon MD [address] [place] [address] Internal Medicine 01/07/21 Sarita Fuller RN Flight Physician 11/15/14 Kristel Gonzalez, [facility] Gang Vibrator Operator 11/17/14 documented as of this encounter
--- OUTSIDE RECORDS SUMMARY | 2024-12-20 10:59 | XMS_ITS | Referral Summary ---
Author Organization [facility] Address [address] [place] [address] Phone Care Team Providers Care Staff Occupational Therapist Name Role Phone Harry Malagon [...] on file Legal Sex Male 2:00 AM ENTERPRISE SALES PERSON Gender Identity Not on file Sexual Orientation Not on file Last Filed Vital Signs Vital Sign Reading Time Taken Comments Blood Pressure 146/68 03/14/2024 1:28 PM CDT Pulse 83 03/14/2024 1:28 PM CDT Temperature 36.7 C (98 F) 04/21/2023 8:22 AM ENTERPRISE SALES PERSON Respiratory Rate 16 04/21/2023 8:22 AM ENTERPRISE SALES PERSON Oxygen Saturation 97% 03/14/2024 1:28 PM CDT Inhaled Oxygen Concentration - - Weight 90.3 kg (199 lb 1.9 oz) 03/14/2024 1:28 P M CDT Height 184.2 cm (6' 0.5) 03/14/2024 1:28 PM CDT Body Mass Index 26.63 03/14/2024 1:28 PM CDT Plan of Treatment Not on file Medical Devices Implanted Type Area Tongue Lining Stitcher Device Identifier Shelf Expiration Date Model / Serial / Lot AB [employer] Device Closure Vascade Od5 Fr Femoral Artery [id number] - [id number] Implanted:Qty: 1 on 04/21/2023 by Shan Chamorro MD at [facility] [employer] [facility] 02/04/2025 700-500DX-0 5U / / [id number] Procedures Procedure Name Priority Date/Time Associated Diagnosis Comments SERUM HEPATITIS PANEL Routine 07/08/2016 10:26 AM ENTERPRISE SALES PERSON from Last 3 Months or Most Recently Relevant to Health Maintenance Results * Serum Hepatitis panel (07/08/2016 10:26 AM ENTERPRISE SALES PERSON) HAV ab, IgM Nonreactive CDR HISTORICAL RESULTS [...] RNA Detection and Quantitation by Real-Time Reverse Cotton Farmworker-PCR (RT-PCR). Current interpretive data was last revised on 2016. HBV surface ag Nonreactive CDR HISTORICAL RESULTS Serum 07/08/2016 10:2 6 AM ENTERPRISE SALES PERSON us Historical Provider LAB BLOOD ORDERABLES Latrice kuhn Result CDR HISTORICAL RESULTS from Last 3 Months or Most Recently Relevant to Health Maintenance Insurance [facility]CR HMO REF [id number] ADVANTAGE Advance Directives For more information, please contact: [phone] * Full Code (Latest Code Status on File) Date Activated Date Inactivated Comments 04/21/2023 1:20 PM 04/21/2023 8:17 PM Care Teams Staff Occupational Therapist Relationship Specialty Start Date End Date Harry Malagon MD [address] [place] [address] PCP - General 09/26/16
--- OUTSIDE RECORDS SUMMARY | 2024-12-20 10:59 | XMS_ITS | Clinical Summary ---
Author Organization [facility] Address [address] [place] [address] Phone Care Team Providers Care Statement Distribution Clerk Name Role Phone Harry Malagon MD Primary Care Provider [phone] Allergies Active Allergy Reactions Criticality Noted Date [...] on file Legal Sex Male 2:00 AM PLATE PREPARER Gender Identity Not on file Sexual Orientation Not on file Obstetrics History Last Filed Vital Signs Vital Sign Reading Time Taken Comments Blood Pressure 146/68 03/14/2024 1:28 PM CDT Pulse 83 03/14/2024 1:28 PM CDT Temperature 36.7 C (98 F) 04/21/2023 8:22 AM PLATE PREPARER Respiratory Rate 16 04/21/2023 8:22 AM PLATE PREPARER Oxygen Saturation 97% 03/14/2024 1:28 PM CDT [...] Completed 07/08/2016 Medical Devices Implanted Type Area Group Home Paraprofessional Device Identifier Shelf Expiration Date Model / Serial / Lot [employer] Device Closure Vascade Od5 Fr Femoral Artery [id number] - [id number] Implanted:Qty: 1 on 04/21/2023 by Shan Chamorro MD at [facility] [employer] 02/04/2025 700-500DX-0 5U / / [id number] Procedures Procedure Name Priority Date/Time Associated Diagnosis Comments SERUM HEPATITIS PANEL Routine 07/08/2016 10:26 AM PLATE PREPARER from Last 3 Months or Most Recently Relevant to Health Maintenance Results * Serum Hepatitis panel (07/08/2016 10:26 AM PLATE PREPARER) HAV ab, IgM Nonreactive CDR HISTORICAL RESULTS [...] RNA Detection and Quantitation by Real-Time Reverse Banking Officer-PCR (RT-PCR). Current interpretive data was last revised on 2016. HBV surface ag Nonreactive CDR HISTORICAL RESULTS Serum 07/08/2016 10:2 6 AM PLATE PREPARER us Historical Provider LAB BLOOD ORDERABLES Latrice kuhn Result CDR HISTORICAL RESULTS from Last 3 Months or Most Recently Relevant to Health Maintenance Insurance MEDICARE ADVANTAGE Advance Directives For more information, please contact: [phone] * Full Code (Latest Code Status on File) Date Activated Date Inactivated Comments 04/21/2023 1:20 PM 04/21/2023 8:17 PM Care Teams Statement Distribution Clerk Relationship Specialty Start Date End Date Harry Malagon MD [address] [place] [id number] PCP - General 09/26/16
[2024-12-20 11:15] VITALS: BP 163/74; PULSE 100; RESP 22; TEMP 36.9; O2SAT 99
[2024-12-20 11:31] VITALS: BP 152/68; PULSE 95; RESP 17; O2SAT 92
[2024-12-20] MEDS: BETAMETHASONE SODIUM PHOSPHATE PF INJ 6 MG/ML VIAL INFILTRATE (11:36)
[2024-12-20 11:37] VITALS: BP 142/63; PULSE 94; RESP 24; O2SAT 91
[2024-12-20 11:44] VITALS: BP 157/70; PULSE 97; RESP 17; O2SAT 92
[2024-12-20 11:50] VITALS: BP 152/62; PULSE 99; RESP 18; O2SAT 99
== END 2024-12-20 12:05 | disposition home or self-care (01) ==
PROVIDERS: PCP Internal Medicine; Visit Provider Anesthesiology Pain Medicine
PROC: (CPT 64483; principal; 2024-12-20 11:50)
DX: M47.817 Spondylosis without myelopathy or radiculopathy, lumbosacral region (principal)
CPT/HCPCS: 64483; 64484 ×2; 99199

== ENCOUNTER 2025-01-02 12:41 | Inpatient (IN) | payer MEDICARE, SELFPAY ==
[2025-01-02] VITALS (30 sets, daily range): BP systolic 123–191; BP diastolic 46–69; PULSE 74–108; RESP 16–28; TEMP 36.6–36.8; O2SAT 96–100; BMI 26.0
--- NOTE | ~2025-01-02 | CT_ITS ---
EXAMINATION: CTA chest PE protocol DATE: 01/02/2025 17:57 CDT INDICATION: Shortness of breath with elevated d-dimer TECHNIQUE: Computed tomographic angiography (CTA) of the chest was performed with 100 mL Omnipaque-35 0 intravenous contrast. The dose-length product was 460.74 mGy-cm. Maximum intensity projection 3D-re constructions of the aorta and other arteries were constructed by the technologist on a separate work station. COMPARISON: None. Reference is made to a contrast-enhanced examination of the chest abdomen and pelvi s dated FINDINGS/OBSERVATIONS: PULMONARY ARTERIES: No filling defect is identified within the main or proximal pulmonary artery. The main pulmonary artery is not enlarged. THORACIC AORTA: No aneurysmal dilatation or dissection is present. The great vessels are intact LUNGS: Large right-sided pleural effusion with adjacent compressive atelectasis. Small left-sided pleural effusion, with adjacent compressive atelectasis. Interstitial thickening and patchy groundglass opacification is otherwise demonstrated consistent wit h pulmonary edema. MEDIASTINUM: No morphologically suspicious or pathologically enlarged lymph nodes are identified with in the mediastinum or bilateral axilla. BONES OF THE CHEST: No acute fracture. Anterior fixation of the lower cervical spine. Sternal wires are present. No lytic or blastic lesions. HEART: The heart is enlarged, without pericardial effusion. IMPRESSION: No pulmonary embolus. No thoracic aortic dissection. Large right and small left-sided pleural effusions with adjacent compressive atelectasis. Pulmonary edema within the visualized compressed lung carter. Reviewed, dictated and finalized at location A. IMPRESSION: No pulmonary embolus. No thoracic aortic dissection. Large right and small left-sided pleural effusions with adjacent compressive at electasis. Pulmonary edema within the visualized compressed lung carter.
--- NOTE | ~2025-01-02 | XR_ITS ---
EXAMINATION: XR chest 1V portable DATE: 01/07/2025 12:09 INDICATION: Shortness of breath TECHNIQUE: frontal view of the chest was obtained. COMPARISON: Chest radiograph dated 11/15/[address] dated 01/02/2025 FINDINGS: Gradient of basilar predominant hazy airspace opacities in the bilateral lower lung zones with obscur ation of the diaphragm consistent was persistent small bilateral pleural effusions with associated bi basilar atelectasis versus pneumonia. No pulmonary edema or pneumothorax. Cardiomegaly. Median sterno hilaria wires and mediastinal surgical clips are seen, likely from prior coronary artery bypass grafting . Moderate degenerative skeletal changes in the bilateral shoulders. Anterior plate-screw fixation fo r enhancement at the C6-T1. IMPRESSION: 1. Persistent small bilateral pleural effusions with associated bibasilar atelectasis and/or pneumoni a. 2. Cardiomegaly. Reviewed, dictated and finalized at location A. IMPRESSION: 1. Persistent small bilateral pleural effusions with associated bibasilar atele ctasis and/or pneumonia. 2. Cardiomegaly.
--- OUTSIDE RECORDS SUMMARY | 2025-01-02 12:44 | XMS_ITS | Encounter Summary ---
Author Organization [facility] Address [address] [place] [address] Care Team Providers Care Special Programs Director Name Role Phone Harry Malagon MD Primary Care Provider [phone] Harry Malagon MD Primary Care Provider [phone] Harry Malagon MD Unavailable [phone] Sarita Fuller RN Unavailable [phone] Kristel Gonzalez LCSW Unavailable [phone] Encounter Details Date Type Department Care Team (Late st Contact Info) Description 10/20/2014 [facility] Outpatient Visit [facility] Orthopedics [address] [place] [address] Rony Ibanez F, DO [address] [place] [address] Social History Tobacco Use Types [...] on filedocumented in this encounter Care Teams Special Programs Director Relationship Specialty Start Date End Date Harry Malagon MD [address] [place] [address] PCP - General Internal Medicine 09/14/14 01/06/21 Harry Malagon MD [address] [place] [address] PCP - General 01/07/21 Harry Malagon MD [address] [place] [address] Internal Medicine 01/07/21 Sarita Fuller, RN Coal Or Ore Controller 11/15/14 Kristel Gonzalez, [facility] Manager Electrical 11/17/14 documented as of this encounter
--- OUTSIDE RECORDS SUMMARY | 2025-01-02 12:44 | XMS_ITS | Encounter Summary ---
Author Organization [facility] Address [address] [place] [address] Care Team Providers Care Morning Nanny Name Role Phone Harry Malagon MD Primary Care Provider [phone] Harry Malagon MD Primary Care Provider [phone] Harry Malagon MD Unavailable [phone] Sarita Fuller RN Unavailable [phone] Kristel Gonzalez LCSW Unavailable [phone] Encounter Details Date Type Department Care Team (Late st Contact Info) Description 10/20/2014 [facility] Outpatient Visit [facility] Orthopedics [address] [place] [address] Rony Ibanez F, DO [address] [place] [address] Social History Tobacco Use Types [...] on filedocumented in this encounter Care Teams Morning Nanny Relationship Specialty Start Date End Date Harry Malagon MD [address] [place] [address] PCP - General Internal Medicine 09/14/14 01/06/21 Harry Malagon MD [address] [place] [address] PCP - General 01/07/21 Harry Malagon MD [address] [place] [address] Internal Medicine 01/07/21 Sarita Fuller, RN Kiln Mechanic 11/15/14 Kristel Gonzalez, [facility] Coding Quality Coordinator 11/17/14 documented as of this encounter
--- OUTSIDE RECORDS SUMMARY | 2025-01-02 12:44 | XMS_ITS | Clinical Summary ---
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
--- OUTSIDE RECORDS SUMMARY | 2025-01-02 12:45 | XMS_ITS | Patient Health Record ---
Author Organization [facility] [employer] Address [address] [facility] [address] [place] [address] Care Team Providers Care Shell Worker Name Role Phone Slick Mcgrath Unavailable [phone] Reason For Referral No Information Plan Of Treatment No Information Insurance Providers Payer Name Payer Address Payer Phone Subscriber Number Group Number Insured Name Patient Relationship to Insured Coverage Start Date Coverage End Date Medicare-I l Medicare [address] [place] [phone] [id number] PAYAL GREEN Self - patient is the insured
--- OUTSIDE RECORDS SUMMARY | 2025-01-02 12:45 | XMS_ITS | Referral Summary ---
Author Organization [facility] Address [address] [place] [address] Phone Care Team Providers Care Crutcher Helper Name Role Phone Harry Malagon MD Primary Care Provider [phone] Allergies Active Allergy Reactions Criticality Noted Date [...] on file Legal Sex Male 2:00 AM ED TEACHER Gender Identity Not on file Sexual Orientation Not on file Last Filed Vital Signs Vital Sign Reading Time Taken Comments Blood Pressure 146/68 03/14/2024 1:28 PM CDT Pulse 83 03/14/2024 1:28 PM CDT Temperature 36.7 C (98 F) 04/21/2023 8:22 AM ED TEACHER Respiratory Rate 16 04/21/2023 8:22 AM ED TEACHER Oxygen Saturation 97% 03/14/2024 1:28 PM CDT Inhaled Oxygen Concentration - - Weight 90.3 kg (199 lb 1.9 oz) 03/14/2024 1:28 P M CDT Height 184.2 cm (6' 0.5) 03/14/2024 1:28 PM CDT Body Mass Index 26.63 03/14/2024 1:28 PM CDT Plan of Treatment Not on file Medical Devices Implanted Type Area Psychiatric Nurse Device Identifier Shelf Expiration Date Model / Serial / Lot [employer]thing Device Closure Vascade Od5 Fr Femoral Artery [id number] - [id number] Implanted:Qty: 1 on 04/21/2023 by Shan Chamorro MD at [facility] [employer] [facility] 02/04/2025 700-500DX-0 5U / / [id number] Procedures Procedure Name Priority Date/Time Associated Diagnosis Comments SERUM HEPATITIS PANEL Routine 07/08/2016 10:26 AM ED TEACHER from Last 3 Months or Most Recently Relevant to Health Maintenance Results * Serum Hepatitis panel (07/08/2016 10:26 AM ED TEACHER) HAV ab, IgM Nonreactive CDR HISTORICAL RESULTS [...] RNA Detection and Quantitation by Real-Time Reverse House Moving Supervisor-PCR (RT-PCR). Current interpretive data was last revised on 2016. HBV surface ag Nonreactive CDR HISTORICAL RESULTS Serum 07/08/2016 10:2 6 AM ED TEACHER us Historical Provider LAB BLOOD ORDERABLES Latrice kuhn Result CDR HISTORICAL RESULTS from Last 3 Months or Most Recently Relevant to Health Maintenance Insurance MDCR HMO REF [facility] MEDICARE Address: [facility] [address] [place] [address] [id number]IC[facility] ADVANTAGE Advance Directives For more information, please contact: [phone] * Full Code (Latest Code Status on File) Date Activated Date Inactivated Comments 04/21/2023 1:20 PM 04/21/2023 8:17 PM Care Teams Crutcher Helper Relationship Specialty Start Date End Date Harry Malagon MD [address] [place] [address] PCP - General 09/26/16
--- OUTSIDE RECORDS SUMMARY | 2025-01-02 12:45 | XMS_ITS | Clinical Summary ---
Author Organization [facility] Address [address] [place] [address] Phone Care Team Providers Care Contract Implementation Analyst Name Role Phone Harry Malagon MD Primary Care Provider [phone] Allergies Active Allergy Reactions Criticality Noted Date [...] on file Legal Sex Male 2:00 AM ELECTRIC BLANKET PACKER Gender Identity Not on file Sexual Orientation Not on file Obstetrics History Last Filed Vital Signs Vital Sign Reading Time Taken Comments Blood Pressure 146/68 03/14/2024 1:28 PM CDT Pulse 83 03/14/2024 1:28 PM CDT Temperature 36.7 C (98 F) 04/21/2023 8:22 AM ELECTRIC BLANKET PACKER Respiratory Rate 16 04/21/2023 8:22 AM ELECTRIC BLANKET PACKER Oxygen Saturation 97% 03/14/2024 1:28 PM CDT [...] Fall Risk Assessment 04/21/2024 04/21/2023 Influenza Vaccine (#1) 2025 Hepatitis C Screening Completed 07/08/2016 Medical Devices Implanted Type Area Rpg Programmer Device Identifier Shelf Expiration Date Model / Serial / Lot [employer] Device Closure Vascade Od5 Fr Femoral Artery [id number] - [id number] Implanted:Qty: 1 on 04/21/2023 by Shan Chamorro MD at [facility] [employer] [facility] 02/04/2025 700-500DX-0 5U / / [id number] Procedures Procedure Name Priority Date/Time Associated Diagnosis Comments SERUM HEPATITIS PANEL Routine 07/08/2016 10:26 AM ELECTRIC BLANKET PACKER from Last 3 Months or Most Recently Relevant to Health Maintenance Results * Serum Hepatitis panel (07/08/2016 10:26 AM ELECTRIC BLANKET PACKER) HAV ab, IgM Nonreactive CDR HISTORICAL RESULTS [...] RNA Detection and Quantitation by Real-Time Reverse Clinical Safety Specialist-PCR (RT-PCR). Current interpretive data was last revised on 2016. HBV surface ag Nonreactive CDR HISTORICAL RESULTS Serum 07/08/2016 10:2 6 AM ELECTRIC BLANKET PACKER us Historical Provider LAB BLOOD ORDERABLES Latrice kuhn Result CDR HISTORICAL RESULTS from Last 3 Months or Most Recently Relevant to Health Maintenance Insurance MEDICARE ADVANTAGE Advance Directives For more information, please contact: [phone] * Full Code (Latest Code Status on File) Date Activated Date Inactivated Comments 04/21/2023 1:20 PM 04/21/2023 8:17 PM Care Teams Contract Implementation Analyst Relationship Specialty Start Date End Date Harry Malagon MD [address] [place] [id number] PCP - General 09/26/16
--- OUTSIDE RECORDS SUMMARY | 2025-01-02 12:45 | XMS_ITS | Clinical Summary ---
Author Organization [facility] Address [address] [place] [place] [address] Care Team Providers Care Blind Installer Name Role Phone Harry Malagon MD Primary Care Provider [phone] Harry Malagon MD Unavailable [phone] Sarita Fuller RN Unavailable [phone] Kristel GonzalezW Unavailable [phone] Source Comments [facility],non-owned Affiliates and Associated Physician Practices is amultiple site organization consisting of ambulatory clinics and hospital sitesin [place], [place], [place] and [place]. This disclosure is being madepursuant to the Care Everywhere program and may not contain all information available regarding this patient. Last updated 18.[facility] Allergies Active Allergy Reactions Criticality Noted Date [...] 12/02/19 15 Active vitamin D, ergocalciferol, (DRISDOL) 51909 UNITS capsule Take 1 Cap by mouth [...] this topic Medical Devices Implanted Type Area Flaker Operator Device Identifier Shelf Expiration Date Model / Serial / Lot Cortes Bone Fairburn-G Hv 40/20 Implanted:Qty: 4 on 11/15/2014 by Rony Ibanez, DO at [facility] Left: Hip [employer] Inc 11/07/2015 [id number] / / [id number] Cortes Bone Fairburn-G Hv 40/20 Implanted:Qty: 1 on 11/15/2014 by Rony Ibanez, DO at [facility] Left: Hip [employer] 05/08/2016 [id number] / / [id number] Cbl Accord Troch W/Clmp 2.0mm Implanted:Qty: 1 on 11/15/2014 by Rony Ibanez, DO at [facility] Left: Hip [employer]hew Tra[employer] 11/06/2025 [id number] / / [id number] Cbl Accord Troch W/Clmp 2.0mm Implanted:Qty: 1 on 11/15/2014 by Rony Ibanez, DO at [facility] Left: Hip [employer] Trauma 03/08/2024 [id number] / / [id number] Cbl Accord Troch W/Clmp 2.0mm Implanted:Qty: 1 on 11/15/2014 by Rony Ibanez, DO at [facility] Left: Hip [employer]hew Trauma 07/09/2021 [id number] / / [id number] Cbl Accord Troch W/Clmp 2.0mm Implanted:Qty: 1 on 11/15/2014 by Rony Ibanez DO at [facility] Left: Hip [employer]hew Trauma 02/07/2024 [id number] / / [id number] Cbl Accord Ss W/Clmp 2.0mm Implanted:Qty: 1 on 11/15/2014 by Rony Ibanez DO at [facility] Left: Hip [employer] Orthopaedics 01/07/2024 [id number] / / [id number] Explanted Type Area Flaker Operator Device Identifier Shelf Expiration Date Model / Serial / Lot Cbl Accord Troch Icing Coater Std 125mm Explanted:Qty: 1 on 11/15/2014 at [facility] Left: Hip [employer] Trauma 07/09/2020 [id number] / / [id number] Insurance MANAGED MEDICARE ADV MANAGED MEDICARE ADV Advance Directives * Full Code (Latest Code Status on File) Date Activated Date Inactivated Comments 11/19/2014 11:47 AM 12/01/2014 7:05 PM Care Teams Blind Installer Relationship Specialty Start Date End Date Harry Malagon MD [address] [facility] [address] [place] [address] PCP - General 01/07/21 Harry Malagon MD [address] [place] [address] Internal Medicine 01/07/21 Sarita Fuller, RN Senior Laboratory Technician 11/15/14 Kristel Gonzalez, DRAINAGE DESIGN COORDINATOR Senior Sales Operations Manager 11/17/14
--- OUTSIDE RECORDS SUMMARY | 2025-01-02 12:45 | XMS_ITS | Encounter Summary ---
Author Organization [facility] Health Address [address] [place] [address] Care Team Providers Care Jukebox Operator Name Role Phone Harry Malaogn MD Primary Care Provider [phone] Harry Malagon MD Primary Care Provider [phone] Harry Malagon MD Unavailable [phone] Sarita Fuller RN Unavailable [phone] Kristel GonzalezW Unavailable [phone] Encounter Details Date Type Department Care Team (Late st Contact Info) Description 11/20/2014 [facility] Outpatient Visit [facility] Orthopedics [address] [place] [address] Rony Ibanez F, DO [address] [place] [address] Social History Tobacco Use Types [...] on filedocumented in this encounter Care Teams Jukebox Operator Relationship Specialty Start Date End Date Harry Malagon MD [address] [place] [address] PCP - General Internal Medicine 09/14/14 01/06/21 Harry Malagon MD [address] [phone] PCP - General 01/07/21 Harry Malagon MD [address] [place] [address] Internal Medicine 01/07/21 Sarita Fuller RN Fuel Buyer 11/15/14 Kristel Gonzalez, [facility] Laminating Machine Feeder 11/17/14 documented as of this encounter
--- OUTSIDE RECORDS SUMMARY | 2025-01-02 15:05 | XMS_ITS | Clinical Summary ---
Author Organization 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 SCREEN PRINTER MACHINE Gender Identity Not on file Sexual Orientation Not on file Obstetrics History Last Filed Vital Signs Vital Sign Reading Time Taken Comments Blood Pressure 146/68 03/14/2024 1:28 PM CDT Pulse 83 03/14/2024 1:28 PM CDT Temperature 36.7 C (98 F) 04/21/2023 8:22 AM SILK SCREEN PRINTER MACHINE Respiratory Rate 16 04/21/2023 8:22 AM SILK SCREEN PRINTER MACHINE Oxygen Saturation 97% 03/14/2024 1:28 PM CDT [...] Completed 07/08/2016 Medical Devices Implanted Type Area Associate Financial Analyst Device Identifier Shelf Expiration Date Model / Serial / Lot [employer] Device Closure Vascade Od5 Fr Femoral Artery [id number] - [id number] Implanted:Qty: 1 on 04/21/2023 by Shan Chamorro MD at [facility] [employer] [facility] 02/04/2025 700-500DX-0 [id number] / / [id number] Procedures Procedure Name Priority Date/Time Associated Diagnosis Comments SERUM HEPATITIS PANEL Routine 07/08/2016 10:26 AM SILK SCREEN PRINTER MACHINE from Last 3 Months or Most Recently Relevant to Health Maintenance Results * Serum Hepatitis panel (07/08/2016 10:26 AM SILK SCREEN PRINTER MACHINE) HAV ab, IgM Nonreactive CDR HISTORICAL RESULTS [...] RNA Detection and Quantitation by Real-Time Reverse Rope Silica Machine Operator-PCR (RT-PCR). Current interpretive data was last revised on 2016. HBV surface ag Nonreactive CDR HISTORICAL RESULTS Serum 07/08/2016 10:2 6 AM SILK SCREEN PRINTER MACHINE us Historical Provider LAB BLOOD ORDERABLES Latrice kuhn Result CDR HISTORICAL RESULTS from Last 3 Months or Most Recently Relevant to Health Maintenance Insurance MEDICARE ADVANTAGE Advance Directives For more information, please contact: [phone] * Full Code (Latest Code Status on File) Date Activated Date Inactivated Comments 04/21/2023 1:20 PM 04/21/2023 8:17 PM Care Teams Brim Stiffener Relationship Specialty Start Date End Date Harry Malagon MD [address] [facility] [place] [id number] PCP - General 09/26/16
--- OUTSIDE RECORDS SUMMARY | 2025-01-02 15:05 | XMS_ITS | Clinical Summary ---
Author Organization [employer] Address [address] [facility] Attn: Epic Prelude ADT [place] [address] Care Team Providers Care Clinical Training Specialist Name Role Phone Unavailable Primary Care Provider Unavailabl e Social History Tobacco Use Types Packs/Day Years Used Date Smoking Tobacco: Never Assessed Sex and Gender Information Value Date Recorded Sex Assigned at Not on file Legal Sex Male 2:58 AM EDUCATION ADMINISTRATIVE ASSISTANT Gender Identity Not on file Sexual Orientation [...]
--- OUTSIDE RECORDS SUMMARY | 2025-01-02 15:05 | XMS_ITS | Referral Summary ---
Author Organization [facility] Address [address] [place] [address] Phone Care Team Providers Care Division Head Name Role Phone Harry Malagon MD Primary Care Provider [phone] Allergies Active Allergy Reactions Criticality Noted Date [...] on file Legal Sex Male 2:00 AM ACCREDITED FARM MANAGER Gender Identity Not on file Sexual Orientation Not on file Last Filed Vital Signs Vital Sign Reading Time Taken Comments Blood Pressure 146/68 03/14/2024 1:28 PM CDT Pulse 83 03/14/2024 1:28 PM CDT Temperature 36.7 C (98 F) 04/21/2023 8:22 AM ACCREDITED FARM MANAGER Respiratory Rate 16 04/21/2023 8:22 AM ACCREDITED FARM MANAGER Oxygen Saturation 97% 03/14/2024 1:28 PM CDT Inhaled Oxygen Concentration - - Weight 90.3 kg (199 lb 1.9 oz) 03/14/2024 1:28 P M CDT Height 184.2 cm (6' 0.5) 03/14/2024 1:28 PM CDT Body Mass Index 26.63 03/14/2024 1:28 PM CDT Plan of Treatment Not on file Medical Devices Implanted Type Area Software Release Manager Device Identifier Shelf Expiration Date Model / Serial / Lot [employer] Device Closure Vascade Od5 Fr Femoral Artery [id number] - [id number] Implanted:Qty: 1 on 04/21/2023 by Shan Chamorro MD at [facility] [employer] [facility] 02/04/2025 700-500DX-0 [id number] / / [id number] Procedures Procedure Name Priority Date/Time Associated Diagnosis Comments SERUM HEPATITIS PANEL Routine 07/08/2016 10:26 AM ACCREDITED FARM MANAGER from Last 3 Months or Most Recently Relevant to Health Maintenance Results * Serum Hepatitis panel (07/08/2016 10:26 AM ACCREDITED FARM MANAGER) HAV ab, IgM Nonreactive CDR HISTORICAL RESULTS [...] RNA Detection and Quantitation by Real-Time Reverse Pharmacy Care Coordinator-PCR (RT-PCR). Current interpretive data was last revised on 2016. HBV surface ag Nonreactive CDR HISTORICAL RESULTS Serum 07/08/2016 10:2 6 AM ACCREDITED FARM MANAGER us Historical Provider LAB BLOOD ORDERABLES Latrice kuhn Result CDR HISTORICAL RESULTS from Last 3 Months or Most Recently Relevant to Health Maintenance Insurance [facility] HMO REF [id number] MEDIC[facility] ADVANTAGE Advance Directives For more information, please contact: [phone] * Full Code (Latest Code Status on File) Date Activated Date Inactivated Comments 04/21/2023 1:20 PM 04/21/2023 8:17 PM Care Teams Division Head Relationship Specialty Start Date End Date Harry Malagon MD [address] [place] [address] PCP - General 09/26/16
--- OUTSIDE RECORDS SUMMARY | 2025-01-02 15:05 | XMS_ITS | Encounter Summary ---
Author Organization [facility] Health Address [address] [address] Care Team Providers Care Informatics Developer Name Role Phone Harry Malagon MD Primary Care Provider [phone] Harry Malagon MD Primary Care Provider [phone] Harry Malagon MD Unavailable [phone] Sarita Fuller RN Unavailable [phone] Kristel Gonzalez LCSW Unavailable [phone] Encounter Details Date Type Department Care Team (Late st Contact Info) Description 10/20/2014 [facility] Outpatient Visit [facility] Orthopedics [address] [place] [address] Rony Ibanez F, DO [address] [place] [address] Social History Tobacco Use Types [...] on filedocumented in this encounter Care Teams Informatics Developer Relationship Specialty Start Date End Date Harry Malagon MD [address] [place] [address] PCP - General Internal Medicine 09/14/14 01/06/21 Harry Malagon MD [address] [place] [address] PCP - General 01/07/21 Harry Malagon MD [address] [place] [address] Internal Medicine 01/07/21 Sarita Fuller, RN Desizing Machine Back Tender 11/15/14 Kristel Gonzalez, [facility] Judge 11/17/14 documented as of this encounter
--- OUTSIDE RECORDS SUMMARY | 2025-01-02 15:05 | XMS_ITS | Encounter Summary ---
Author Organization [facility] Health Address [address] [address] Care Team Providers Care Sword Swallower Name Role Phone Harry Malagon MD Primary Care Provider [phone] Harry Malagon MD Primary Care Provider [phone] Harry Malagon MD Unavailable [phone] Sarita Fuller RN Unavailable [phone] Kristel Gonzalez LCSW Unavailable [phone] Encounter Details Date Type Department Care Team (Late st Contact Info) Description 10/20/2014 [facility] Outpatient Visit [facility] Orthopedics [address] [place] [address] Rony Ibanez F, DO [address] [place] [address] Social History Tobacco Use Types [...] on filedocumented in this encounter Care Teams Sword Swallower Relationship Specialty Start Date End Date Harry Malagon MD [address] [place] [address] PCP - General Internal Medicine 09/14/14 01/06/21 Harry Malagon MD [address] [place] [address] PCP - General 01/07/21 Harry Malagon MD [address] [place] [address] Internal Medicine 01/07/21 Sarita Fuller, RN Transmission Superintendent 11/15/14 Kristel Gonzalez, [facility] Air Intercept Controller Supervisor 11/17/14 documented as of this encounter
--- OUTSIDE RECORDS SUMMARY | 2025-01-02 15:05 | XMS_ITS | Encounter Summary ---
Author Organization [facility] Health Address [address] [place] [address] Care Team Providers Care Crop Consultant Name Role Phone Harry Malagon MD Primary Care Provider [phone] Harry Malagon MD Primary Care Provider [phone] Harry Malagon MD Unavailable [phone] Sarita Fuller RN Unavailable [phone] Kristel GonzalezW Unavailable [phone] Encounter Details Date Type Department Care Team (Late st Contact Info) Description 11/20/2014 [facility] Outpatient Visit [facility] Orthopedics [address] [place] [address] Rony Ibanez F, DO [address] [place] [address] Social History Tobacco Use Types [...] on filedocumented in this encounter Care Teams Crop Consultant Relationship Specialty Start Date End Date Harry Malagon MD [address] [place] [address] PCP - General Internal Medicine 09/14/14 01/06/21 Harry Malagon MD [address] [address] PCP - General 01/07/21 Harry Malagon MD [address] [place] [address] Internal Medicine 01/07/21 Sarita Fuller RN Case Manager Specialist 11/15/14 Kristel Gonzalez, [facility] Material Worker 11/17/14 documented as of this encounter
--- OUTSIDE RECORDS SUMMARY | 2025-01-02 15:05 | XMS_ITS | Clinical Summary ---
Author Organization [facility] Address [address] [facility] [place] [address] Care Team Providers Care Supervisor Nuclear Medicine Name Role Phone Harry Malagon MD Primary Care Provider Harry Malagon MD Unavailable Sarita Fuller RN Unavailable [phone] Kristel GonzalezW Unavailable [phone] Source Comments [facility],non-owned Affiliates and Associated Physician Practices is amultiple site organization consisting of ambulatory clinics and hospital sitesin [place], [place], [place] and [place]. This disclosure is being madepursuant to the Care Everywhere program and may not contain all information available regarding this patient. 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 Device Identifier Shelf Expiration Date Model / Serial / Lot [employer] [place]-G Hv 40/20 Implanted:Qty: 4 on 11/15/2014 by Rony Ibanez, DO at [facility] Left: Hip [employer] 11/07/2015 [id number] / / [id number] [employer] [place]-G Hv 40/20 Implanted:Qty: 1 on 11/15/2014 by Rony Ibanez, DO at [facility] Left: Hip [employer] 05/08/2016 [id number] / / [id number] Cbl Accord Troch W/Clmp 2.0mm Implanted:Qty: 1 on 11/15/2014 by Rony Ibanez, DO at [facility] Left: Hip [employer] 11/06/2025 [id number] / / [id number] Cbl Accord Troch W/Clmp 2.0mm Implanted:Qty: 1 on 11/15/2014 by Rony Ibanez, DO at [facility] Left: Hip [employer] 03/08/2024 [id number] / / [id number] Cbl Accord Troch W/Clmp 2.0mm Implanted:Qty: 1 on 11/15/2014 by Rony Ibanez, DO at [facility] Left: Hip [employer] 07/09/2021 [id number] / / [id number] Cbl Accord Troch W/Clmp 2.0mm Implanted:Qty: 1 on 11/15/2014 by Rony Ibanez DO at [facility] Left: Hip [employer] 02/07/2024 [id number] / / [id number] Cbl Accord Ss W/Clmp 2.0mm Implanted:Qty: 1 on 11/15/2014 by Rony Ibanez DO at [facility] Left: Hip [employer] 01/07/2024 [id number] / / [id number] Explanted Type Area High School Physical Education 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 Device Identifier Shelf Expiration Date Model / Serial / Lot Cbl Accord Troch Coremaker Apprentice Std 125mm Explanted:Qty: 1 on 11/15/2014 at [facility] Left: Hip [employer] 07/09/2020 [id number] / / [id number] Insurance MANAGED MEDICARE ADV MANAGED MEDICARE ADV Advance Directives * Full Code (Latest Code Status on File) Date Activated Date Inactivated Comments 11/19/2014 11:47 AM 12/01/2014 7:05 PM Care Teams Supervisor Nuclear Medicine Relationship Specialty Start Date End Date Harry Malagon MD [address] [facility] [address] [place] [address] PCP - General 01/07/21 Harry Malagon MD [address] [place] [address] Internal Medicine 01/07/21 Sarita Fuller, RN Education Reviewer 11/15/14 Kristel Gonzalez, COMMUNITY ENGAGEMENT COORDINATOR Group Art Supervisor 11/17/14
--- NOTE | 2025-01-02 15:48 | ED_ITS ---
HPI - SOB/Dyspnea General Chief Complaint: Shortness of Breath/Dyspnea <Lisa Comer APRN - Last Filed: 01/02/25 15:49> Stated Complaint: shortness of breath <Lisa Comer APRN - Last Filed: 01/02/25 15:49> Time Seen by Provider: 01/02/25 15:15 <Lisa Comer APRN - Last Filed: 01/02/25 15:49> Focused HPI: Patient is a 69-year-old male who presents to the ER with shortness of breath that started yesterday. He reports he has been using his nebulizers at home but they have not been helping relieve his symptoms. Patient endorses a history of COPD and is on blood thinners. He denies any recent lower extremity swelling, recent fevers, or chest pain. Patient is on nasal cannula at baseline. GENERAL: Well-appearing, well-nourished, and in mild respiratory distress. HEAD: Normocephalic, atraumatic. CHEST: Diminished bases. ?Mildly tachypneic HEART: Regular rate and rhythm.? NEURO: ?Alert and oriented x3. Patient screened in triage and initial orders placed.? ?Additional care and disposition to be based upon?diagnostic testing and treatment. <Lisa Comer APRN - Last Filed: 01/02/25 15:49> Focused HPI: Patient is a 69-year-old male who presents to the ER with shortness of breath that started a couple of months ago, worsening yesterday. He reports he has been using his nebulizers at home but they have not been helping relieve his symptoms. Patient endorses a history of COPD and CAD. Reports lower extremity swelling. Denies fevers, or chest pain. Patient does not wear oxygen usually GENERAL: Well-appearing, well-nourished, and in mild respiratory distress. HEAD: Normocephalic, atraumatic. CHEST: Diminished bases. ?Mildly tachypneic HEART: Regular rate and rhythm.? NEURO: ?Alert and oriented x3. Patient screened in triage and initial orders placed.? ?Additional care and disposition to be based upon?diagnostic testing and treatment. <Carla Godwin PA-C - Last Filed: 01/03/25 02:34> Related Data Home Medications: Home Medications ?Medication ?Instructions ?Recorded ?Confirmed ?Last Taken ?Type cholecalciferol (vitamin D3) 25 25 mcg PO DAILY 09/11/20 01/02/25 12/13/24 History mcg (1,000 unit) capsule amlodipine 5 mg tablet 5 mg PO DAILY 02/25/24 01/02/25 12/13/24 History albuterol sulfate 90 mcg/actuation 1 puff inhalation Q4H PRN 01/02/25 01/02/25 Unknown History aerosol inhaler shortness of breath or wheezing <Lisa Comer APRN - Last Filed: 01/02/25 15:49> Allergies/Adverse Reactions: Allergies Allergy/AdvReac Type Severity Reaction Status Date / Time No Known Allergies Allergy Verified 01/02/25 23:48 <Lisa Comer APRN - Last Filed: 01/02/25 15:49> Review of Systems 2 Review of Systems: All systems reviewed & are unremarkable except as noted in HPI and below <Carla Godwin PA-C - Last Filed: 01/03/25 02:34> [facility] Past Medical History Medical History: Medical History Pneumonia 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 Nocturia Impacted cerumen of both ears Left bundle branch block Congestion of right ear Fall Injury of left knee Left knee pain Skin lesions Vision changes Muscle spasm Epistaxis Essential hypertension Non-healing skin lesion Aortic valve disease Muscle cramps BMI 30.0-30.9,adult Chronic right shoulder pain Toenail fungus BMI 27.0-27.9,adult Hx of colonic polyps Prostate cancer screening BMI 24.0-24.9, adult Onychomycosis Unintentional weight loss Right shoulder pain BMI 25.0-25.9,adult URI (upper respiratory infection) Borderline abnormal TFTs BMI 26.0-26.9,adult Abnormal thyroid function test Exposure to hepatitis C Possible exposure to STD Hypervitaminosis D Abnormal finding of blood chemistry Colon cancer screening Hyperlipidemia Encounter for Medicare annual wellness exam Dysuria DM w/o complication type II Vitamin D deficiency Vitamin B 12 deficiency BMI 28.0-28.9,adult ADD (attention deficit disorder) Follow up Anxiety with depression Encounter for routine adult health examination with abnormal findings Pre-diabetes ADD (attention deficit disorder) Cognitive dysfunction Testosterone deficiency Amaurosis fugax Encounter for special screening examination for neoplasm of prostate Chronic right hip pain DJD (degenerative joint disease), multiple sites Insomnia Depression Encounter for routine adult health examination without abnormal findings BMI 29.0-29.9,adult 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 Chronic low back pain <Lisa Comer, CHILDREN'S AUTHOR - Last Filed: 01/02/25 15:49> Surgical History Surgical History: Surgical History H/O aortic valve replacement Hx of bilateral hip replacements History of bilateral knee replacement <Lisa Comer APRN - Last Filed: 01/02/25 15:49> Family History Family History: Family History Sibling Family history of diabetes mellitus in first degree relative Diabetes mellitus <Lisa Comer APRN - Last Filed: 01/02/25 15:49> Social History Social History: Social History Smoking status: Never smoker Second hand tobacco smoke exposure: No Alcohol intake: never Substance use: never Substance use type: does not use Do You Feel Safe in your Home?: Yes Lack of Transportation: No Lack of Food: Never True Current Housing: I Have Housing Concerned About Future Housing: No Difficulty Paying Gas/Electric Bills: No Difficulty Paying for Meds: No Currently Unemployed: No Education: High School Diploma/GED Difficulty w/ Childcare or Family Care: No Living arrangements: with family Gender identity (if verbalized by the patient): Male Spiritual care concerns: No <Lisa Comer, CHILDREN'S AUTHOR - Last Filed: 01/02/25 15:49> Exam 2 Narrative: GENERAL: Well-appearing, well-nourished, and in no acute distress. HEAD: Normocephalic, atraumatic. EYES: EOMI. ENT: Nares clear, no rhinorrhea or epistaxis. Mucous membranes moist. Oropharynx without tonsillar hypertrophy exudate or other lesions. CHEST: No respiratory distress. Rales at the bases. No wheezes or rhonchi HEART: Regular rate and rhythm. No murmur heard. Normal peripheral pulses. EXTREMITIES: Normal range of motion. 1+ pitting edema to the bilateral lower extremities SKIN: Warm, dry, no rash. NEURO: No focal deficits. Alert and oriented x3. PSYCH: Normal mood and affect <Carla Godwin PA-C - Last Filed: 01/03/25 02:34> Course Course Emergency Course: patient updated on his workup and need for admission <MIROSLAVA Calvo - Last Filed: 01/03/25 02:34> BUSINESS CONTINUITY SPECIALIST/PA Physician Supervision For this patient encounter, I reviewed the BUSINESS CONTINUITY SPECIALIST or PA documentation, treatment plan, and medical decision making; and I had [id number] time with this patient. <Carlo Bronson MD - Last Filed: 01/06/25 17:51> Consultations Consultation #1: Spoke with hospitalist about patient and workup who accepts admission < Carla Godwin PA-C - Last Filed: 01/03/25 02:34> Date: 01/02/25 <Carla Godwin PA-C - Last Filed: 01/03/25 02:34> Vital Signs Vital signs: Vital Signs Temperature 98 F 01/02/25 13:22 Pulse Rate 74 01/02/25 13:22 Respiratory Rate 20 01/02/25 13:22 Blood Pressure 154/52 H 01/02/25 13:22 Pulse Oximetry 99 01/02/25 13:22 Temperature 97.8 F 01/06/25 16:00 Pulse Rate 79 01/06/25 16:00 Respiratory Rate 20 01/06/25 16:00 Blood Pressure 131/52 L 01/06/25 16:00 Pulse Oximetry 99 01/06/25 16:00 Oxygen Delivery Room Air 01/06/25 08:00 Oxygen Flow Rate 1 01/03/25 20:00 Fraction of Inspired Oxygen 21 01/05/25 06:00 <Lisa Comer APRN - Last Filed: 01/02/25 15:49> Vital Signs Temperature 98 F 01/02/25 13:22 Pulse Rate 74 01/02/25 13:22 Respiratory Rate 20 01/02/25 13:22 Blood Pressure 154/52 H 01/02/25 13:22 Pulse Oximetry 99 01/02/25 13:22 Temperature 97.8 F 01/06/25 16:00 Pulse Rate 79 01/06/25 16:00 Respiratory Rate 20 01/06/25 16:00 Blood Pressure 131/52 L 01/06/25 16:00 Pulse Oximetry 99 01/06/25 16:00 Oxygen Delivery Room Air 01/06/25 08:00 Oxygen Flow Rate 1 01/03/25 20:00 Fraction of Inspired Oxygen 21 01/05/25 06:00 <Carla Godwin PA-C - Last Filed: 01/03/25 02:34> Vital Signs Temperature 98 F 01/02/25 13:22 Pulse Rate 74 01/02/25 13:22 Respiratory Rate 20 01/02/25 13:22 Blood Pressure 154/52 H 01/02/25 13:22 Pulse Oximetry 99 01/02/25 13:22 Temperature 97.8 F 01/06/25 16:00 Pulse Rate 79 01/06/25 16:00 Respiratory Rate 20 01/06/25 16:00 Blood Pressure 131/52 L 01/06/25 16:00 Pulse Oximetry 99 01/06/25 16:00 Oxygen Delivery Room Air 01/06/25 08:00 Oxygen Flow Rate 1 01/03/25 20:00 Fraction of Inspired Oxygen 21 01/05/25 06:00 <Carlo Bronson MD - Last Filed: 01/06/25 17:51> MDM - SOB/Dyspnea MDM Narrative Medical decision making narrative: patient presents to the emergency department for shortness of breath. Worsening over the last several months. Oxygen saturation 90% on room air. Placed. He does have rales in the bilateral lower lobes. Swelling of the lower extremities. Given a dose of Lasix. Cbc without concerning findings. Metabolic panel with kidney function appears to be around his baseline. EKG without acute ST changes, baseline troponin is elevated, likely due to heart failure. BNP is 18,000. influenza, RSV and COVID screens are negative. CTA chest PE pain for further evaluation. No PE or dissection. Larger and small left pleural effusions with adjacent atelectasis. Pulmonary edema. Patient was updated on his workup and need for admission. Spoke with hospitalist about patient and workup who accepts admission <Carla Godwin PA-C - Last Filed: 01/03/25 02:34> Differential Diagnosis Differential diagnosis: Likely acute exacerbation of chronic obstructive airways disease, congestive heart failure, community acquired pneumonia and pulmonary embolism < Carla Godwin PA-C - Last Filed: 01/03/25 02:34> Lab Data Attestation: I reviewed the patient's lab results. <Carla Godwin PA-C - Last Filed: 01/03/25 02:34> Result diagrams: 01/06/25 03:52 01/06/25 03:52 <Lisa Comer APRN - Last Filed: 01/02/25 15:49> Labs: Lab Results 01/02/25 01/02/25 01/02/25 Range/Units 15:17 15:50 17:17 WBC 8.5 (4.5-10.0) K/mm3 RBC 5.38 (4.6-6.20) M/mm3 Hgb 14.3 (14.0-18.0) g/dL Hct 44.6 (42.0-52.0) % MCV 82.9 (80-100) fl MCH 26.6 (26-34) pg MCHC 32.1 (32-36) g/dl RDW 17.2 H (11.5-14.5) % Plt Count 186 (150-375) k/mm3 MPV 10.5 H (7.4-10.4) fl Immature Gran % (Auto) 0.2 (0-0.5) % Neut % (Auto) 72.8 (45.5-73.1) % Lymph % (Auto) 14.3 L (18.3-44.2) % [place] % (Auto) 10.7 H (2.6-8.5) % Eos % (Auto) 1.4 (0-4.4) % Baso % (Auto) 0.6 (0.2-1.2) % Lymph # (Auto) 1.21 (0.9-3.2) K/mm3 [place] # (Auto) 0.9 H (0.1-0.6) K/mm3 Eos # (Auto) 0.1 (0-0.3) K/mm3 Baso # (Auto) 0.1 (0.0-0.1) K/mm3 Abs Immat Gran (auto) 0.02 (0.00-0.031) K/mm3 Absolute Neuts (auto) 6.2 (1.3-6.7) K/mm3 Absolute Nucleated RBC 0.000 (0.0-0.012) K/mm3 Nucleated RBC % 0.0 (0.0-0.2) % PT 16.4 H (11.1-14.7) Seconds INR 1.3 APTT 29.6 (22.3-36.8) Seconds D-Dimer 2.18 H (<0.48) ug/mL Sodium 134 L (137-145) mmol/L Potassium 4.9 (3.4-5.0) mmol/L Chloride 106 (98-107) mmol/L Carbon Dioxide 20 L (22-30) mmol/L Anion Gap 8 (4-12) mmol/L BUN 39 H (9-20) mg/dL Creatinine 1.24 (0.7-1.3) mg/dL Estim Creat Clear Calc Not Reportable Estimated GFR 58 L (59 - ) Glucose 109 (65-110) mg/dL POC Capillary Glucose (65-105) mg/dl Lactic Acid (0.7-2.0) mmol/L Calcium 8.8 (8.4-10.2) mg/dL Magnesium 2.0 (1.6-2.3) mg/dL Total Bilirubin 1.8 H (0.2-1.3) mg/dL AST 57 (17-59) U/L ALT 93 H (6-50) U/L Alkaline Phosphatase 167 H (38-126) U/L Troponin I 0.065 H* (0.000-0.034) ng/mL NT-Pro-B Natriuret Pep [id number] H (19.9-100) pg/mL Total Protein 6.3 (6.3-8.2) g/dL Albumin 3.6 (3.5-5.1) g/dL Urine Color Dark yellow (Yellow) Urine Appearance Clear (Clear) Urine pH 5.0 (5.0-9.0) Ur Specific [place] 1.025 (1.001-1.035) Urine Protein 2+ H (Negative) mg/dL Urine Glucose (UA) Negative (Negative) mg/dL Urine Ketones Trace H (Negative) mg/dL Ur Blood (Man) Negative (Negative) Urine Nitrate Negative (Negative) Urine Bilirubin Negative (Negative) Urine Urobilinogen 0.2 (<2.0) mg/dL Leukocyte Esterase Rfl Negative (Negative) JUAN/UL Urine RBC 0-2 (0-2) /hpf Urine WBC 0-5 (0-3) /hpf Ur Squamous Epith Cells None seen (Few) /hpf Urine Bacteria None seen /hpf Urine Casts 3-5 Urine Opiates Screen Positive A (Negative) Urine Methadone Screen Negative (Negative) Ur Barbiturates Screen Negative (Negative) Ur Phencyclidine Scrn Negative (Negative) Ur Amphetamine Screen Positive A (Negative) U Benzodiazepines Scrn Positive A (Negative) Urine Cocaine Screen Negative (Negative) U Cannabinoids Screen Negative (Negative) Influenza A (RT-PCR) Negative (Negative) Influenza B (RT-PCR) Negative (Negative) RSV (RT-PCR) Negative (Negative) SARS-CoV-2 RNA (RT-PCR) Negative (Negative) 01/02/25 01/02/25 01/02/25 Range/Units 17:21 18:56 23:05 WBC (4.5-10.0) K/mm3 RBC (4.6-6.20) M/mm3 Hgb (14.0-18.0) g/dL Hct (42.0-52.0) % MCV (80-100) fl MCH (26-34) pg MCHC (32-36) g/dl RDW (11.5-14.5) % Plt Count (150-375) k/mm3 MPV (7.4-10.4) fl Immature Gran % (Auto) (0-0.5) % Neut % (Auto) (45.5-73.1) % Lymph % (Auto) (18.3-44.2) % [place] % (Auto) (2.6-8.5) % Eos % (Auto) (0-4.4) % Baso % (Auto) (0.2-1.2) % Lymph # (Auto) (0.9-3.2) K/mm3 [place] # (Auto) (0.1-0.6) K/mm3 Eos # (Auto) (0-0.3) K/mm3 Baso # (Auto) (0.0-0.1) K/mm3 Abs Immat Gran (auto) (0.00-0.031) K/mm3 Absolute Neuts (auto) (1.3-6.7) K/mm3 Absolute Nucleated RBC (0.0-0.012) K/mm3 Nucleated RBC % (0.0-0.2) % PT (11.1-14.7) Seconds INR APTT (22.3-36.8) Seconds D-Dimer (<0.48) ug/mL Sodium (137-145) mmol/L Potassium (3.4-5.0) mmol/L Chloride (98-107) mmol/L Carbon Dioxide (22-30) mmol/L Anion Gap (4-12) mmol/L BUN (9-20) mg/dL Creatinine (0.7-1.3) mg/dL Estim Creat Clear Calc Estimated GFR (59 - ) Glucose (65-110) mg/dL POC Capillary Glucose (65-105) mg/dl Lactic Acid 1.1 (0.7-2.0) mmol/L Calcium (8.4-10.2) mg/dL Magnesium (1.6-2.3) mg/dL Total Bilirubin (0.2-1.3) mg/dL AST (17-59) U/L ALT (6-50) U/L Alkaline Phosphatase (38-126) U/L Troponin I 0.063 H* 0.073 H* (0.000-0.034) ng/mL NT-Pro-B Natriuret Pep (19.9-100) pg/mL Total Protein (6.3-8.2) g/dL Albumin (3.5-5.1) g/dL Urine Color (Yellow) Urine Appearance (Clear) Urine pH (5.0-9.0) Ur Specific [place] (1.001-1.035) Urine Protein (Negative) mg/dL Urine Glucose (UA) (Negative) mg/dL Urine Ketones (Negative) mg/dL Ur Blood (Man) (Negative) Urine Nitrate (Negative) Urine Bilirubin (Negative) Urine Urobilinogen (<2.0) mg/dL Leukocyte Esterase Rfl (Negative) JUAN/UL Urine RBC (0-2) /hpf Urine WBC (0-3) /hpf Ur Squamous Epith Cells (Few) /hpf Urine Bacteria /hpf Urine Casts Urine Opiates Screen (Negative) Urine Methadone Screen (Negative) Ur Barbiturates Screen (Negative) Ur Phencyclidine Scrn (Negative) Ur Amphetamine Screen (Negative) U Benzodiazepines Scrn (Negative) Urine Cocaine Screen (Negative) U Cannabinoids Screen (Negative) Influenza A (RT-PCR) (Negative) Influenza B (RT-PCR) (Negative) RSV (RT-PCR) (Negative) SARS-CoV-2 RNA (RT-PCR) (Negative) 01/03/25 01/03/25 01/03/25 Range/Units 00:31 04:00 04:00 WBC 7.3 (4.5-10.0) K/mm3 RBC 4.71 (4.6-6.20) M/mm3 Hgb 12.5 L (14.0-18.0) g/dL Hct 39.1 L (42.0-52.0) % MCV 83.0 (80-100) fl MCH 26.5 (26-34) pg MCHC 32.0 (32-36) g/dl RDW 17.2 H (11.5-14.5) % Plt Count 166 (150-375) k/mm3 MPV 10.3 (7.4-10.4) fl Immature Gran % (Auto) 0.3 (0-0.5) % Neut % (Auto) 70.4 (45.5-73.1) % Lymph % (Auto) 14.6 L (18.3-44.2) % [place] % (Auto) 11.4 H (2.6-8.5) % Eos % (Auto) 2.6 (0-4.4) % Baso % (Auto) 0.7 (0.2-1.2) % Lymph # (Auto) 1.07 (0.9-3.2) K/mm3 [place] # (Auto) 0.8 H (0.1-0.6) K/mm3 Eos # (Auto) 0.2 (0-0.3) K/mm3 Baso # (Auto) 0.1 (0.0-0.1) K/mm3 Abs Immat Gran (auto) 0.02 (0.00-0.031) K/mm3 Absolute Neuts (auto) 5.2 (1.3-6.7) K/mm3 Absolute Nucleated RBC 0.000 (0.0-0.012) K/mm3 Nucleated RBC % 0.0 (0.0-0.2) % PT (11.1-14.7) Seconds INR APTT (22.3-36.8) Seconds D-Dimer (<0.48) ug/mL Sodium 133 L (137-145) mmol/L Potassium 4.2 (3.4-5.0) mmol/L Chloride 102 (98-107) mmol/L Carbon Dioxide 28 (22-30) mmol/L Anion Gap 3 L (4-12) mmol/L BUN 40 H (9-20) mg/dL Creatinine 1.47 H (0.7-1.3) mg/dL Estim Creat Clear Calc 49 Estimated GFR 48 L (59 - ) Glucose 111 H (65-110) mg/dL POC Capillary Glucose 134 H (65-105) mg/dl Lactic Acid (0.7-2.0) mmol/L Calcium 8.3 L (8.4-10.2) mg/dL Magnesium 1.9 (1.6-2.3) mg/dL Total Bilirubin (0.2-1.3) mg/dL AST (17-59) U/L ALT (6-50) U/L Alkaline Phosphatase (38-126) U/L Troponin I 0.081 H* Cancelled (0.000-0.034) ng/mL NT-Pro-B Natriuret Pep (19.9-100) pg/mL Total Protein (6.3-8.2) g/dL Albumin (3.5-5.1) g/dL Urine Color (Yellow) Urine Appearance (Clear) Urine pH (5.0-9.0) Ur Specific [place] (1.001-1.035) Urine Protein (Negative) mg/dL Urine Glucose (UA) (Negative) mg/dL Urine Ketones (Negative) mg/dL Ur Blood (Man) (Negative) Urine Nitrate (Negative) Urine Bilirubin (Negative) Urine Urobilinogen (<2.0) mg/dL Leukocyte Esterase Rfl (Negative) JUAN/UL Urine RBC (0-2) /hpf Urine WBC (0-3) /hpf Ur Squamous Epith Cells (Few) /hpf Urine Bacteria /hpf Urine Casts Urine Opiates Screen (Negative) Urine Methadone Screen (Negative) Ur Barbiturates Screen (Negative) Ur Phencyclidine Scrn (Negative) Ur Amphetamine Screen (Negative) U Benzodiazepines Scrn (Negative) Urine Cocaine Screen (Negative) U Cannabinoids Screen (Negative) Influenza A (RT-PCR) (Negative) Influenza B (RT-PCR) (Negative) RSV (RT-PCR) (Negative) SARS-CoV-2 RNA (RT-PCR) (Negative) 01/03/25 01/03/25 Range/Units 07:54 09:35 WBC (4.5-10.0) K/mm3 RBC (4.6-6.20) M/mm3 Hgb (14.0-18.0) g/dL Hct (42.0-52.0) % MCV (80-100) fl MCH (26-34) pg MCHC (32-36) g/dl RDW (11.5-14.5) % Plt Count (150-375) k/mm3 MPV (7.4-10.4) fl Immature Gran % (Auto) (0-0.5) % Neut % (Auto) (45.5-73.1) % Lymph % (Auto) (18.3-44.2) % [place] % (Auto) (2.6-8.5) % Eos % (Auto) (0-4.4) % Baso % (Auto) (0.2-1.2) % Lymph # (Auto) (0.9-3.2) K/mm3 [place] # (Auto) (0.1-0.6) K/mm3 Eos # (Auto) (0-0.3) K/mm3 Baso # (Auto) (0.0-0.1) K/mm3 Abs Immat Gran (auto) (0.00-0.031) K/mm3 Absolute Neuts (auto) (1.3-6.7) K/mm3 Absolute Nucleated RBC (0.0-0.012) K/mm3 Nucleated RBC % (0.0-0.2) % PT (11.1-14.7) Seconds INR APTT (22.3-36.8) Seconds D-Dimer (<0.48) ug/mL Sodium (137-145) mmol/L Potassium (3.4-5.0) mmol/L Chloride (98-107) mmol/L Carbon Dioxide (22-30) mmol/L Anion Gap (4-12) mmol/L BUN (9-20) mg/dL Creatinine (0.7-1.3) mg/dL Estim Creat Clear Calc Estimated GFR (59 - ) Glucose (65-110) mg/dL POC Capillary Glucose 164 H (65-105) mg/dl Lactic Acid (0.7-2.0) mmol/L Calcium (8.4-10.2) mg/dL Magnesium (1.6-2.3) mg/dL Total Bilirubin (0.2-1.3) mg/dL AST (17-59) U/L ALT (6-50) U/L Alkaline Phosphatase (38-126) U/L Troponin I 0.057 H* D (0.000-0.034) ng/mL NT-Pro-B Natriuret Pep (19.9-100) pg/mL Total Protein (6.3-8.2) g/dL Albumin (3.5-5.1) g/dL Urine Color (Yellow) Urine Appearance (Clear) Urine pH (5.0-9.0) Ur Specific [place] (1.001-1.035) Urine Protein (Negative) mg/dL Urine Glucose (UA) (Negative) mg/dL Urine Ketones (Negative) mg/dL Ur Blood (Man) (Negative) Urine Nitrate (Negative) Urine Bilirubin (Negative) Urine Urobilinogen (<2.0) mg/dL Leukocyte Esterase Rfl (Negative) JUAN/UL Urine RBC (0-2) /hpf Urine WBC (0-3) /hpf Ur Squamous Epith Cells (Few) /hpf Urine Bacteria /hpf Urine Casts Urine Opiates Screen (Negative) Urine Methadone Screen (Negative) Ur Barbiturates Screen (Negative) Ur Phencyclidine Scrn (Negative) Ur Amphetamine Screen (Negative) U Benzodiazepines Scrn (Negative) Urine Cocaine Screen (Negative) U Cannabinoids Screen (Negative) Influenza A (RT-PCR) (Negative) Influenza B (RT-PCR) (Negative) RSV (RT-PCR) (Negative) SARS-CoV-2 RNA (RT-PCR) (Negative) <Lisa Comer, CHILDREN'S AUTHOR - Last Filed: 01/02/25 15:49> Lab Results 01/02/25 01/02/25 01/02/25 Range/Units 15:17 15:50 17:17 WBC 8.5 (4.5-10.0) K/mm3 RBC 5.38 (4.6-6.20) M/mm3 Hgb 14.3 (14.0-18.0) g/dL Hct 44.6 (42.0-52.0) % MCV 82.9 (80-100) fl MCH 26.6 (26-34) pg MCHC 32.1 (32-36) g/dl RDW 17.2 H (11.5-14.5) % Plt Count 186 (150-375) k/mm3 MPV 10.5 H (7.4-10.4) fl Immature Gran % (Auto) 0.2 (0-0.5) % Neut % (Auto) 72.8 (45.5-73.1) % Lymph % (Auto) 14.3 L (18.3-44.2) % [place] % (Auto) 10.7 H (2.6-8.5) % Eos % (Auto) 1.4 (0-4.4) % Baso % (Auto) 0.6 (0.2-1.2) % Lymph # (Auto) 1.21 (0.9-3.2) K/mm3 [place] # (Auto) 0.9 H (0.1-0.6) K/mm3 Eos # (Auto) 0.1 (0-0.3) K/mm3 Baso # (Auto) 0.1 (0.0-0.1) K/mm3 Abs Immat Gran (auto) 0.02 (0.00-0.031) K/mm3 Absolute Neuts (auto) 6.2 (1.3-6.7) K/mm3 Absolute Nucleated RBC 0.000 (0.0-0.012) K/mm3 Nucleated RBC % 0.0 (0.0-0.2) % PT 16.4 H (11.1-14.7) Seconds INR 1.3 APTT 29.6 (22.3-36.8) Seconds D-Dimer 2.18 H (<0.48) ug/mL Sodium 134 L (137-145) mmol/L Potassium 4.9 (3.4-5.0) mmol/L Chloride 106 (98-107) mmol/L Carbon Dioxide 20 L (22-30) mmol/L Anion Gap 8 (4-12) mmol/L BUN 39 H (9-20) mg/dL Creatinine 1.24 (0.7-1.3) mg/dL Estim Creat Clear Calc Not Reportable Estimated GFR 58 L (59 - ) Glucose 109 (65-110) mg/dL POC Capillary Glucose (65-105) mg/dl Lactic Acid (0.7-2.0) mmol/L Calcium 8.8 (8.4-10.2) mg/dL Magnesium 2.0 (1.6-2.3) mg/dL Total Bilirubin 1.8 H (0.2-1.3) mg/dL AST 57 (17-59) U/L ALT 93 H (6-50) U/L Alkaline Phosphatase 167 H (38-126) U/L Troponin I 0.065 H* (0.000-0.034) ng/mL NT-Pro-B Natriuret Pep [id number] H (19.9-100) pg/mL Total Protein 6.3 (6.3-8.2) g/dL Albumin 3.6 (3.5-5.1) g/dL Urine Color Dark yellow (Yellow) Urine Appearance Clear (Clear) Urine pH 5.0 (5.0-9.0) Ur Specific [place] 1.025 (1.001-1.035) Urine Protein 2+ H (Negative) mg/dL Urine Glucose (UA) Negative (Negative) mg/dL Urine Ketones Trace H (Negative) mg/dL Ur Blood (Man) Negative (Negative) Urine Nitrate Negative (Negative) Urine Bilirubin Negative (Negative) Urine Urobilinogen 0.2 (<2.0) mg/dL Leukocyte Esterase Rfl Negative (Negative) JUAN/UL Urine RBC 0-2 (0-2) /hpf Urine WBC 0-5 (0-3) /hpf Ur Squamous Epith Cells None seen (Few) /hpf Urine Bacteria None seen /hpf Urine Casts 3-5 Urine Opiates Screen Positive A (Negative) Urine Methadone Screen Negative (Negative) Ur Barbiturates Screen Negative (Negative) Ur Phencyclidine Scrn Negative (Negative) Ur Amphetamine Screen Positive A (Negative) U Benzodiazepines Scrn Positive A (Negative) Urine Cocaine Screen Negative (Negative) U Cannabinoids Screen Negative (Negative) Influenza A (RT-PCR) Negative (Negative) Influenza B (RT-PCR) Negative (Negative) RSV (RT-PCR) Negative (Negative) SARS-CoV-2 RNA (RT-PCR) Negative (Negative) 01/02/25 01/02/25 01/02/25 Range/Units 17:21 18:56 23:05 WBC (4.5-10.0) K/mm3 RBC (4.6-6.20) M/mm3 Hgb (14.0-18.0) g/dL Hct (42.0-52.0) % MCV (80-100) fl MCH (26-34) pg MCHC (32-36) g/dl RDW (11.5-14.5) % Plt Count (150-375) k/mm3 MPV (7.4-10.4) fl Immature Gran % (Auto) (0-0.5) % Neut % (Auto) (45.5-73.1) % Lymph % (Auto) (18.3-44.2) % [place] % (Auto) (2.6-8.5) % Eos % (Auto) (0-4.4) % Baso % (Auto) (0.2-1.2) % Lymph # (Auto) (0.9-3.2) K/mm3 [place] # (Auto) (0.1-0.6) K/mm3 Eos # (Auto) (0-0.3) K/mm3 Baso # (Auto) (0.0-0.1) K/mm3 Abs Immat Gran (auto) (0.00-0.031) K/mm3 Absolute Neuts (auto) (1.3-6.7) K/mm3 Absolute Nucleated RBC (0.0-0.012) K/mm3 Nucleated RBC % (0.0-0.2) % PT (11.1-14.7) Seconds INR APTT (22.3-36.8) Seconds D-Dimer (<0.48) ug/mL Sodium (137-145) mmol/L Potassium (3.4-5.0) mmol/L Chloride (98-107) mmol/L Carbon Dioxide (22-30) mmol/L Anion Gap (4-12) mmol/L BUN (9-20) mg/dL Creatinine (0.7-1.3) mg/dL Estim Creat Clear Calc Estimated GFR (59 - ) Glucose (65-110) mg/dL POC Capillary Glucose (65-105) mg/dl Lactic Acid 1.1 (0.7-2.0) mmol/L Calcium (8.4-10.2) mg/dL Magnesium (1.6-2.3) mg/dL Total Bilirubin (0.2-1.3) mg/dL AST (17-59) U/L ALT (6-50) U/L Alkaline Phosphatase (38-126) U/L Troponin I 0.063 H* 0.073 H* (0.000-0.034) ng/mL NT-Pro-B Natriuret Pep (19.9-100) pg/mL Total Protein (6.3-8.2) g/dL Albumin (3.5-5.1) g/dL Urine Color (Yellow) Urine Appearance (Clear) Urine pH (5.0-9.0) Ur Specific [place] (1.001-1.035) Urine Protein (Negative) mg/dL Urine Glucose (UA) (Negative) mg/dL Urine Ketones (Negative) mg/dL Ur Blood (Man) (Negative) Urine Nitrate (Negative) Urine Bilirubin (Negative) Urine Urobilinogen (<2.0) mg/dL Leukocyte Esterase Rfl (Negative) JUAN/UL Urine RBC (0-2) /hpf Urine WBC (0-3) /hpf Ur Squamous Epith Cells (Few) /hpf Urine Bacteria /hpf Urine Casts Urine Opiates Screen (Negative) Urine Methadone Screen (Negative) Ur Barbiturates Screen (Negative) Ur Phencyclidine Scrn (Negative) Ur Amphetamine Screen (Negative) U Benzodiazepines Scrn (Negative) Urine Cocaine Screen (Negative) U Cannabinoids Screen (Negative) Influenza A (RT-PCR) (Negative) Influenza B (RT-PCR) (Negative) RSV (RT-PCR) (Negative) SARS-CoV-2 RNA (RT-PCR) (Negative) 01/03/25 01/03/25 01/03/25 Range/Units 00:31 04:00 04:00 WBC 7.3 (4.5-10.0) K/mm3 RBC 4.71 (4.6-6.20) M/mm3 Hgb 12.5 L (14.0-18.0) g/dL Hct 39.1 L (42.0-52.0) % MCV 83.0 (80-100) fl MCH 26.5 (26-34) pg MCHC 32.0 (32-36) g/dl RDW 17.2 H (11.5-14.5) % Plt Count 166 (150-375) k/mm3 MPV 10.3 (7.4-10.4) fl Immature Gran % (Auto) 0.3 (0-0.5) % Neut % (Auto) 70.4 (45.5-73.1) % Lymph % (Auto) 14.6 L (18.3-44.2) % [place] % (Auto) 11.4 H (2.6-8.5) % Eos % (Auto) 2.6 (0-4.4) % Baso % (Auto) 0.7 (0.2-1.2) % Lymph # (Auto) 1.07 (0.9-3.2) K/mm3 [place] # (Auto) 0.8 H (0.1-0.6) K/mm3 Eos # (Auto) 0.2 (0-0.3) K/mm3 Baso # (Auto) 0.1 (0.0-0.1) K/mm3 Abs Immat Gran (auto) 0.02 (0.00-0.031) K/mm3 Absolute Neuts (auto) 5.2 (1.3-6.7) K/mm3 Absolute Nucleated RBC 0.000 (0.0-0.012) K/mm3 Nucleated RBC % 0.0 (0.0-0.2) % PT (11.1-14.7) Seconds INR APTT (22.3-36.8) Seconds D-Dimer (<0.48) ug/mL Sodium 133 L (137-145) mmol/L Potassium 4.2 (3.4-5.0) mmol/L Chloride 102 (98-107) mmol/L Carbon Dioxide 28 (22-30) mmol/L Anion Gap 3 L (4-12) mmol/L BUN 40 H (9-20) mg/dL Creatinine 1.47 H (0.7-1.3) mg/dL Estim Creat Clear Calc 49 Estimated GFR 48 L (59 - ) Glucose 111 H (65-110) mg/dL POC Capillary Glucose 134 H (65-105) mg/dl Lactic Acid (0.7-2.0) mmol/L Calcium 8.3 L (8.4-10.2) mg/dL Magnesium 1.9 (1.6-2.3) mg/dL Total Bilirubin (0.2-1.3) mg/dL AST (17-59) U/L ALT (6-50) U/L Alkaline Phosphatase (38-126) U/L Troponin I 0.081 H* Cancelled (0.000-0.034) ng/mL NT-Pro-B Natriuret Pep (19.9-100) pg/mL Total Protein (6.3-8.2) g/dL Albumin (3.5-5.1) g/dL Urine Color (Yellow) Urine Appearance (Clear) Urine pH (5.0-9.0) Ur Specific [place] (1.001-1.035) Urine Protein (Negative) mg/dL Urine Glucose (UA) (Negative) mg/dL Urine Ketones (Negative) mg/dL Ur Blood (Man) (Negative) Urine Nitrate (Negative) Urine Bilirubin (Negative) Urine Urobilinogen (<2.0) mg/dL Leukocyte Esterase Rfl (Negative) JUAN/UL Urine RBC (0-2) /hpf Urine WBC (0-3) /hpf Ur Squamous Epith Cells (Few) /hpf Urine Bacteria /hpf Urine Casts Urine Opiates Screen (Negative) Urine Methadone Screen (Negative) Ur Barbiturates Screen (Negative) Ur Phencyclidine Scrn (Negative) Ur Amphetamine Screen (Negative) U Benzodiazepines Scrn (Negative) Urine Cocaine Screen (Negative) U Cannabinoids Screen (Negative) Influenza A (RT-PCR) (Negative) Influenza B (RT-PCR) (Negative) RSV (RT-PCR) (Negative) SARS-CoV-2 RNA (RT-PCR) (Negative) 01/03/25 01/03/25 Range/Units 07:54 09:35 WBC (4.5-10.0) K/mm3 RBC (4.6-6.20) M/mm3 Hgb (14.0-18.0) g/dL Hct (42.0-52.0) % MCV (80-100) fl MCH (26-34) pg MCHC (32-36) g/dl RDW (11.5-14.5) % Plt Count (150-375) k/mm3 MPV (7.4-10.4) fl Immature Gran % (Auto) (0-0.5) % Neut % (Auto) (45.5-73.1) % Lymph % (Auto) (18.3-44.2) % [place] % (Auto) (2.6-8.5) % Eos % (Auto) (0-4.4) % Baso % (Auto) (0.2-1.2) % Lymph # (Auto) (0.9-3.2) K/mm3 [place] # (Auto) (0.1-0.6) K/mm3 Eos # (Auto) (0-0.3) K/mm3 Baso # (Auto) (0.0-0.1) K/mm3 Abs Immat Gran (auto) (0.00-0.031) K/mm3 Absolute Neuts (auto) (1.3-6.7) K/mm3 Absolute Nucleated RBC (0.0-0.012) K/mm3 Nucleated RBC % (0.0-0.2) % PT (11.1-14.7) Seconds INR APTT (22.3-36.8) Seconds D-Dimer (<0.48) ug/mL Sodium (137-145) mmol/L Potassium (3.4-5.0) mmol/L Chloride (98-107) mmol/L Carbon Dioxide (22-30) mmol/L Anion Gap (4-12) mmol/L BUN (9-20) mg/dL Creatinine (0.7-1.3) mg/dL Estim Creat Clear Calc Estimated GFR (59 - ) Glucose (65-110) mg/dL POC Capillary Glucose 164 H (65-105) mg/dl Lactic Acid (0.7-2.0) mmol/L Calcium (8.4-10.2) mg/dL Magnesium (1.6-2.3) mg/dL Total Bilirubin (0.2-1.3) mg/dL AST (17-59) U/L ALT (6-50) U/L Alkaline Phosphatase (38-126) U/L Troponin I 0.057 H* D (0.000-0.034) ng/mL NT-Pro-B Natriuret Pep (19.9-100) pg/mL Total Protein (6.3-8.2) g/dL Albumin (3.5-5.1) g/dL Urine Color (Yellow) Urine Appearance (Clear) Urine pH (5.0-9.0) Ur Specific [place] (1.001-1.035) Urine Protein (Negative) mg/dL Urine Glucose (UA) (Negative) mg/dL Urine Ketones (Negative) mg/dL Ur Blood (Man) (Negative) Urine Nitrate (Negative) Urine Bilirubin (Negative) Urine Urobilinogen (<2.0) mg/dL Leukocyte Esterase Rfl (Negative) JUAN/UL Urine RBC (0-2) /hpf Urine WBC (0-3) /hpf Ur Squamous Epith Cells (Few) /hpf Urine Bacteria /hpf Urine Casts Urine Opiates Screen (Negative) Urine Methadone Screen (Negative) Ur Barbiturates Screen (Negative) Ur Phencyclidine Scrn (Negative) Ur Amphetamine Screen (Negative) U Benzodiazepines Scrn (Negative) Urine Cocaine Screen (Negative) U Cannabinoids Screen (Negative) Influenza A (RT-PCR) (Negative) Influenza B (RT-PCR) (Negative) RSV (RT-PCR) (Negative) SARS-CoV-2 RNA (RT-PCR) (Negative) <Carla Godwin PA-C - Last Filed: 01/03/25 02:34> Lab Results 01/02/25 01/02/25 01/02/25 Range/Units 15:17 15:50 17:17 WBC 8.5 (4.5-10.0) K/mm3 RBC 5.38 (4.6-6.20) M/mm3 Hgb 14.3 (14.0-18.0) g/dL Hct 44.6 (42.0-52.0) % MCV 82.9 (80-100) fl MCH 26.6 (26-34) pg MCHC 32.1 (32-36) g/dl RDW 17.2 H (11.5-14.5) % Plt Count 186 (150-375) k/mm3 MPV 10.5 H (7.4-10.4) fl Immature Gran % (Auto) 0.2 (0-0.5) % Neut % (Auto) 72.8 (45.5-73.1) % Lymph % (Auto) 14.3 L (18.3-44.2) % [place] % (Auto) 10.7 H (2.6-8.5) % Eos % (Auto) 1.4 (0-4.4) % Baso % (Auto) 0.6 (0.2-1.2) % Lymph # (Auto) 1.21 (0.9-3.2) K/mm3 [place] # (Auto) 0.9 H (0.1-0.6) K/mm3 Eos # (Auto) 0.1 (0-0.3) K/mm3 Baso # (Auto) 0.1 (0.0-0.1) K/mm3 Abs Immat Gran (auto) 0.02 (0.00-0.031) K/mm3 Absolute Neuts (auto) 6.2 (1.3-6.7) K/mm3 Absolute Nucleated RBC 0.000 (0.0-0.012) K/mm3 Nucleated RBC % 0.0 (0.0-0.2) % PT 16.4 H (11.1-14.7) Seconds INR 1.3 APTT 29.6 (22.3-36.8) Seconds D-Dimer 2.18 H (<0.48) ug/mL Sodium 134 L (137-145) mmol/L Potassium 4.9 (3.4-5.0) mmol/L Chloride 106 (98-107) mmol/L Carbon Dioxide 20 L (22-30) mmol/L Anion Gap 8 (4-12) mmol/L BUN 39 H (9-20) mg/dL Creatinine 1.24 (0.7-1.3) mg/dL Estim Creat Clear Calc Not Reportable Estimated GFR 58 L (59 - ) Glucose 109 (65-110) mg/dL POC Capillary Glucose (65-105) mg/dl Lactic Acid (0.7-2.0) mmol/L Calcium 8.8 (8.4-10.2) mg/dL Magnesium 2.0 (1.6-2.3) mg/dL Total Bilirubin 1.8 H (0.2-1.3) mg/dL AST 57 (17-59) U/L ALT 93 H (6-50) U/L Alkaline Phosphatase 167 H (38-126) U/L Troponin I 0.065 H* (0.000-0.034) ng/mL NT-Pro-B Natriuret Pep 10994 H (19.9-100) pg/mL Total Protein 6.3 (6.3-8.2) g/dL Albumin 3.6 (3.5-5.1) g/dL Urine Color Dark yellow (Yellow) Urine Appearance Clear (Clear) Urine pH 5.0 (5.0-9.0) Ur Specific [place] 1.025 (1.001-1.035) Urine Protein 2+ H (Negative) mg/dL Urine Glucose (UA) Negative (Negative) mg/dL Urine Ketones Trace H (Negative) mg/dL Ur Blood (Man) Negative (Negative) Urine Nitrate Negative (Negative) Urine Bilirubin Negative (Negative) Urine Urobilinogen 0.2 (<2.0) mg/dL Leukocyte Esterase Rfl Negative (Negative) JUAN/UL Urine RBC 0-2 (0-2) /hpf Urine WBC 0-5 (0-3) /hpf Ur Squamous Epith Cells None seen (Few) /hpf Urine Bacteria None seen /hpf Urine Casts 3-5 Urine Opiates Screen Positive A (Negative) Urine Methadone Screen Negative (Negative) Ur Barbiturates Screen Negative (Negative) Ur Phencyclidine Scrn Negative (Negative) Ur Amphetamine Screen Positive A (Negative) U Benzodiazepines Scrn Positive A (Negative) Urine Cocaine Screen Negative (Negative) U Cannabinoids Screen Negative (Negative) Influenza A (RT-PCR) Negative (Negative) Influenza B (RT-PCR) Negative (Negative) RSV (RT-PCR) Negative (Negative) SARS-CoV-2 RNA (RT-PCR) Negative (Negative) 01/02/25 01/02/25 01/02/25 Range/Units 17:21 18:56 23:05 WBC (4.5-10.0) K/mm3 RBC (4.6-6.20) M/mm3 Hgb (14.0-18.0) g/dL Hct (42.0-52.0) % MCV (80-100) fl MCH (26-34) pg MCHC (32-36) g/dl RDW (11.5-14.5) % Plt Count (150-375) k/mm3 MPV (7.4-10.4) fl Immature Gran % (Auto) (0-0.5) % Neut % (Auto) (45.5-73.1) % Lymph % (Auto) (18.3-44.2) % [place] % (Auto) (2.6-8.5) % Eos % (Auto) (0-4.4) % Baso % (Auto) (0.2-1.2) % Lymph # (Auto) (0.9-3.2) K/mm3 [place] # (Auto) (0.1-0.6) K/mm3 Eos # (Auto) (0-0.3) K/mm3 Baso # (Auto) (0.0-0.1) K/mm3 Abs Immat Gran (auto) (0.00-0.031) K/mm3 Absolute Neuts (auto) (1.3-6.7) K/mm3 Absolute Nucleated RBC (0.0-0.012) K/mm3 Nucleated RBC % (0.0-0.2) % PT (11.1-14.7) Seconds INR APTT (22.3-36.8) Seconds D-Dimer (<0.48) ug/mL Sodium (137-145) mmol/L Potassium (3.4-5.0) mmol/L Chloride (98-107) mmol/L Carbon Dioxide (22-30) mmol/L Anion Gap (4-12) mmol/L BUN (9-20) mg/dL Creatinine (0.7-1.3) mg/dL Estim Creat Clear Calc Estimated GFR (59 - ) Glucose (65-110) mg/dL POC Capillary Glucose (65-105) mg/dl Lactic Acid 1.1 (0.7-2.0) mmol/L Calcium (8.4-10.2) mg/dL Magnesium (1.6-2.3) mg/dL Total Bilirubin (0.2-1.3) mg/dL AST (17-59) U/L ALT (6-50) U/L Alkaline Phosphatase (38-126) U/L Troponin I 0.063 H* 0.073 H* (0.000-0.034) ng/mL NT-Pro-B Natriuret Pep (19.9-100) pg/mL Total Protein (6.3-8.2) g/dL Albumin (3.5-5.1) g/dL Urine Color (Yellow) Urine Appearance (Clear) Urine pH (5.0-9.0) Ur Specific [place] (1.001-1.035) Urine Protein (Negative) mg/dL Urine Glucose (UA) (Negative) mg/dL Urine Ketones (Negative) mg/dL Ur Blood (Man) (Negative) Urine Nitrate (Negative) Urine Bilirubin (Negative) Urine Urobilinogen (<2.0) mg/dL Leukocyte Esterase Rfl (Negative) JUAN/UL Urine RBC (0-2) /hpf Urine WBC (0-3) /hpf Ur Squamous Epith Cells (Few) /hpf Urine Bacteria /hpf Urine Casts Urine Opiates Screen (Negative) Urine Methadone Screen (Negative) Ur Barbiturates Screen (Negative) Ur Phencyclidine Scrn (Negative) Ur Amphetamine Screen (Negative) U Benzodiazepines Scrn (Negative) Urine Cocaine Screen (Negative) U Cannabinoids Screen (Negative) Influenza A (RT-PCR) (Negative) Influenza B (RT-PCR) (Negative) RSV (RT-PCR) (Negative) SARS-CoV-2 RNA (RT-PCR) (Negative) 01/03/25 01/03/25 01/03/25 Range/Units 00:31 04:00 04:00 WBC 7.3 (4.5-10.0) K/mm3 RBC 4.71 (4.6-6.20) M/mm3 Hgb 12.5 L (14.0-18.0) g/dL Hct 39.1 L (42.0-52.0) % MCV 83.0 (80-100) fl MCH 26.5 (26-34) pg MCHC 32.0 (32-36) g/dl RDW 17.2 H (11.5-14.5) % Plt Count 166 (150-375) k/mm3 MPV 10.3 (7.4-10.4) fl Immature Gran % (Auto) 0.3 (0-0.5) % Neut % (Auto) 70.4 (45.5-73.1) % Lymph % (Auto) 14.6 L (18.3-44.2) % [place] % (Auto) 11.4 H (2.6-8.5) % Eos % (Auto) 2.6 (0-4.4) % Baso % (Auto) 0.7 (0.2-1.2) % Lymph # (Auto) 1.07 (0.9-3.2) K/mm3 [place] # (Auto) 0.8 H (0.1-0.6) K/mm3 Eos # (Auto) 0.2 (0-0.3) K/mm3 Baso # (Auto) 0.1 (0.0-0.1) K/mm3 Abs Immat Gran (auto) 0.02 (0.00-0.031) K/mm3 Absolute Neuts (auto) 5.2 (1.3-6.7) K/mm3 Absolute Nucleated RBC 0.000 (0.0-0.012) K/mm3 Nucleated RBC % 0.0 (0.0-0.2) % PT (11.1-14.7) Seconds INR APTT (22.3-36.8) Seconds D-Dimer (<0.48) ug/mL Sodium 133 L (137-145) mmol/L Potassium 4.2 (3.4-5.0) mmol/L Chloride 102 (98-107) mmol/L Carbon Dioxide 28 (22-30) mmol/L Anion Gap 3 L (4-12) mmol/L BUN 40 H (9-20) mg/dL Creatinine 1.47 H (0.7-1.3) mg/dL Estim Creat Clear Calc 49 Estimated GFR 48 L (59 - ) Glucose 111 H (65-110) mg/dL POC Capillary Glucose 134 H (65-105) mg/dl Lactic Acid (0.7-2.0) mmol/L Calcium 8.3 L (8.4-10.2) mg/dL Magnesium 1.9 (1.6-2.3) mg/dL Total Bilirubin (0.2-1.3) mg/dL AST (17-59) U/L ALT (6-50) U/L Alkaline Phosphatase (38-126) U/L Troponin I 0.081 H* Cancelled (0.000-0.034) ng/mL NT-Pro-B Natriuret Pep (19.9-100) pg/mL Total Protein (6.3-8.2) g/dL Albumin (3.5-5.1) g/dL Urine Color (Yellow) Urine Appearance (Clear) Urine pH (5.0-9.0) Ur Specific [place] (1.001-1.035) Urine Protein (Negative) mg/dL Urine Glucose (UA) (Negative) mg/dL Urine Ketones (Negative) mg/dL Ur Blood (Man) (Negative) Urine Nitrate (Negative) Urine Bilirubin (Negative) Urine Urobilinogen (<2.0) mg/dL Leukocyte Esterase Rfl (Negative) JUAN/UL Urine RBC (0-2) /hpf Urine WBC (0-3) /hpf Ur Squamous Epith Cells (Few) /hpf Urine Bacteria /hpf Urine Casts Urine Opiates Screen (Negative) Urine Methadone Screen (Negative) Ur Barbiturates Screen (Negative) Ur Phencyclidine Scrn (Negative) Ur Amphetamine Screen (Negative) U Benzodiazepines Scrn (Negative) Urine Cocaine Screen (Negative) U Cannabinoids Screen (Negative) Influenza A (RT-PCR) (Negative) Influenza B (RT-PCR) (Negative) RSV (RT-PCR) (Negative) SARS-CoV-2 RNA (RT-PCR) (Negative) 01/03/25 01/03/25 Range/Units 07:54 09:35 WBC (4.5-10.0) K/mm3 RBC (4.6-6.20) M/mm3 Hgb (14.0-18.0) g/dL Hct (42.0-52.0) % MCV (80-100) fl MCH (26-34) pg MCHC (32-36) g/dl RDW (11.5-14.5) % Plt Count (150-375) k/mm3 MPV (7.4-10.4) fl Immature Gran % (Auto) (0-0.5) % Neut % (Auto) (45.5-73.1) % Lymph % (Auto) (18.3-44.2) % [place] % (Auto) (2.6-8.5) % Eos % (Auto) (0-4.4) % Baso % (Auto) (0.2-1.2) % Lymph # (Auto) (0.9-3.2) K/mm3 [place] # (Auto) (0.1-0.6) K/mm3 Eos # (Auto) (0-0.3) K/mm3 Baso # (Auto) (0.0-0.1) K/mm3 Abs Immat Gran (auto) (0.00-0.031) K/mm3 Absolute Neuts (auto) (1.3-6.7) K/mm3 Absolute Nucleated RBC (0.0-0.012) K/mm3 Nucleated RBC % (0.0-0.2) % PT (11.1-14.7) Seconds INR APTT (22.3-36.8) Seconds D-Dimer (<0.48) ug/mL Sodium (137-145) mmol/L Potassium (3.4-5.0) mmol/L Chloride (98-107) mmol/L Carbon Dioxide (22-30) mmol/L Anion Gap (4-12) mmol/L BUN (9-20) mg/dL Creatinine (0.7-1.3) mg/dL Estim Creat Clear Calc Estimated GFR (59 - ) Glucose (65-110) mg/dL POC Capillary Glucose 164 H (65-105) mg/dl Lactic Acid (0.7-2.0) mmol/L Calcium (8.4-10.2) mg/dL Magnesium (1.6-2.3) mg/dL Total Bilirubin (0.2-1.3) mg/dL AST (17-59) U/L ALT (6-50) U/L Alkaline Phosphatase (38-126) U/L Troponin I 0.057 H* D (0.000-0.034) ng/mL NT-Pro-B Natriuret Pep (19.9-100) pg/mL Total Protein (6.3-8.2) g/dL Albumin (3.5-5.1) g/dL Urine Color (Yellow) Urine Appearance (Clear) Urine pH (5.0-9.0) Ur Specific [place] (1.001-1.035) Urine Protein (Negative) mg/dL Urine Glucose (UA) (Negative) mg/dL Urine Ketones (Negative) mg/dL Ur Blood (Man) (Negative) Urine Nitrate (Negative) Urine Bilirubin (Negative) Urine Urobilinogen (<2.0) mg/dL Leukocyte Esterase Rfl (Negative) JUAN/UL Urine RBC (0-2) /hpf Urine WBC (0-3) /hpf Ur Squamous Epith Cells (Few) /hpf Urine Bacteria /hpf Urine Casts Urine Opiates Screen (Negative) Urine Methadone Screen (Negative) Ur Barbiturates Screen (Negative) Ur Phencyclidine Scrn (Negative) Ur Amphetamine Screen (Negative) U Benzodiazepines Scrn (Negative) Urine Cocaine Screen (Negative) U Cannabinoids Screen (Negative) Influenza A (RT-PCR) (Negative) Influenza B (RT-PCR) (Negative) RSV (RT-PCR) (Negative) SARS-CoV-2 RNA (RT-PCR) (Negative) <Carlo Bronson MD - Last Filed: 01/06/25 17:51> Imaging Data Radiologist's impression: ITS Impressions Chest CTA 01/02/25 17:57 IMPRESSION: No pulmonary embolus. No thoracic aortic dissection. Large right and small left-sided pleural effusions with adjacent compressive atelectasis. Pulmonary edema within the visualized compressed lung carter. <Carla Godwin PA-C - Last Filed: 01/03/25 02:34> ECG Data EKG #1: ECG completion date: 01/02/25 <Carla Godwin PA-C - Last Filed: 01/03/25 02:34> EKG Interpretation: normal rate, sinus rhythm, no ST changes and normal QT <Carla Godwin PA-C - Last Filed: 01/03/25 02:34> Critical Care Time Critical Care Time Critical Care Time: Yes <Carla Godwin PA-C - Last Filed: 01/03/25 02:34> Total Critical Care Time: 35 <Carla Godwin PA-C - Last Filed: 01/03/25 02:34> Discharge Plan Discharge Clinical Impression: Elevated troponin, Acute hypoxic respiratory failure CHF exacerbation Qualifiers: Heart failure type: unspecified Qualified Code(s): I50.9 - Heart failure, unspecified <Lisa Comer APRN - Last Filed: 01/02/25 15:49> Patient Disposition: Still a Patient <Lisa Comer APRN - Last Filed: 01/02/25 15:49> Condition: Serious <Lisa Comer APRN - Last Filed: 01/02/25 15:49>
--- NOTE | 2025-01-02 15:49 | ECG_ITS ---
Test Date: 2025-01-02 16:54:45 Measurements Intervals [place] Rate: 68 P: 40 NC: 156 QRS: 2 QRSD: 103 T: 41 QT: 372 QTc: 398 Interpretive Statements SINUS RHYTHM Electronically Signed On 01-03-2025 17:12:04 CDT by Nik Rm D.O
[2025-01-02 16:07] LABS: Add Urine Microscopic? YES; Appearance Urine Clear (Clear); Glucose Urine UA Negative (Negative); Leukocyte Esterase Ur Negative LEU/UL (Negative); Nitrate Urine Negative (Negative); Specific Grav Ur 1.025 (1.001-1.035)
[2025-01-02 16:08] LABS: Hematocrit 44.6 % (42.0-52.0); Hemoglobin 14.3 g/dL (14.0-18.0); Immature Granulocyte Percent A 0.2 % (0-0.5); Lymphocytes Absolute Auto 1.21 K/mm3 (0.9-3.2); Mean Corpuscular HGB Conc 32.1 g/dl (32-36); Mean Corpuscular Hemoglobin 26.6 pg (26-34); Mean Corpuscular Volume 82.9 fl (80-100); Nucleated Red Blood Cells Absolute Auto 0.000 K/mm3 (0.0-0.012); Nucleated Red Blood Cells Perc 0.0 % (0.0-0.2); Platelet Count Result 186 k/mm3 (150-375); Red Blood Count 5.38 M/mm3 (4.6-6.20); White Blood Count 8.5 K/mm3 (4.5-10.0)
[2025-01-02 16:22] LABS: INR 1.3; Prothrombin Time 16.4 Seconds (11.1-14.7)
[2025-01-02 16:23] LABS: Partial Thromboplastin Time 29.6 Seconds (22.3-36.8)
[2025-01-02 16:31] LABS: Alanine Aminotransferase 93 U/L (6-50); Albumin Level 3.6 g/dL (3.5-5.1); Alkaline Phosphatase 167 U/L (38-126); Anion Gap 8 mmol/L (4-12); Aspartate Amino Transferase 57 U/L (17-59); Bilirubin,Total 1.8 mg/dL (0.2-1.3); Blood Urea Nitrogen 39 mg/dL (9-20); Calcium 8.8 mg/dL (8.4-10.2); Carbon Dioxide 20 mmol/L (22-30); Chloride 106 mmol/L (98-107); Estimated Glomerular Filt Rate 58; Glucose 109 mg/dL (65-110); Magnesium 2.0 mg/dL (1.6-2.3); Potassium 4.9 mmol/L (3.4-5.0); Sodium 134 mmol/L (137-145); Total Protein 6.3 g/dL (6.3-8.2)
[2025-01-02 16:42] LABS: NT Pro B Type Natriuretic Pept 18000 pg/mL (19.9-100)
[2025-01-02 16:44] LABS: Troponin I 0.065 ng/mL (0.000-0.034)
[2025-01-02 16:54] LABS: Cannabinoid Screen Urine Negative (Negative)
[2025-01-02] MEDS: FUROSEMIDE INJ 40 MG/4 ML VIAL IV PUSH (17:30)
[2025-01-02 18:03] LABS: Influenza A QL RT-PCR Negative (Negative); Influenza B QL RT-PCR Negative (Negative); RSV RNA, RT-PCR Negative (Negative); SARS-CoV-2 RNA PCR Negative (Negative)
--- NOTE | 2025-01-02 19:48 | P.HP_ITS ---
H&P: HPI History of Present Illness Date/Time: 01/02/25 19:48 Chief Complaint: Shortness of breath Narrative: 69-year-old male with an extensive medical history including DJD, bilateral hip and knee replacements, lumbosacral spinal stenosis insomnia, depression, anxiety, ADD, history of aortic valve replacement, uro-xbrcowj-dtcthmllu diabetes mellitus, hypertension, presents with shortness of breath for about 3-4 months. Patient is only a fair historian, reports 3-4 months he has had shortness of breath and was prescribed antibiotics for suspected pneumonia over the phone. He has also had a 40 lb weight loss in the past 6 months. Concurrently he has had lower extremity edema. He says he has a poor appetite, unable to detail the characteristics of his stool. Denies fever, chest pain, nausea or vomiting or diarrhea. He is hypertensive on arrival with blood pressure 191/63 improving to 140/46. He was placed on 2 L nasal cannula for hypoxia. INR 1.3, sodium 134, BUN 39, serum creatinine 1.24, troponin 0.065 then 0.063, BNP 25369, quad viral screen negative. CTA chest PE protocol negative for PE, no thoracic aortic dissection, large right and small left-sided pleural effusions with atelectasis and interstitial edema in the remaining lung carter. He was given Lasix 40 mg IV x1. Review of Systems Review of Systems: All systems reviewed & are unremarkable except as noted in HPI and below (Subjective/HPI) [facility] Past Medical History Medical History Pneumonia 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 Nocturia Impacted cerumen of both ears Left bundle branch block Congestion of right ear Fall Injury of left knee Left knee pain Skin lesions Vision changes Muscle spasm Epistaxis Essential hypertension Non-healing skin lesion Aortic valve disease Muscle cramps BMI 30.0-30.9,adult Chronic right shoulder pain Toenail fungus BMI 27.0-27.9,adult Hx of colonic polyps Prostate cancer screening BMI 24.0-24.9, adult Onychomycosis Unintentional weight loss Right shoulder pain BMI 25.0-25.9,adult URI (upper respiratory infection) Borderline abnormal TFTs BMI 26.0-26.9,adult Abnormal thyroid function test Exposure to hepatitis C Possible exposure to STD Hypervitaminosis D Abnormal finding of blood chemistry Colon cancer screening Hyperlipidemia Encounter for Medicare annual wellness exam Dysuria DM w/o complication type II Vitamin D deficiency Vitamin B 12 deficiency BMI 28.0-28.9,adult ADD (attention deficit disorder) Follow up Anxiety with depression Encounter for routine adult health examination with abnormal findings Pre-diabetes ADD (attention deficit disorder) Cognitive dysfunction Testosterone deficiency Amaurosis fugax Encounter for special screening examination for neoplasm of prostate Chronic right hip pain DJD (degenerative joint disease), multiple sites Insomnia Depression Encounter for routine adult health examination without abnormal findings BMI 29.0-29.9,adult On mcc drug therapy Chronic low back pain Surgical History Surgical History H/O aortic valve replacement Hx of bilateral hip replacements History of bilateral knee replacement Family History Family History Sibling Family history of diabetes mellitus in first degree relative Diabetes mellitus Social History Social History Smoking status: Never smoker Second hand tobacco smoke exposure: No Alcohol intake: never Substance use: never Substance use type: does not use Do You Feel Safe in your Home?: Yes Lack of Transportation: YES Lack of Food: Never True Current Housing: I Have Housing Concerned About Future Housing: No Difficulty Paying Gas/Electric Bills: No Difficulty Paying for Meds: No Currently Unemployed: No Education: Don't Know Difficulty w/ Childcare or Family Care: No Living arrangements: with family Gender identity (if verbalized by the patient): Male Spiritual care concerns: No Meds Home Medications and Allergies Home Medications ?Medication ?Instructions ?Recorded ?Confirmed ?Type cholecalciferol (vitamin D3) 25 25 mcg PO DAILY 09/11/20 01/02/25 History mcg (1,000 unit) capsule Easy Touch SheathLock Syrg-Ndl 3 #100 ea 07/24/21 01/02/25 Rx mL 21 gauge x 1 1/2 (syringe with needle, safety) aspirin 81 mg capsule 81 mg PO DAILY 1 month #30 caps 02/12/23 01/02/25 Rx carvedilol 25 mg tablet 25 mg PO Q12H #180 tabs 01/25/24 01/02/25 Rx amlodipine 5 mg tablet 5 mg PO DAILY 02/25/24 01/02/25 History trazodone 50 mg tablet See Rx Instructions PO HS PRN 03/11/24 01/02/25 Rx Insomnia #60 tabs sildenafil (pulm.hypertension) 20 See Rx Instructions .Route 04/19/24 01/02/25 Rx mg tablet .COMPLEX PRN Erectile Dysfunction #30 tabs tamsulosin 0.4 mg capsule See Rx Instructions .Route 06/20/24 01/02/25 Rx .COMPLEX #180 caps nitroglycerin 0.4 mg sublingual 0.4 mg sublingual Q5-15M PRN Chest 07/21/24 01/02/25 Rx tablet Pain #25 tabs rosuvastatin 10 mg tablet 10 mg PO DAILY #30 tabs 07/21/24 01/02/25 Rx clopidogrel 75 mg tablet See Rx Instructions .Route 08/18/24 01/02/25 Rx .COMPLEX #90 tabs azelastine 205.5 mcg (0.15 %) 1 spray intranasal QHS #30 mL 08/31/24 01/02/25 Rx nasal spray syringe with needle 3 mL 21 gauge #50 ea 08/31/24 01/02/25 Rx x 1 (BD Luer-Haley Syringe) metformin 1,000 mg tablet See Rx Instructions .Route 09/02/24 01/02/25 Rx .COMPLEX #180 tabs testosterone cypionate 200 mg/mL 200 mg IM .q 2 weeks #10 mL 09/12/24 01/02/25 Rx intramuscular oil hydralazine 100 mg tablet See Rx Instructions .Route 09/14/24 01/02/25 Rx .COMPLEX #270 tabs cyanocobalamin (vitamin B-12) See Rx Instructions .Route 11/07/24 01/02/25 Rx 1,000 mcg/mL injection solution .COMPLEX #3 mL dextroamphetamine-amphetamine 20 20 mg PO BID #60 tabs 12/05/24 01/02/25 Rx mg tablet hydrocodone 10 mg-acetaminophen 1 tablet PO Q6H PRN pain #90 tabs 12/07/24 01/02/25 Rx 325 mg tablet finasteride 5 mg tablet See Rx Instructions .Route 12/15/24 01/02/25 Rx .COMPLEX #90 tabs alprazolam 1 mg tablet 1.5 mg (1.5 x 1 mg) PO TID PRN 12/21/24 01/02/25 Rx anxiety #135 tabs Allergies Allergy/AdvReac Type Severity Reaction Status Date / Time No Known Allergies Allergy Verified 01/02/25 17:06 Vital Signs Vital Signs - 24 hr 01/02/25 13:22 01/02/25 17:00 01/02/25 17:05 Temperature 98 F Pulse Rate 74 85 Respiratory Rate 20 22 H Blood Pressure 154/52 H 166/61 H Pulse Oximetry 99 98 98 Oxygen Delivery Nasal Cannula Nasal Cannula Oxygen Flow Rate 4 4 01/02/25 18:24 01/02/25 19:38 Temperature Pulse Rate 94 93 Respiratory Rate 26 H 20 Blood Pressure 191/63 H 140/46 L Pulse Oximetry 100 100 Oxygen Delivery Oxygen Flow Rate Exam Const: General: comfortable and no acute distress Other: A&O x3 HENMT: Mouth: Yes moist mucous membranes Eyes: Pupils: Equal, round and reactive pupils present Neck: Neck: supple Resp: Effort & Inspection: normal respiratory effort Other: Diminished lung sounds right lower and middle lung field, left lower lung field. Light crackles diffusely otherwise Cardio: Rate: regular rate Rhythm: regular rhythm Heart sounds: Murmur heart sound present (Blowing systolic) GI: GI Palp: Yes Soft to palpation and No Tenderness to palpation present (GI) : General: Yes bladder normal to palpation Extrem: General: edema (3+ bilateral lower extremities below the knees) H&P: Results Labs Labs: Short CBC 01/02/25 Range/Units 15:50 WBC 8.5 (4.5-10.0) K/mm3 Hgb 14.3 (14.0-18.0) g/dL Hct 44.6 (42.0-52.0) % Plt Count 186 (150-375) k/mm3 [facility] 01/02/25 15:50 Sodium 134 L Potassium 4.9 Chloride 106 Carbon Dioxide 20 L BUN 39 H Creatinine 1.24 Glucose 109 Calcium 8.8 Cardiac Enzymes 01/02/25 Range/Units 15:50 Troponin I 0.065 H* (0.000-0.034) ng/mL Liver Function 01/02/25 Range/Units 15:50 Total Bilirubin 1.8 H (0.2-1.3) mg/dL AST 57 (17-59) U/L ALT 93 H (6-50) U/L Alkaline Phosphatase 167 H (38-126) U/L Albumin 3.6 (3.5-5.1) g/dL Urine 01/02/25 Range/Units 15:17 Urine Color Dark yellow (Yellow) Urine Appearance Clear (Clear) Urine pH 5.0 (5.0-9.0) Ur Specific [place] 1.025 (1.001-1.035) Urine Protein 2+ H (Negative) mg/dL Urine Glucose (UA) Negative (Negative) mg/dL Assessment and Plan Assessment and plan (1) Acute decompensated heart failure: Code(s): I50.9 - Heart failure, unspecified Status: Acute (2) H/O aortic valve replacement: Code(s): Z95.2 - Presence of prosthetic heart valve Status: Acute (3) Acute respiratory failure with hypoxemia: Code(s): J96.01 - Acute respiratory failure with hypoxia Status: Acute (4) Elevated troponin: Code(s): R79.89 - Other specified abnormal findings of blood chemistry Status: Acute (5) Uncontrolled hypertension: Code(s): I10 - Essential (primary) hypertension Status: Acute Plan 69-year-old male with an extensive medical history including DJD, bilateral hip and knee replacements, lumbosacral spinal stenosis insomnia, depression, anxiety, ADD, history of aortic valve replacement, ain-ytmabtg-pfrwvftej diabetes mellitus, hypertension, presents with shortness of breath for about 3-4 months. Patient is only a fair historian, reports 3-4 months he has had shortness of breath and was prescribed antibiotics for suspected pneumonia over the phone. He has also had a 40 lb weight loss in the past 6 months. Concurrently he has had lower extremity edema. He says he has a poor appetite, unable to detail the characteristics of his stool. Denies fever, chest pain, nausea or vomiting or diarrhea. He is hypertensive on arrival with blood pressure 191/63 improving to 140/46. He was placed on 2 L nasal cannula for hypoxia. INR 1.3, sodium 134, BUN 39, serum creatinine 1.24, troponin 0.065 then 0.063, BNP 88041, quad viral screen negative. CTA chest PE protocol negative for PE, no thoracic aortic dissection, large right and small left-sided pleural effusions with atelectasis and interstitial edema in the remaining lung carter. He was given Lasix 40 mg IV x1. ----- Elevated troponin has peaked. Likely due to demand ischemia, EKG without acute ST changes. No chest pain. Continue Lasix 40 mg IV b.i.d.. Daily weights, strict intake/output. He currently has appear with gone. Does not know when is aortic valve replacement was. Last echocardiogram on file in February 2023 demonstrating normal EF at 60-65%, moderate concentric increased left ventricular wall thickness, grade 1 diastolic dysfunction. The bioprosthetic aortic valve is not well visualized, moderate sclerosis of the bowel prosthetic aortic valve leaflets, mild regurgitation, mitral valve severely calcified annulus, trace mitral valve regurgitation. Will obtain a repeat TTE. Patient wishes to be full code. SCDs. Heart healthy diet. He lives alone but has family members close on the same block. Hospitalist MIPS Advance Care Plan I have confirmed that the patient's Advanced Care Plan is present, code status is documented, or surrogate decision maker is listed in patient medical record.: Yes Medication Reconciliation I have utilized all available resources to obtain, update and review the patients current medications (includes all prescriptions, OTC, herbals, cannabis, and nutritional supplements).: Yes
[2025-01-02 19:49] LABS: Troponin I 0.063 ng/mL (0.000-0.034)
--- NOTE | 2025-01-02 20:47 | PC.NURSE ---
medication list verified by pharmacist at [facility] Casi Villalba, [place], [place]
--- NOTE | 2025-01-02 21:44 | ADMGEN ---
This patient, Brian Bland , was admitted to IMU Room 205-02. Patient/family oriented to hospital policies and general routines including ID bracelet, bed and alarms, visiting hours, pain management, procedures, bathroom and other care routines, personal items, smoking policy, room service/diet, and visiting hours. Information on how to activate the Rapid Response Team has been discussed. Patient/Family are encouraged to report perceived risks to care and to ask questions if they do not understand what they are told or what they should do.
--- NOTE | 2025-01-02 23:21 | ECG_ITS ---
Test Date: 2025-01-02 19:35:36 Measurements Intervals [place] Rate: 81 P: -6 WI: 173 QRS: -41 QRSD: 158 T: 155 QT: 458 QTc: 534 Interpretive Statements SINUS RHYTHM LEFT BUNDLE BRANCH BLOCK Electronically Signed On 01-03-2025 17:16:24 CDT by Nik Rm D.O
[2025-01-02 23:47] LABS: Troponin I 0.073 ng/mL (0.000-0.034)
[2025-01-03] VITALS (18 sets, daily range): BP systolic 116–142; BP diastolic 40–51; PULSE 68–84; RESP 20–22; TEMP 36.3–36.6; O2SAT 94–100
[2025-01-03 04:25] LABS: Hematocrit 39.1 % (42.0-52.0); Hemoglobin 12.5 g/dL (14.0-18.0); Immature Granulocyte Percent A 0.3 % (0-0.5); Lymphocytes Absolute Auto 1.07 K/mm3 (0.9-3.2); Mean Corpuscular HGB Conc 32.0 g/dl (32-36); Mean Corpuscular Hemoglobin 26.5 pg (26-34); Mean Corpuscular Volume 83.0 fl (80-100); Nucleated Red Blood Cells Absolute Auto 0.000 K/mm3 (0.0-0.012); Nucleated Red Blood Cells Perc 0.0 % (0.0-0.2); Platelet Count Result 166 k/mm3 (150-375); Red Blood Count 4.71 M/mm3 (4.6-6.20); White Blood Count 7.3 K/mm3 (4.5-10.0)
[2025-01-03 04:57] LABS: Anion Gap 3 mmol/L (4-12); Blood Urea Nitrogen 40 mg/dL (9-20); Calcium 8.3 mg/dL (8.4-10.2); Carbon Dioxide 28 mmol/L (22-30); Chloride 102 mmol/L (98-107); Estimated CRCL calculation 49 ml/min; Estimated Glomerular Filt Rate 48; Glucose 111 mg/dL (65-110); Magnesium 1.9 mg/dL (1.6-2.3); Potassium 4.2 mmol/L (3.4-5.0); Sodium 133 mmol/L (137-145)
[2025-01-03 05:12] LABS: Troponin I 0.081 ng/mL (0.000-0.034)
[2025-01-03] MEDS: ROSUVASTATIN 10 MG TABLET PO (08:13)
[2025-01-03] MEDS: ASPIRIN 81 MG ENTERIC TABLET PO (08:13)
[2025-01-03] MEDS: FINASTERIDE 5 MG TABLET BY MOUTH (08:13)
[2025-01-03] MEDS: HYDROcodone/acetaminophen (*CRX) 10-325 MG TABLET 1 TAB PO ×3 (08:16→22:02)
[2025-01-03 10:16] LABS: Troponin I 0.057 ng/mL (0.000-0.034)
[2025-01-03] MEDS: CHOLECALCIFEROL (VITAMIN D3) 25 MCG (1,000 UNITS) TABLET PO (12:23)
[2025-01-03] MEDS: TAMSULOSIN HCL 0.4 MG CAPSULE 0.8 MG BY MOUTH (12:23)
[2025-01-03] MEDS: ALPRAZolam (*CRX) 0.5 MG TABLET 1.5 MG PO ×2 (14:47→22:02)
--- NOTE | 2025-01-03 15:03 | P.PNIM_ITS ---
Progress Note: A&P Assessment and Plan (1) Acute decompensated heart failure: Code(s): I50.9 - Heart failure, unspecified Status: Acute (2) H/O aortic valve replacement: Code(s): Z95.2 - Presence of prosthetic heart valve Status: Acute (3) Acute respiratory failure with hypoxemia: Code(s): J96.01 - Acute respiratory failure with hypoxia Status: Acute (4) Elevated troponin: Code(s): R79.89 - Other specified abnormal findings of blood chemistry Status: Acute (5) Uncontrolled hypertension: Code(s): I10 - Essential (primary) hypertension Status: Acute Plan 69-year-old male with an extensive medical history including DJD, bilateral hip and knee replacements, lumbosacral spinal stenosis insomnia, depression, anxiety, ADD, history of aortic valve replacement, [id number] diabetes mellitus, hypertension, presents with shortness of breath for about 3-4 months. Patient is only a fair historian, reports 3-4 months he has had shortness of breath and was prescribed antibiotics for suspected pneumonia over the phone. He has also had a 40 lb weight loss in the past 6 months. Concurrently he has had lower extremity edema. He says he has a poor appetite, unable to detail the characteristics of his stool. Denies fever, chest pain, nausea or vomiting or diarrhea. He is hypertensive on arrival with blood pressure 191/63 improving to 140/46. He was placed on 2 L nasal cannula for hypoxia. INR 1.3, sodium 134, BUN 39, serum creatinine 1.24, troponin 0.065 then 0.063, BNP 22780, quad viral screen negative. CTA chest PE protocol negative for PE, no thoracic aortic dissection, large right and small left-sided pleural effusions with atelectasis and interstitial edema in the remaining lung carter. He was given Lasix 40 mg IV x1. ----- Elevated troponin has peaked. Likely due to demand ischemia, EKG without acute ST changes. No chest pain. Continue Lasix 40 mg IV b.i.d.. Daily weights, strict intake/output. He currently has appear with gone. Does not know when is aortic valve replacement was. Last echocardiogram on file in February 2023 demonstrating normal EF at 60-65%, moderate concentric increased left ventricular wall thickness, grade 1 diastolic dysfunction. The bioprosthetic aortic valve is not well visualized, moderate sclerosis of the bowel prosthetic aortic valve leaflets, mild regurgitation, mitral valve severely calcified annulus, trace mitral valve regurgitation. Will obtain a repeat TTE. Patient is 69 y/o male with presented with c/o shortness of breath, [place] B[place] [address]2020, and CTA of chest showing pulmonary edema, patient is being diuresed with Lasix 40mg IV BID, patient stats feeling much better compared when he arrived, patient tropes are elevated suspect demand ischemia, due to shortness of breath and exacerbation of CHF, will follow up on cardiac echo and further recommendation to follow. Patient wishes to be full code. SCDs. Heart healthy diet. He lives alone but has family members close on the same block. Subjective Date/time seen: 01/03/25 15:03 Interval history: Shortness of breath Narrative: 69-year-old male with an extensive medical history including DJD, bilateral hip and knee replacements, lumbosacral spinal stenosis insomnia, depression, anxiety, ADD, history of aortic valve replacement, [id number] diabetes mellitus, hypertension, presents with shortness of breath for about 3-4 months. Patient is only a fair historian, reports 3-4 months he has had shortness of breath and was prescribed antibiotics for suspected pneumonia over the phone. He has also had a 40 lb weight loss in the past 6 months. Concurrently he has had lower extremity edema. He says he has a poor appetite, unable to detail the characteristics of his stool. Denies fever, chest pain, nausea or vomiting or diarrhea. He is hypertensive on arrival with blood pressure 191/63 improving to 140/46. He was placed on 2 L nasal cannula for hypoxia. INR 1.3, sodium 134, BUN 39, serum creatinine 1.24, troponin 0.065 then 0.063, BNP 94400, quad viral screen negative. CTA chest PE protocol negative for PE, no thoracic aortic dissection, large right and small left-sided pleural effusions with atelectasis and interstitial edema in the remaining lung carter. Patient is 69 y/o male with presented with c/o shortness of breath, upon arrival patient BNP was 21518, and CTA of chest showing pulmonary edema, patient is being diuresed with Lasix 40mg IV BID, patient stats feeling much better compared when he arrived, patient tropes are elevated suspect demand ischemia, due to shortness of breath and exacerbation of CHF, will follow up on cardiac echo and further recommendation to follow. Review of Systems Review of Systems: All systems reviewed & are unremarkable except as noted in HPI and below (Subjective/HPI) Exam Narrative: Patient is comfortable, NAD HEENT: eyes are clear and none icteric LUNGS:bilateral fair air entry with rales and rhonchi HEART: RR S1S2 ABD: BS+, Soft and nontender Lower extremities: edema SKIN: nonjaundiced Neuro: grossly intact. Objective Data Vital Signs Vital Signs: Vital Signs - 24 hr 01/02/25 17:00 01/02/25 17:02 01/02/25 17:03 Temperature Pulse Rate 85 85 89 Respiratory Rate 22 H 18 18 Blood Pressure 166/61 H 166/61 H Pulse Oximetry 98 98 97 Oxygen Delivery Nasal Cannula Oxygen Flow Rate 4 01/02/25 17:05 01/02/25 17:15 01/02/25 17:16 Temperature Pulse Rate 83 83 Respiratory Rate 16 18 Blood Pressure 167/64 H Pulse Oximetry 98 98 97 Oxygen Delivery Nasal Cannula Oxygen Flow Rate 4 01/02/25 17:30 01/02/25 17:31 01/02/25 17:51 Temperature Pulse Rate 85 108 H Respiratory Rate 19 18 Blood Pressure 176/69 H Pulse Oximetry 98 96 99 Oxygen Delivery Oxygen Flow Rate 01/02/25 18:24 01/02/25 18:36 01/02/25 18:45 Temperature Pulse Rate 94 85 84 Respiratory Rate 26 H 28 H 22 H Blood Pressure 191/63 H Pulse Oximetry 100 100 100 Oxygen Delivery Oxygen Flow Rate 01/02/25 19:01 01/02/25 19:17 01/02/25 19:30 Temperature Pulse Rate 87 81 82 Respiratory Rate 17 22 H 25 H Blood Pressure Pulse Oximetry 99 99 100 Oxygen Delivery Oxygen Flow Rate 01/02/25 19:38 01/02/25 19:55 01/02/25 20:00 Temperature Pulse Rate 93 78 78 Respiratory Rate 20 19 18 Blood Pressure 140/46 L Pulse Oximetry 100 100 100 Oxygen Delivery Oxygen Flow Rate 01/02/25 20:01 01/02/25 20:15 01/02/25 20:30 Temperature Pulse Rate 79 80 82 Respiratory Rate 19 20 22 H Blood Pressure 125/47 L Pulse Oximetry 100 98 99 Oxygen Delivery Oxygen Flow Rate 01/02/25 20:45 01/02/25 20:46 01/02/25 21:07 Temperature Pulse Rate 80 79 81 Respiratory Rate 21 H 21 H 22 H Blood Pressure 123/46 L Pulse Oximetry 100 99 98 Oxygen Delivery Oxygen Flow Rate 01/02/25 21:15 01/02/25 22:00 01/02/25 22:33 Temperature 36.8 C Pulse Rate 80 84 83 Respiratory Rate 24 H 22 H Blood Pressure 150/50 H Pulse Oximetry 98 98 Oxygen Delivery Oxygen Flow Rate 01/02/25 23:05 01/02/25 23:28 01/03/25 00:00 Temperature 36.8 C Pulse Rate 84 82 Respiratory Rate 22 H 23 H Blood Pressure 150/48 H Pulse Oximetry 98 99 Oxygen Delivery Nasal Cannula Oxygen Flow Rate 3 01/03/25 02:00 01/03/25 03:34 01/03/25 03:44 Temperature 36.4 C Pulse Rate 71 77 Respiratory Rate 22 H 22 H Blood Pressure 131/40 L Pulse Oximetry 100 98 Oxygen Delivery Nasal Cannula Oxygen Flow Rate 2 01/03/25 04:00 01/03/25 06:00 01/03/25 07:41 Temperature 36.4 C L Pulse Rate 81 78 80 Respiratory Rate 22 H Blood Pressure 140/47 L Pulse Oximetry 95 Oxygen Delivery Oxygen Flow Rate 01/03/25 08:00 01/03/25 08:00 01/03/25 10:00 Temperature Pulse Rate 80 84 70 Respiratory Rate 22 H Blood Pressure Pulse Oximetry 95 Oxygen Delivery Nasal Cannula Oxygen Flow Rate 1 01/03/25 12:00 01/03/25 12:00 01/03/25 12:00 Temperature 36.6 C Pulse Rate 69 69 76 Respiratory Rate 20 20 Blood Pressure 116/51 L Pulse Oximetry 96 96 Oxygen Delivery Nasal Cannula Oxygen Flow Rate 1 01/03/25 14:00 Temperature Pulse Rate 80 Respiratory Rate Blood Pressure Pulse Oximetry Oxygen Delivery Oxygen Flow Rate Intake/Output Intake/Output: Intake & Output 12/31/24 01/01/25 01/02/25 01/03/25 23:59 23:59 23:59 23:59 Intake Total 1269 Output Total 1100 Balance 169 Meds/Results Medications: Active Medications Generic Name Dose Route Start Last Admin Trade Name Freq PRN Reason Stop Dose Admin Hydrocodone Bitart/Acetaminophen 1 tab 01/03/25 01:14 01/03/25 14:47 Hydrocodone/Acetaminophen (*Crx) 10-325 Mg Tablet PO 1 tab Q6H PRN Administration pain Albuterol 1 puff 01/03/25 01:14 Albuterol Sulfate (*Sp) Aerosol 1 Puff INHALATION Q4HRT PRN shortness of breath or wheezing Alprazolam 1.5 mg 01/03/25 01:14 01/03/25 14:47 Alprazolam (*Crx) 0.5 Mg Tablet PO 1.5 mg TID PRN Administration anxiety Amlodipine Besylate 5 mg 01/03/25 09:00 01/03/25 12:23 Amlodipine Besylate 5 Mg Tablet PO 5 mg DAILY LISBET Administration Aspirin 81 mg 01/03/25 09:00 01/03/25 08:13 Aspirin 81 Mg Enteric Tablet PO 81 mg QAM LISBET Administration Azelastine HCl 1 spray 01/03/25 21:00 Azelastine Hcl Nasal 0.1% 137 Mcg/Spr 30 Ml Btl NASAL QHS LISBET Carvedilol 25 mg 01/03/25 09:00 01/03/25 08:13 Carvedilol 25 Mg Tablet PO 25 mg Q12HR LISBET Administration Finasteride 5 mg 01/03/25 09:00 01/03/25 08:13 Finasteride 5 Mg Tablet BY MOUTH 5 mg DAILY LISBET Administration Furosemide 40 mg 01/03/25 21:00 Furosemide Inj 40 Mg/4 Ml Vial IV PUSH BID LISBET Hydralazine HCl 100 mg 01/03/25 13:00 01/03/25 14:47 Hydralazine Hcl 50 Mg Tablet BY MOUTH 100 mg TID LISBET Administration Miscellaneous Information 1 each 01/03/25 00:01 Dextroamphetamine-Amphetamine 20 Mg Tablet Is Nonformulary, Can Patient Bring From Home? XX 02/02/25 00:00 [facility] Miscellaneous Information 1 each 01/03/25 00:01 Sildenafil Prn Sexual Activity. Hold While Hospitalized? Nonformulary XX 00:00 CLARIFY LISBET Nitroglycerin 0.4 mg 01/03/25 11:29 Nitroglycerin Sl 0.4 Mg Tablet SUBLINGUAL Q5MIN PRN Chest Pain Non-Formulary Medication 20 mg 01/03/25 09:00 Dextroamphetamine-Amphetamine PO 02/02/25 08:59 BID LISBET Non-Formulary Medication 0 mg 01/03/25 11:29 Sildenafil (Pulm.Hypertension) PO .COMPLEX PRN Erectile Dysfunction Perflutren Lipid Microsphere 0 ml 01/03/25 11:33 Perflutren Lipid Microspheres 1.5 Ml Vial Diluted To 10 Ml Total Volume IV PUSH 01/06/25 11:33 ONCE PRN adequate visualization Protocol Rosuvastatin Calcium 10 mg 01/03/25 09:00 01/03/25 08:13 Rosuvastatin 10 Mg Tablet PO 10 mg DAILY LISBET Administration Tamsulosin HCl 0.8 mg 01/03/25 09:00 01/03/25 12:23 Tamsulosin Hcl 0.4 Mg Capsule BY MOUTH 0.8 mg DAILY LISBET Administration Trazodone HCl 50 - 100 mg 01/03/25 11:29 Trazodone Hcl 50 Mg Tablet PO HS PRN Insomnia Vitamin D 25 mcg 01/03/25 09:00 01/03/25 12:23 Cholecalciferol (Vitamin D3) 25 Mcg (1,000 Units) Tablet PO 25 mcg DAILY LISBET Administration Radiology Results: ITS Impressions Chest CTA 01/02/25 17:57 IMPRESSION: No pulmonary embolus. No thoracic aortic dissection. Large right and small left-sided pleural effusions with adjacent compressive atelectasis. Pulmonary edema within the visualized compressed lung carter. Labs Labs: Laboratory Results - last 24 hr 01/02/25 01/02/25 01/02/25 15:17 15:50 17:17 WBC 8.5 RBC 5.38 Hgb 14.3 Hct 44.6 MCV 82.9 MCH 26.6 MCHC 32.1 RDW 17.2 H Plt Count 186 MPV 10.5 H Immature Gran % (Auto) 0.2 Neut % (Auto) 72.8 Lymph % (Auto) 14.3 L [place] % (Auto) 10.7 H Eos % (Auto) 1.4 Baso % (Auto) 0.6 Lymph # (Auto) 1.21 [place] # (Auto) 0.9 H Eos # (Auto) 0.1 Baso # (Auto) 0.1 Abs Immat Gran (auto) 0.02 Absolute Neuts (auto) 6.2 Absolute Nucleated RBC 0.000 Nucleated RBC % 0.0 PT 16.4 H INR 1.3 APTT 29.6 D-Dimer 2.18 H Sodium 134 L Potassium 4.9 Chloride 106 Carbon Dioxide 20 L Anion Gap 8 BUN 39 H Creatinine 1.24 Estim Creat Clear Calc Not Reportable Estimated GFR 58 L Glucose 109 POC Capillary Glucose Lactic Acid Calcium 8.8 Magnesium 2.0 Total Bilirubin 1.8 H AST 57 ALT 93 H Alkaline Phosphatase 167 H Troponin I 0.065 H* NT-Pro-B Natriuret Pep 74303 H Total Protein 6.3 Albumin 3.6 Urine Color Dark yellow Urine Appearance Clear Urine pH 5.0 Ur Specific [place] 1.025 Urine Protein 2+ H Urine Glucose (UA) Negative Urine Ketones Trace H Ur Blood (Man) Negative Urine Nitrate Negative Urine Bilirubin Negative Urine Urobilinogen 0.2 Leukocyte Esterase Rfl Negative Urine RBC 0-2 Urine WBC 0-5 Ur Squamous Epith Cells None seen Urine Bacteria None seen Urine Casts 3-5 Urine Opiates Screen Positive A Urine Methadone Screen Negative Ur Barbiturates Screen Negative Ur Phencyclidine Scrn Negative Ur Amphetamine Screen Positive A U Benzodiazepines Scrn Positive A Urine Cocaine Screen Negative U Cannabinoids Screen Negative Influenza A (RT-PCR) Negative Influenza B (RT-PCR) Negative RSV (RT-PCR) Negative SARS-CoV-2 RNA (RT-PCR) Negative 01/02/25 01/02/25 01/02/25 17:21 18:56 23:05 WBC RBC Hgb Hct MCV MCH MCHC RDW Plt Count MPV Immature Gran % (Auto) Neut % (Auto) Lymph % (Auto) [place] % (Auto) Eos % (Auto) Baso % (Auto) Lymph # (Auto) [place] # (Auto) Eos # (Auto) Baso # (Auto) Abs Immat Gran (auto) Absolute Neuts (auto) Absolute Nucleated RBC Nucleated RBC % PT INR APTT D-Dimer Sodium Potassium Chloride Carbon Dioxide Anion Gap BUN Creatinine Estim Creat Clear Calc Estimated GFR Glucose POC Capillary Glucose Lactic Acid 1.1 Calcium Magnesium Total Bilirubin AST ALT Alkaline Phosphatase Troponin I 0.063 H* 0.073 H* NT-Pro-B Natriuret Pep Total Protein Albumin Urine Color Urine Appearance Urine pH Ur Specific [place] Urine Protein Urine Glucose (UA) Urine Ketones Ur Blood (Man) Urine Nitrate Urine Bilirubin Urine Urobilinogen Leukocyte Esterase Rfl Urine RBC Urine WBC Ur Squamous Epith Cells Urine Bacteria Urine Casts Urine Opiates Screen Urine Methadone Screen Ur Barbiturates Screen Ur Phencyclidine Scrn Ur Amphetamine Screen U Benzodiazepines Scrn Urine Cocaine Screen U Cannabinoids Screen Influenza A (RT-PCR) Influenza B (RT-PCR) RSV (RT-PCR) SARS-CoV-2 RNA (RT-PCR) 01/03/25 01/03/25 01/03/25 00:31 04:00 04:00 WBC 7.3 RBC 4.71 Hgb 12.5 L Hct 39.1 L MCV 83.0 MCH 26.5 MCHC 32.0 RDW 17.2 H Plt Count 166 MPV 10.3 Immature Gran % (Auto) 0.3 Neut % (Auto) 70.4 Lymph % (Auto) 14.6 L [place] % (Auto) 11.4 H Eos % (Auto) 2.6 Baso % (Auto) 0.7 Lymph # (Auto) 1.07 [place] # (Auto) 0.8 H Eos # (Auto) 0.2 Baso # (Auto) 0.1 Abs Immat Gran (auto) 0.02 Absolute Neuts (auto) 5.2 Absolute Nucleated RBC 0.000 Nucleated RBC % 0.0 PT INR APTT D-Dimer Sodium 133 L Potassium 4.2 Chloride 102 Carbon Dioxide 28 Anion Gap 3 L BUN 40 H Creatinine 1.47 H Estim Creat Clear Calc 49 Estimated GFR 48 L Glucose 111 H POC Capillary Glucose 134 H Lactic Acid Calcium 8.3 L Magnesium 1.9 Total Bilirubin AST ALT Alkaline Phosphatase Troponin I 0.081 H* Cancelled NT-Pro-B Natriuret Pep Total Protein Albumin Urine Color Urine Appearance Urine pH Ur Specific [place] Urine Protein Urine Glucose (UA) Urine Ketones Ur Blood (Man) Urine Nitrate Urine Bilirubin Urine Urobilinogen Leukocyte Esterase Rfl Urine RBC Urine WBC Ur Squamous Epith Cells Urine Bacteria Urine Casts Urine Opiates Screen Urine Methadone Screen Ur Barbiturates Screen Ur Phencyclidine Scrn Ur Amphetamine Screen U Benzodiazepines Scrn Urine Cocaine Screen U Cannabinoids Screen Influenza A (RT-PCR) Influenza B (RT-PCR) RSV (RT-PCR) SARS-CoV-2 RNA (RT-PCR) 01/03/25 01/03/25 01/03/25 07:54 09:35 11:19 WBC RBC Hgb Hct MCV MCH MCHC RDW Plt Count MPV Immature Gran % (Auto) Neut % (Auto) Lymph % (Auto) [place] % (Auto) Eos % (Auto) Baso % (Auto) Lymph # (Auto) [place] # (Auto) Eos # (Auto) Baso # (Auto) Abs Immat Gran (auto) Absolute Neuts (auto) Absolute Nucleated RBC Nucleated RBC % PT INR APTT D-Dimer Sodium Potassium Chloride Carbon Dioxide Anion Gap BUN Creatinine Estim Creat Clear Calc Estimated GFR Glucose POC Capillary Glucose 164 H 135 H Lactic Acid Calcium Magnesium Total Bilirubin AST ALT Alkaline Phosphatase Troponin I 0.057 H* D NT-Pro-B Natriuret Pep Total Protein Albumin Urine Color Urine Appearance Urine pH Ur Specific [place] Urine Protein Urine Glucose (UA) Urine Ketones Ur Blood (Man) Urine Nitrate Urine Bilirubin Urine Urobilinogen Leukocyte Esterase Rfl Urine RBC Urine WBC Ur Squamous Epith Cells Urine Bacteria Urine Casts Urine Opiates Screen Urine Methadone Screen Ur Barbiturates Screen Ur Phencyclidine Scrn Ur Amphetamine Screen U Benzodiazepines Scrn Urine Cocaine Screen U Cannabinoids Screen Influenza A (RT-PCR) Influenza B (RT-PCR) RSV (RT-PCR) SARS-CoV-2 RNA (RT-PCR)
[2025-01-03] MEDS: ALBUTEROL SULFATE (*SP) AEROSOL 1 PUFF INHALATION (17:45)
[2025-01-03] MEDS: FUROSEMIDE INJ 40 MG/4 ML VIAL IV PUSH (20:45)
[2025-01-03] MEDS: AZELASTINE HCL NASAL 0.1% 137 MCG/SPR 30 ML BTL 1 SPRAY NASAL (21:16)
[2025-01-04] VITALS (18 sets, daily range): BP systolic 118–144; BP diastolic 43–74; PULSE 57–87; RESP 17–24; TEMP 36.2–37.1; O2SAT 91–98
--- NOTE | 2025-01-04 | ECHO_ITS ---
Patient Info Name: Brian Bland Age: 69 years : 1955 Gender: Male Ht: 72 in Wt: 192 lbs BSA: 2.11 m2 HR: 79 bpm BP: 118 / 43 mmHg Technical Quality: Good Exam Date: 01/04/2025 2:34 PM Patient Status: I Admit Date: 01/03/2025 Exam Type: CA echo dop color flow w con Complete two-dimensional, color flow and Doppler transthoracic echocardiogram is performed with contrast to opacify the left ventricle and to improve the deliniation of the left ventricle endocardial borders. Staff Referring Physician: Carla Godwin PAC Payment Poster: Janna Bland Attending Provider: Glenna Graham Contrast/Agitated Saline Contrast/Ag. Saline: Definity Amount: 2.00 ml Administered By: Janna Bland Existing IV Access: Yes Summary 1. Definity contrast administered improved wall motion interpretation. 2. Left ventricular chamber dimension is moderately enlarged. 3. Left ventricular systolic function is moderately globally reduced, estimated at 35-40. 4. There is moderate concentric increased left ventricular wall thickness. 5. The left ventricular diastolic function is indeterminate. 6. Tissue doppler E/e' not measured. 7. Right ventricular chamber dimension is mildly enlarged. 8. Right ventricular systolic function is at least moderately reduced with abnormal TAPSE 0.9 cm. 9. Left atrial chamber dimension is moderately enlarged. 10. Right atrial chamber dimension is mildly enlarged. 11. The aortic valve is not well visualized. Cannot determine number of aortic valve leaflets. 12. There is severe aortic valve sclerosis. 13. There is moderate aortic valve stenosis based on a peak velocity of 307 cm/s, mean gradient of 18 mmHg, and aortic valve area of 1.1 cm2. 14. There is moderate aortic valve regurgitation. 15. The mitral valve has moderately calcified leaflets and a severely calcified annulus. 16. There is mild to moderate mitral valve regurgitation. 17. There is moderate to severe tricuspid valve regurgitation. 18. Severe pulmonary hypertension, estimated pulmonary arterial systolic pressure is 70 mmHg. 19. There is mild pulmonic regurgitation. 20. Dilated inferior vena cava with >50% collapse upon inspiration consistent with elevated right atrial pressure, 10 mmHg. Left Ventricle Definity contrast administered improved wall motion interpretation. Left ventricular chamber dimension is moderately enlarged. Left ventricular systolic function is moderately globally reduced, estimated at 35-40. There is moderate concentric increased left ventricular wall thickness. The left ventricular diastolic function is indeterminate. Tissue doppler E/e' not measured. Right Ventricle Right ventricular chamber dimension is mildly enlarged. Right ventricular systolic function is at least moderately reduced with abnormal TAPSE 0.9 cm. Left Atria Left atrial chamber dimension is moderately enlarged. Right Atria Right atrial chamber dimension is mildly enlarged. Aortic Valve The aortic valve is not well visualized. Cannot determine number of aortic valve leaflets. There is severe aortic valve sclerosis. There is moderate aortic valve stenosis based on a peak velocity of 307 cm/s, mean gradient of 18 mmHg, and aortic valve area of 1.1 cm2. There is moderate aortic valve regurgitation. Pulmonic Valve There is mild pulmonic regurgitation. Mitral Valve The mitral valve has moderately calcified leaflets and a severely calcified annulus. There is no mitral valve stenosis. There is mild to moderate mitral valve regurgitation. Tricuspid Valve There is moderate to severe tricuspid valve regurgitation. Severe pulmonary hypertension, estimated pulmonary arterial systolic pressure is 70 mmHg. Pericardium/Pleural There is no pericardial effusion. Inferior Vena Cava Dilated inferior vena cava with >50% collapse upon inspiration consistent with elevated right atrial pressure, 10 mmHg. Aorta The aortic root size at the sinus of Valsalva is normal. Left Ventricular Outflow Tract Name Value Normal LVOT 2D LVOT Diameter 2.0 cm LVOT Doppler LVOT Peak Velocity 106 cm/s LVOT Peak Gradient 4 mmHg LVOT Mean Gradient 2 mmHg LVOT VTI 23 cm LVOT VTI/AV VTI Ratio 0.4 LVOT Stroke Volume 75 ml LVOT CO 9.2 l/min LVOT CI 4.3 l/min/m2 Pulmonic Valve Name Value Normal RVOT Doppler RVOT Peak Velocity 45 cm/s RVOT Peak Gradient 1 mmHg PV Doppler PV Peak Velocity 97 cm/s PV Peak Gradient 4 mmHg Mitral Valve Name Value Normal MV Doppler MV Peak Gradient 10 mmHg MV Mean Gradient 4 mmHg MV Area (Cont Eq VTI) 1.7 cm2 MV Regurgitation Doppler MR Peak Gradient 87 mmHg Tricuspid Valve Name Value Normal TV Regurgitation Doppler TR Peak Velocity 388 cm/s TR Peak Gradient 60 mmHg Estimated PAP/RSVP RA Pressure 10 mmHg <=5 PA Systolic Pressure 70 mmHg <36 RV Systolic Pressure 70 mmHg <36 Aortic Valve Name Value Normal AV Doppler AV Peak Velocity 307 cm/s AV Peak Gradient 36 mmHg AV Mean Gradient 18 mmHg AV VTI 66 cm AV Area (Cont Eq VTI) 1.1 cm2 >=3.0 AV Area (Cont Eq Boris) 1.1 cm2 AV DI (Boris) 0.34 AV Regurgitation 2D LVOT Area 3.2 cm2 Ventricles Name Value Normal LV Dimensions 2D/MM IVS Diastolic Thickness (2D) 1.4 cm 0.6-1.0 LVID Diastole (2D) 5.3 cm 4.2-5.8 LVIW Diastolic Thickness (2D) 1.5 cm 0.6-1.0 LVID Systole (2D) 4.1 cm 2.5-4.0 LVOT Diameter 2.0 cm LV Mass (2D Cubed) 332.02 g 88.00-224.00 LV Mass Index (2D Cubed) 157 g/m2 49-115 Relative Wall Thickness (2D) 0.56 <=0.42 LV Fractional Shortening/Ejection Fraction 2D/MM LV Fractional Shortening (2D) 22 % 25-43 LV EF (2D Teichcasz) 44 % LV Diastolic Volume (4C MOD) 258 ml LV EF (4C MOD) 38 % LV Diastolic Volume (2C MOD) 314 ml LV EF (2C MOD) 30 % LV Diastolic Volume (BP MOD) 288 ml 62-150 LV Diastolic Volume Index (BP MOD) 136 ml/m2 34-74 LV Systolic Volume (BP MOD) 191 ml 21-61 LV Systolic Volume Index (BP MOD) 90 ml/m2 11-31 LV EF (BP MOD) 34 % 52-72 LV Diastolic Length (4C) 10.8 cm LV Systolic Length (4C) 10.2 cm LV Stroke Volume (4C MOD) 97 ml Atria Name Value Normal LA Dimensions LA Volume (4C A-L) 82 ml LA Volume (BP A-L) 83 ml RA Dimensions RA Systolic Major Anson Length (4C) 6.1 cm 2.1-2.7 RA Area (4C) 17.4 cm2 <=18.0 Report Signatures
[2025-01-04 04:09] LABS: Hematocrit 39.9 % (42.0-52.0); Hemoglobin 12.5 g/dL (14.0-18.0); Mean Corpuscular HGB Conc 31.3 g/dl (32-36); Mean Corpuscular Hemoglobin 26.7 pg (26-34); Mean Corpuscular Volume 85.1 fl (80-100); Platelet Count Result 167 k/mm3 (150-375); Red Blood Count 4.69 M/mm3 (4.6-6.20); White Blood Count 5.7 K/mm3 (4.5-10.0)
[2025-01-04 04:57] LABS: Anion Gap 7 mmol/L (4-12); Blood Urea Nitrogen 37 mg/dL (9-20); Calcium 8.3 mg/dL (8.4-10.2); Carbon Dioxide 28 mmol/L (22-30); Chloride 103 mmol/L (98-107); Estimated CRCL calculation 49 ml/min; Estimated Glomerular Filt Rate 47; Glucose 116 mg/dL (65-110); Magnesium 1.8 mg/dL (1.6-2.3); Potassium 4.4 mmol/L (3.4-5.0); Sodium 138 mmol/L (137-145)
[2025-01-04] MEDS: ALPRAZolam (*CRX) 0.5 MG TABLET 1.5 MG PO ×3 (05:42→22:01)
[2025-01-04] MEDS: HYDROcodone/acetaminophen (*CRX) 10-325 MG TABLET 1 TAB PO ×3 (05:42→22:00)
[2025-01-04] MEDS: FUROSEMIDE INJ 40 MG/4 ML VIAL IV PUSH ×2 (09:00→16:41)
[2025-01-04] MEDS: ASPIRIN 81 MG ENTERIC TABLET PO (09:11)
[2025-01-04] MEDS: TAMSULOSIN HCL 0.4 MG CAPSULE 0.8 MG BY MOUTH (09:12)
[2025-01-04] MEDS: ROSUVASTATIN 10 MG TABLET PO (09:12)
[2025-01-04] MEDS: CHOLECALCIFEROL (VITAMIN D3) 25 MCG (1,000 UNITS) TABLET PO (09:12)
[2025-01-04] MEDS: FINASTERIDE 5 MG TABLET BY MOUTH (11:55)
[2025-01-04] MEDS: ALBUTEROL SULFATE (*SP) AEROSOL 1 PUFF INHALATION ×2 (15:31→21:13)
[2025-01-04] MEDS: PERFLUTREN LIPID MICROSPHERES 1.5 ML VIAL DILUTED TO 10 ML TOTAL VOLUME IV PUSH (16:11)
--- NOTE | 2025-01-04 16:11 | IVDEFINITY ---
Prior to administration of IV Definity the patient was educated on the risks and benefits of the imaging enhancing agent including potential adverse side effects. The patient verbalized understanding. Allergies were verified. No exclusion criteria were identified and at least one of the following inclusion criteria were met: 1) physician request, 2) patient technically difficult to image (per the [place] [employer] guidelines of two or more segments not discernable within the apical view), or 3) questionable left ventricular function. ?
--- NOTE | 2025-01-04 17:35 | P.PNIM_ITS ---
Progress Note: A&P Assessment and Plan (1) Acute decompensated heart failure: Code(s): I50.9 - Heart failure, unspecified Status: Acute (2) H/O aortic valve replacement: Code(s): Z95.2 - Presence of prosthetic heart valve Status: Acute (3) Acute respiratory failure with hypoxemia: Code(s): J96.01 - Acute respiratory failure with hypoxia Status: Acute (4) Elevated troponin: Code(s): R79.89 - Other specified abnormal findings of blood chemistry Status: Acute (5) Uncontrolled hypertension: Code(s): I10 - Essential (primary) hypertension Status: Acute Plan 69-year-old male with an extensive medical history including DJD, bilateral hip and knee replacements, lumbosacral spinal stenosis insomnia, depression, anxiety, ADD, history of aortic valve replacement, [id number]-vpuwzcgau diabetes mellitus, hypertension, presents with shortness of breath for about 3-4 months. Patient is only a fair historian, reports 3-4 months he has had shortness of breath and was prescribed antibiotics for suspected pneumonia over the phone. He has also had a 40 lb weight loss in the past 6 months. Concurrently he has had lower extremity edema. He says he has a poor appetite, unable to detail the characteristics of his stool. Denies fever, chest pain, nausea or vomiting or diarrhea. He is hypertensive on arrival with blood pressure 191/63 improving to 140/46. He was placed on 2 L nasal cannula for hypoxia. INR 1.3, sodium 134, BUN 39, serum creatinine 1.24, troponin 0.065 then 0.063, BNP 63465, quad viral screen negative. CTA chest PE protocol negative for PE, no thoracic aortic dissection, large right and small left-sided pleural effusions with atelectasis and interstitial edema in the remaining lung carter. He was given Lasix 40 mg IV x1. ----- Elevated troponin has peaked. Likely due to demand ischemia, EKG without acute ST changes. No chest pain. Continue Lasix 40 mg IV b.i.d.. Daily weights, strict intake/output. He currently has appear with gone. Does not know when is aortic valve replacement was. Last echocardiogram on file in February 2023 demonstrating normal EF at 60-65%, moderate concentric increased left ventricular wall thickness, grade 1 diastolic dysfunction. The bioprosthetic aortic valve is not well visualized, moderate sclerosis of the bowel prosthetic aortic valve leaflets, mild regurgitation, mitral valve severely calcified annulus, trace mitral valve regurgitation. Will obtain a repeat TTE. Patient is 69 y/o male with presented with c/o shortness of breath, [place] [address]85, and CTA of chest showing pulmonary edema, patient is being diuresed with Lasix 40mg IV BID, patient stats feeling much better compare d when he arrived, patient tropes are elevated suspect demand ischemia, due to shortness of breath and exacerbation of CHF, will follow up on cardiac echo and further recommendation to follow. today patient stats feeling better, swelling in his legs has improved, his cardiac echo is pending, will monitor. Patient wishes to be full code. SCDs. Heart healthy diet. He lives alone but has family members close on the same block. Subjective Date/time seen: 01/04/25 17:35 Interval history: Shortness of breath Narrative: 69-year-old male with an extensive medical history including DJD, bilateral hip and knee replacements, lumbosacral spinal stenosis insomnia, depression, anxiety, ADD, history of aortic valve replacement, [id number]-ozdwadqaz diabetes mellitus, hypertension, presents with shortness of breath for about 3-4 months. Patient is only a fair historian, reports 3-4 months he has had shortness of breath and was prescribed antibiotics for suspected pneumonia over the phone. He has also had a 40 lb weight loss in the past 6 months. Concurrently he has had lower extremity edema. He says he has a poor appetite, unable to detail the characteristics of his stool. Denies fever, chest pain, nausea or vomiting or diarrhea. He is hypertensive on arrival with blood pressure 191/63 improving to 140/46. He was placed on 2 L nasal cannula for hypoxia. INR 1.3, sodium 134, BUN 39, serum creatinine 1.24, troponin 0.065 then 0.063, BNP 59183, quad viral screen negative. CTA chest PE protocol negative for PE, no thoracic aortic dissection, large right and small left-sided pleural effusions with atelectasis and interstitial edema in the remaining lung carter. Patient is 69 y/o male with presented with c/o shortness of breath, [place] arrival patient BNP was 41635, and CTA of chest showing pulmonary edema, patient is being diuresed with Lasix 40mg IV BID, patient stats feeling much better compared when he arrived, patient tropes are elevated suspect demand ischemia, due to shortness of breath and exacerbation of CHF, will follow up on cardiac echo and further recommendation to follow. today patient stats feeling better, swelling in his legs has improved, his cardiac echo is pending, will monitor. Review of Systems Review of Systems: All systems reviewed & are unremarkable except as noted in HPI and below (Subjective/HPI) Exam Narrative: Patient is comfortable, NAD HEENT: eyes are clear and none icteric LUNGS:bilateral fair air entry with rales and rhonchi HEART: RR S1S2 ABD: BS+, Soft and nontender Lower extremities: edema SKIN: nonjaundiced Neuro: grossly intact. Objective Data Vital Signs Vital Signs: Vital Signs - 24 hr 01/03/25 18:00 01/03/25 20:00 01/03/25 20:00 Temperature 36.4 C Pulse Rate 73 77 74 Respiratory Rate 20 Blood Pressure 138/41 L Pulse Oximetry 95 Oxygen Delivery Oxygen Flow Rate 01/03/25 20:00 01/03/25 20:44 01/03/25 22:00 Temperature Pulse Rate 75 75 Respiratory Rate Blood Pressure Pulse Oximetry 94 Oxygen Delivery Nasal Cannula Oxygen Flow Rate 1 01/03/25 23:47 01/04/25 00:00 01/04/25 00:00 Temperature 36.5 C Pulse Rate 68 66 Respiratory Rate 20 Blood Pressure 121/41 L Pulse Oximetry 95 91 Oxygen Delivery Room Air Oxygen Flow Rate 01/04/25 02:00 01/04/25 04:00 01/04/25 04:00 Temperature 36.6 C Pulse Rate 64 70 Respiratory Rate 20 Blood Pressure 118/43 L Pulse Oximetry 91 93 Oxygen Delivery Room Air Oxygen Flow Rate 01/04/25 04:00 01/04/25 05:50 01/04/25 06:00 Temperature 37.1 C Pulse Rate 67 57 L Respiratory Rate Blood Pressure Pulse Oximetry Oxygen Delivery Oxygen Flow Rate 01/04/25 08:00 01/04/25 08:00 01/04/25 09:11 Temperature 36.9 C Pulse Rate 73 77 76 Respiratory Rate 24 H Blood Pressure 133/45 L Pulse Oximetry 97 Oxygen Delivery Oxygen Flow Rate 01/04/25 10:00 01/04/25 12:00 01/04/25 12:00 Temperature 36.9 C Pulse Rate 78 73 76 Respiratory Rate 18 Blood Pressure 127/48 L Pulse Oximetry 98 Oxygen Delivery Oxygen Flow Rate 01/04/25 14:00 01/04/25 16:00 01/04/25 16:00 Temperature Pulse Rate 83 81 Respiratory Rate Blood Pressure Pulse Oximetry 96 Oxygen Delivery Room Air Oxygen Flow Rate 01/04/25 16:00 Temperature 36.2 C L Pulse Rate 81 Respiratory Rate 22 H Blood Pressure 144/74 H Pulse Oximetry 98 Oxygen Delivery Oxygen Flow Rate Intake/Output Intake/Output: Intake & Output 01/01/25 01/02/25 01/03/25 01/04/25 23:59 23:59 23:59 23:59 Intake Total 2059 1630 Output Total 2500 2600 Balance -441 -970 Meds/Results Medications: Active Medications Generic Name Dose Route Start Last Admin Trade Name Freq PRN Reason Stop Dose Admin Hydrocodone Bitart/Acetaminophen 1 tab 01/03/25 01:14 01/04/25 15:21 Hydrocodone/Acetaminophen (*Crx) 10-325 Mg Tablet PO 1 tab Q6H PRN Administration pain Albuterol 1 puff 01/03/25 01:14 01/04/25 15:31 Albuterol Sulfate (*Sp) Aerosol 1 Puff INHALATION 1 puff Q4HRT PRN Administration shortness of breath or wheezing Albuterol/Ipratropium 3 ml 01/04/25 17:01 Ipratropium 0.5 Mg/Albuterol Sulfate 2.5 Mg Ampul.Neb 3 Ml INHALATION Q6HRT PRN Shortness Of Breath Alprazolam 1.5 mg 01/03/25 01:14 01/04/25 15:21 Alprazolam (*Crx) 0.5 Mg Tablet PO 1.5 mg TID PRN Administration anxiety Amlodipine Besylate 5 mg 01/03/25 09:00 01/04/25 09:11 Amlodipine Besylate 5 Mg Tablet PO 5 mg DAILY LISBET Administration Aspirin 81 mg 01/03/25 09:00 01/04/25 09:11 Aspirin 81 Mg Enteric Tablet PO 81 mg QAM LISBET Administration Azelastine HCl 1 spray 01/03/25 21:00 01/03/25 21:16 Azelastine Hcl Nasal 0.1% 137 Mcg/Spr 30 Ml Btl NASAL 1 spray QHS LISBET Administration Carvedilol 25 mg 01/03/25 09:00 01/04/25 09:11 Carvedilol 25 Mg Tablet PO 25 mg Q12HR LISBET Administration Finasteride 5 mg 01/03/25 09:00 01/04/25 11:55 Finasteride 5 Mg Tablet BY MOUTH 5 mg DAILY LISBET Administration Furosemide 40 mg 01/03/25 21:00 01/04/25 16:41 Furosemide Inj 40 Mg/4 Ml Vial IV PUSH 40 mg BID LISBET Administration Hydralazine HCl 100 mg 01/03/25 13:00 01/04/25 16:41 Hydralazine Hcl 50 Mg Tablet BY MOUTH 100 mg TID LISBET Administration Nitroglycerin 0.4 mg 01/03/25 11:29 Nitroglycerin Sl 0.4 Mg Tablet SUBLINGUAL Q5MIN PRN Chest Pain Rosuvastatin Calcium 10 mg 01/03/25 09:00 01/04/25 09:12 Rosuvastatin 10 Mg Tablet PO 10 mg DAILY LISBET Administration Tamsulosin HCl 0.8 mg 01/03/25 09:00 01/04/25 09:12 Tamsulosin Hcl 0.4 Mg Capsule BY MOUTH 0.8 mg DAILY LISBET Administration Trazodone HCl 50 - 100 mg 01/03/25 11:29 Trazodone Hcl 50 Mg Tablet PO HS PRN Insomnia Vitamin D 25 mcg 01/03/25 09:00 01/04/25 09:12 Cholecalciferol (Vitamin D3) 25 Mcg (1,000 Units) Tablet PO 25 mcg DAILY LISBET Administration Radiology Results: ITS Impressions Chest CTA 01/02/25 17:57 IMPRESSION: No pulmonary embolus. No thoracic aortic dissection. Large right and small left-sided pleural effusions with adjacent compressive atelectasis. Pulmonary edema within the visualized compressed lung carter. Labs Labs: Laboratory Results - last 24 hr 01/03/25 01/04/25 01/04/25 21:17 03:49 08:18 WBC 5.7 RBC 4.69 Hgb 12.5 L Hct 39.9 L MCV 85.1 MCH 26.7 MCHC 31.3 L RDW 17.2 H Plt Count 167 MPV 11.1 H Sodium 138 Potassium 4.4 Chloride 103 Carbon Dioxide 28 Anion Gap 7 BUN 37 H Creatinine 1.48 H Estim Creat Clear Calc 49 Estimated GFR 47 L Glucose 116 H POC Capillary Glucose 160 H 136 H Calcium 8.3 L Magnesium 1.8 01/04/25 11:44 WBC RBC Hgb Hct MCV MCH MCHC RDW Plt Count MPV Sodium Potassium Chloride Carbon Dioxide Anion Gap BUN Creatinine Estim Creat Clear Calc Estimated GFR Glucose POC Capillary Glucose 115 H Calcium Magnesium
[2025-01-04] MEDS: IPRATROPIUM 0.5 MG/ALBUTEROL SULFATE 2.5 MG AMPUL.NEB 3 ML INHALATION (17:43)
[2025-01-04] MEDS: AZELASTINE HCL NASAL 0.1% 137 MCG/SPR 30 ML BTL 1 SPRAY NASAL (20:30)
[2025-01-05] VITALS (22 sets, daily range): BP systolic 121–145; BP diastolic 39–54; PULSE 65–86; RESP 16–22; TEMP 36.4–36.7; O2SAT 91–100
[2025-01-05] MEDS: IPRATROPIUM 0.5 MG/ALBUTEROL SULFATE 2.5 MG AMPUL.NEB 3 ML INHALATION ×3 (01:30→20:44)
[2025-01-05 04:26] LABS: Hematocrit 38.6 % (42.0-52.0); Hemoglobin 12.5 g/dL (14.0-18.0); Mean Corpuscular HGB Conc 32.4 g/dl (32-36); Mean Corpuscular Hemoglobin 26.8 pg (26-34); Mean Corpuscular Volume 82.8 fl (80-100); Platelet Count Result 171 k/mm3 (150-375); Red Blood Count 4.66 M/mm3 (4.6-6.20); White Blood Count 6.6 K/mm3 (4.5-10.0)
[2025-01-05 04:40] LABS: Anion Gap 6 mmol/L (4-12); Blood Urea Nitrogen 38 mg/dL (9-20); Calcium 8.1 mg/dL (8.4-10.2); Carbon Dioxide 29 mmol/L (22-30); Chloride 101 mmol/L (98-107); Estimated CRCL calculation 51 ml/min; Estimated Glomerular Filt Rate 50; Glucose 131 mg/dL (65-110); Magnesium 1.9 mg/dL (1.6-2.3); Potassium 4.1 mmol/L (3.4-5.0); Sodium 136 mmol/L (137-145)
[2025-01-05] MEDS: ALPRAZolam (*CRX) 0.5 MG TABLET 1.5 MG PO ×3 (05:59→16:17)
[2025-01-05] MEDS: HYDROcodone/acetaminophen (*CRX) 10-325 MG TABLET 1 TAB PO ×4 (06:00→22:03)
[2025-01-05] MEDS: ASPIRIN 81 MG ENTERIC TABLET PO (09:14)
[2025-01-05] MEDS: TAMSULOSIN HCL 0.4 MG CAPSULE 0.8 MG BY MOUTH (09:14)
[2025-01-05] MEDS: FINASTERIDE 5 MG TABLET BY MOUTH (09:14)
[2025-01-05] MEDS: CHOLECALCIFEROL (VITAMIN D3) 25 MCG (1,000 UNITS) TABLET PO (09:14)
[2025-01-05] MEDS: ROSUVASTATIN 10 MG TABLET PO (09:15)
[2025-01-05] MEDS: FUROSEMIDE INJ 40 MG/4 ML VIAL IV PUSH ×2 (09:15→18:25)
--- NOTE | 2025-01-05 15:07 | P.PNIM_ITS ---
Progress Note: A&P Assessment and Plan (1) Acute decompensated heart failure: Code(s): I50.9 - Heart failure, unspecified Status: Acute (2) H/O aortic valve replacement: Code(s): Z95.2 - Presence of prosthetic heart valve Status: Acute (3) Acute respiratory failure with hypoxemia: Code(s): J96.01 - Acute respiratory failure with hypoxia Status: Acute (4) Elevated troponin: Code(s): R79.89 - Other specified abnormal findings of blood chemistry Status: Acute (5) Uncontrolled hypertension: Code(s): I10 - Essential (primary) hypertension Status: Acute Plan 69-year-old male with an extensive medical history including DJD, bilateral hip and knee replacements, lumbosacral spinal stenosis insomnia, depression, anxiety, ADD, history of aortic valve replacement, laf-gicgbwj-racsphlaj diabetes mellitus, hypertension, presents with shortness of breath for about 3-4 months. Patient is only a fair historian, reports 3-4 months he has had shortness of breath and was prescribed antibiotics for suspected pneumonia over the phone. He has also had a 40 lb weight loss in the past 6 months. Concurrently he has had lower extremity edema. He says he has a poor appetite, unable to detail the characteristics of his stool. Denies fever, chest pain, nausea or vomiting or diarrhea. He is hypertensive on arrival with blood pressure 191/63 improving to 140/46. He was placed on 2 L nasal cannula for hypoxia. INR 1.3, sodium 134, BUN 39, serum creatinine 1.24, troponin 0.065 then 0.063, BNP 35494, quad viral screen negative. CTA chest PE protocol negative for PE, no thoracic aortic dissection, large right and small left-sided pleural effusions with atelectasis and interstitial edema in the remaining lung carter. He was given Lasix 40 mg IV x1. ----- Elevated troponin has peaked. Likely due to demand ischemia, EKG without acute ST changes. No chest pain. Continue Lasix 40 mg IV b.i.d.. Daily weights, strict intake/output. He currently has appear with gone. Does not know when is aortic valve replacement was. Last echocardiogram on file in February 2023 demonstrating normal EF at 60-65%, moderate concentric increased left ventricular wall thickness, grade 1 diastolic dysfunction. The bioprosthetic aortic valve is not well visualized, moderate sclerosis of the bowel prosthetic aortic valve leaflets, mild regurgitation, mitral valve severely calcified annulus, trace mitral valve regurgitation. Will obtain a repeat TTE. Patient is 69 y/o male with presented with c/o shortness of breath, [place] 17566, and CTA of chest showing pulmonary edema, patient is being diuresed with Lasix 40mg IV BID, patient stats feeling much better compare d when he arrived, patient tropes are elevated suspect demand ischemia, due to shortness of breath and exacerbation of CHF, will follow up on cardiac echo and further recommendation to follow. today patient stats feeling better, swelling in his legs has improved, patient is being diuresed close to 6L his cardiac echo showed left ventricular systolic function is moderately globally reduced, estimated at 35-40. suggesting patient has acute on chronic systolic CHF, will consult inspector watch train for further recommendation this cardiomyopathy and further recommendation to follow. Patient wishes to be full code. SCDs. Heart healthy diet. He lives alone but has family members close on the same block. Subjective Date/time seen: 01/05/25 15:07 Interval history: Shortness of breath Narrative: 69-year-old male with an extensive medical history including DJD, bilateral hip and knee replacements, lumbosacral spinal stenosis insomnia, depression, anxiety, ADD, history of aortic valve replacement, qja-ysuqyfs-pgboojaej diabetes mellitus, hypertension, presents with shortness of breath for about 3-4 months. Patient is only a fair historian, reports 3-4 months he has had shortness of breath and was prescribed antibiotics for suspected pneumonia over the phone. He has also had a 40 lb weight loss in the past 6 months. Concurrently he has had lower extremity edema. He says he has a poor appetite, unable to detail the characteristics of his stool. Denies fever, chest pain, nausea or vomiting or diarrhea. He is hypertensive on arrival with blood pressure 191/63 improving to 140/46. He was placed on 2 L nasal cannula for hypoxia. INR 1.3, sodium 134, BUN 39, serum creatinine 1.24, troponin 0.065 then 0.063, BNP 01322, quad viral screen negative. CTA chest PE protocol negative for PE, no thoracic aortic dissection, large right and small left-sided pleural effusions with atelectasis and interstitial edema in the remaining lung carter. Patient is 69 y/o male with presented with c/o shortness of breath, [place] BNP [place] [address]11, and CTA of chest showing pulmonary edema, patient is being diuresed with Lasix 40mg IV BID, patient stats feeling much better compared when he arrived, patient tropes are elevated suspect demand ischemia, due to shortness of breath and exacerbation of CHF, will follow up on cardiac echo and further recommendation to follow. today patient stats feeling better, swelling in his legs has improved, patient is being diuresed close to 6L his cardiac echo showed left ventricular systolic function is moderately globally reduced, estimated at 35-40. suggesting patient has acute on chronic systolic CHF, will consult inspector watch train for further recommendation this cardiomyopathy and further recommendation to follow. Review of Systems Review of Systems: All systems reviewed & are unremarkable except as noted in HPI and below (Subjective/HPI) Exam Narrative: Patient is comfortable, NAD HEENT: eyes are clear and none icteric LUNGS:bilateral fair air entry with rales and rhonchi HEART: RR S1S2 ABD: BS+, Soft and nontender Lower extremities: edema SKIN: nonjaundiced Neuro: grossly intact. Objective Data Vital Signs Vital Signs: Vital Signs - 24 hr 01/04/25 16:00 01/04/25 16:00 01/04/25 16:00 Temperature 36.2 C L Pulse Rate 81 81 Respiratory Rate 22 H Blood Pressure 144/74 H Pulse Oximetry 96 98 Oxygen Delivery Room Air Fraction of Inspired Oxygen 01/04/25 17:40 01/04/25 18:00 01/04/25 19:52 Temperature 36.7 C Pulse Rate 85 86 75 Respiratory Rate 20 17 Blood Pressure 131/44 L Pulse Oximetry 95 Oxygen Delivery Fraction of Inspired Oxygen 01/04/25 20:00 01/04/25 20:00 01/04/25 20:30 Temperature Pulse Rate 82 83 Respiratory Rate Blood Pressure Pulse Oximetry Oxygen Delivery Room Air Fraction of Inspired Oxygen 01/04/25 21:15 01/04/25 22:00 01/05/25 00:00 Temperature Pulse Rate 87 75 Respiratory Rate 20 Blood Pressure Pulse Oximetry Oxygen Delivery Room Air Fraction of Inspired Oxygen 01/05/25 00:00 01/05/25 00:00 01/05/25 01:30 Temperature 36.6 C Pulse Rate 72 75 72 Respiratory Rate 22 H 18 Blood Pressure 121/54 L Pulse Oximetry 95 Oxygen Delivery Fraction of Inspired Oxygen 01/05/25 01:37 01/05/25 02:00 01/05/25 04:00 Temperature Pulse Rate 65 75 Respiratory Rate 18 Blood Pressure Pulse Oximetry Oxygen Delivery Room Air Fraction of Inspired Oxygen 01/05/25 04:00 01/05/25 04:00 01/05/25 05:58 Temperature 36.6 C Pulse Rate 70 67 71 Respiratory Rate 20 20 Blood Pressure 129/48 L Pulse Oximetry 96 Oxygen Delivery Fraction of Inspired Oxygen 01/05/25 06:00 01/05/25 06:00 01/05/25 07:53 Temperature 36.4 C Pulse Rate 71 71 76 Respiratory Rate 20 20 Blood Pressure 134/45 L Pulse Oximetry 96 100 Oxygen Delivery Room Air Fraction of Inspired Oxygen 21 01/05/25 08:00 01/05/25 08:00 01/05/25 09:15 Temperature Pulse Rate 82 84 Respiratory Rate Blood Pressure Pulse Oximetry Oxygen Delivery Room Air Fraction of Inspired Oxygen 01/05/25 10:00 01/05/25 11:48 01/05/25 12:00 Temperature 36.5 C Pulse Rate 76 75 Respiratory Rate 20 Blood Pressure 124/54 L Pulse Oximetry 96 Oxygen Delivery Room Air Fraction of Inspired Oxygen 01/05/25 12:00 01/05/25 14:00 Temperature Pulse Rate 75 75 Respiratory Rate Blood Pressure Pulse Oximetry Oxygen Delivery Fraction of Inspired Oxygen Intake/Output Intake/Output: Intake & Output 01/02/25 01/03/25 01/04/25 01/05/25 23:59 23:59 23:59 23:59 Intake Total 2057 2670 200 Output Total 2500 5800 700 Balance -514 -3130 -500 Meds/Results Medications: Active Medications Generic Name Dose Route Start Last Admin Trade Name Freq PRN Reason Stop Dose Admin Hydrocodone Bitart/Acetaminophen 1 tab 01/03/25 01:14 01/05/25 11:16 Hydrocodone/Acetaminophen (*Crx) 10-325 Mg Tablet PO 1 tab Q6H PRN Administration pain Albuterol 1 puff 01/03/25 01:14 01/04/25 21:13 Albuterol Sulfate (*Sp) Aerosol 1 Puff INHALATION 1 puff Q4HRT PRN Administration shortness of breath or wheezing Albuterol/Ipratropium 3 ml 01/05/25 11:56 Ipratropium 0.5 Mg/Albuterol Sulfate 2.5 Mg Ampul.Neb 3 Ml INHALATION Q6HRT PRN Shortness Of Breath Alprazolam 1.5 mg 01/03/25 01:14 01/05/25 11:16 Alprazolam (*Crx) 0.5 Mg Tablet PO 1.5 mg TID PRN Administration anxiety Amlodipine Besylate 5 mg 01/03/25 09:00 01/05/25 09:14 Amlodipine Besylate 5 Mg Tablet PO 5 mg DAILY LISBET Administration Aspirin 81 mg 01/03/25 09:00 01/05/25 09:14 Aspirin 81 Mg Enteric Tablet PO 81 mg QAM LISBET Administration Azelastine HCl 1 spray 01/03/25 21:00 01/04/25 20:30 Azelastine Hcl Nasal 0.1% 137 Mcg/Spr 30 Ml Btl NASAL 1 spray QHS LISBET Administration Carvedilol 25 mg 01/03/25 09:00 01/05/25 09:15 Carvedilol 25 Mg Tablet PO 25 mg Q12HR LISBET Administration Finasteride 5 mg 01/03/25 09:00 01/05/25 09:14 Finasteride 5 Mg Tablet BY MOUTH 5 mg DAILY LISBET Administration Furosemide 40 mg 01/03/25 21:00 01/05/25 09:15 Furosemide Inj 40 Mg/4 Ml Vial IV PUSH 40 mg BID LISBET Administration Hydralazine HCl 100 mg 01/03/25 13:00 01/05/25 09:14 Hydralazine Hcl 50 Mg Tablet BY MOUTH 100 mg TID LISBET Administration Nitroglycerin 0.4 mg 01/03/25 11:29 Nitroglycerin Sl 0.4 Mg Tablet SUBLINGUAL Q5MIN PRN Chest Pain Rosuvastatin Calcium 10 mg 01/03/25 09:00 01/05/25 09:15 Rosuvastatin 10 Mg Tablet PO 10 mg DAILY LISBET Administration Tamsulosin HCl 0.8 mg 01/03/25 09:00 01/05/25 09:14 Tamsulosin Hcl 0.4 Mg Capsule BY MOUTH 0.8 mg DAILY LISBET Administration Trazodone HCl 50 - 100 mg 01/03/25 11:29 Trazodone Hcl 50 Mg Tablet PO HS PRN Insomnia Vitamin D 25 mcg 01/03/25 09:00 01/05/25 09:14 Cholecalciferol (Vitamin D3) 25 Mcg (1,000 Units) Tablet PO 25 mcg DAILY LISBET Administration Radiology Results: ITS Impressions Chest CTA 01/02/25 17:57 IMPRESSION: No pulmonary embolus. No thoracic aortic dissection. Large right and small left-sided pleural effusions with adjacent compressive atelectasis. Pulmonary edema within the visualized compressed lung carter. Labs Labs: Laboratory Results - last 24 hr 01/04/25 01/04/25 01/05/25 16:42 20:22 03:48 WBC 6.6 RBC 4.66 Hgb 12.5 L Hct 38.6 L MCV 82.8 MCH 26.8 MCHC 32.4 RDW 17.1 H Plt Count 171 MPV 10.4 Sodium 136 L Potassium 4.1 Chloride 101 Carbon Dioxide 29 Anion Gap 6 BUN 38 H Creatinine 1.42 H Estim Creat Clear Calc 51 Estimated GFR 50 L Glucose 131 H POC Capillary Glucose 109 H 121 H Calcium 8.1 L Magnesium 1.9 01/05/25 01/05/25 07:38 11:14 WBC RBC Hgb Hct MCV MCH MCHC RDW Plt Count MPV Sodium Potassium Chloride Carbon Dioxide Anion Gap BUN Creatinine Estim Creat Clear Calc Estimated GFR Glucose POC Capillary Glucose 139 H 142 H Calcium Magnesium
--- NOTE | 2025-01-05 15:42 | PM.CNCAR ---
Assessment and Plan Assessment and plan (1) Acute systolic heart failure: Code(s): I50.21 - Acute systolic (congestive) heart failure Status: Acute (2) Moderate aortic stenosis: Code(s): I35.0 - Nonrheumatic aortic (valve) stenosis Status: Acute (3) CHF exacerbation: Qualifiers: Heart failure type: unspecified Qualified Code(s): I50.9 - Heart failure, unspecified Code(s): I50.9 - Heart failure, unspecified Status: Acute (4) Left bundle branch block: Code(s): I44.7 - Left bundle-branch block, unspecified Status: Acute (5) Hyperlipidemia: Qualifiers: Hyperlipidemia type: mixed hyperlipidemia Qualified Code(s): E78.2 - Mixed hyperlipidemia Code(s): E78.5 - Hyperlipidemia, unspecified Status: Acute (6) Elevated troponin: Code(s): R79.89 - Other specified abnormal findings of blood chemistry Status: Acute (7) Uncontrolled hypertension: Code(s): I10 - Essential (primary) hypertension Status: Acute Plan -Acute systolic heart failure with drop in LVEF to 35-40% with global hypokinesis; EF in 2022 was normal at 60% -Elevated troponin (0.065, 0.063, 0.073, 0.08) without chest pain- -Valvular heart disease: 1. Status post R aortic valve replacement 18 years ago at [facility]; echo shows moderate stenosis of bioprosthetic valve with aortic valve area of 1.1 cm2, peak velocity of 3 m/sec 2. Mild to moderate mitral regurgitation 3. Moderate to severe tricuspid regurgitation 4. Moderate aortic regurgitation 5. Severe mitral annulus calcification and moderate mitral leaflet calcification -Severe pulmonary hypertension with pulmonary artery systolic pressure of 70 mm Hg -Hypertensive urgency-SBP of 191 mm Hg -Hyperlipidemia -Acute renal failure Plan: Patient has an elevated troponin but mostly flat without any chest pain. ACS seems less likely. Most likely type 2 [place] secondary to acute heart failure and valvular heart disease Diuresis for acute heart failure with IV Lasix 40 mg b.i.d. Check daily weights, ins and outs, and renal function Check and replace electrolytes to keep potassium greater than 4 and magnesium greater than 2 Guideline directed medical therapy for cardiomyopathy. Continue carvedilol. Add empagliflozin 10 mg daily. Add SHAVONNE-inhibitor/Arb/Entresto and spironolactone when renal function is back to baseline Recommend outpatient follow-up with valve clinic for further workup and treatment of valvular heart disease. Workup for ischemia can be performed as an outpatient Cardiology will continue to follow History of Present Illness History of Present Illness Consult date/time: 01/05/25 15:42 Reason For Visit: CHF exacerbation, Elevated troponin Narrative: 69-year-old male with extensive medical history including aortic valve replacement 18 years ago and [facility], hypertension, [id number] diabetes mellitus who presents with chief complaints of shortness of breath for the past 4-5 months. He states that he shortness of breath is slowly getting worse. He has noticed extremity edema. He denies any weight gain but has noticed weight loss over the past 6 months. No chest pain, dizziness, lightheadedness, presyncope, syncope, palpitations. He states that he lives by himself but has lot of family living nearby. He was hypertensive with blood pressure of 191/63 on arrival. Troponin and NT proBNP elevated. EKG shows sinus rhythm and old left bundle branch block. Echo shows new drop in LVEF to 35% with global hypokinesis and significant multi valvular pathology. Cardiology is consulted for further recommendations. Workup: Serum creatinine: 1.24 Troponin: 0.065, 0.063, 0.073, 0.081, 0.057 NT proBNP: [id number] EKG: Sinus rhythm, left bundle branch block (present on prior EKGs) Echo: LVEF is moderately depressed to 35-40%, global hypokinesis, moderate LVH, moderately reduced RV systolic function, moderate aortic stenosis with peak velocity of 3.07 m/sec and mean gradient of 18 mm Hg and aortic valve area of 1.1 cm2, moderate aortic regurgitation, severely calcified mitral annulus with moderately calcified mitral leaflets, mild to moderate mitral regurgitation, moderate to severe tricuspid regurgitation severe pulmonary hypertension with PASP of 70 mm Hg (last echo in 2022 showed normal LVEF, no significant bioprosthetic aortic valve dysfunction) CT chest: Negative for PE, no thoracic aortic dissection, large right and small left-sided pleural effusions with atelectasis and interstitial edema in the remaining lung carter Review of Systems Review of Systems: Complete review of systems was performed and negative other than those mentioned in [facility] Past Medical History Medical History Pneumonia 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 Nocturia Impacted cerumen of both ears Left bundle branch block Congestion of right ear Fall Injury of left knee Left knee pain Skin lesions Vision changes Muscle spasm Epistaxis Essential hypertension Non-healing skin lesion Aortic valve disease Muscle cramps BMI 30.0-30.9,adult Chronic right shoulder pain Toenail fungus BMI 27.0-27.9,adult Hx of colonic polyps Prostate cancer screening BMI 24.0-24.9, adult Onychomycosis Unintentional weight loss Right shoulder pain BMI 25.0-25.9,adult URI (upper respiratory infection) Borderline abnormal TFTs BMI 26.0-26.9,adult Abnormal thyroid function test Exposure to hepatitis C Possible exposure to STD Hypervitaminosis D Abnormal finding of blood chemistry Colon cancer screening Hyperlipidemia Encounter for Medicare annual wellness exam Dysuria DM w/o complication type II Vitamin D deficiency Vitamin B 12 deficiency BMI 28.0-28.9,adult ADD (attention deficit disorder) Follow up Anxiety with depression Encounter for routine adult health examination with abnormal findings Pre-diabetes ADD (attention deficit disorder) Cognitive dysfunction Testosterone deficiency Amaurosis fugax Encounter for special screening examination for neoplasm of prostate Chronic right hip pain DJD (degenerative joint disease), multiple sites Insomnia Depression Encounter for routine adult health examination without abnormal findings BMI 29.0-29.9,adult 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 Chronic low back pain Surgical History Surgical History H/O aortic valve replacement Hx of bilateral hip replacements History of bilateral knee replacement Family History Family History Sibling Family history of diabetes mellitus in first degree relative Diabetes mellitus Social History Social History Smoking status: Never smoker Second hand tobacco smoke exposure: No Alcohol intake: never Substance use: never Substance use type: does not use Do You Feel Safe in your Home?: Yes Lack of Transportation: No Lack of Food: Never True Current Housing: I Have Housing Concerned About Future Housing: No Difficulty Paying Gas/Electric Bills: No Difficulty Paying for Meds: No Currently Unemployed: No Education: High School Diploma/GED Difficulty w/ Childcare or Family Care: No Living arrangements: with family Gender identity (if verbalized by the patient): Male Spiritual care concerns: No Meds Home Medications and Allergies Home Medications ?Medication ?Instructions ?Recorded ?Confirmed ?Type cholecalciferol (vitamin D3) 25 25 mcg PO DAILY 09/11/20 01/02/25 History mcg (1,000 unit) capsule Easy Touch SheathLock Syrg-Ndl 3 #100 ea 07/24/21 01/02/25 Rx mL 21 gauge x 1 1/2 (syringe with needle, safety) aspirin 81 mg capsule 81 mg PO DAILY 1 month #30 caps 02/12/23 01/02/25 Rx carvedilol 25 mg tablet 25 mg PO Q12H #180 tabs 01/25/24 01/02/25 Rx amlodipine 5 mg tablet 5 mg PO DAILY 02/25/24 01/02/25 History trazodone 50 mg tablet See Rx Instructions PO HS PRN 03/11/24 01/02/25 Rx Insomnia #60 tabs sildenafil (pulm.hypertension) 20 See Rx Instructions .Route 04/19/24 01/02/25 Rx mg tablet .COMPLEX PRN Erectile Dysfunction #30 tabs tamsulosin 0.4 mg capsule See Rx Instructions .Route 06/20/24 01/02/25 Rx .COMPLEX #180 caps nitroglycerin 0.4 mg sublingual 0.4 mg sublingual Q5-15M PRN Chest 07/21/24 01/02/25 Rx tablet Pain #25 tabs rosuvastatin 10 mg tablet 10 mg PO DAILY #30 tabs 07/21/24 01/02/25 Rx clopidogrel 75 mg tablet See Rx Instructions .Route 08/18/24 01/02/25 Rx .COMPLEX #90 tabs azelastine 205.5 mcg (0.15 %) 1 spray intranasal QHS #30 mL 08/31/24 01/02/25 Rx nasal spray syringe with needle 3 mL 21 gauge #50 ea 08/31/24 01/02/25 Rx x 1 (BD Luer-Haley Syringe) metformin 1,000 mg tablet See Rx Instructions .Route 09/02/24 01/02/25 Rx .COMPLEX #180 tabs testosterone cypionate 200 mg/mL 200 mg IM .q 2 weeks #10 mL 09/12/24 01/02/25 Rx intramuscular oil hydralazine 100 mg tablet See Rx Instructions .Route 09/14/24 01/02/25 Rx .COMPLEX #270 tabs cyanocobalamin (vitamin B-12) See Rx Instructions .Route 11/07/24 01/02/25 Rx 1,000 mcg/mL injection solution .COMPLEX #3 mL dextroamphetamine-amphetamine 20 20 mg PO BID #60 tabs 12/05/24 01/02/25 Rx mg tablet hydrocodone 10 mg-acetaminophen 1 tablet PO Q6H PRN pain #90 tabs 12/07/24 01/02/25 Rx 325 mg tablet finasteride 5 mg tablet See Rx Instructions .Route 12/15/24 01/02/25 Rx .COMPLEX #90 tabs alprazolam 1 mg tablet 1.5 mg (1.5 x 1 mg) PO TID PRN 12/21/24 01/02/25 Rx anxiety #135 tabs albuterol sulfate 90 mcg/actuation 1 puff inhalation Q4H PRN 01/02/25 01/02/25 History aerosol inhaler shortness of breath or wheezing Allergies Allergy/AdvReac Type Severity Reaction Status Date / Time No Known Allergies Allergy Verified 01/02/25 23:48 Vital Signs Vital Signs - 24 hr 01/04/25 16:00 01/04/25 16:00 01/04/25 16:00 Temperature 36.2 C L Pulse Rate 81 81 Respiratory Rate 22 H Blood Pressure 144/74 H Pulse Oximetry 96 98 Oxygen Delivery Room Air Fraction of Inspired Oxygen 01/04/25 17:40 01/04/25 18:00 01/04/25 19:52 Temperature 36.7 C Pulse Rate 85 86 75 Respiratory Rate 20 17 Blood Pressure 131/44 L Pulse Oximetry 95 Oxygen Delivery Fraction of Inspired Oxygen 01/04/25 20:00 01/04/25 20:00 01/04/25 20:30 Temperature Pulse Rate 82 83 Respiratory Rate Blood Pressure Pulse Oximetry Oxygen Delivery Room Air Fraction of Inspired Oxygen 01/04/25 21:15 01/04/25 22:00 01/05/25 00:00 Temperature Pulse Rate 87 75 Respiratory Rate 20 Blood Pressure Pulse Oximetry Oxygen Delivery Room Air Fraction of Inspired Oxygen 01/05/25 00:00 01/05/25 00:00 01/05/25 01:30 Temperature 36.6 C Pulse Rate 72 75 72 Respiratory Rate 22 H 18 Blood Pressure 121/54 L Pulse Oximetry 95 Oxygen Delivery Fraction of Inspired Oxygen 01/05/25 01:37 01/05/25 02:00 01/05/25 04:00 Temperature Pulse Rate 65 75 Respiratory Rate 18 Blood Pressure Pulse Oximetry Oxygen Delivery Room Air Fraction of Inspired Oxygen 01/05/25 04:00 01/05/25 04:00 01/05/25 05:58 Temperature 36.6 C Pulse Rate 70 67 71 Respiratory Rate 20 20 Blood Pressure 129/48 L Pulse Oximetry 96 Oxygen Delivery Fraction of Inspired Oxygen 01/05/25 06:00 01/05/25 06:00 01/05/25 07:53 Temperature 36.4 C Pulse Rate 71 71 76 Respiratory Rate 20 20 Blood Pressure 134/45 L Pulse Oximetry 96 100 Oxygen Delivery Room Air Fraction of Inspired Oxygen 21 01/05/25 08:00 01/05/25 08:00 01/05/25 09:15 Temperature Pulse Rate 82 84 Respiratory Rate Blood Pressure Pulse Oximetry Oxygen Delivery Room Air Fraction of Inspired Oxygen 01/05/25 10:00 01/05/25 11:48 01/05/25 12:00 Temperature 36.5 C Pulse Rate 76 75 Respiratory Rate 20 Blood Pressure 124/54 L Pulse Oximetry 96 Oxygen Delivery Room Air Fraction of Inspired Oxygen 01/05/25 12:00 01/05/25 14:00 Temperature Pulse Rate 75 75 Respiratory Rate Blood Pressure Pulse Oximetry Oxygen Delivery Fraction of Inspired Oxygen Exam Narrative: General: Alert oriented x3, no acute distress Neck: Supple, JVD + Chest: Bilaterally clear to auscultation, no rales or rhonchi Cardiac: S1, S2 +, regular rate, regular rhythm, systolic murmur grade 3 x 6 best heard in right upper sternal border, diastolic murmur present, no rubs Extremities: Bilateral lower extremity edema 1+, no skin rash Neurologic: Alert and oriented x3, no focal neurological deficits Results Labs and Meds 01/05/25 03:48 01/05/25 03:48 Lab results: CBC 01/05/25 Range/Units 03:48 WBC 6.6 (4.5-10.0) K/mm3 RBC 4.66 (4.6-6.20) M/mm3 Hgb 12.5 L (14.0-18.0) g/dL Hct 38.6 L (42.0-52.0) % Plt Count 171 (150-375) k/mm3 Comprehensive Metabolic Panel 01/05/25 Range/Units 03:48 Sodium 136 L (137-145) mmol/L Potassium 4.1 (3.4-5.0) mmol/L Chloride 101 (98-107) mmol/L Carbon Dioxide 29 (22-30) mmol/L BUN 38 H (9-20) mg/dL Creatinine 1.42 H (0.7-1.3) mg/dL Glucose 131 H (65-110) mg/dL Calcium 8.1 L (8.4-10.2) mg/dL Intake and Output 01/04/25 01/05/25 01/05/25 23:59 07:59 15:59 Intake Total 1640 200 Output Total 4700 700 Balance -3060 -700 200 Intake: Oral 1640 200 Output: Urine 4700 700 Other: # Unmeasured Voids 1 Patient Weight 01/05/25 23:59 Weight 86.1 kg
[2025-01-05] MEDS: AZELASTINE HCL NASAL 0.1% 137 MCG/SPR 30 ML BTL 1 SPRAY NASAL (20:37)
--- NOTE | 2025-01-05 20:41 | PC.NURSE ---
This RN found hydralazine not taken at patient's bedside. Pt BP currently 145/49, and pt received scheduled Coreg. RN disposed of hydralazine and will continue to monitor BP.
[2025-01-06] VITALS (14 sets, daily range): BP systolic 112–148; BP diastolic 34–67; PULSE 71–83; RESP 16–20; TEMP 36.6–37.1; O2SAT 91–99
[2025-01-06] MEDS: ALPRAZolam (*CRX) 0.5 MG TABLET 1.5 MG PO ×4 (00:07→21:58)
[2025-01-06 04:25] LABS: Hematocrit 38.4 % (42.0-52.0); Hemoglobin 12.3 g/dL (14.0-18.0); Mean Corpuscular HGB Conc 32.0 g/dl (32-36); Mean Corpuscular Hemoglobin 26.7 pg (26-34); Mean Corpuscular Volume 83.5 fl (80-100); Platelet Count Result 159 k/mm3 (150-375); Red Blood Count 4.60 M/mm3 (4.6-6.20); White Blood Count 5.9 K/mm3 (4.5-10.0)
[2025-01-06 04:47] LABS: Anion Gap 6 mmol/L (4-12); Blood Urea Nitrogen 37 mg/dL (9-20); Calcium 8.1 mg/dL (8.4-10.2); Carbon Dioxide 29 mmol/L (22-30); Chloride 101 mmol/L (98-107); Estimated CRCL calculation 51 ml/min; Estimated Glomerular Filt Rate 50; Glucose 143 mg/dL (65-110); Magnesium 1.9 mg/dL (1.6-2.3); Potassium 3.7 mmol/L (3.4-5.0); Sodium 136 mmol/L (137-145)
[2025-01-06] MEDS: TAMSULOSIN HCL 0.4 MG CAPSULE 0.8 MG BY MOUTH (09:02)
[2025-01-06] MEDS: EMPAGLIFLOZIN 10 MG TABLET PO (09:02)
[2025-01-06] MEDS: CHOLECALCIFEROL (VITAMIN D3) 25 MCG (1,000 UNITS) TABLET PO (09:02)
[2025-01-06] MEDS: FINASTERIDE 5 MG TABLET BY MOUTH (09:02)
[2025-01-06] MEDS: FUROSEMIDE INJ 40 MG/4 ML VIAL IV PUSH ×2 (09:02→17:03)
[2025-01-06] MEDS: ROSUVASTATIN 10 MG TABLET PO (09:02)
[2025-01-06] MEDS: ASPIRIN 81 MG ENTERIC TABLET PO (09:02)
[2025-01-06] MEDS: HYDROcodone/acetaminophen (*CRX) 10-325 MG TABLET 1 TAB PO ×3 (09:04→21:57)
--- NOTE | 2025-01-06 11:22 | PM.PNCARD ---
Progress Note: A&P Assessment and Plan (1) Acute systolic heart failure: Code(s): I50.21 - Acute systolic (congestive) heart failure Status: Acute (2) Moderate aortic stenosis: Code(s): I35.0 - Nonrheumatic aortic (valve) stenosis Status: Acute (3) CHF exacerbation: Qualifiers: Heart failure type: unspecified Qualified Code(s): I50.9 - Heart failure, unspecified Code(s): I50.9 - Heart failure, unspecified Status: Acute (4) Left bundle branch block: Code(s): I44.7 - Left bundle-branch block, unspecified Status: Acute (5) Hyperlipidemia: Qualifiers: Hyperlipidemia type: mixed hyperlipidemia Qualified Code(s): E78.2 - Mixed hyperlipidemia Code(s): E78.5 - Hyperlipidemia, unspecified Status: Acute (6) Elevated troponin: Code(s): R79.89 - Other specified abnormal findings of blood chemistry Status: Acute (7) Uncontrolled hypertension: Code(s): I10 - Essential (primary) hypertension Status: Acute Plan -Acute systolic heart failure with drop in LVEF to 35-40% with global hypokinesis; EF in 2022 was normal at 60% -Elevated troponin (0.065, 0.063, 0.073, 0.08) without chest pain- -Valvular heart disease: 1. Status post R aortic valve replacement 18 years ago at [facility]; echo shows moderate stenosis of bioprosthetic valve with aortic valve area of 1.1 cm2, peak velocity of 3 m/sec 2. Mild to moderate mitral regurgitation 3. Moderate to severe tricuspid regurgitation 4. Moderate aortic regurgitation 5. Severe mitral annulus calcification and moderate mitral leaflet calcification -Severe pulmonary hypertension with pulmonary artery systolic pressure of 70 mm Hg -Hypertensive urgency-SBP of 191 mm Hg -Hyperlipidemia -Acute renal failure Plan: Patient has an elevated troponin but mostly flat without any chest pain. ACS seems less likely. Most likely type 2 [place] secondary to acute heart failure and valvular heart disease Continue IV Lasix 40 mg b.i.d. Check daily weights, ins and outs, and renal function Check and replace electrolytes to keep potassium greater than 4 and magnesium greater than 2 Guideline directed medical therapy for cardiomyopathy. Continue carvedilol. Add empagliflozin 10 mg daily. Add SHAVONNE-inhibitor/Arb/Entresto and spironolactone when renal function is back to baseline Recommend outpatient follow-up with valve clinic for further workup and treatment of valvular heart disease. Workup for ischemia can be performed as an outpatient Cardiology will continue to follow Subjective Date/time seen: 01/06/25 11:22 Interval history: Cardiology follow up visit Date of service 01/06/2025: Feeling better. Swelling has significantly improved and he is less short of breath. Review of Systems Review of Systems: Complete review of systems was performed and negative other than those mentioned in HPI Exam Narrative: General: Alert oriented x3, no acute distress Neck: Supple, JVD + Chest: Bilaterally clear to auscultation, rales bilateral bases Cardiac: S1, S2 +, regular rate, regular rhythm, systolic murmur grade 3/6 best heard in right upper sternal border, diastolic murmur present, no rubs Extremities: Trace bilateral lower extremity edema, slightly worse on left, no skin rash Neurologic: Alert and oriented x3, no focal neurological deficits Objective Data Vital Signs Vital Signs: Vital Signs - 24 hr 01/05/25 11:48 01/05/25 12:00 01/05/25 12:00 Temperature 36.5 C Pulse Rate 75 75 Respiratory Rate 20 Blood Pressure 124/54 L Pulse Oximetry 96 Oxygen Delivery Room Air 01/05/25 14:00 01/05/25 16:00 01/05/25 16:00 Temperature 36.5 C Pulse Rate 75 77 Respiratory Rate 20 Blood Pressure 142/48 H Pulse Oximetry 97 Oxygen Delivery Room Air 01/05/25 16:00 01/05/25 18:00 01/05/25 20:00 Temperature 36.7 C Pulse Rate 82 82 81 Respiratory Rate 16 Blood Pressure 127/39 L Pulse Oximetry 97 Oxygen Delivery 01/05/25 20:00 01/05/25 20:00 01/05/25 20:33 Temperature Pulse Rate 80 Respiratory Rate Blood Pressure 145/49 H Pulse Oximetry Oxygen Delivery Room Air 01/05/25 20:36 01/05/25 20:45 01/05/25 20:45 Temperature Pulse Rate 83 85 Respiratory Rate 16 Blood Pressure Pulse Oximetry 91 Oxygen Delivery Room Air 01/05/25 20:53 01/05/25 22:00 01/06/25 00:00 Temperature 36.7 C Pulse Rate 86 82 73 Respiratory Rate 16 18 Blood Pressure 122/48 L Pulse Oximetry 96 Oxygen Delivery 01/06/25 00:00 01/06/25 00:00 01/06/25 02:00 Temperature Pulse Rate 71 71 Respiratory Rate Blood Pressure Pulse Oximetry Oxygen Delivery Room Air 01/06/25 04:00 01/06/25 04:00 01/06/25 04:00 Temperature 37.1 C Pulse Rate 76 73 Respiratory Rate 18 Blood Pressure 120/34 L Pulse Oximetry 91 Oxygen Delivery Room Air 01/06/25 06:00 01/06/25 07:50 01/06/25 08:00 Temperature 36.6 C Pulse Rate 73 76 Respiratory Rate 20 Blood Pressure 112/42 L Pulse Oximetry 96 96 Oxygen Delivery Room Air 01/06/25 08:00 01/06/25 09:02 01/06/25 10:00 Temperature Pulse Rate 81 76 75 Respiratory Rate Blood Pressure Pulse Oximetry Oxygen Delivery Intake/Output Intake/Output: Intake & Output 01/03/25 01/04/25 01/05/25 01/06/25 23:59 23:59 23:59 23:59 Intake Total 2057 2670 1450 360 Output Total 2500 5800 1200 2000 Balance -441 -3130 250 -1640 Meds/Results Medications: Active Medications Generic Name Dose Route Start Last Admin Trade Name Freq PRN Reason Stop Dose Admin Hydrocodone Bitart/Acetaminophen 1 tab 01/03/25 01:14 01/06/25 09:04 Hydrocodone/Acetaminophen (*Crx) 10-325 Mg Tablet PO 1 tab Q6H PRN Administration pain Albuterol 1 puff 01/03/25 01:14 01/04/25 21:13 Albuterol Sulfate (*Sp) Aerosol 1 Puff INHALATION 1 puff Q4HRT PRN Administration shortness of breath or wheezing Albuterol/Ipratropium 3 ml 01/05/25 11:56 01/05/25 20:44 Ipratropium 0.5 Mg/Albuterol Sulfate 2.5 Mg Ampul.Neb 3 Ml INHALATION 3 ml Q6HRT PRN Administration Shortness Of Breath Alprazolam 1.5 mg 01/03/25 01:14 01/06/25 09:04 Alprazolam (*Crx) 0.5 Mg Tablet PO 1.5 mg TID PRN Administration anxiety Amlodipine Besylate 5 mg 01/03/25 09:00 01/06/25 09:02 Amlodipine Besylate 5 Mg Tablet PO 5 mg DAILY LISBET Administration Aspirin 81 mg 01/03/25 09:00 01/06/25 09:02 Aspirin 81 Mg Enteric Tablet PO 81 mg QAM LISBET Administration Azelastine HCl 1 spray 01/03/25 21:00 01/05/25 20:37 Azelastine Hcl Nasal 0.1% 137 Mcg/Spr 30 Ml Btl NASAL 1 spray QHS LISBET Administration Carvedilol 25 mg 01/03/25 09:00 01/06/25 09:02 Carvedilol 25 Mg Tablet PO 25 mg Q12HR LISBET Administration Empagliflozin 10 mg 01/06/25 09:00 01/06/25 09:02 Empagliflozin 10 Mg Tablet PO 10 mg DAILY LISBET Administration Finasteride 5 mg 01/03/25 09:00 01/06/25 09:02 Finasteride 5 Mg Tablet BY MOUTH 5 mg DAILY LISBET Administration Furosemide 40 mg 01/03/25 21:00 01/06/25 09:02 Furosemide Inj 40 Mg/4 Ml Vial IV PUSH 40 mg BID LISBET Administration Hydralazine HCl 100 mg 01/03/25 13:00 01/06/25 09:02 Hydralazine Hcl 50 Mg Tablet BY MOUTH 100 mg TID LISBET Administration Nitroglycerin 0.4 mg 01/03/25 11:29 Nitroglycerin Sl 0.4 Mg Tablet SUBLINGUAL Q5MIN PRN Chest Pain Rosuvastatin Calcium 10 mg 01/03/25 09:00 01/06/25 09:02 Rosuvastatin 10 Mg Tablet PO 10 mg DAILY LISBET Administration Tamsulosin HCl 0.8 mg 01/03/25 09:00 01/06/25 09:02 Tamsulosin Hcl 0.4 Mg Capsule BY MOUTH 0.8 mg DAILY LISBET Administration Trazodone HCl 50 - 100 mg 01/03/25 11:29 01/06/25 00:06 Trazodone Hcl 50 Mg Tablet PO 50 mg HS PRN Administration Insomnia Vitamin D 25 mcg 01/03/25 09:00 01/06/25 09:02 Cholecalciferol (Vitamin D3) 25 Mcg (1,000 Units) Tablet PO 25 mcg DAILY LISBET Administration Radiology Results: ITS Impressions Chest CTA 01/02/25 17:57 IMPRESSION: No pulmonary embolus. No thoracic aortic dissection. Large right and small left-sided pleural effusions with adjacent compressive atelectasis. Pulmonary edema within the visualized compressed lung carter. Labs Labs: Laboratory Results - last 24 hr 01/05/25 01/05/25 01/05/25 11:14 15:35 19:47 WBC RBC Hgb Hct MCV MCH MCHC RDW Plt Count MPV Sodium Potassium Chloride Carbon Dioxide Anion Gap BUN Creatinine Estim Creat Clear Calc Estimated GFR Glucose POC Capillary Glucose 142 H 157 H 139 H Calcium Magnesium 01/06/25 01/06/25 03:52 07:25 WBC 5.9 RBC 4.60 Hgb 12.3 L Hct 38.4 L MCV 83.5 MCH 26.7 MCHC 32.0 RDW 17.0 H Plt Count 159 MPV 10.0 Sodium 136 L Potassium 3.7 Chloride 101 Carbon Dioxide 29 Anion Gap 6 BUN 37 H Creatinine 1.42 H Estim Creat Clear Calc 51 Estimated GFR 50 L Glucose 143 H POC Capillary Glucose 135 H Calcium 8.1 L Magnesium 1.9
--- NOTE | 2025-01-06 13:47 | PM.IMPN ---
Progress Note: A&P Assessment and Plan (1) Acute decompensated heart failure: Code(s): I50.9 - Heart failure, unspecified Status: Acute (2) H/O aortic valve replacement: Code(s): Z95.2 - Presence of prosthetic heart valve Status: Acute (3) Acute respiratory failure with hypoxemia: Code(s): J96.01 - Acute respiratory failure with hypoxia Status: Acute (4) Elevated troponin: Code(s): R79.89 - Other specified abnormal findings of blood chemistry Status: Acute (5) Uncontrolled hypertension: Code(s): I10 - Essential (primary) hypertension Status: Acute Plan 69-year-old male with an extensive medical history including DJD, bilateral hip and knee replacements, lumbosacral spinal stenosis insomnia, depression, anxiety, ADD, history of aortic valve replacement, [id number] diabetes mellitus, hypertension, presents with shortness of breath for about 3-4 months. Patient is only a fair historian, reports 3-4 months he has had shortness of breath and was prescribed antibiotics for suspected pneumonia over the phone. He has also had a 40 lb weight loss in the past 6 months. Concurrently he has had lower extremity edema. He says he has a poor appetite, unable to detail the characteristics of his stool. Denies fever, chest pain, nausea or vomiting or diarrhea. He is hypertensive on arrival with blood pressure 191/63 improving to 140/46. He was placed on 2 L nasal cannula for hypoxia. INR 1.3, sodium 134, BUN 39, serum creatinine 1.24, troponin 0.065 then 0.063, BNP 21040, quad viral screen negative. CTA chest PE protocol negative for PE, no thoracic aortic dissection, large right and small left-sided pleural effusions with atelectasis and interstitial edema in the remaining lung carter. He was given Lasix 40 mg IV x1 and admitted for further treatment. Acute on chronic congest[place] [address]. Echo with EF down to 35-40%. Cardiology consulted. On diuresis with Lasix IV b.i.d. also carvedilol Jardiance. Previous echocardiogram February 2023 with EF 60-65% moderate concentric left ventricular wall thickness grade 1 diastolic dysfunction bioprosthetic aortic valve not visualized moderate is sclerosis of the bioprosthetic aortic valve leaflets mild regurgitation mitral valve severely calcified annulus trace mitral valve regurgitation Elevated troponin with flat trend. Likely due to demand ischemia. EKG without acute ST-T changes. No reported chest pain Status post aortic valve replacement 18 years ago. Repeat echo with moderate stenosis of bioprosthetic valve need follow-up with Cardiology with regard to this in valve Clinic Moderate to severe tricuspid regurgitation Sjrl-oq-prgigkyx mitral regurgitation Moderate aortic regurgitation Severe pulmonary hypertension Degenerative joint disease bilateral hip and knee replacements Lumbosacral spinal stenosis Insomnia Anxiety depression ADD [id number] diabetes mellitus Hypertension Hyperlipidemia CKD stage 3 Code status full code Subjective Date/time seen: 01/06/25 13:47 Interval history: No overnight events. Feels weak. Shortness of breath is improved. Leg swelling has improved as well. Review of Systems Review of Systems: All systems reviewed & are unremarkable except as noted in HPI and below (Subjective/HPI) Exam Narrative: Patient is comfortable, NAD HEENT: eyes are clear and none icteric LUNGS:bilateral fair air entry with rales and rhonchi HEART: RR S1S2 ABD: BS+, Soft and nontender Lower extremities: Mild edema lower extremities SKIN: nonjaundiced Neuro: grossly intact. Objective Data Vital Signs Vital Signs: Vital Signs - 24 hr 01/05/25 14:00 01/05/25 16:00 01/05/25 16:00 Temperature 97.7 F Pulse Rate 75 77 Respiratory Rate 20 Blood Pressure 142/48 H Pulse Oximetry 97 Oxygen Delivery Room Air 01/05/25 16:00 01/05/25 18:00 01/05/25 20:00 Temperature 98.0 F Pulse Rate 82 82 81 Respiratory Rate 16 Blood Pressure 127/39 L Pulse Oximetry 97 Oxygen Delivery 01/05/25 20:00 01/05/25 20:00 01/05/25 20:33 Temperature Pulse Rate 80 Respiratory Rate Blood Pressure 145/49 H Pulse Oximetry Oxygen Delivery Room Air 01/05/25 20:36 01/05/25 20:45 01/05/25 20:45 Temperature Pulse Rate 83 85 Respiratory Rate 16 Blood Pressure Pulse Oximetry 91 Oxygen Delivery Room Air 01/05/25 20:53 01/05/25 22:00 01/06/25 00:00 Temperature 98.1 F Pulse Rate 86 82 73 Respiratory Rate 16 18 Blood Pressure 122/48 L Pulse Oximetry 96 Oxygen Delivery 01/06/25 00:00 01/06/25 00:00 01/06/25 02:00 Temperature Pulse Rate 71 71 Respiratory Rate Blood Pressure Pulse Oximetry Oxygen Delivery Room Air 01/06/25 04:00 01/06/25 04:00 01/06/25 04:00 Temperature 98.7 F Pulse Rate 76 73 Respiratory Rate 18 Blood Pressure 120/34 L Pulse Oximetry 91 Oxygen Delivery Room Air 01/06/25 06:00 01/06/25 07:50 01/06/25 08:00 Temperature 97.8 F Pulse Rate 73 76 Respiratory Rate 20 Blood Pressure 112/42 L Pulse Oximetry 96 96 Oxygen Delivery Room Air 01/06/25 08:00 01/06/25 09:02 01/06/25 10:00 Temperature Pulse Rate 81 76 75 Respiratory Rate Blood Pressure Pulse Oximetry Oxygen Delivery 01/06/25 12:00 Temperature Pulse Rate 73 Respiratory Rate Blood Pressure Pulse Oximetry Oxygen Delivery Intake/Output Intake/Output: Intake & Output 01/03/25 01/04/25 01/05/25 01/06/25 23:59 23:59 23:59 23:59 Intake Total 2059 2670 1450 600 Output Total 2500 5800 1200 3200 Balance -441 -3130 250 -2600 Meds/Results Medications: Active Medications Generic Name Dose Route Start Last Admin Trade Name Freq PRN Reason Stop Dose Admin Hydrocodone Bitart/Acetaminophen 1 tab 01/03/25 01:14 01/06/25 09:04 Hydrocodone/Acetaminophen (*Crx) 10-325 Mg Tablet PO 1 tab Q6H PRN Administration pain Albuterol 1 puff 01/03/25 01:14 01/04/25 21:13 Albuterol Sulfate (*Sp) Aerosol 1 Puff INHALATION 1 puff Q4HRT PRN Administration shortness of breath or wheezing Albuterol/Ipratropium 3 ml 01/05/25 11:56 01/05/25 20:44 Ipratropium 0.5 Mg/Albuterol Sulfate 2.5 Mg Ampul.Neb 3 Ml INHALATION 3 ml Q6HRT PRN Administration Shortness Of Breath Alprazolam 1.5 mg 01/03/25 01:14 01/06/25 09:04 Alprazolam (*Crx) 0.5 Mg Tablet PO 1.5 mg TID PRN Administration anxiety Amlodipine Besylate 5 mg 01/03/25 09:00 01/06/25 09:02 Amlodipine Besylate 5 Mg Tablet PO 5 mg DAILY LISBET Administration Aspirin 81 mg 01/03/25 09:00 01/06/25 09:02 Aspirin 81 Mg Enteric Tablet PO 81 mg QAM LISBET Administration Azelastine HCl 1 spray 01/03/25 21:00 01/05/25 20:37 Azelastine Hcl Nasal 0.1% 137 Mcg/Spr 30 Ml Btl NASAL 1 spray QHS LISBET Administration Carvedilol 25 mg 01/03/25 09:00 01/06/25 09:02 Carvedilol 25 Mg Tablet PO 25 mg Q12HR LISBET Administration Empagliflozin 10 mg 01/06/25 09:00 01/06/25 09:02 Empagliflozin 10 Mg Tablet PO 10 mg DAILY LISBET Administration Finasteride 5 mg 01/03/25 09:00 01/06/25 09:02 Finasteride 5 Mg Tablet BY MOUTH 5 mg DAILY LISBET Administration Furosemide 40 mg 01/03/25 21:00 01/06/25 09:02 Furosemide Inj 40 Mg/4 Ml Vial IV PUSH 40 mg BID LISBET Administration Hydralazine HCl 100 mg 01/03/25 13:00 01/06/25 12:25 Hydralazine Hcl 50 Mg Tablet BY MOUTH 100 mg TID LISBET Administration Nitroglycerin 0.4 mg 01/03/25 11:29 Nitroglycerin Sl 0.4 Mg Tablet SUBLINGUAL Q5MIN PRN Chest Pain Rosuvastatin Calcium 10 mg 01/03/25 09:00 01/06/25 09:02 Rosuvastatin 10 Mg Tablet PO 10 mg DAILY LISBET Administration Tamsulosin HCl 0.8 mg 01/03/25 09:00 01/06/25 09:02 Tamsulosin Hcl 0.4 Mg Capsule BY MOUTH 0.8 mg DAILY LISBET Administration Trazodone HCl 50 - 100 mg 01/03/25 11:29 01/06/25 00:06 Trazodone Hcl 50 Mg Tablet PO 50 mg HS PRN Administration Insomnia Vitamin D 25 mcg 01/03/25 09:00 01/06/25 09:02 Cholecalciferol (Vitamin D3) 25 Mcg (1,000 Units) Tablet PO 25 mcg DAILY LISBET Administration Radiology Results: ITS Impressions Chest CTA 01/02/25 17:57 IMPRESSION: No pulmonary embolus. No thoracic aortic dissection. Large right and small left-sided pleural effusions with adjacent compressive atelectasis. Pulmonary edema within the visualized compressed lung carter. Labs Labs: Laboratory Results - last 24 hr 01/05/25 01/05/25 01/06/25 15:35 19:47 03:52 WBC 5.9 RBC 4.60 Hgb 12.3 L Hct 38.4 L MCV 83.5 MCH 26.7 MCHC 32.0 RDW 17.0 H Plt Count 159 MPV 10.0 Sodium 136 L Potassium 3.7 Chloride 101 Carbon Dioxide 29 Anion Gap 6 BUN 37 H Creatinine 1.42 H Estim Creat Clear Calc 51 Estimated GFR 50 L Glucose 143 H POC Capillary Glucose 157 H 139 H Calcium 8.1 L Magnesium 1.9 01/06/25 01/06/25 07:25 11:35 WBC RBC Hgb Hct MCV MCH MCHC RDW Plt Count MPV Sodium Potassium Chloride Carbon Dioxide Anion Gap BUN Creatinine Estim Creat Clear Calc Estimated GFR Glucose POC Capillary Glucose 135 H 125 H Calcium Magnesium
[2025-01-06] MEDS: AZELASTINE HCL NASAL 0.1% 137 MCG/SPR 30 ML BTL 1 SPRAY NASAL (20:56)
[2025-01-07] VITALS (8 sets, daily range): BP systolic 110–129; BP diastolic 45–47; PULSE 74–83; RESP 14–20; TEMP 36.3–36.9; O2SAT 97–99
[2025-01-07 04:53] LABS: Hematocrit 41.5 % (42.0-52.0); Hemoglobin 13.2 g/dL (14.0-18.0); Immature Granulocyte Percent A 0.3 % (0-0.5); Lymphocytes Absolute Auto 0.89 K/mm3 (0.9-3.2); Mean Corpuscular HGB Conc 31.8 g/dl (32-36); Mean Corpuscular Hemoglobin 26.6 pg (26-34); Mean Corpuscular Volume 83.7 fl (80-100); Nucleated Red Blood Cells Absolute Auto 0.000 K/mm3 (0.0-0.012); Nucleated Red Blood Cells Perc 0.0 % (0.0-0.2); Platelet Count Result 185 k/mm3 (150-375); Red Blood Count 4.96 M/mm3 (4.6-6.20); White Blood Count 6.4 K/mm3 (4.5-10.0)
[2025-01-07 05:16] LABS: Alanine Aminotransferase 40 U/L (6-50); Albumin Level 3.1 g/dL (3.5-5.1); Alkaline Phosphatase 83 U/L (38-126); Anion Gap 6 mmol/L (4-12); Aspartate Amino Transferase 27 U/L (17-59); Bilirubin,Total 0.8 mg/dL (0.2-1.3); Blood Urea Nitrogen 36 mg/dL (9-20); Calcium 8.5 mg/dL (8.4-10.2); Carbon Dioxide 31 mmol/L (22-30); Chloride 100 mmol/L (98-107); Estimated CRCL calculation 48 ml/min; Estimated Glomerular Filt Rate 46; Glucose 114 mg/dL (65-110); Magnesium 2.1 mg/dL (1.6-2.3); Potassium 3.9 mmol/L (3.4-5.0); Sodium 137 mmol/L (137-145); Total Protein 5.8 g/dL (6.3-8.2)
--- NOTE | 2025-01-07 07:34 | PC.NURSE ---
This patient, Brian Bland ., was transferred to [[id number] ] on 01/07/25 at 0645. Personal belongings sent with patient. Report given to [ ]. Appropriate documentation sent with patient.
[2025-01-07] MEDS: TAMSULOSIN HCL 0.4 MG CAPSULE 0.8 MG BY MOUTH (08:55)
[2025-01-07] MEDS: FUROSEMIDE INJ 40 MG/4 ML VIAL IV PUSH (08:55)
[2025-01-07] MEDS: EMPAGLIFLOZIN 10 MG TABLET PO (08:56)
[2025-01-07] MEDS: CHOLECALCIFEROL (VITAMIN D3) 25 MCG (1,000 UNITS) TABLET PO (08:56)
[2025-01-07] MEDS: ASPIRIN 81 MG ENTERIC TABLET PO (08:56)
[2025-01-07] MEDS: ROSUVASTATIN 10 MG TABLET PO (08:56)
[2025-01-07] MEDS: FINASTERIDE 5 MG TABLET BY MOUTH (08:56)
[2025-01-07] MEDS: HYDROcodone/acetaminophen (*CRX) 10-325 MG TABLET 1 TAB PO ×2 (09:03→16:47)
[2025-01-07] MEDS: ALPRAZolam (*CRX) 0.5 MG TABLET 1.5 MG PO ×2 (09:04→16:47)
--- NOTE | 2025-01-07 11:40 | P.PNIM_ITS ---
Progress Note: A&P Assessment and Plan (1) Acute decompensated heart failure: Code(s): I50.9 - Heart failure, unspecified Status: Acute (2) H/O aortic valve replacement: Code(s): Z95.2 - Presence of prosthetic heart valve Status: Acute (3) Acute respiratory failure with hypoxemia: Code(s): J96.01 - Acute respiratory failure with hypoxia Status: Acute (4) Elevated troponin: Code(s): R79.89 - Other specified abnormal findings of blood chemistry Status: Acute (5) Uncontrolled hypertension: Code(s): I10 - Essential (primary) hypertension Status: Acute Plan 69-year-old male with an extensive medical history including DJD, bilateral hip and knee replacements, lumbosacral spinal stenosis insomnia, depression, anxiety, ADD, history of aortic valve replacement, [id number] diabetes mellitus, hypertension, presents with shortness of breath for about 3-4 months. Patient is only a fair historian, reports 3-4 months he has had shortness of breath and was prescribed antibiotics for suspected pneumonia over the phone. He has also had a 40 lb weight loss in the past 6 months. Concurrently he has had lower extremity edema. He says he has a poor appetite, unable to detail the characteristics of his stool. Denies fever, chest pain, nausea or vomiting or diarrhea. He is hypertensive on arrival with blood pressure 191/63 improving to 140/46. He was placed on 2 L nasal cannula for hypoxia. INR 1.3, sodium 134, BUN 39, serum creatinine 1.24, troponin 0.065 then 0.063, BNP 13030, quad viral screen negative. CTA chest PE protocol negative for PE, no thoracic aortic dissection, large right and small left-sided pleural effusions with atelectasis and interstitial edema in the remaining lung carter. He was given Lasix 40 mg IV x1 and admitted for further treatment. Acute on chronic congestive [place] [address]. Echo with EF down to 35-40%. Cardiology consulted. On diuresis with Lasix IV b.i.d. also carvedilol Jardiance. Previous echocardiogram February 2023 with EF 60-65% moderate concentric left ventricular wall thickness grade 1 diastolic dysfunction bioprosthetic aortic valve not visualized moderate is sclerosis of the bioprosthetic aortic valve leaflets mild regurgitation mitral valve severely calcified annulus trace mitral valve regurgitation. Will switch to oral Lasix Elevated troponin with flat trend. Likely due to demand ischemia. EKG without acute ST-T changes. No reported chest pain Status post aortic valve replacement 18 years ago. Repeat echo with moderate stenosis of bioprosthetic valve need follow-up with Cardiology with regard to this in valve Clinic Moderate to severe tricuspid regurgitation [id number]-[id number] mitral regurgitation Moderate aortic regurgitation Severe pulmonary hypertension Degenerative joint disease bilateral hip and knee replacements Lumbosacral spinal stenosis Insomnia Anxiety depression ADD [id number]-anxiklypb diabetes mellitus Hypertension Hyperlipidemia CKD stage 3 Code status full code Subjective Date/time seen: 01/07/25 11:40 Interval history: no new complaints. leg swelling improving. no cough. Review of Systems Review of Systems: All systems reviewed & are unremarkable except as noted in HPI and below (Subjective/HPI) Exam Narrative: Patient is comfortable, NAD HEENT: eyes are clear and none icteric LUNGS:bilateral fair air entry with rales and rhonchi HEART: RR S1S2 ABD: BS+, Soft and nontender Lower extremities: Mild edema lower extremities SKIN: nonjaundiced Neuro: grossly intact. Objective Data Vital Signs Vital Signs: Vital Signs - 24 hr 01/06/25 12:00 01/06/25 16:00 01/06/25 16:00 Temperature 97.8 F Pulse Rate 73 81 79 Respiratory Rate 20 Blood Pressure 131/52 L Pulse Oximetry 99 Oxygen Delivery 01/06/25 20:00 01/06/25 20:00 01/06/25 20:04 Temperature 97.8 F Pulse Rate 81 83 Respiratory Rate 20 Blood Pressure 148/67 H Pulse Oximetry 99 Oxygen Delivery Room Air 01/06/25 20:55 01/06/25 23:45 01/07/25 00:00 Temperature 97.8 F Pulse Rate 79 74 74 Respiratory Rate 16 Blood Pressure 118/52 L Pulse Oximetry 95 Oxygen Delivery 01/07/25 04:00 01/07/25 08:00 01/07/25 08:00 Temperature 97.9 F Pulse Rate 75 83 Respiratory Rate 20 Blood Pressure 110/45 L Pulse Oximetry 97 Oxygen Delivery Room Air 01/07/25 08:00 01/07/25 08:56 Temperature Pulse Rate 83 82 Respiratory Rate Blood Pressure Pulse Oximetry Oxygen Delivery Intake/Output Intake/Output: Intake & Output 01/04/25 01/05/25 01/06/25 01/07/25 23:59 23:59 23:59 23:59 Intake Total 2670 1450 1170 980 Output Total 5800 1200 4400 4088 Balance -1902 598 -6028 -9101 Meds/Results Medications: Active Medications Generic Name Dose Route Start Last Admin Trade Name Freq PRN Reason Stop Dose Admin Hydrocodone Bitart/Acetaminophen 1 tab 01/03/25 01:14 01/07/25 09:03 Hydrocodone/Acetaminophen (*Crx) 10-325 Mg Tablet PO 1 tab Q6H PRN Administration pain Albuterol 1 puff 01/03/25 01:14 01/04/25 21:13 Albuterol Sulfate (*Sp) Aerosol 1 Puff INHALATION 1 puff Q4HRT PRN Administration shortness of breath or wheezing Albuterol/Ipratropium 3 ml 01/05/25 11:56 01/05/25 20:44 Ipratropium 0.5 Mg/Albuterol Sulfate 2.5 Mg Ampul.Neb 3 Ml INHALATION 3 ml Q6HRT PRN Administration Shortness Of Breath Alprazolam 1.5 mg 01/03/25 01:14 01/07/25 09:04 Alprazolam (*Crx) 0.5 Mg Tablet PO 1.5 mg TID PRN Administration anxiety Amlodipine Besylate 5 mg 01/03/25 09:00 01/07/25 08:56 Amlodipine Besylate 5 Mg Tablet PO 5 mg DAILY LISBET Administration Aspirin 81 mg 01/03/25 09:00 01/07/25 08:56 Aspirin 81 Mg Enteric Tablet PO 81 mg QAM LISBET Administration Azelastine HCl 1 spray 01/03/25 21:00 01/06/25 20:56 Azelastine Hcl Nasal 0.1% 137 Mcg/Spr 30 Ml Btl NASAL 1 spray QHS LISBET Administration Carvedilol 25 mg 01/03/25 09:00 01/07/25 08:56 Carvedilol 25 Mg Tablet PO 25 mg Q12HR LISBET Administration Empagliflozin 10 mg 01/06/25 09:00 01/07/25 08:56 Empagliflozin 10 Mg Tablet PO 10 mg DAILY LISBET Administration Finasteride 5 mg 01/03/25 09:00 01/07/25 08:56 Finasteride 5 Mg Tablet BY MOUTH 5 mg DAILY LISBET Administration Furosemide 40 mg 01/03/25 21:00 01/07/25 08:55 Furosemide Inj 40 Mg/4 Ml Vial IV PUSH 40 mg BID LISBET Administration Hydralazine HCl 100 mg 01/03/25 13:00 01/07/25 08:56 Hydralazine Hcl 50 Mg Tablet BY MOUTH 100 mg TID LISBET Administration Nitroglycerin 0.4 mg 01/03/25 11:29 Nitroglycerin Sl 0.4 Mg Tablet SUBLINGUAL Q5MIN PRN Chest Pain Rosuvastatin Calcium 10 mg 01/03/25 09:00 01/07/25 08:56 Rosuvastatin 10 Mg Tablet PO 10 mg DAILY LISBET Administration Tamsulosin HCl 0.8 mg 01/03/25 09:00 01/07/25 08:55 Tamsulosin Hcl 0.4 Mg Capsule BY MOUTH 0.8 mg DAILY LISBET Administration Trazodone HCl 50 - 100 mg 01/03/25 11:29 01/06/25 00:06 Trazodone Hcl 50 Mg Tablet PO 50 mg HS PRN Administration Insomnia Vitamin D 25 mcg 01/03/25 09:00 01/07/25 08:56 Cholecalciferol (Vitamin D3) 25 Mcg (1,000 Units) Tablet PO 25 mcg DAILY LISBET Administration Radiology Results: ITS Impressions Chest CTA 01/02/25 17:57 IMPRESSION: No pulmonary embolus. No thoracic aortic dissection. Large right and small left-sided pleural effusions with adjacent compressive atelectasis. Pulmonary edema within the visualized compressed lung carter. Labs Labs: Laboratory Results - last 24 hr 01/06/25 01/06/25 01/07/25 16:14 19:40 04:31 WBC 6.4 RBC 4.96 Hgb 13.2 L Hct 41.5 L MCV 83.7 MCH 26.6 MCHC 31.8 L RDW 16.9 H Plt Count 185 MPV 10.4 Immature Gran % (Auto) 0.3 Neut % (Auto) 65.6 Lymph % (Auto) 13.8 L [place] % (Auto) 14.6 H Eos % (Auto) 5.1 H Baso % (Auto) 0.6 Lymph # (Auto) 0.89 L [place] # (Auto) 0.9 H Eos # (Auto) 0.3 Baso # (Auto) 0.0 Abs Immat Gran (auto) 0.02 Absolute Neuts (auto) 4.2 Absolute Nucleated RBC 0.000 Nucleated RBC % 0.0 Sodium 137 Potassium 3.9 Chloride 100 Carbon Dioxide 31 H Anion Gap 6 BUN 36 H Creatinine 1.51 H Estim Creat Clear Calc 48 Estimated GFR 46 L Glucose 114 H POC Capillary Glucose 107 H 138 H Calcium 8.5 Magnesium 2.1 Total Bilirubin 0.8 AST 27 ALT 40 Alkaline Phosphatase 83 Total Protein 5.8 L Albumin 3.1 L 01/07/25 07:39 WBC RBC Hgb Hct MCV MCH MCHC RDW Plt Count MPV Immature Gran % (Auto) Neut % (Auto) Lymph % (Auto) [place] % (Auto) Eos % (Auto) Baso % (Auto) Lymph # (Auto) [place] # (Auto) Eos # (Auto) Baso # (Auto) Abs Immat Gran (auto) Absolute Neuts (auto) Absolute Nucleated RBC Nucleated RBC % Sodium Potassium Chloride Carbon Dioxide Anion Gap BUN Creatinine Estim Creat Clear Calc Estimated GFR Glucose POC Capillary Glucose 86 Calcium Magnesium Total Bilirubin AST ALT Alkaline Phosphatase Total Protein Albumin
--- NOTE | 2025-01-07 13:40 | PM.PNCARD ---
Progress Note: A&P Assessment and Plan (1) Acute systolic heart failure: Code(s): I50.21 - Acute systolic (congestive) heart failure Status: Acute (2) Moderate aortic stenosis: Code(s): I35.0 - Nonrheumatic aortic (valve) stenosis Status: Acute (3) CHF exacerbation: Qualifiers: Heart failure type: unspecified Qualified Code(s): I50.9 - Heart failure, unspecified Code(s): I50.9 - Heart failure, unspecified Status: Acute (4) Left bundle branch block: Code(s): I44.7 - Left bundle-branch block, unspecified Status: Acute (5) Hyperlipidemia: Qualifiers: Hyperlipidemia type: mixed hyperlipidemia Qualified Code(s): E78.2 - Mixed hyperlipidemia Code(s): E78.5 - Hyperlipidemia, unspecified Status: Acute (6) Elevated troponin: Code(s): R79.89 - Other specified abnormal findings of blood chemistry Status: Acute (7) Uncontrolled hypertension: Code(s): I10 - Essential (primary) hypertension Status: Acute Plan Acute on chronic systolic heart failure currently compensated ejection fraction 35-40% Moderate aortic valve bioprosthesis stenosis Moderate aortic regurgitation Moderate severe tricuspid regurgitation Severe hypertension Hypertensive urgency on presentation currently controlled Acute kidney injury stable Elevated troponin demand ischemia without evidence of ACS Plan DC IV Lasix started Lasix 40 mg p.o. daily Continue carvedilol Follow-up kidney function electrolytes if stable will add Entresto tomorrow Continue amlodipine and hydralazine Subjective Date/time seen: 01/07/25 13:40 Interval history: no acute events Tele: SR Review of Systems Review of Systems: All systems reviewed & are unremarkable except as noted in HPI and below Exam Narrative: General: Alert oriented x3, no acute distress Neck: Supple, JVD + Chest: Bilaterally clear to auscultation, rales bilateral bases Cardiac: S1, S2 +, regular rate, regular rhythm, systolic murmur grade 3/6 best heard in right upper sternal border, diastolic murmur present, no rubs Extremities: Trace bilateral lower extremity edema, slightly worse on left, no skin rash Neurologic: Alert and oriented x3, no focal neurological deficits Objective Data Vital Signs Vital Signs: Vital Signs - 24 hr 01/06/25 16:00 01/06/25 16:00 01/06/25 20:00 Temperature 36.6 C Pulse Rate 81 79 Respiratory Rate 20 Blood Pressure 131/52 L Pulse Oximetry 99 Oxygen Delivery Room Air 01/06/25 20:00 01/06/25 20:04 01/06/25 20:55 Temperature 36.6 C Pulse Rate 81 83 79 Respiratory Rate 20 Blood Pressure 148/67 H Pulse Oximetry 99 Oxygen Delivery 01/06/25 23:45 01/07/25 00:00 01/07/25 04:00 Temperature 36.6 C Pulse Rate 74 74 75 Respiratory Rate 16 Blood Pressure 118/52 L Pulse Oximetry 95 Oxygen Delivery 01/07/25 08:00 01/07/25 08:00 01/07/25 08:00 Temperature 36.6 C Pulse Rate 83 83 Respiratory Rate 20 Blood Pressure 110/45 L Pulse Oximetry 97 Oxygen Delivery Room Air 01/07/25 08:56 01/07/25 11:35 01/07/25 12:00 Temperature Pulse Rate 82 77 Respiratory Rate Blood Pressure Pulse Oximetry Oxygen Delivery Room Air 01/07/25 13:32 Temperature Pulse Rate Respiratory Rate Blood Pressure Pulse Oximetry Oxygen Delivery Room Air Intake/Output Intake/Output: Intake & Output 01/04/25 01/05/25 01/06/25 01/07/25 23:59 23:59 23:59 23:59 Intake Total 2670 1450 1170 1100 Output Total 5800 1200 4400 3175 Balance -3130 946 -4545 -0314 Meds/Results Medications: Active Medications Generic Name Dose Route Start Last Admin Trade Name Freq PRN Reason Stop Dose Admin Hydrocodone Bitart/Acetaminophen 1 tab 01/03/25 01:14 01/07/25 09:03 Hydrocodone/Acetaminophen (*Crx) 10-325 Mg Tablet PO 1 tab Q6H PRN Administration pain Albuterol 1 puff 01/03/25 01:14 01/04/25 21:13 Albuterol Sulfate (*Sp) Aerosol 1 Puff INHALATION 1 puff Q4HRT PRN Administration shortness of breath or wheezing Albuterol/Ipratropium 3 ml 01/05/25 11:56 01/05/25 20:44 Ipratropium 0.5 Mg/Albuterol Sulfate 2.5 Mg Ampul.Neb 3 Ml INHALATION 3 ml Q6HRT PRN Administration Shortness Of Breath Alprazolam 1.5 mg 01/03/25 01:14 01/07/25 09:04 Alprazolam (*Crx) 0.5 Mg Tablet PO 1.5 mg TID PRN Administration anxiety Amlodipine Besylate 5 mg 01/03/25 09:00 01/07/25 08:56 Amlodipine Besylate 5 Mg Tablet PO 5 mg DAILY LISBET Administration Aspirin 81 mg 01/03/25 09:00 01/07/25 08:56 Aspirin 81 Mg Enteric Tablet PO 81 mg QAM LISBET Administration Azelastine HCl 1 spray 01/03/25 21:00 01/06/25 20:56 Azelastine Hcl Nasal 0.1% 137 Mcg/Spr 30 Ml Btl NASAL 1 spray QHS LISBET Administration Carvedilol 25 mg 01/03/25 09:00 01/07/25 08:56 Carvedilol 25 Mg Tablet PO 25 mg Q12HR LISBET Administration Empagliflozin 10 mg 01/06/25 09:00 01/07/25 08:56 Empagliflozin 10 Mg Tablet PO 10 mg DAILY LISBET Administration Finasteride 5 mg 01/03/25 09:00 01/07/25 08:56 Finasteride 5 Mg Tablet BY MOUTH 5 mg DAILY LISBET Administration Furosemide 40 mg 01/08/25 09:00 Furosemide 40 Mg Tablet PO DAILY [facility] Hydralazine HCl 100 mg 01/03/25 13:00 01/07/25 12:47 Hydralazine Hcl 50 Mg Tablet BY MOUTH 100 mg TID LISBET Administration Nitroglycerin 0.4 mg 01/03/25 11:29 Nitroglycerin Sl 0.4 Mg Tablet SUBLINGUAL Q5MIN PRN Chest Pain Rosuvastatin Calcium 10 mg 01/03/25 09:00 01/07/25 08:56 Rosuvastatin 10 Mg Tablet PO 10 mg DAILY LISBET Administration Tamsulosin HCl 0.8 mg 01/03/25 09:00 01/07/25 08:55 Tamsulosin Hcl 0.4 Mg Capsule BY MOUTH 0.8 mg DAILY LISBET Administration Trazodone HCl 50 - 100 mg 01/03/25 11:29 01/06/25 00:06 Trazodone Hcl 50 Mg Tablet PO 50 mg HS PRN Administration Insomnia Vitamin D 25 mcg 01/03/25 09:00 01/07/25 08:56 Cholecalciferol (Vitamin D3) 25 Mcg (1,000 Units) Tablet PO 25 mcg DAILY LISBET Administration Radiology Results: ITS Impressions Chest CTA 01/02/25 17:57 IMPRESSION: No pulmonary embolus. No thoracic aortic dissection. Large right and small left-sided pleural effusions with adjacent compressive atelectasis. Pulmonary edema within the visualized compressed lung carter. Chest X-Ray 01/07/25 12:29 IMPRESSION: 1. Persistent small bilateral pleural effusions with associated bibasilar atelectasis and/or pneumonia. 2. Cardiomegaly. Labs Labs: Laboratory Results - last 24 hr 01/06/25 01/06/25 01/07/25 16:14 19:40 04:31 WBC 6.4 RBC 4.96 Hgb 13.2 L Hct 41.5 L MCV 83.7 MCH 26.6 MCHC 31.8 L RDW 16.9 H Plt Count 185 MPV 10.4 Immature Gran % (Auto) 0.3 Neut % (Auto) 65.6 Lymph % (Auto) 13.8 L [place] % (Auto) 14.6 H Eos % (Auto) 5.1 H Baso % (Auto) 0.6 Lymph # (Auto) 0.89 L [place] # (Auto) 0.9 H Eos # (Auto) 0.3 Baso # (Auto) 0.0 Abs Immat Gran (auto) 0.02 Absolute Neuts (auto) 4.2 Absolute Nucleated RBC 0.000 Nucleated RBC % 0.0 Sodium 137 Potassium 3.9 Chloride 100 Carbon Dioxide 31 H Anion Gap 6 BUN 36 H Creatinine 1.51 H Estim Creat Clear Calc 48 Estimated GFR 46 L Glucose 114 H POC Capillary Glucose 107 H 138 H Calcium 8.5 Magnesium 2.1 Total Bilirubin 0.8 AST 27 ALT 40 Alkaline Phosphatase 83 Total Protein 5.8 L Albumin 3.1 L 01/07/25 07:39 WBC RBC Hgb Hct MCV MCH MCHC RDW Plt Count MPV Immature Gran % (Auto) Neut % (Auto) Lymph % (Auto) [place] % (Auto) Eos % (Auto) Baso % (Auto) Lymph # (Auto) [place] # (Auto) Eos # (Auto) Baso # (Auto) Abs Immat Gran (auto) Absolute Neuts (auto) Absolute Nucleated RBC Nucleated RBC % Sodium Potassium Chloride Carbon Dioxide Anion Gap BUN Creatinine Estim Creat Clear Calc Estimated GFR Glucose POC Capillary Glucose 86 Calcium Magnesium Total Bilirubin AST ALT Alkaline Phosphatase Total Protein Albumin
[2025-01-07] MEDS: AZELASTINE HCL NASAL 0.1% 137 MCG/SPR 30 ML BTL 1 SPRAY NASAL (20:52)
[2025-01-08] VITALS (12 sets, daily range): BP systolic 112–123; BP diastolic 45–52; PULSE 75–89; RESP 14–18; TEMP 36.4–36.7; O2SAT 95–98
[2025-01-08 05:58] LABS: Hematocrit 45.4 % (42.0-52.0); Hemoglobin 14.3 g/dL (14.0-18.0); Mean Corpuscular HGB Conc 31.5 g/dl (32-36); Mean Corpuscular Hemoglobin 26.4 pg (26-34); Mean Corpuscular Volume 83.8 fl (80-100); Platelet Count Result 206 k/mm3 (150-375); Red Blood Count 5.42 M/mm3 (4.6-6.20); White Blood Count 9.4 K/mm3 (4.5-10.0)
[2025-01-08 06:17] LABS: Anion Gap 4 mmol/L (4-12); Blood Urea Nitrogen 39 mg/dL (9-20); Calcium 8.9 mg/dL (8.4-10.2); Carbon Dioxide 30 mmol/L (22-30); Chloride 101 mmol/L (98-107); Estimated CRCL calculation 47 ml/min; Estimated Glomerular Filt Rate 46; Glucose 108 mg/dL (65-110); Magnesium 2.3 mg/dL (1.6-2.3); Potassium 5.2 mmol/L (3.4-5.0); Sodium 135 mmol/L (137-145)
[2025-01-08] MEDS: ALPRAZolam (*CRX) 0.5 MG TABLET 1.5 MG PO ×3 (08:06→20:43)
[2025-01-08] MEDS: HYDROcodone/acetaminophen (*CRX) 10-325 MG TABLET 1 TAB PO ×3 (08:06→21:46)
[2025-01-08] MEDS: TAMSULOSIN HCL 0.4 MG CAPSULE 0.8 MG BY MOUTH (09:19)
[2025-01-08] MEDS: CHOLECALCIFEROL (VITAMIN D3) 25 MCG (1,000 UNITS) TABLET PO (09:19)
[2025-01-08] MEDS: FINASTERIDE 5 MG TABLET BY MOUTH (09:19)
[2025-01-08] MEDS: EMPAGLIFLOZIN 10 MG TABLET PO (09:19)
[2025-01-08] MEDS: ASPIRIN 81 MG ENTERIC TABLET PO (09:21)
[2025-01-08] MEDS: FUROSEMIDE 40 MG TABLET PO (09:21)
[2025-01-08] MEDS: ROSUVASTATIN 10 MG TABLET PO (09:22)
--- NOTE | 2025-01-08 10:50 | PM.IMPN ---
Progress Note: A&P Assessment and Plan (1) Acute decompensated heart failure: Code(s): I50.9 - Heart failure, unspecified Status: Acute (2) H/O aortic valve replacement: Code(s): Z95.2 - Presence of prosthetic heart valve Status: Acute (3) Acute respiratory failure with hypoxemia: Code(s): J96.01 - Acute respiratory failure with hypoxia Status: Acute (4) Elevated troponin: Code(s): R79.89 - Other specified abnormal findings of blood chemistry Status: Acute (5) Uncontrolled hypertension: Code(s): I10 - Essential (primary) hypertension Status: Acute Plan 69-year-old male with an extensive medical history including DJD, bilateral hip and knee replacements, lumbosacral spinal stenosis insomnia, depression, anxiety, ADD, history of aortic valve replacement, [id number] diabetes mellitus, hypertension, presents with shortness of breath for about 3-4 months. Patient is only a fair historian, reports 3-4 months he has had shortness of breath and was prescribed antibiotics for suspected pneumonia over the phone. He has also had a 40 lb weight loss in the past 6 months. Concurrently he has had lower extremity edema. He says he has a poor appetite, unable to detail the characteristics of his stool. Denies fever, chest pain, nausea or vomiting or diarrhea. He is hypertensive on arrival with blood pressure 191/63 improving to 140/46. He was placed on 2 L nasal cannula for hypoxia. INR 1.3, sodium 134, BUN 39, serum creatinine 1.24, troponin 0.065 then 0.063, BNP 44411, quad viral screen negative. CTA chest PE protocol negative for PE, no thoracic aortic dissection, large right and small left-sided pleural effusions with atelectasis and interstitial edema in the remaining lung carter. He was given Lasix 40 mg IV x1 and admitted for further treatment. Acute on chronic congest[place] [address]. Echo with EF down to 35-40%. Cardiology consulted. On diuresis with Lasix IV b.i.d. also carvedilol Jardiance. Previous echocardiogram February 2023 with EF 60-65% moderate concentric left ventricular wall thickness grade 1 diastolic dysfunction bioprosthetic aortic valve not visualized moderate is sclerosis of the bioprosthetic aortic valve leaflets mild regurgitation mitral valve severely calcified annulus trace mitral valve regurgitation. Switched to oral Lasix 01/08/2025. Addition of SHAVONNE inhibitor/ARB/Entresto planned. Mildly hyperkalemic today. Will give a dose of Lokelma Elevated troponin with flat trend. Likely due to demand ischemia. EKG without acute ST-T changes. No reported chest pain Status post aortic valve replacement 18 years ago. Repeat echo with moderate stenosis of bioprosthetic valve need follow-up with Cardiology with regard to this in valve Clinic Moderate to severe tricuspid regurgitation [id number] mitral regurgitation Moderate aortic regurgitation Severe pulmonary hypertension Degenerative joint disease bilateral hip and knee replacements Lumbosacral spinal stenosis Insomnia Anxiety depression ADD [id number] diabetes mellitus Hypertension Hyperlipidemia CKD stage 3 Code status full code Subjective Date/time seen: 01/08/25 10:50 Interval history: No overnight events. Breathing is better. Leg swelling is improved. Labs reviewed. Still feels weak. Review of Systems Review of Systems: All systems reviewed & are unremarkable except as noted in HPI and below (Subjective/HPI) Exam Narrative: Patient is comfortable, NAD HEENT: eyes are clear and none icteric LUNGS:bilateral fair air entry with rales and rhonchi HEART: RR S1S2 ABD: BS+, Soft and nontender Lower extremities: Mild edema lower extremities SKIN: nonjaundiced Neuro: grossly intact. Objective Data Vital Signs Vital Signs: Vital Signs - 24 hr 01/07/25 11:35 01/07/25 12:00 01/07/25 13:32 Temperature Pulse Rate 77 Respiratory Rate Blood Pressure Pulse Oximetry Oxygen Delivery Room Air Room Air 01/07/25 16:00 01/07/25 16:00 01/07/25 20:00 Temperature 97.4 F L 98.5 F Pulse Rate 81 82 79 Respiratory Rate 16 14 Blood Pressure 120/47 L 129/47 L Pulse Oximetry 98 99 Oxygen Delivery 01/07/25 20:00 01/07/25 20:00 01/07/25 20:18 Temperature Pulse Rate 78 80 Respiratory Rate Blood Pressure Pulse Oximetry Oxygen Delivery Room Air 01/08/25 00:00 01/08/25 04:00 01/08/25 06:00 Temperature 97.5 F L Pulse Rate 80 79 82 Respiratory Rate 14 Blood Pressure 120/50 L Pulse Oximetry 96 Oxygen Delivery 01/08/25 09:19 Temperature Pulse Rate 87 Respiratory Rate Blood Pressure Pulse Oximetry Oxygen Delivery Intake/Output Intake/Output: Intake & Output 01/05/25 01/06/25 01/07/25 01/08/25 23:59 23:59 23:59 23:59 Intake Total 1450 1170 2100 540 Output Total 1200 4400 3925 625 Balance 250 -3230 -1825 -85 Meds/Results Medications: Active Medications Generic Name Dose Route Start Last Admin Trade Name Freq PRN Reason Stop Dose Admin Hydrocodone Bitart/Acetaminophen 1 tab 01/03/25 01:14 01/08/25 08:06 Hydrocodone/Acetaminophen (*Crx) 10-325 Mg Tablet PO 1 tab Q6H PRN Administration pain Albuterol 1 puff 01/03/25 01:14 01/04/25 21:13 Albuterol Sulfate (*Sp) Aerosol 1 Puff INHALATION 1 puff Q4HRT PRN Administration shortness of breath or wheezing Albuterol/Ipratropium 3 ml 01/05/25 11:56 01/05/25 20:44 Ipratropium 0.5 Mg/Albuterol Sulfate 2.5 Mg Ampul.Neb 3 Ml INHALATION 3 ml Q6HRT PRN Administration Shortness Of Breath Alprazolam 1.5 mg 01/03/25 01:14 01/08/25 08:06 Alprazolam (*Crx) 0.5 Mg Tablet PO 1.5 mg TID PRN Administration anxiety Amlodipine Besylate 5 mg 01/03/25 09:00 01/08/25 09:21 Amlodipine Besylate 5 Mg Tablet PO 5 mg DAILY LISBET Administration Aspirin 81 mg 01/03/25 09:00 01/08/25 09:21 Aspirin 81 Mg Enteric Tablet PO 81 mg QAM LISBET Administration Azelastine HCl 1 spray 01/03/25 21:00 01/07/25 20:52 Azelastine Hcl Nasal 0.1% 137 Mcg/Spr 30 Ml Btl NASAL 1 spray QHS LISBET Administration Carvedilol 25 mg 01/03/25 09:00 01/08/25 09:19 Carvedilol 25 Mg Tablet PO 25 mg Q12HR LISBET Administration Empagliflozin 10 mg 01/06/25 09:00 01/08/25 09:19 Empagliflozin 10 Mg Tablet PO 10 mg DAILY LISBET Administration Finasteride 5 mg 01/03/25 09:00 01/08/25 09:19 Finasteride 5 Mg Tablet BY MOUTH 5 mg DAILY LISBET Administration Furosemide 40 mg 01/08/25 09:00 01/08/25 09:21 Furosemide 40 Mg Tablet PO 40 mg DAILY LISBET Administration Hydralazine HCl 100 mg 01/03/25 13:00 01/08/25 09:19 Hydralazine Hcl 50 Mg Tablet BY MOUTH 100 mg TID LISBET Administration Nitroglycerin 0.4 mg 01/03/25 11:29 Nitroglycerin Sl 0.4 Mg Tablet SUBLINGUAL Q5MIN PRN Chest Pain Rosuvastatin Calcium 10 mg 01/03/25 09:00 01/08/25 09:22 Rosuvastatin 10 Mg Tablet PO 10 mg DAILY LISBET Administration Sodium Chloride 1 spray 01/08/25 10:07 Saline 0.65% Héctor Soln 44 Ml Btl NASAL Q6HR PRN Congestion Tamsulosin HCl 0.8 mg 01/03/25 09:00 01/08/25 09:19 Tamsulosin Hcl 0.4 Mg Capsule BY MOUTH 0.8 mg DAILY LIBSET Administration Trazodone HCl 50 - 100 mg 01/03/25 11:29 01/06/25 00:06 Trazodone Hcl 50 Mg Tablet PO 50 mg HS PRN Administration Insomnia Vitamin D 25 mcg 01/03/25 09:00 01/08/25 09:19 Cholecalciferol (Vitamin D3) 25 Mcg (1,000 Units) Tablet PO 25 mcg DAILY LISBET Administration Radiology Results: ITS Impressions Chest CTA 01/02/25 17:57 IMPRESSION: No pulmonary embolus. No thoracic aortic dissection. Large right and small left-sided pleural effusions with adjacent compressive atelectasis. Pulmonary edema within the visualized compressed lung carter. Chest X-Ray 01/07/25 12:29 IMPRESSION: 1. Persistent small bilateral pleural effusions with associated bibasilar atelectasis and/or pneumonia. 2. Cardiomegaly. Labs Labs: Laboratory Results - last 24 hr 01/07/25 01/07/25 01/08/25 16:49 19:56 05:36 WBC 9.4 RBC 5.42 Hgb 14.3 Hct 45.4 MCV 83.8 MCH 26.4 MCHC 31.5 L RDW 17.0 H Plt Count 206 MPV 10.7 H Sodium 135 L Potassium 5.2 H Chloride 101 Carbon Dioxide 30 Anion Gap 4 BUN 39 H Creatinine 1.52 H Estim Creat Clear Calc 47 Estimated GFR 46 L Glucose 108 POC Capillary Glucose 130 H 122 H Calcium 8.9 Magnesium 2.3
[2025-01-08] MEDS: SODIUM ZIRCONIUM CYCLOSILICATE 10 GM POWD.PACK PO (12:14)
--- NOTE | 2025-01-08 12:38 | PM.PNCARD ---
Progress Note: A&P Assessment and Plan (1) Acute systolic heart failure: Code(s): I50.21 - Acute systolic (congestive) heart failure Status: Acute (2) Moderate aortic stenosis: Code(s): I35.0 - Nonrheumatic aortic (valve) stenosis Status: Acute (3) CHF exacerbation: Qualifiers: Heart failure type: unspecified Qualified Code(s): I50.9 - Heart failure, unspecified Code(s): I50.9 - Heart failure, unspecified Status: Acute (4) Left bundle branch block: Code(s): I44.7 - Left bundle-branch block, unspecified Status: Acute (5) Hyperlipidemia: Qualifiers: Hyperlipidemia type: mixed hyperlipidemia Qualified Code(s): E78.2 - Mixed hyperlipidemia Code(s): E78.5 - Hyperlipidemia, unspecified Status: Acute (6) Elevated troponin: Code(s): R79.89 - Other specified abnormal findings of blood chemistry Status: Acute (7) Uncontrolled hypertension: Code(s): I10 - Essential (primary) hypertension Status: Acute Plan Acute on chronic systolic heart failure currently compensated ejection fraction 35-40% Moderate aortic valve bioprosthesis stenosis Moderate aortic regurgitation Moderate severe tricuspid regurgitation Severe hypertension Hypertensive urgency on presentation currently controlled Acute kidney injury stable Elevated troponin demand ischemia without evidence of ACS Plan Lasix 40 mg p.o. daily Continue carvedilol Follow-up kidney function electrolytes if stable will add Entresto tomorrow Continue amlodipine and hydralazine Subjective Date/time seen: 01/08/25 12:38 Interval history: No acute events Telemetry sinus rhythm Review of Systems Review of Systems: All systems reviewed & are unremarkable except as noted in HPI and below Exam Narrative: General: Alert oriented x3, no acute distress Neck: Supple, JVD + Chest: Bilaterally clear to auscultation, rales bilateral bases Cardiac: S1, S2 +, regular rate, regular rhythm, systolic murmur grade 3/6 best heard in right upper sternal border, diastolic murmur present, no rubs Extremities: Trace bilateral lower extremity edema, slightly worse on left, no skin rash Neurologic: Alert and oriented x3, no focal neurological deficits Objective Data Vital Signs Vital Signs: Vital Signs - 24 hr 01/07/25 13:32 01/07/25 16:00 01/07/25 16:00 Temperature 36.3 C L Pulse Rate 81 82 Respiratory Rate 16 Blood Pressure 120/47 L Pulse Oximetry 98 Oxygen Delivery Room Air 01/07/25 20:00 01/07/25 20:00 01/07/25 20:00 Temperature 36.9 C Pulse Rate 79 78 Respiratory Rate 14 Blood Pressure 129/47 L Pulse Oximetry 99 Oxygen Delivery Room Air 01/07/25 20:18 01/08/25 00:00 01/08/25 04:00 Temperature Pulse Rate 80 80 79 Respiratory Rate Blood Pressure Pulse Oximetry Oxygen Delivery 01/08/25 06:00 01/08/25 08:00 01/08/25 08:00 Temperature 36.4 C L Pulse Rate 82 89 Respiratory Rate 14 Blood Pressure 120/50 L Pulse Oximetry 96 Oxygen Delivery Room Air 01/08/25 09:19 01/08/25 12:00 Temperature Pulse Rate 87 75 Respiratory Rate Blood Pressure Pulse Oximetry Oxygen Delivery Intake/Output Intake/Output: Intake & Output 01/05/25 01/06/25 01/07/25 01/08/25 23:59 23:59 23:59 23:59 Intake Total 1450 1170 2100 540 Output Total 1200 4400 3925 625 Balance 250 -3230 -1825 -85 Meds/Results Medications: Active Medications Generic Name Dose Route Start Last Admin Trade Name Freq PRN Reason Stop Dose Admin Hydrocodone Bitart/Acetaminophen 1 tab 01/03/25 01:14 01/08/25 08:06 Hydrocodone/Acetaminophen (*Crx) 10-325 Mg Tablet PO 1 tab Q6H PRN Administration pain Albuterol 1 puff 01/03/25 01:14 01/04/25 21:13 Albuterol Sulfate (*Sp) Aerosol 1 Puff INHALATION 1 puff Q4HRT PRN Administration shortness of breath or wheezing Albuterol/Ipratropium 3 ml 01/05/25 11:56 01/05/25 20:44 Ipratropium 0.5 Mg/Albuterol Sulfate 2.5 Mg Ampul.Neb 3 Ml INHALATION 3 ml Q6HRT PRN Administration Shortness Of Breath Alprazolam 1.5 mg 01/03/25 01:14 01/08/25 08:06 Alprazolam (*Crx) 0.5 Mg Tablet PO 1.5 mg TID PRN Administration anxiety Amlodipine Besylate 5 mg 01/03/25 09:00 01/08/25 09:21 Amlodipine Besylate 5 Mg Tablet PO 5 mg DAILY LISBET Administration Aspirin 81 mg 01/03/25 09:00 01/08/25 09:21 Aspirin 81 Mg Enteric Tablet PO 81 mg QAM LISBET Administration Azelastine HCl 1 spray 01/03/25 21:00 01/07/25 20:52 Azelastine Hcl Nasal 0.1% 137 Mcg/Spr 30 Ml Btl NASAL 1 spray QHS LISBET Administration Carvedilol 25 mg 01/03/25 09:00 01/08/25 09:19 Carvedilol 25 Mg Tablet PO 25 mg Q12HR LISBET Administration Empagliflozin 10 mg 01/06/25 09:00 01/08/25 09:19 Empagliflozin 10 Mg Tablet PO 10 mg DAILY LISBET Administration Finasteride 5 mg 01/03/25 09:00 01/08/25 09:19 Finasteride 5 Mg Tablet BY MOUTH 5 mg DAILY LISBET Administration Furosemide 40 mg 01/08/25 09:00 01/08/25 09:21 Furosemide 40 Mg Tablet PO 40 mg DAILY LISBET Administration Hydralazine HCl 100 mg 01/03/25 13:00 01/08/25 09:19 Hydralazine Hcl 50 Mg Tablet BY MOUTH 100 mg TID LISBET Administration Nitroglycerin 0.4 mg 01/03/25 11:29 Nitroglycerin Sl 0.4 Mg Tablet SUBLINGUAL Q5MIN PRN Chest Pain Rosuvastatin Calcium 10 mg 01/03/25 09:00 01/08/25 09:22 Rosuvastatin 10 Mg Tablet PO 10 mg DAILY LISBET Administration Sodium Chloride 1 spray 01/08/25 10:07 Saline 0.65% Héctor Soln 44 Ml Btl NASAL Q6HR PRN Congestion Tamsulosin HCl 0.8 mg 01/03/25 09:00 01/08/25 09:19 Tamsulosin Hcl 0.4 Mg Capsule BY MOUTH 0.8 mg DAILY LISBET Administration Trazodone HCl 50 - 100 mg 01/03/25 11:29 01/06/25 00:06 Trazodone Hcl 50 Mg Tablet PO 50 mg HS PRN Administration Insomnia Vitamin D 25 mcg 01/03/25 09:00 01/08/25 09:19 Cholecalciferol (Vitamin D3) 25 Mcg (1,000 Units) Tablet PO 25 mcg DAILY LISBET Administration Radiology Results: ITS Impressions Chest CTA 01/02/25 17:57 IMPRESSION: No pulmonary embolus. No thoracic aortic dissection. Large right and small left-sided pleural effusions with adjacent compressive atelectasis. Pulmonary edema within the visualized compressed lung carter. Chest X-Ray 01/07/25 12:29 IMPRESSION: 1. Persistent small bilateral pleural effusions with associated bibasilar atelectasis and/or pneumonia. 2. Cardiomegaly. Labs Labs: Laboratory Results - last 24 hr 01/07/25 01/07/25 01/08/25 16:49 19:56 05:36 WBC 9.4 RBC 5.42 Hgb 14.3 Hct 45.4 MCV 83.8 MCH 26.4 MCHC 31.5 L RDW 17.0 H Plt Count 206 MPV 10.7 H Sodium 135 L Potassium 5.2 H Chloride 101 Carbon Dioxide 30 Anion Gap 4 BUN 39 H Creatinine 1.52 H Estim Creat Clear Calc 47 Estimated GFR 46 L Glucose 108 POC Capillary Glucose 130 H 122 H Calcium 8.9 Magnesium 2.3 01/08/25 01/08/25 07:44 11:34 WBC RBC Hgb Hct MCV MCH MCHC RDW Plt Count MPV Sodium Potassium Chloride Carbon Dioxide Anion Gap BUN Creatinine Estim Creat Clear Calc Estimated GFR Glucose POC Capillary Glucose 112 H 146 H Calcium Magnesium
[2025-01-08] MEDS: AZELASTINE HCL NASAL 0.1% 137 MCG/SPR 30 ML BTL 1 SPRAY NASAL (20:42)
[2025-01-09] VITALS (12 sets, daily range): BP systolic 116–144; BP diastolic 42–52; PULSE 76–86; RESP 18–20; TEMP 36.6–36.7; O2SAT 96–100
[2025-01-09 06:21] LABS: Hematocrit 43.8 % (42.0-52.0); Hemoglobin 14.1 g/dL (14.0-18.0); Mean Corpuscular HGB Conc 32.2 g/dl (32-36); Mean Corpuscular Hemoglobin 26.8 pg (26-34); Mean Corpuscular Volume 83.1 fl (80-100); Platelet Count Result 192 k/mm3 (150-375); Red Blood Count 5.27 M/mm3 (4.6-6.20); White Blood Count 7.2 K/mm3 (4.5-10.0)
[2025-01-09 06:41] LABS: Anion Gap 6 mmol/L (4-12); Blood Urea Nitrogen 36 mg/dL (9-20); Calcium 8.8 mg/dL (8.4-10.2); Carbon Dioxide 29 mmol/L (22-30); Chloride 100 mmol/L (98-107); Estimated CRCL calculation 49 ml/min; Estimated Glomerular Filt Rate 49; Glucose 94 mg/dL (65-110); Magnesium 2.4 mg/dL (1.6-2.3); Potassium 4.2 mmol/L (3.4-5.0); Sodium 135 mmol/L (137-145)
[2025-01-09] MEDS: EMPAGLIFLOZIN 10 MG TABLET PO (09:07)
[2025-01-09] MEDS: TAMSULOSIN HCL 0.4 MG CAPSULE 0.8 MG BY MOUTH (09:07)
[2025-01-09] MEDS: HYDROcodone/acetaminophen (*CRX) 10-325 MG TABLET 1 TAB PO ×3 (09:07→20:58)
[2025-01-09] MEDS: CHOLECALCIFEROL (VITAMIN D3) 25 MCG (1,000 UNITS) TABLET PO (09:08)
[2025-01-09] MEDS: FINASTERIDE 5 MG TABLET BY MOUTH (09:08)
[2025-01-09] MEDS: ROSUVASTATIN 10 MG TABLET PO (09:08)
[2025-01-09] MEDS: FUROSEMIDE 40 MG TABLET PO (09:08)
[2025-01-09] MEDS: ASPIRIN 81 MG ENTERIC TABLET PO (09:08)
[2025-01-09] MEDS: SALINE 0.65% NAS SOLN 44 ML BTL 1 SPRAY NASAL (15:10)
[2025-01-09] MEDS: ALPRAZolam (*CRX) 0.5 MG TABLET 1.5 MG PO ×2 (15:13→20:11)
--- NOTE | 2025-01-09 17:18 | P.PNIM_ITS ---
Progress Note: A&P Assessment and Plan (1) Acute systolic heart failure: Code(s): I50.21 - Acute systolic (congestive) heart failure Status: Acute (2) Elevated troponin: Code(s): R79.89 - Other specified abnormal findings of blood chemistry Status: Acute (3) Essential hypertension: Code(s): I10 - Essential (primary) hypertension Status: Acute Plan Respiratory status improved. Lower extremity edema resolved. Do not think we have room to had Entresto due to lower blood pressure. Decreasing hydralazine and will continue to monitor. Otherwise, shake cardiology input. Serum creatinine stable. [place] may resolved status post Lokelma. Patient wishes to be full code. After PT and OT evaluation recommended that the patient return home with home health, he did decline in spite of the risks. Subjective Date/time seen: 01/09/25 17:18 Interval history: No acute overnight events. Patient feels that his leg swelling has improved greatly Review of Systems Review of Systems: All systems reviewed & are unremarkable except as noted in HPI and below (Subjective) Exam Const: General: comfortable and no acute distress HENMT: Mouth: Yes moist mucous membranes Eyes: Pupils: Equal, round and reactive pupils present Neck: Neck: supple Resp: Effort & Inspection: normal respiratory effort Auscultation: clear to auscultation bilaterally Cardio: Rate: regular rate Rhythm: regular rhythm GI: Inspection: non-distended GI Palp: Yes Soft to palpation Extrem: General: no edema Objective Data Vital Signs Vital Signs: Vital Signs - 24 hr 01/08/25 20:00 01/08/25 20:00 01/08/25 20:42 Temperature Pulse Rate 85 80 Respiratory Rate Blood Pressure Pulse Oximetry Oxygen Delivery Room Air 01/08/25 21:54 01/08/25 22:07 01/09/25 00:00 Temperature 98.0 F Pulse Rate 86 81 Respiratory Rate 16 Blood Pressure 123/52 L Pulse Oximetry 97 95 Oxygen Delivery Room Air 01/09/25 04:00 01/09/25 06:00 01/09/25 08:00 Temperature 97.8 F Pulse Rate 77 79 Respiratory Rate 18 Blood Pressure 130/49 L Pulse Oximetry 96 Oxygen Delivery Room Air 01/09/25 09:08 01/09/25 13:49 Temperature 98.0 F Pulse Rate 85 76 Respiratory Rate 18 Blood Pressure 116/42 L Pulse Oximetry 99 Oxygen Delivery Intake/Output Intake/Output: Intake & Output 01/06/25 01/07/25 01/08/25 01/09/25 23:59 23:59 23:59 23:59 Intake Total 1170 2100 2320 2052 Output Total 4400 3925 2621 2609 [facility]3230 -1825 -305 -548 Meds/Results Medications: Active Medications Generic Name Dose Route Start Last Admin Trade Name Freq PRN Reason Stop Dose Admin Hydrocodone Bitart/Acetaminophen 1 tab 01/03/25 01:14 01/09/25 15:08 Hydrocodone/Acetaminophen (*Crx) 10-325 Mg Tablet PO 1 tab Q6H PRN Administration pain Albuterol 1 puff 01/03/25 01:14 01/04/25 21:13 Albuterol Sulfate (*Sp) Aerosol 1 Puff INHALATION 1 puff Q4HRT PRN Administration shortness of breath or wheezing Albuterol/Ipratropium 3 ml 01/05/25 11:56 01/05/25 20:44 Ipratropium 0.5 Mg/Albuterol Sulfate 2.5 Mg Ampul.Neb 3 Ml INHALATION 3 ml Q6HRT PRN Administration Shortness Of Breath Alprazolam 1.5 mg 01/03/25 01:14 01/09/25 15:13 Alprazolam (*Crx) 0.5 Mg Tablet PO 1.5 mg TID PRN Administration anxiety Amlodipine Besylate 5 mg 01/03/25 09:00 01/09/25 09:08 Amlodipine Besylate 5 Mg Tablet PO 5 mg DAILY LISBET Administration Aspirin 81 mg 01/03/25 09:00 01/09/25 09:08 Aspirin 81 Mg Enteric Tablet PO 81 mg QAM LISBET Administration Azelastine HCl 1 spray 01/03/25 21:00 01/08/25 20:42 Azelastine Hcl Nasal 0.1% 137 Mcg/Spr 30 Ml Btl NASAL 1 spray QHS LISBET Administration Carvedilol 25 mg 01/03/25 09:00 01/09/25 09:08 Carvedilol 25 Mg Tablet PO 25 mg Q12HR LISBET Administration Empagliflozin 10 mg 01/06/25 09:00 01/09/25 09:07 Empagliflozin 10 Mg Tablet PO 10 mg DAILY LISBET Administration Finasteride 5 mg 01/03/25 09:00 01/09/25 09:08 Finasteride 5 Mg Tablet BY MOUTH 5 mg DAILY LISBET Administration Furosemide 40 mg 01/08/25 09:00 01/09/25 09:08 Furosemide 40 Mg Tablet PO 40 mg DAILY LISBET Administration Hydralazine HCl 100 mg 01/03/25 13:00 01/09/25 16:14 Hydralazine Hcl 50 Mg Tablet BY MOUTH 100 mg TID LISBET Administration Nitroglycerin 0.4 mg 01/03/25 11:29 Nitroglycerin Sl 0.4 Mg Tablet SUBLINGUAL Q5MIN PRN Chest Pain Rosuvastatin Calcium 10 mg 01/03/25 09:00 01/09/25 09:08 Rosuvastatin 10 Mg Tablet PO 10 mg DAILY LISBET Administration Sodium Chloride 1 spray 01/08/25 10:07 01/09/25 15:10 Saline 0.65% Héctor Soln 44 Ml Btl NASAL 1 spray Q6HR PRN Administration Congestion Tamsulosin HCl 0.8 mg 01/03/25 09:00 01/09/25 09:07 Tamsulosin Hcl 0.4 Mg Capsule BY MOUTH 0.8 mg DAILY LISBET Administration Trazodone HCl 50 - 100 mg 01/03/25 11:29 01/06/25 00:06 Trazodone Hcl 50 Mg Tablet PO 50 mg HS PRN Administration Insomnia Vitamin D 25 mcg 01/03/25 09:00 01/09/25 09:08 Cholecalciferol (Vitamin D3) 25 Mcg (1,000 Units) Tablet PO 25 mcg DAILY LISBET Administration Radiology Results: ITS Impressions Chest CTA 01/02/25 17:57 IMPRESSION: No pulmonary embolus. No thoracic aortic dissection. Large right and small left-sided pleural effusions with adjacent compressive atelectasis. Pulmonary edema within the visualized compressed lung carter. Chest X-Ray 01/07/25 12:29 IMPRESSION: 1. Persistent small bilateral pleural effusions with associated bibasilar atelectasis and/or pneumonia. 2. Cardiomegaly. Labs Labs: Laboratory Results - last 24 hr 01/08/25 01/09/25 01/09/25 20:51 05:35 07:33 WBC 7.2 RBC 5.27 Hgb 14.1 Hct 43.8 MCV 83.1 MCH 26.8 MCHC 32.2 RDW 17.1 H Plt Count 192 MPV 10.1 Sodium 135 L Potassium 4.2 Chloride 100 Carbon Dioxide 29 Anion Gap 6 BUN 36 H Creatinine 1.43 H Estim Creat Clear Calc 49 Estimated GFR 49 L Glucose 94 POC Capillary Glucose 204 H 84 Calcium 8.8 Magnesium 2.4 H 01/09/25 01/09/25 11:19 16:04 WBC RBC Hgb Hct MCV MCH MCHC RDW Plt Count MPV Sodium Potassium Chloride Carbon Dioxide Anion Gap BUN Creatinine Estim Creat Clear Calc Estimated GFR Glucose POC Capillary Glucose 147 H 162 H Calcium Magnesium
[2025-01-09] MEDS: AZELASTINE HCL NASAL 0.1% 137 MCG/SPR 30 ML BTL 1 SPRAY NASAL (20:13)
[2025-01-10] VITALS (15 sets, daily range): BP systolic 98–138; BP diastolic 38–61; PULSE 69–89; RESP 16–18; TEMP 35.6–36.9; O2SAT 97–99
[2025-01-10] MEDS: HYDROcodone/acetaminophen (*CRX) 10-325 MG TABLET 1 TAB PO ×3 (02:57→20:42)
[2025-01-10 06:21] LABS: Hematocrit 43.6 % (42.0-52.0); Hemoglobin 13.7 g/dL (14.0-18.0); Mean Corpuscular HGB Conc 31.4 g/dl (32-36); Mean Corpuscular Hemoglobin 26.4 pg (26-34); Mean Corpuscular Volume 84.2 fl (80-100); Platelet Count Result 193 k/mm3 (150-375); Red Blood Count 5.18 M/mm3 (4.6-6.20); White Blood Count 6.6 K/mm3 (4.5-10.0)
[2025-01-10 06:43] LABS: Anion Gap 6 mmol/L (4-12); Blood Urea Nitrogen 37 mg/dL (9-20); Calcium 8.9 mg/dL (8.4-10.2); Carbon Dioxide 29 mmol/L (22-30); Chloride 100 mmol/L (98-107); Estimated CRCL calculation 52 ml/min; Estimated Glomerular Filt Rate 53; Glucose 101 mg/dL (65-110); Magnesium 2.4 mg/dL (1.6-2.3); Potassium 4.2 mmol/L (3.4-5.0); Sodium 135 mmol/L (137-145)
[2025-01-10] MEDS: FUROSEMIDE 40 MG TABLET PO (09:29)
[2025-01-10] MEDS: CHOLECALCIFEROL (VITAMIN D3) 25 MCG (1,000 UNITS) TABLET PO (09:29)
[2025-01-10] MEDS: EMPAGLIFLOZIN 10 MG TABLET PO (09:29)
[2025-01-10] MEDS: ASPIRIN 81 MG ENTERIC TABLET PO (09:29)
[2025-01-10] MEDS: TAMSULOSIN HCL 0.4 MG CAPSULE 0.8 MG BY MOUTH (09:29)
[2025-01-10] MEDS: FINASTERIDE 5 MG TABLET BY MOUTH (09:30)
[2025-01-10] MEDS: ROSUVASTATIN 10 MG TABLET PO (09:30)
[2025-01-10] MEDS: SACUBITRIL/VALSARTAN 24-26 MG TABLET 1 TAB PO ×2 (10:41→20:42)
--- NOTE | 2025-01-10 15:24 | P.PNIM_ITS ---
Progress Note: A&P Assessment and Plan (1) Acute systolic heart failure: Code(s): I50.21 - Acute systolic (congestive) heart failure Status: Acute (2) Elevated troponin: Code(s): R79.89 - Other specified abnormal findings of blood chemistry Status: Acute (3) Essential hypertension: Code(s): I10 - Essential (primary) hypertension Status: Acute Plan Respiratory status improved. Lower extremity edema resolved. Do not think we have room to had Entresto due to lower blood pressure. Decreasing hydralazine and will continue to monitor. Otherwise, shake cardiology input. Serum creatinine stable. Hyperkalemia resolved status post Lokelma. Patient wishes to be full code. After PT and OT evaluation recommended that the patient return home with home health, he did decline in spite of the risks. 01/10/2025: After hydralazine was decreased and Entresto initiated his blood pressure has been low at 98/38. At this time will discontinue hydralazine and continue Entresto and continue to monitor his blood pressure. Patient is asymptomatic. Serum creatinine is stable at his baseline. Subjective Date/time seen: 01/10/25 15:24 Interval history: No major acute overnight events. Patient denies shortness of breath or chest pain. Denies any new leg swelling. Review of Systems Review of Systems: All systems reviewed & are unremarkable except as noted in HPI and below (Subjective) Exam Const: General: comfortable and no acute distress HENMT: Mouth: Yes moist mucous membranes Eyes: Pupils: Equal, round and reactive pupils present Neck: Neck: supple Resp: Effort & Inspection: normal respiratory effort Auscultation: clear to auscultation bilaterally Cardio: Rate: regular rate Rhythm: regular rhythm GI: Inspection: non-distended GI Palp: Yes Soft to palpation Extrem: General: no edema Objective Data Vital Signs Vital Signs: Vital Signs - 24 hr 01/09/25 16:00 01/09/25 20:00 01/09/25 20:00 Temperature Pulse Rate 78 85 Respiratory Rate Blood Pressure Pulse Oximetry Oxygen Delivery Room Air Fraction of Inspired Oxygen 01/09/25 20:11 01/09/25 20:32 01/09/25 22:00 Temperature 98.1 F Pulse Rate 80 80 86 Respiratory Rate 20 18 Blood Pressure 144/52 H Pulse Oximetry 99 100 Oxygen Delivery Room Air Fraction of Inspired Oxygen 21 01/10/25 00:00 01/10/25 04:00 01/10/25 06:00 Temperature 98.2 F Pulse Rate 71 74 69 Respiratory Rate 18 Blood Pressure 138/61 Pulse Oximetry 99 Oxygen Delivery Fraction of Inspired Oxygen 01/10/25 07:38 01/10/25 08:00 01/10/25 09:29 Temperature Pulse Rate 77 70 Respiratory Rate Blood Pressure Pulse Oximetry 98 Oxygen Delivery Room Air Fraction of Inspired Oxygen 21 01/10/25 13:05 01/10/25 13:10 01/10/25 13:55 Temperature 96.0 F L Pulse Rate 79 75 Respiratory Rate 16 Blood Pressure 98/38 L 98/38 L 98/38 L Pulse Oximetry 99 99 Oxygen Delivery Fraction of Inspired Oxygen Intake/Output Intake/Output: Intake & Output 01/07/25 01/08/25 01/09/25 01/10/25 23:59 23:59 23:59 23:59 Intake Total 2100 2320 2292 1280 Output Total 3922 5307 2606 1452 [facility] [place] -1825 -305 [phone] -170 Meds/Results Medications: Active Medications Generic Name Dose Route Start Last Admin Trade Name Freq PRN Reason Stop Dose Admin Hydrocodone Bitart/Acetaminophen 1 tab 01/03/25 01:14 01/10/25 09:38 Hydrocodone/Acetaminophen (*Crx) 10-325 Mg Tablet PO 1 tab Q6H PRN Administration pain Albuterol 1 puff 01/03/25 01:14 01/04/25 21:13 Albuterol Sulfate (*Sp) Aerosol 1 Puff INHALATION 1 puff Q4HRT PRN Administration shortness of breath or wheezing Albuterol/Ipratropium 3 ml 01/05/25 11:56 01/05/25 20:44 Ipratropium 0.5 Mg/Albuterol Sulfate 2.5 Mg Ampul.Neb 3 Ml INHALATION 3 ml Q6HRT PRN Administration Shortness Of Breath Alprazolam 1.5 mg 01/03/25 01:14 01/09/25 20:11 Alprazolam (*Crx) 0.5 Mg Tablet PO 1.5 mg TID PRN Administration anxiety Amlodipine Besylate 5 mg 01/03/25 09:00 01/10/25 09:30 Amlodipine Besylate 5 Mg Tablet PO 5 mg DAILY LISBET Administration Aspirin 81 mg 01/03/25 09:00 01/10/25 09:29 Aspirin 81 Mg Enteric Tablet PO 81 mg QAM LISBET Administration Azelastine HCl 1 spray 01/03/25 21:00 01/09/25 20:13 Azelastine Hcl Nasal 0.1% 137 Mcg/Spr 30 Ml Btl NASAL 1 spray QHS LISBET Administration Carvedilol 25 mg 01/03/25 09:00 01/10/25 09:29 Carvedilol 25 Mg Tablet PO 25 mg Q12HR LISBET Administration Empagliflozin 10 mg 01/06/25 09:00 01/10/25 09:29 Empagliflozin 10 Mg Tablet PO 10 mg DAILY LISBET Administration Finasteride 5 mg 01/03/25 09:00 01/10/25 09:30 Finasteride 5 Mg Tablet BY MOUTH 5 mg DAILY LISBET Administration Furosemide 40 mg 01/08/25 09:00 01/10/25 09:29 Furosemide 40 Mg Tablet PO 40 mg DAILY LISBET Administration Nitroglycerin 0.4 mg 01/03/25 11:29 Nitroglycerin Sl 0.4 Mg Tablet SUBLINGUAL Q5MIN PRN Chest Pain Rosuvastatin Calcium 10 mg 01/03/25 09:00 01/10/25 09:30 Rosuvastatin 10 Mg Tablet PO 10 mg DAILY LISBET Administration Sacubitril/Valsartan 1 tab 01/10/25 10:00 01/10/25 10:41 Sacubitril/Valsartan 24-26 Mg Tablet PO 1 tab Q12HR LISBET Administration Sodium Chloride 1 spray 01/08/25 10:07 01/09/25 15:10 Saline 0.65% Héctor Soln 44 Ml Btl NASAL 1 spray Q6HR PRN Administration Congestion Tamsulosin HCl 0.8 mg 01/03/25 09:00 01/10/25 09:29 Tamsulosin Hcl 0.4 Mg Capsule BY MOUTH 0.8 mg DAILY LISBET Administration Trazodone HCl 50 - 100 mg 01/03/25 11:29 01/06/25 00:06 Trazodone Hcl 50 Mg Tablet PO 50 mg HS PRN Administration Insomnia Vitamin D 25 mcg 01/03/25 09:00 01/10/25 09:29 Cholecalciferol (Vitamin D3) 25 Mcg (1,000 Units) Tablet PO 25 mcg DAILY LISBET Administration Radiology Results: ITS Impressions Chest CTA 01/02/25 17:57 IMPRESSION: No pulmonary embolus. No thoracic aortic dissection. Large right and small left-sided pleural effusions with adjacent compressive atelectasis. Pulmonary edema within the visualized compressed lung carter. Chest X-Ray 01/07/25 12:29 IMPRESSION: 1. Persistent small bilateral pleural effusions with associated bibasilar atelectasis and/or pneumonia. 2. Cardiomegaly. Labs Labs: Laboratory Results - last 24 hr 01/09/25 01/09/25 01/10/25 16:04 20:23 05:37 WBC 6.6 RBC 5.18 Hgb 13.7 L Hct 43.6 MCV 84.2 MCH 26.4 MCHC 31.4 L RDW 17.1 H Plt Count 193 MPV 10.2 Sodium 135 L Potassium 4.2 Chloride 100 Carbon Dioxide 29 Anion Gap 6 BUN 37 H Creatinine 1.33 H Estim Creat Clear Calc 52 Estimated GFR 53 L Glucose 101 POC Capillary Glucose 162 H 120 H Calcium 8.9 Magnesium 2.4 H 01/10/25 01/10/25 07:36 11:05 WBC RBC Hgb Hct MCV MCH MCHC RDW Plt Count MPV Sodium Potassium Chloride Carbon Dioxide Anion Gap BUN Creatinine Estim Creat Clear Calc Estimated GFR Glucose POC Capillary Glucose 92 184 H Calcium Magnesium
--- NOTE | 2025-01-10 19:30 | PC.NURSE ---
On 01/10/25, the HISTOLOGY MANAGER, Amber Gonzalez, provided care and completed [employer] documentation on this patient. I have reviewed the HISTOLOGY MANAGER's documentation and agree with the findings.
[2025-01-10] MEDS: AZELASTINE HCL NASAL 0.1% 137 MCG/SPR 30 ML BTL 1 SPRAY NASAL (20:42)
[2025-01-10] MEDS: ALPRAZolam (*CRX) 0.5 MG TABLET 1.5 MG PO (20:43)
[2025-01-11] VITALS (7 sets, daily range): BP systolic 114–120; BP diastolic 48–50; PULSE 71–88; RESP 16; TEMP 36.2; O2SAT 97
[2025-01-11 06:46] LABS: Hematocrit 44.6 % (42.0-52.0); Hemoglobin 14.2 g/dL (14.0-18.0); Mean Corpuscular HGB Conc 31.8 g/dl (32-36); Mean Corpuscular Hemoglobin 26.5 pg (26-34); Mean Corpuscular Volume 83.4 fl (80-100); Platelet Count Result 205 k/mm3 (150-375); Red Blood Count 5.35 M/mm3 (4.6-6.20); White Blood Count 7.5 K/mm3 (4.5-10.0)
[2025-01-11 07:31] LABS: Anion Gap 5 mmol/L (4-12); Blood Urea Nitrogen 44 mg/dL (9-20); Calcium 8.5 mg/dL (8.4-10.2); Carbon Dioxide 30 mmol/L (22-30); Chloride 98 mmol/L (98-107); Estimated CRCL calculation 51 ml/min; Estimated Glomerular Filt Rate 51; Glucose 84 mg/dL (65-110); Magnesium 2.5 mg/dL (1.6-2.3); Potassium 4.2 mmol/L (3.4-5.0); Sodium 133 mmol/L (137-145)
[2025-01-11] MEDS: TAMSULOSIN HCL 0.4 MG CAPSULE 0.8 MG BY MOUTH (09:51)
[2025-01-11] MEDS: EMPAGLIFLOZIN 10 MG TABLET PO (09:51)
[2025-01-11] MEDS: CHOLECALCIFEROL (VITAMIN D3) 25 MCG (1,000 UNITS) TABLET PO (09:51)
[2025-01-11] MEDS: SACUBITRIL/VALSARTAN 24-26 MG TABLET 1 TAB PO (09:51)
[2025-01-11] MEDS: ASPIRIN 81 MG ENTERIC TABLET PO (09:51)
[2025-01-11] MEDS: ROSUVASTATIN 10 MG TABLET PO (09:51)
[2025-01-11] MEDS: FINASTERIDE 5 MG TABLET BY MOUTH (09:52)
[2025-01-11] MEDS: ALPRAZolam (*CRX) 0.5 MG TABLET 1.5 MG PO (09:56)
--- NOTE | 2025-01-11 10:19 | P.PNCA_ITS ---
Progress Note: A&P Assessment and Plan (1) H/O aortic valve replacement: Code(s): Z95.2 - Presence of prosthetic heart valve Status: Acute (2) CHF exacerbation: Qualifiers: Heart failure type: unspecified Qualified Code(s): I50.9 - Heart failure, unspecified Code(s): I50.9 - Heart failure, unspecified Status: Acute Plan 69-year-old man with previous aortic valve replacement presenting with heart failure with reduced ejection fraction. Patient is on appropriate medical therapy and is now euvolemic and well compensated. From my perspective he is stable enough for discharge. He follows in the office with my partner, Dr. Chamorro. Will ensure that he has timely office follow-up scheduled. Parveen Stockton MD [facility] Subjective Date/time seen: Date of service: 01/11/25 10:19 Interval history: Follow-up visit in this 69-year-old man with: Previous aortic valve replacement in the remote past presents with decompensated CHF with moderate systolic heart failure. Guideline directed medical therapy has been instituted and he is feeling much better he believes his breathing is at baseline. Hoping to be discharged. Exam Const: General: comfortable and no acute distress Other: Well-developed well-nourished white male appearing his stated age no distress of any kind at this time HENMT: Mouth: Yes moist mucous membranes Eyes: Sclera: sclerae normal Neck: Neck: supple and no JVD Resp: Effort & Inspection: normal respiratory effort Auscultation: clear to auscultation bilaterally Cardio: Rate: regular rate Rhythm: regular rhythm Other: Grade 2/6 systolic ejection murmur at the left sternal border without radiation GI: GI Palp: Yes Soft to palpation Auscultation: normal bowel sounds Skin: General skin exam: normal color Neuro: Other: Alert and oriented x3 Extrem: Other: Good perfusion, no edema Objective Data Vital Signs Vital Signs: Vital Signs - 24 hr 01/10/25 12:00 01/10/25 13:05 01/10/25 13:10 Temperature Pulse Rate 81 79 Respiratory Rate Blood Pressure 98/38 L 98/38 L Pulse Oximetry 99 Oxygen Delivery 01/10/25 13:55 01/10/25 16:00 01/10/25 17:58 Temperature 35.6 C L Pulse Rate 75 89 Respiratory Rate 16 Blood Pressure 98/38 L 116/38 L Pulse Oximetry 99 Oxygen Delivery 01/10/25 20:00 01/10/25 20:00 01/10/25 20:51 Temperature Pulse Rate 87 88 Respiratory Rate Blood Pressure Pulse Oximetry Oxygen Delivery Room Air 01/10/25 21:01 01/11/25 00:00 01/11/25 04:00 Temperature 36.9 C Pulse Rate 82 77 71 Respiratory Rate 16 Blood Pressure 115/51 L Pulse Oximetry 97 Oxygen Delivery 01/11/25 05:22 Temperature 36.2 C L Pulse Rate 79 Respiratory Rate 16 Blood Pressure 114/50 L Pulse Oximetry 97 Oxygen Delivery Intake/Output Intake/Output: Intake & Output 01/08/25 01/09/25 01/10/25 01/11/25 23:59 23:59 23:59 23:59 Intake Total 2320 2292 1530 490 Output Total 2625 2600 2250 600 Balance -305 -308 -720 -110 Meds/Results Medications: Active Medications Generic Name Dose Route Start Last Admin Trade Name Freq PRN Reason Stop Dose Admin Hydrocodone Bitart/Acetaminophen 1 tab 01/03/25 01:14 01/10/25 20:42 Hydrocodone/Acetaminophen (*Crx) 10-325 Mg Tablet PO 1 tab Q6H PRN Administration pain Albuterol 1 puff 01/03/25 01:14 01/04/25 21:13 Albuterol Sulfate (*Sp) Aerosol 1 Puff INHALATION 1 puff Q4HRT PRN Administration shortness of breath or wheezing Albuterol/Ipratropium 3 ml 01/05/25 11:56 01/05/25 20:44 Ipratropium 0.5 Mg/Albuterol Sulfate 2.5 Mg Ampul.Neb 3 Ml INHALATION 3 ml Q6HRT PRN Administration Shortness Of Breath Alprazolam 1.5 mg 01/03/25 01:14 01/11/25 09:56 Alprazolam (*Crx) 0.5 Mg Tablet PO 1.5 mg TID PRN Administration anxiety Aspirin 81 mg 01/03/25 09:00 01/11/25 09:51 Aspirin 81 Mg Enteric Tablet PO 81 mg QAM LISBET Administration Azelastine HCl 1 spray 01/03/25 21:00 01/10/25 20:42 Azelastine Hcl Nasal 0.1% 137 Mcg/Spr 30 Ml Btl NASAL 1 spray QHS LISBET Administration Carvedilol 12.5 mg 01/11/25 10:10 Carvedilol 12.5 Mg Tablet PO Q12HR LISBET Empagliflozin 10 mg 01/06/25 09:00 01/11/25 09:51 Empagliflozin 10 Mg Tablet PO 10 mg DAILY LISBET Administration Finasteride 5 mg 01/03/25 09:00 01/11/25 09:52 Finasteride 5 Mg Tablet BY MOUTH 5 mg DAILY LISBET Administration Furosemide 20 mg 01/11/25 10:10 Furosemide 20 Mg Tablet PO DAILY LISBET Nitroglycerin 0.4 mg 01/03/25 11:29 Nitroglycerin Sl 0.4 Mg Tablet SUBLINGUAL Q5MIN PRN Chest Pain Rosuvastatin Calcium 10 mg 01/03/25 09:00 01/11/25 09:51 Rosuvastatin 10 Mg Tablet PO 10 mg DAILY LISBET Administration Sacubitril/Valsartan 1 tab 01/10/25 10:00 01/11/25 09:51 Sacubitril/Valsartan 24-26 Mg Tablet PO 1 tab Q12HR LISBET Administration Sodium Chloride 1 spray 01/08/25 10:07 01/09/25 15:10 Saline 0.65% Héctor Soln 44 Ml Btl NASAL 1 spray Q6HR PRN Administration Congestion Tamsulosin HCl 0.8 mg 01/03/25 09:00 01/11/25 09:51 Tamsulosin Hcl 0.4 Mg Capsule BY MOUTH 0.8 mg DAILY LISBET Administration Trazodone HCl 50 - 100 mg 01/03/25 11:29 01/06/25 00:06 Trazodone Hcl 50 Mg Tablet PO 50 mg HS PRN Administration Insomnia Vitamin D 25 mcg 01/03/25 09:00 01/11/25 09:51 Cholecalciferol (Vitamin D3) 25 Mcg (1,000 Units) Tablet PO 25 mcg DAILY LISBET Administration Radiology Results: ITS Impressions Chest CTA 01/02/25 17:57 IMPRESSION: No pulmonary embolus. No thoracic aortic dissection. Large right and small left-sided pleural effusions with adjacent compressive atelectasis. Pulmonary edema within the visualized compressed lung carter. Chest X-Ray 01/07/25 12:29 IMPRESSION: 1. Persistent small bilateral pleural effusions with associated bibasilar atelectasis and/or pneumonia. 2. Cardiomegaly. Labs Labs: Laboratory Results - last 24 hr 01/10/25 01/10/25 01/10/25 11:05 16:36 19:20 WBC RBC Hgb Hct MCV MCH MCHC RDW Plt Count MPV Sodium Potassium Chloride Carbon Dioxide Anion Gap BUN Creatinine Estim Creat Clear Calc Estimated GFR Glucose POC Capillary Glucose 184 H 113 H 122 H Calcium Magnesium 01/11/25 01/11/25 05:09 07:58 WBC 7.5 RBC 5.35 Hgb 14.2 Hct 44.6 MCV 83.4 MCH 26.5 MCHC 31.8 L RDW 17.2 H Plt Count 205 MPV 10.3 Sodium 133 L Potassium 4.2 Chloride 98 Carbon Dioxide 30 Anion Gap 5 BUN 44 H Creatinine 1.38 H Estim Creat Clear Calc 51 Estimated GFR 51 L Glucose 84 POC Capillary Glucose 107 H Calcium 8.5 Magnesium 2.5 H
[2025-01-11] MEDS: FUROSEMIDE 20 MG TABLET PO (10:25)
--- NOTE | 2025-01-11 10:56 | PCNWS ---
Weekly nutritional screen. Patient is tolerating current Heart healthy diet with adequate intake, 75-100%. No weight loss reported. No nutritional needs at this time.
[2025-01-11] MEDS: HYDROcodone/acetaminophen (*CRX) 10-325 MG TABLET 1 TAB PO (12:34)
--- NOTE | 2025-01-11 12:40 | P.DS_ITS ---
DS: Admitting Diagnosis Discharge Date 01/11/2025 Admitting Diagnosis Shortness of breath DS: Discharge Diagnosis Discharge Diagnosis (1) Acute systolic heart failure: Code(s): I50.21 - Acute systolic (congestive) heart failure Status: Acute DS: Summary Hospital Course Hospital Course: 69-year-old male with an extensive medical history including DJD, bilateral hip and knee replacements, lumbosacral spinal stenosis insomnia, depression, anxiety, ADD, history of aortic valve replacement, ksu-mzgbobx-oshghjubf diabetes mellitus, hypertension, presents with shortness of breath for about 3-4 months. Patient is only a fair historian, reports 3-4 months he has had shortness of breath and was prescribed antibiotics for suspected pneumonia over the phone. He has also had a 40 lb weight loss in the past 6 months. Concurrently he has had lower extremity edema. He says he has a poor appetite, unable to detail the characteristics of his stool. Denies fever, chest pain, nausea or vomiting or diarrhea. He is hypertensive on arrival with blood pressure 191/63 improving to 140/46. He was placed on 2 L nasal cannula for hypoxia. INR 1.3, sodium 134, BUN 39, serum creatinine 1.24, troponin 0.065 then 0.063, BNP 27888, quad viral screen negative. CTA chest PE protocol negative for PE, no thoracic aortic dissection, large right and small left-sided pleural effusions with atelectasis and interstitial edema in the remaining lung carter. He was given Lasix 40 mg IV x1. ----- Transthoracic echocardiogram was completed on 01/04/2025: Summary 1. Definity contrast administered improved wall motion interpretation. 2. Left ventricular chamber dimension is moderately enlarged. 3. Left ventricular systolic function is moderately globally reduced, estimated at 35-40. 4. There is moderate concentric increased left ventricular wall thickness. 5. The left ventricular diastolic function is indeterminate. 6. Tissue doppler E/e' not measured. 7. Right ventricular chamber dimension is mildly enlarged. 8. Right ventricular systolic function is at least moderately reduced with abnormal TAPSE 0.9 cm. 9. Left atrial chamber dimension is moderately enlarged. 10. Right atrial chamber dimension is mildly enlarged. 11. The aortic valve is not well visualized. Cannot determine number of aortic valve leaflets. 12. There is severe aortic valve sclerosis. 13. There is moderate aortic valve stenosis based on a peak velocity of 307 cm/s, mean gradient of 18 mmHg, and aortic valve area of 1.1 cm2. 14. There is moderate aortic valve regurgitation. 15. The mitral valve has moderately calcified leaflets and a severely calcified annulus. 16. There is mild to moderate mitral valve regurgitation. 17. There is moderate to severe tricuspid valve regurgitation. 18. Severe pulmonary hypertension, estimated pulmonary arterial systolic pressure is 70 mmHg. 19. There is mild pulmonic regurgitation. 20. Dilated inferior vena cava with >50% collapse upon inspiration consistent with elevated right atrial pressure, 10 mmHg. Cardiology was consulted. The patient was initiated on guideline directed medical therapy. His acute decompensation has resolved, he has no lower extremity edema, he has clear lungs and breathes normally on room air. He is discharged in stable condition to home on 01/11/2025 with follow-up with Dr. Chamorro. He is discharged on baby aspirin, Crestor 10 mg, Jardiance 10 mg, Entresto 1 tab p.o. b.i.d., carvedilol 12.5 mg p.o. b.i.d., Lasix 20 mg p.o. q.day. he is advised to continue checking his blood sugars. Adverse effects, risks versus benefits of medication discussed to which the patient verbalizes his understanding and is in agreement. Patient was full code during the admission. Time Spent with Patient Time attestation: Total time spent providing and/or coordinating discharge services: DS: Data Data Completed and Pending Labs on day of discharge: Labs from last 24 hours 01/11/25 01/11/25 01/11/25 11:11 07:58 05:09 WBC 7.5 RBC 5.35 Hgb 14.2 Hct 44.6 MCV 83.4 MCH 26.5 MCHC 31.8 L RDW 17.2 H Plt Count 205 MPV 10.3 Sodium 133 L Potassium 4.2 Chloride 98 Carbon Dioxide 30 Anion Gap 5 BUN 44 H Creatinine 1.38 H Estim Creat Clear Calc 51 Estimated GFR 51 L Glucose 84 POC Capillary Glucose 166 H 107 H Calcium 8.5 Magnesium 2.5 H 01/10/25 01/10/25 19:20 16:36 WBC RBC Hgb Hct MCV MCH MCHC RDW Plt Count MPV Sodium Potassium Chloride Carbon Dioxide Anion Gap BUN Creatinine Estim Creat Clear Calc Estimated GFR Glucose POC Capillary Glucose 122 H 113 H Calcium Magnesium Discharge Plan Discharge Attending physician on discharge: Glenna Graham Consulting providers: Juani Alvarez Discharging Clinician: Glenna Graham Patient Disposition: Home Activity: may shower Diet: heart healthy Patient Instructions: Antibiotic Form, Sacubitril/Valsartan (By mouth), Heart Failure (GEN) Patient Language: Ukrainian Stand Alone Forms: General Discharge Information Follow-up/Referrals: Shan Chamorro MD [Physician] - Harry Malagon MD [Primary Care Provider] - Discharge Medications: New carvedilol [Coreg] 12.5 mg Tablet 12.5 mg PO Q12HR Qty: 60 0RF Jardiance 10 mg Tablet 10 mg PO DAILY Qty: 30 0RF furosemide 20 mg Tablet 20 mg PO DAILY Qty: 30 0RF Entresto 24-26 mg Tablet 1 tablet PO Q12HR Qty: 60 0RF tamsulosin 0.4 mg Capsule 0.8 mg BYMOUTH DAILY Qty: 0 0RF Continued cholecalciferol (vitamin D3) 25 mcg (1,000 unit) capsule 25 mcg PO DAILY Patient Comments: + K2 azelastine 205.5 mcg (0.15 %) spray,non-aerosol 1 spray intranasal QHS Qty: 30 1RF Rx Instructions: administer into each nostril (DME) BD Luer-Haley Syringe 3 mL 21 gauge x 1 syringe See Rx Instructions .Route Qty: 50 0RF Rx Instructions: As directed aspirin 81 mg capsule 81 mg PO DAILY 30 Days Qty: 30 0RF albuterol sulfate 90 mcg/actuation HFA aerosol inhaler 1 puff INHALATION Q4H PRN (Reason: shortness of breath or wheezing) Rx Instructions: 1 puff every 4 hours prn (DME) Easy Touch SheathLock Syrg-Ndl 3 mL 21 gauge x 1 1/2 syringe See Rx Instructions .Route Qty: 100 0RF Rx Instructions: As directed trazodone 50 mg tablet See Rx Instructions PO HS PRN (Reason: Insomnia) Qty: 60 0RF Rx Instructions: takes 1-2 tabs orally bedtime PRN; nitroglycerin 0.4 mg tablet, sublingual 0.4 mg SUBLINGUAL Q5-15M PRN (Reason: Chest Pain) Qty: 25 2RF Rx Instructions: do not exceed 3 doses per episode rosuvastatin 10 mg tablet 10 mg PO DAILY Qty: 30 2RF metformin 1,000 mg tablet See Rx Instructions .ROUTE .COMPLEX Qty: 180 1RF Dose Instruction: TAKE 1 TABLET BY MOUTH TWICE A DAY Rx Instructions: TAKE 1 TABLET BY MOUTH TWICE A DAY cyanocobalamin (vitamin B-12) 1,000 mcg/mL solution See Rx Instructions .ROUTE .COMPLEX Qty: 3 1RF Dose Instruction: INJECT 1 ML INTO THE SKIN ONCE A MONTH Rx Instructions: INJECT 1 ML INTO THE SKIN ONCE A MONTH dextroamphetamine-amphetamine 20 mg tablet 20 mg PO BID Qty: 60 0RF hydrocodone-acetaminophen 10-325 mg tablet 1 tablet PO Q6H PRN (Reason: pain) Qty: 90 0RF Rx Instructions: Take 1 tablet by oral route every 6 hours as need for pain. finasteride 5 mg tablet See Rx Instructions .ROUTE .COMPLEX Qty: 90 1RF Dose Instruction: TAKE 1 TABLET BY MOUTH EVERY DAY Rx Instructions: TAKE 1 TABLET BY MOUTH EVERY DAY alprazolam 1 mg tablet 1.5 mg PO TID PRN (Reason: anxiety) Qty: 135 1RF Held testosterone cypionate 200 mg/mL oil 200 mg IM .q 2 weeks Qty: 10 0RF Hold Instructions: You are taking new medications for your heart. Discussed the use of testosterone with your heart doctor at your next clinic visit. Rx Instructions: as a single dose Discontinued sildenafil (pulm.hypertension) 20 mg tablet See Rx Instructions .ROUTE .COMPLEX PRN (Reason: Erectile Dysfunction) Qty: 30 2RF Rx Instructions: TAKE 1 - 5 TABLETS NEEDED 30MIN - 1HR PRIOR TO SEXUAL ACTIVITY amlodipine 5 mg tablet 5 mg PO DAILY tamsulosin 0.4 mg capsule See Rx Instructions .ROUTE .COMPLEX Qty: 180 1RF Dose Instruction: TAKE 2 CAPSULES BY MOUTH EVERY DAY Rx Instructions: TAKE 2 CAPSULES BY MOUTH EVERY DAY clopidogrel 75 mg tablet See Rx Instructions .ROUTE .COMPLEX Qty: 90 0RF Dose Instruction: TAKE 1 TABLET BY MOUTH EVERY DAY Rx Instructions: TAKE 1 TABLET BY MOUTH EVERY DAY hydralazine 100 mg tablet See Rx Instructions .ROUTE .COMPLEX Qty: 270 1RF Dose Instruction: TAKE 1 TABLET BY MOUTH THREE TIMES A DAY Rx Instructions: TAKE 1 TABLET BY MOUTH THREE TIMES A DAY carvedilol 25 mg tablet 25 mg PO Q12H Qty: 180 1RF Rx Instructions: must administer with a meal/food Date of admission: 01/03/25 10:48 Primary Care Provider: Harry Malagon Admitting Provider: Glenna Graham Attending physician on admission: Glenna Graham Condition: Stable
--- NOTE | 2025-01-11 14:15 | PC.NURSE ---
On 01/11/25, the VACUUM TESTER CANS, Amber Gonzalez, provided care and completed [employer] documentation on this patient. I have reviewed the VACUUM TESTER CANS's documentation and agree with the findings.
== END 2025-01-11 14:15 | disposition home or self-care (01) | DRG 280 ==
LOC: ANHED 17:07 → ANHIMU 20:14 → ANH2MED 01-03 14:56 → ANHIMU 01-03 15:04 → ANH3MEDSUR 01-07 06:46
PROVIDERS: Family Medicine; Internal Medicine; Registered Nurse; Admitting Provider General Practice; Emergency Provider Physician Assistant; PCP Internal Medicine; Visit Provider General Practice
DX: I13.0 Hypertensive heart and chronic kidney disease with heart failure and stage 1 through stage 4 chronic kidney disease, or unspecified chronic kidney disease (principal); I50.23 Acute on chronic systolic (congestive) heart failure; I21.A1 Myocardial infarction type 2; J96.01 Acute respiratory failure with hypoxia; N17.9 Acute kidney failure, unspecified; I25.10 Atherosclerotic heart disease of native coronary artery without angina pectoris; I27.20 Pulmonary hypertension, unspecified; I44.7 Left bundle-branch block, unspecified; N18.30 Chronic kidney disease, stage 3 unspecified; J44.9 Chronic obstructive pulmonary disease, unspecified; E78.5 Hyperlipidemia, unspecified; E53.8 Deficiency of other specified B group vitamins; E55.9 Vitamin D deficiency, unspecified; M48.07 Spinal stenosis, lumbosacral region; M25.552 Pain in left hip; M25.551 Pain in right hip; G89.28 Other chronic postprocedural pain; F98.8 Other specified behavioral and emotional disorders with onset usually occurring in childhood and adolescence; F41.9 Anxiety disorder, unspecified; F32.A Depression, unspecified; F09 Unspecified mental disorder due to known physiological condition; Z20.822 Contact with and (suspected) exposure to COVID-19; Z96.643 Presence of artificial hip joint, bilateral; Z96.653 Presence of artificial knee joint, bilateral; Z95.2 Presence of prosthetic heart valve; Z79.82 Long term (current) use of aspirin; Z79.02 Long term (current) use of antithrombotics/antiplatelets; E11.22 Type 2 diabetes mellitus with diabetic chronic kidney disease
CPT/HCPCS: 36415; 71045; 71275; 80048; 80053; 80307; 81001; 82948; 83605; 83735; 83880; 84484; 85025; 85027; 85380; 85610; 85730; 87637; 93005; 94640; 96374; 97110; 97116; 97161; 97165; 97530; 99291; A9270; C8929; G0378; J1938; Q9957; Q9967

== ENCOUNTER 2025-01-19 13:57 | Outpatient (CLI) | payer MEDICARE, SELFPAY ==
--- NOTE | ~2025-01-19 | XR_ITS ---
EXAMINATION: XR chest 2V Exam Date/Time: 01/19/2025 14:15 CDT HISTORY: Heart Failure with reduced ejection Comparison: 01/07/2025, 11/15/2024; CTPA 01/02/2025. RESULT: Lines, tubes, and devices: ACDF hardware. Intact sternotomy wires. Lungs and pleura: Clear. Cardiomediastinal silhouette: Stable. Other: No acute osseous or upper abdominal finding. IMPRESSION: No acute cardiopulmonary process. Reviewed, dictated and finalized at location K.
--- OUTSIDE RECORDS SUMMARY | 2025-01-19 14:03 | XMS_ITS | Encounter Summary ---
Author Organization [facility] Health Address [address] [place] [address] Care Team Providers Care Fermentation Scientist Name Role Phone Harry Malagon MD Primary Care Provider [phone] Harry Malagon MD Primary Care Provider [phone] Harry Malagon MD Unavailable [phone] Sarita Fuller RN Unavailable [phone] Kristel GonzalezW Unavailable [phone] Encounter Details Date Type Department Care Team (Late st Contact Info) Description 11/20/2014 [facility] Outpatient Visit [facility] Orthopedics [address] [place] [address] Rony Ibanez F, DO [address] [place] [address] Social History Tobacco Use Types [...] of Assessment Author No 11/15/2014 8:00 PM lEla Locke RN * Does person have difficulty [...] on filedocumented in this encounter Care Teams Fermentation Scientist Relationship Specialty Start Date End Date Harry Malagon MD [address] [place] [address] PCP - General Internal Medicine 09/14/14 01/06/21 Harry Malagon MD [address] [id number] PCP - General 01/07/21 Harry Malagon MD [address] [place] [address] Internal Medicine 01/07/21 Sarita Fuller RN Sheep Killer 11/15/14 Kristel Gonzalez, [facility] Automation And Controls Manager 11/17/14 documented as of this encounter
--- OUTSIDE RECORDS SUMMARY | 2025-01-19 14:03 | XMS_ITS | Clinical Summary ---
Author Organization [facility] Address [address] [facility] [place] [address] Care Team Providers Care Ticket Taker Name Role Phone Haryr Malagon MD Primary Care Provider [phone] Harry Malagon MD Unavailable [phone] Sarita Fuller RN Unavailable [phone] Kristel GonzalezW Unavailable [phone] Source Comments [facility],non-owned Affiliates and Associated Physician Practices is amultiple site organization consisting of ambulatory clinics and hospital sitesin [place], [place], [place] and [place]. This disclosure is being madepursuant to the Care Everywhere program and may not contain all information available regarding this patient. Last updated 18.[facility] Allergies Active Allergy Reactions Criticality Noted Date [...] 12/02/19 15 Active vitamin D, ergocalciferol, (DRISDOL) 70303 UNITS capsule Take 1 Cap by mouth [...] this topic Medical Devices Implanted Type Area Carroting Machine Offbearer Device Identifier Shelf Expiration Date Model / Serial / Lot Cortes Bone Indian Head-G Hv 40/20 Implanted:Qty: 4 on 11/15/2014 by Rony Ibanez, DO at [facility] Left: [employer] 11/07/2015 [id number] / / [id number] Cortes Bone Indian Head-G Hv 40/20 Implanted:Qty: 1 on 11/15/2014 by Rony Ibanez, DO at [facility] Left: Hip [employer] 05/08/2016 [id number] / / [id number] Cbl Accord Troch W/Clmp 2.0mm Implanted:Qty: 1 on 11/15/2014 by Rony Ibanez, DO at [facility] Left: Hip [employer] 11/06/2025 [id number] / / [id number] Cbl Accord Troch W/Clmp 2.0mm Implanted:Qty: 1 on 11/15/2014 by Rony Ibanez, DO at [facility] Left: Hip [employer] 03/08/2024 [id number] / / [id number] Cbl Accord Troch W/Clmp 2.0mm Implanted:Qty: 1 on 11/15/2014 by Rony Ibanez, DO at [facility] Left: Hip [employer] 07/09/2021 [id number] / / [id number] Cbl Accord Troch W/Clmp 2.0mm Implanted:Qty: 1 on 11/15/2014 by Rony Ibanez DO at [facility] Left: Hip [employer] 02/07/2024 [id number] / / [id number] Cbl Accord Ss W/Clmp 2.0mm Implanted:Qty: 1 on 11/15/2014 by Rony Ibanez DO at [facility] Left: Hip [employer] 01/07/2024 [id number] / / [id number] Explanted Type Area Carroting Machine Offbearer Device Identifier Shelf Expiration Date Model / Serial / Lot Cbl Accord Troch Featheredger And Reducer Machine Std 125mm Explanted:Qty: 1 on 11/15/2014 at [facility] Left: Hip [employer] 07/09/2020 [id number] / / [id number] Insurance MANAGED MEDICARE ADV MANAGED MEDICARE ADV Advance Directives * Full Code (Latest Code Status on File) Date Activated Date Inactivated Comments 11/19/2014 11:47 AM 12/01/2014 7:05 PM Care Teams Ticket Taker Relationship Specialty Start Date End Date Harry Malagon MD [address] [facility] [address] [place] [address] PCP - General 01/07/21 Harry Malagon MD [address] [place] [address] Internal Medicine 01/07/21 Sarita Fuller, RN Cardiovascular Specialist 11/15/14 Kristel Gonzalez, TELECOMMUNICATIONS FIELD TECHNICIAN Field Supervisor 11/17/14
--- OUTSIDE RECORDS SUMMARY | 2025-01-19 14:03 | XMS_ITS | Clinical Summary ---
Author Organization [facility] Address [address] [facility] Attn: Epic Prelude ADT ELLIE AVALOS MARYAN [address] Care Team Providers Care Roofer Vinyl Coating Name Role Phone Unavailable Primary Care Provider Unavailabl e Social History Tobacco Use Types Packs/Day Years Used Date Smoking Tobacco: Never Assessed Sex and Gender Information Value Date Recorded Sex Assigned at Not on file Legal Sex Male 2:58 AM FINGERPRINT TECHNICIAN Gender Identity Not on file Sexual [...]
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
--- OUTSIDE RECORDS SUMMARY | 2025-01-19 14:03 | XMS_ITS | Encounter Summary ---
Author Organization [facility] Health Address [address] [facility] [place] [address] Care Team Providers Care Merchandise Associate Name Role Phone Harry Malagon MD Primary Care Provider [phone] Harry Malagon MD Primary Care Provider Harry Malagon MD Unavailable [phone] Sarita Fuller RN Unavailable [phone] Kristel Gonzalez LCSW Unavailable [phone] Encounter Details Date Type Department Care Team (Late st Contact Info) Description 10/20/2014 [facility] Outpatient Visit [facility] Orthopedics [address] [place] [address] Rony Ibanez F, DO [address] [place] [address] Social History Tobacco Use Types [...] on filedocumented in this encounter Care Teams Merchandise Associate Relationship Specialty Start Date End Date Harry Malagon MD [address] [place] [address] PCP - General Internal Medicine 09/14/14 01/06/21 Harry Malagon MD [address] [place] [address] PCP - General 01/07/21 Harry Malagon MD [address] [place] [address] Internal Medicine 01/07/21 Sarita Fuller, RN Laboratory Immunologist 11/15/14 Kristel Gonzalez, [facility] Seeing Eye Dog Teacher 11/17/14 documented as of this encounter
--- OUTSIDE RECORDS SUMMARY | 2025-01-19 14:03 | XMS_ITS | Encounter Summary ---
Author Organization [facility] Health Address [address] [place] [address] Care Team Providers Care Pile Fabric Knitter Name Role Phone Harry Malagon MD Primary Care Provider [phone] Harry Malagon MD Primary Care Provider [phone] Harry Malagon MD Unavailable [phone] Sarita Fuller RN Unavailable [phone] Kristel Gonzalez LCSW Unavailable [phone] Encounter Details Date Type Department Care Team (Late st Contact Info) Description 10/20/2014 [facility] Outpatient Visit [facility] Orthopedics [address] [place] [address] Rony Ibanez F, DO [address] [place] [address] Social History Tobacco Use Types [...] on filedocumented in this encounter Care Teams Pile Fabric Knitter Relationship Specialty Start Date End Date Harry Malagon MD [address] [place] [address] PCP - General Internal Medicine 09/14/14 01/06/21 Harry Malagon MD [address] [place] [address] PCP - General 01/07/21 Harry Malagon MD [address] [place] [id number] Internal Medicine 01/07/21 Sarita Fuller, RN E Business Consultant 11/15/14 Kristel Gonzalez, [facility] Legal Practice Manager 11/17/14 documented as of this encounter
--- OUTSIDE RECORDS SUMMARY | 2025-01-19 14:04 | XMS_ITS | Patient Health Record ---
Author Organization [facility] Address [address] [facility] [address] [place] [address] Care Team Providers Care Creative Services Director Name Role Phone Slick Mcgrath Unavailable [phone] Reason For Referral No Information Plan Of Treatment No Information Insurance Providers Payer Name Payer Address Payer Phone Subscriber Number Group Number Insured Name Patient Relationship to Insured Coverage Start Date Coverage End Date Medicare-I l Medicare [address] [place] [phone] [id number] PAYAL GREEN Self - patient is the insured
--- OUTSIDE RECORDS SUMMARY | 2025-01-19 14:04 | XMS_ITS | Encounter Summary ---
Author Organization [facility] Healthcare Address [address] [place] [address] Care Team Providers Care Lawn Care Worker Name Role Phone Harry Malagon MD Primary Care Provider [phone] Reason for Referral * Cardiology (Routine) - Pending Review Specialty Diagnoses / Procedures Referred By Deborah t Referred To Contact Diagnoses Heart failure with reduced ejection fraction Procedures Transthoracic Echo (TTE) Limited/Followup Charley Ramirez NP [address] [address] Phone: tel: fax: Referral ID Status Reason Start Date Expiration Date V isits Requested Visits Authorized [id number] Pending Review 01/19/2025 02/18/2026 1 1 Reason for Visit * Reason Comments Follow-up 10 mo Encounter Details Date Type Department Care Team (Late st Contact Info) Description 01/19/2025 1:00 PM CDT Office Visit [facility] Cardiology [address] [place] [id number] Charley Ramirez NP [address] [facility] [address] [id number] Heart failure with reduced ejection fraction (Primary Dx); Unintended weight loss; Status post aortic valve replacement with bioprosthetic valve; Aortic root enlargement; Hospital discharge follow-up Social History Tobacco Use Types Packs/Day Years [...] on file Legal Sex Male 2:00 AM [employer] Gender Identity Not on file Sexual Orientation Not on file documented as of this encounter Last Filed Vital Signs Vital Sign Reading Time Taken Comments Blood Pressure 118/42 01/19/2025 1:03 PM CDT Pulse 89 01/19/2025 1:03 PM CDT Temperature - - Respiratory Rate - - Oxygen Saturation 98% 01/19/2025 1:03 PM CDT Inhaled Oxygen Concentration - - Weight 74.8 kg (165 lb) 01/19/2025 1:03 PM CDT Height 182.9 cm (6') 01/19/2025 1:03 PM CDT Body Mass Index 22.38 01/19/2025 1:03 PM CDT documented in this encounter Patient Instructions * Patient Instructions* Charley Ramirez NP - 01/19/2025 1:00 PM CDT Weigh yourself every morning after you urinate. Record your weights. Call us with weight gain of 3 or more pounds in 1 day, and/or 5 or more pounds in 1 week. There are changes that could mean you are having congestive heart failure. Usually someone experiences 2 or more of the following changes: 1. Shortness of breath (usually occurs with activity, with laying flat, and/or wakes you from sleep) 2. Swelling (usually in feet, ankles, legs, abdomen, or overall rapid weight gain) 3. Persistent coughing or wheezing (sometimes with white or pink mucus) 4. Feeling more tired or fatigued with routine activities 5. Poor appetite, feeling full or bloated, or nauseated documented in this encounter Progress Notes * Charley Ramirez NP - 01/19/2025 1:00 PM CDT Images from the original note were not included. [facility] Cardiology [address] [place] [address] Date of Visit: 01/19/2025 Patient ID: Brian Bland [id number] Chief Complaint Patient presents with Follow-up 10 mo Brian Bland is a 69 y.o. male who has an established patient of Dr. Chamorro with a history of bioprosthetic aortic valve returning to the office for hospital follow-up after being treated for CHF. History of Present Illness: Brian Bland is a 69 y.o. male with past medical history of bioprosthetic aortic valve at [facility] 2012, attention deficit disorder, depression, chronic low back pain who is here for evaluation for chest pain occasional palpitations. [facility] with intermittent left-sided weakness and confusion episodes for 6 months as well asurinary incontinence, blurry vision, ataxia. 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 Neurology was consulted with suspected TIAs versus multiple sclerosis. 03/16/[address] Chamorro: Sometimes complains of dull chest pain that is relieved by nitroglycerin and sometimes he gets sharp pains with no aggravating or relieving factors. Occasionalpalpitations. He states that he is under a lot of stress. Complains of muscle aches and cramps whenhe takes Crestor 20 mg. Patient also complains of shortness of breath and bad shoulder pain. He is going through divorce. Denies tobacco abuse or alcohol use. 09/14/2023 office visit with [employer] APPRENTICE: Since his last office visit he had a stress test, cardiac catheterization, and chest CT. Today he has questions about his left-sided weakness, his muscle mass, musclecramps, hydration, taking testosterone supplement, neuropathy. 03/14/2024-returns for follow-up appointment. Had knee surgery recently. Denies chest pain, shortness of breath, dizziness, syncope, lower extremity edema. 01/19/2025 hospital follow-up visit with [employer] APPRENTICE: he presented to [facility] on 01/03/2025 with complaint of shortness of breath that had been present over the past 3-4 months. [place] [address] showed a large right and small left-sided pleural effusions, interstitial edema in the lung carter. Echocardiogram showed moderately enlarged LV chamber with reduced LV systolic function, EF 35-40%, indeterminate diastolic function, mild RV enlargement with moderate we reduced RV systolic dysfunction, YEMI, DOMINIC 1.1 cm2, mean gradient 18 mmHg, peak velocity 307 cm/seconds, moderate AI, trrx-ms-rhbmbnwy MR, moderate to severe TR with PASP 70 mmHg. He was started on GDMT Jardiance, Entresto, carvedilol, furosemide. Was discharged on 01/11/2025. He returns today for follow-up accompanied by his sister. He feels very tired and has no energy. Heis still short of breath although the shortness of breath has improved compared to how he felt whenhe was hospitalized. He is concerned about his weight loss. His appetite is poor and he also suspects feeling some depression. He was going to plan a low back operation under pain management Dr. Lai,but understands this should now be delayed. He asked about his TAA. Medical History: Past Medical History: Diagnosis Date Angina pectoris Attention deficit Hyperlipidemia Hypertension TIA (transient ischemic attack) Past Surgical History: Procedure Laterality Date AORTIC VALVE REPLACEMENT CERVICAL FUSION CERVICAL SPINE SURGERY x3 IR PICC LINE PLACEMENT > 5 YEARS N/A 11/17/2014 MULTIPLE TOOTH EXTRACTIONS REPLACEMENT TOTAL KNEE Bilateral SPINE SURGERY X3 TOTAL HIP ARTHROPLASTY Bilateral xs2 Social History Tobacco Use Smoking Status Never Passive exposure: Never Smokeless Tobacco Never Social History Tobacco Use Smoking status: Never Passive exposure: Never Smokeless tobacco: Never Substance and Sexual Activity Drug use: Never Sexual activity: Defer Alcohol Use: Not on file Family History Problem Relation Age of Onset Diabetes Mother Review of Systems Constitutional: Positive for decreased appetite, malaise/fatigue and weight loss. Negative for weight gain. Cardiovascular: Positive for dyspnea on exertion. Negative for chest pain, leg swelling, near-syncope, orthopnea, palpitations, paroxysmal nocturnal dyspnea and syncope. Respiratory: Negative for cough and sleep disturbances due to breathing. Vital Signs: BP (!) 118/42 (BP Location: Right arm, Patient Position: Sitting) Pulse 89 Ht 182.9 cm (6') Wt 74.8 kg (165 lb) SpO2 98% BMI 22.38 kg/m?? Physical Exam Constitutional: General: He is not in acute distress. Appearance: He is well-developed. Comments: Appears frail, older than stated age HENT: Head: Normocephalic and atraumatic. Eyes: General: No scleral icterus. Conjunctiva/sclera: Conjunctivae normal. Neck: Vascular: No JVD. Trachea: No tracheal deviation. Cardiovascular: Rate and Rhythm: Normal rate and regular rhythm. Heart sounds: Murmur heard. Holosystolic murmur is present with a grade of 3/6. Pulmonary: Effort: Pulmonary effort is normal. No respiratory distress. Breath sounds: Examination of the left-middle field reveals decreased breath sounds. Examination ofthe left-lower field reveals decreased breath sounds. Decreased breath sounds present. Musculoskeletal: Right lower leg: No edema. Left lower leg: No edema. Comments: Ambulating slowly with a cane Skin: General: Skin is warm and dry. Neurological: Mental Status: He is alert and oriented to person, place, and time. Psychiatric: Mood and Affect: Mood normal. Behavior: Behavior normal. Allergies Allergen Reactions Celecoxib Unknown Avoid per Dr. Luna - impaired renal function Tolmetin Unknown Avoid per Dr. Luna - impaired renal function Current Outpatient Medications: ALPRAZolam (Xanax) 2 mg tablet, 3 (three) times a day as needed, Disp: , Rfl: aspirin 81 mg enteric coated tablet, Take 1 tablet (81 mg total) by mouth nightly, Disp: , Rfl: carvediloL (COREG) 25 mg tablet, , Disp: , Rfl: dextroamphetamine-amphetamine (ADDERALL) 20 mg tablet, TAKE 1 TABLET BY MOUTH TWICE A DAY WITH DOSES AT LEAST 4-6 HOURS APART, Disp: , Rfl: Entresto 24-26 mg tablet, Take 1 tablet by mouth every 12 (twelve) hours, Disp: , Rfl: furosemide (LASIX) 20 mg tablet, Take 1 tablet (20 mg total) by mouth daily, Disp: , Rfl: HYDROcodone-acetaminophen (NORCO) 10-325 mg per tablet, , Disp: , Rfl: Jardiance 10 mg tablet, Take 1 tablet (10 mg total) by mouth daily, Disp: , Rfl: metFORMIN (GLUCOPHAGE) 500 mg tablet, Take 2 tablets (1,000 mg total) by mouth 2 (two) times a day,Disp: , Rfl: nitroglycerin (NITROSTAT) 0.4 mg SL tablet, PLEASE SEE ATTACHED FOR DETAILED DIRECTIONS (Patient taking differently: every 5 (five) minutes as needed), Disp: , Rfl: rosuvastatin (CRESTOR) 10 mg tablet, TAKE 1 TABLET BY MOUTH EVERY DAY, Disp: 90 tablet, Rfl: 3 tamsulosin (Flomax) 0.4 mg extended release capsule, Take 2 capsules (0.8 mg total) by mouth daily,Disp: , Rfl: traZODone (DESYREL) 50 mg tablet, Take 2 tablets (100 mg total) by mouth nightly, Disp: , Rfl: acetaminophen (TYLENOL) 325 mg tablet, Take 650 mg by mouth every 4 hours (Patient not taking: Reported on 01/19/2025), Disp: , Rfl: amoxicillin 500 mg capsule, TAKE 6 CAPSULES 1 HR PRIOR TO DENTAL PROCEDURE AND 2 CAPSULES 6HR AFTERDENTAL PROCEDURE (Patient not taking: Reported on 01/19/2025), Disp: , Rfl: BD Luer-Haley Syringe 3 mL 21 gauge x 1 syringe, USE TO ADMINISTER TESTOSTERONE EVERY 2 WEEKS (Patient not taking: Reported on 09/14/2023), Disp: , Rfl: diclofenac DR (VOLTAREN) 75 mg EC tablet, Take 1 tablet (75 mg total) by mouth 2 (two) times a day (Patient not taking: Reported on 01/19/2025), Disp: , Rfl: finasteride (PROSCAR) 5 mg tablet, Take 1 tablet (5 mg total) by mouth daily (Patient not taking: Reported on 01/19/2025), Disp: , Rfl: sildenafiL, pulm.hypertension, (REVATIO) 20 mg tablet, TAKE 1 5 TABLETS NEEDED 30MIN 1HR PRIOR TO SEXUAL ACTIVITY (Patient not taking: Reported on 01/19/2025), Disp: , Rfl: testosterone cypionate (DEPO-TESTOTERONE) 200 mg/mL injection, Inject 0.25 mL (50 mg total) into the muscle as instructed once every 2 weeks (Patient not taking: Reported on 01/19/2025), Disp: , Rfl: Lab Results Component Value Date POTASSIUM 4.6 07/09/2016 BUNSER 19 04/13/2023 CREATININE 1.06 04/13/2023 CHOL 162 07/03/2016 TRIG 85 07/03/2016 LDL 123 07/03/2016 HDL 22 (L) 07/03/2016 Lab Results Component Value Date WBC 7.2 04/13/2023 HGB 16.3 04/13/2023 HCT 48.4 04/13/2023 MCV 98 (H) 04/13/2023 No results found for this or any previous visit (from the past 4 hours). 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 EKG March 16, 2023 sinus rhythm, anterior fascicular block, intraventricular conduction delay. Echo at [facility] February 10, 2023 ejection fraction 65%, moderate LVH, moderate sclerosisof bioprosthetic valve leaflets. Mild aortic valve regurgitation. No aortic valve stenosis. Severely calcified mitral valve annulus, RVSP 29. LVOT diameter 2 cm, peak aortic valve velocity [address]/seconds, mean aortic valve gradient 15 mm Hg, calculated valve area 1.4 cm2, aortic valve VTI 43, LVOT VTI 19 cm Lexiscan nuclear stress test 04/02/2023: Global left ventricular function is normal. Left ventricular ejection fraction is 55 %. Myocardial perfusion imaging is abnormal for inferior infarction with a mild amount of superimposed ischemia. Negative EKG portion of stress test. Cardiac cath 04/21/2023 CONCLUSIONS No significant CAD. Dilated aortic root. CT of the chest 05/04/2023: Ectasia proximal aorta measuring to 4.6 cm at sinus of Valsalva Echo February 2024.Normal left ventricular systolic function. No focal wall motion abnormalities. Normal left ventricular size. Moderate concentric left ventricular hypertrophy. Impaired diastolic relaxation Grade I. Ejection fraction is measured at 66 %. Global Longitudinal Strain is -11 %. GLS is abnormal. There is mild enlargement of left atrium. Mild aortic stenosis. Mean gradient of 21.0 mmHg. Valve area of 1.8 cm2. No aortic regurgitation. Sinus of Valsalva is dilated. Sinus of Valsalva 4.6 cm. Assessment: Diagnoses and all orders for this visit: Heart failure with reduced ejection fraction (Primary) - CBC with auto differential; Future - Comprehensive metabolic panel; Future - Pro B-type natriuretic peptide; Future - XR Chest Pa Lateral 2 Views; Future - Transthoracic Echo (TTE) Limited/Followup; Future Unintended weight loss Status post aortic valve replacement with bioprosthetic valve Aortic root enlargement Hospital discharge follow-up Plan/Recommendations: He was hospitalized a couple weeks ago in acute systolic congestive heart failure. His LVEF was 35-40%. This was a new diagnosis for him. He was started on GDMT with Jardiance, Entresto, carvedilol and furosemide. He still appears ill and has not seen much symptomatic improvement since he was discharged 8 days ago. Left-sided lung sounds are quite diminished. I am going to repeat some of his testing: Repeat a chest x-ray today along with a BMP, BNP, CBC. With these results I will be able to guide his care more accurately. For now continue current medical regimen and if renal function and potassium are okay, I will add spironolactone. Plan to reassess LV function with a repeat limited echo in late March. I also gave the patient parameters for monitoring his daily weight and when to call us for rapid weight gain. In regards to his concern about weight loss, I encouraged him to use nutritional supplements such as protein drinks with a goal to regain 1-2 lb per week but not be more aggressive than that. Resume physical activity as tolerated but rest when needed. He was offered referral to cardiac rehab but declined. He has a history of bioprosthetic aortic valve. Echocardiogram done in our office February 2024 showed mean gradient across aortic valve 21 mm Hg with valve area 1.8 cm2, sinus of Valsalva 4.6 cm2. Echocardiogram during this recent hospitalization showed a mean gradient of 18 mmHg with valve area 1.1 cm2 and peak velocity 307 cm/sec. Patient asked about his aortic root dilatation (when he had cardiac catheterization in 2022 his aortic root appeared enlarged, then a subsequent chest CT showed a 4.6 cm ectatic aorta at the sinus ofValsalva). I do not see documentation of this is measurement in his recent hospital records. I toldhim I will try to better clarify this after looking at records more completely. We will plan follow-up in the office with Dr. Chamorro after the echo is repeated in late March but will adjust this if indicated based on the patient's clinical course. My total encounter time on 01/19/2025 was 50 minutes which was spent in the activities documented inthe note. This includes time spent prior to the visit and after the visit in direct care of the patient. This time does not include time spent in any separately reportable services. 01/19/2025 JAK Pinzon-ABILIO Nurse Practitioner with [facility] Cardiology This note is dictated and transcribed using [employer] Direct Software. Music Promoter variancesmay occur. Despite proofreading, typographical errors may occur. documented in this encounter Plan of Treatment Scheduled Orders Name Type Priority Associated Diagnoses Order Schedule CBC with auto differential Lab Routine Heart failure with reduced ejection fraction Expected: 01/19/2025 (Approximate), Expires: 04/19/2025 Comprehensive metabolic panel Lab Routine Heart failure with reduced ejection fraction Expected: 01/19/2025 (Approximate), Expires: 04/19/2025 Pro B-type natriuretic peptide Lab Routine Heart failure with reduced ejection fraction Expected: 01/19/2025 (Approximate), Expires: 04/19/2025 XR Chest Pa Lateral 2 Views Imaging Routine Heart failure with reduced ejection fraction Expected: 01/19/2025, Expires: 02/19/2025 Transthoracic Echo (TTE) Limited/Followup Echocardiography Routine Heart failure with reduced ejection fraction Expected: 04/03/2025 (Approximate), Expires: 04/21/2026 documented as of this encounter Visit Diagnoses Diagnosis Heart failure with reduced ejection fraction- Primary Unintended weight loss Status post aortic valve replacement with bioprosthetic valve Aortic root enlargement Hospital discharge follow-up Other follow-up examination documented in this encounter Discontinued Medications Medication Sig Discontinue Reason Start Date End Da te amLODIPine (NORVASC) 10 mg tablet Take 1 tablet (10 mg total) by mouth daily No longer taking - Do not display on AVS 03/14/2024 01/19/2025 clopidogreL (PLAVIX) 75 mg tablet Take 1 tablet (75 mg total) by mouth daily No longer taking - Do not display on AVS 02/19/2023 01/19/2025 hydrALAZINE (APRESOLINE) 25 mg tablet Take 4 tablets (100 mg total) by mouth 3 (three) times a day No longer taking - Do not display on AVS 01/19/2025 documented as of this encounter Historical Medications * This list may reflect changes made after this encounter. furosemide (LASIX) 20 mg tablet Take 1 tablet (20 mg total) by mouth daily 01/11/2025 HYDROcodone-aceta minophen (NORCO) 10-325 mg per tablet 01/16/2025 Entresto 24-26 mg tablet Take 1 tablet by mouth every 12 (twelve) hours 01/11/2025 Jardiance 10 mg tablet Take 1 tablet (10 mg total) by mouth daily 01/11/2025 added in this encounter Care Teams Lawn Care Worker Relationship Specialty Start Date End Date Harry Malagon MD [address] [facility] [address] [facility] [place] [id number] PCP - General 09/26/16 documented as of this encounter
[2025-01-19 14:59] LABS: Hematocrit 47.5 % (42.0-52.0); Hemoglobin 14.7 g/dL (14.0-18.0); Immature Granulocyte Percent A 0.3 % (0-0.5); Lymphocytes Absolute Auto 0.90 K/mm3 (0.9-3.2); Mean Corpuscular HGB Conc 30.9 g/dl (32-36); Mean Corpuscular Hemoglobin 26.5 pg (26-34); Mean Corpuscular Volume 85.6 fl (80-100); Nucleated Red Blood Cells Absolute Auto 0.000 K/mm3 (0.0-0.012); Nucleated Red Blood Cells Perc 0.0 % (0.0-0.2); Platelet Count Result 236 k/mm3 (150-375); Red Blood Count 5.55 M/mm3 (4.6-6.20); White Blood Count 7.6 K/mm3 (4.5-10.0)
[2025-01-19 15:15] LABS: Alanine Aminotransferase 27 U/L (6-50); Albumin Level 4.2 g/dL (3.5-5.1); Alkaline Phosphatase 68 U/L (38-126); Anion Gap 8 mmol/L (4-12); Aspartate Amino Transferase 29 U/L (17-59); Bilirubin,Total 0.7 mg/dL (0.2-1.3); Blood Urea Nitrogen 33 mg/dL (9-20); Calcium 9.5 mg/dL (8.4-10.2); Carbon Dioxide 28 mmol/L (22-30); Chloride 100 mmol/L (98-107); Estimated Glomerular Filt Rate 48; Glucose 103 mg/dL (65-110); Potassium 5.3 mmol/L (3.4-5.0); Sodium 136 mmol/L (137-145); Total Protein 7.7 g/dL (6.3-8.2)
[2025-01-19 15:23] LABS: NT Pro B Type Natriuretic Pept 10400 pg/mL (19.9-100)
== END 2025-01-19 13:58 | disposition home or self-care (01) ==
PROVIDERS: PCP Internal Medicine; Visit Provider Nurse Practitioner Adult Health
DX: I50.20 Unspecified systolic (congestive) heart failure (principal)
CPT/HCPCS: 36415; 71046; 80053; 83880; 85025

== ENCOUNTER 2025-02-17 12:21 | Outpatient (CLI) | payer MEDICARE, SELFPAY ==
--- OUTSIDE RECORDS SUMMARY | 2025-02-17 13:13 | XMS_ITS | Patient Health Record ---
Author Organization [facility] Address [address] [facility] [address] [place] [address] Care Team Providers Care Parking Lot Attendant Name Role Phone Slick Mcgrath Unavailable [phone] Reason For Referral No Information Plan Of Treatment No Information Insurance Providers Payer Name Payer Address Payer Phone Subscriber Number Group Number Insured Name Patient Relationship to Insured Coverage Start Date Coverage End Date Medicare-I l Medicare [address] [place] [phone] [id number] PAYAL GREEN Self - patient is the insured
== END 2025-02-17 12:22 | disposition home or self-care (01) ==
LOC: ANHLAB 12:22
PROVIDERS: PCP Internal Medicine; Visit Provider Internal Medicine Cardiovascular Disease
DX: I38 Endocarditis, valve unspecified (principal)
CPT/HCPCS: 87040

== ENCOUNTER 2025-03-13 15:25 | Outpatient (CLI) | payer MEDICARE, SELFPAY ==
--- OUTSIDE RECORDS SUMMARY | 2025-03-13 15:56 | XMS_ITS | Patient Health Record ---
Author Organization [facility] Address [address] [facility] [address] [place] [address] Care Team Providers Care Tile Setter Supervisor Name Role Phone Slick Mcgrath Unavailable [phone] Reason For Referral No Information Plan Of Treatment No Information Insurance Providers Payer Name Payer Address Payer Phone Subscriber Number Group Number Insured Name Patient Relationship to Insured Coverage Start Date Coverage End Date Medicare-I l Medicare [address] [place] [phone] [id number] PAYAL GREEN Self - patient is the insured
--- OUTSIDE RECORDS SUMMARY | 2025-03-13 15:56 | XMS_ITS | Clinical Summary ---
Author Organization [facility] Address [address] [place] [address] Phone Care Team Providers Care Cyberathlete Name Role Phone Harry Malagon MD Primary Care Provider [phone] Allergies Active Allergy Reactions Criticality Noted Date Comments Celecoxib Unknown 11/18/[address] Luna - impaired renal function Tolmetin Unknown 11/18/[address] Luna - impaired renal function Medications ALPRAZolam (Xanax) 2 mg tablet 3 (three) times a day as needed Active carvediloL (COREG) 25 mg tablet Active tamsulosin (Flomax) 0.4 mg extended release capsule Take 2 capsules (0.8 mg total) by mouth daily 5 Active aspirin 81 mg enteric coated tablet Take 1 tablet (81 mg total) by mouth nightly Active metFORMIN (GLUCOPHAGE) 500 mg tablet Take 2 tablets (1,000 mg total) by mouth 2 (two) times a day 0 Active nitroglycerin (NITROSTAT) 0.4 mg SL tablet PLEASE SEE ATTACHED FOR DETAILED DIRECTIONS 0 Active BD Luer-Haley Syringe 3 mL 21 gauge x 1 syringe USE TO ADMINISTER TESTOSTERONE EVERY 2 WEEKS 1 Active finasteride (PROSCAR) 5 mg tablet Take 1 tablet (5 mg total) by mouth daily Active dextroamphetam ine-amphetamin e (ADDERALL) 20 mg tablet TAKE 1 TABLET BY MOUTH TWICE A DAY WITH DOSES AT LEAST 4-6 HOURS APART 4 Active rosuvastatin (CRESTOR) 10 mg tabletIndicati ons:History of CVA (cerebrovascul ar accident),Dysl ipidemia TAKE 1 TABLET BY MOUTH EVERY DAY 90 tablet 3 4 Active Jardiance 10 mg tablet Take 1 tablet (10 mg total) by mouth daily 5 Active Entresto 24-26 mg tablet Take 1 tablet by mouth every 12 (twelve) hours 5 Active HYDROcodone-ac etaminophen (NORCO) 10-325 mg per tablet 5 Active furosemide (LASIX) 20 mg tablet Take 1 tablet (20 mg total) by mouth daily 5 Active albuterol HFA (PROVENTIL HFA,VENTOLIN HFA,PROAIR HFA) 90 mcg/actuation inhaler INHALE 1 PUFF INTO LUNGS EVERY 4 HOURS NEEDED FOR SHORTNESS OF BREATH OR WHEEZING 5 Active cyanocobalamin (Vitamin B-12) 1,000 mcg tabletIndicati ons:Prevention of Vitamin B12 Deficiency Take 1 tablet (1,000 mcg total) by mouth daily Active testosterone cypionate (DEPO-TESTOTER ONE) 200 mg/mL injection Inject 0.25 mL (50 mg total) into the muscle as instructed once every 2 weeks 025 Discontin ued(Patie nt Reported) traZODone (DESYREL) 50 mg tablet Take 2 tablets (100 mg total) by mouth nightly 0 025 Discontin ued(Thera py completed ) sildenafiL, pulm.hypertens ion, (REVATIO) 20 mg tablet TAKE 1 5 TABLETS NEEDED 30MIN 1HR PRIOR TO SEXUAL ACTIVITY 1 025 Discontin ued(Patie nt Reported) diclofenac DR (VOLTAREN) 75 mg EC tablet Take 1 tablet (75 mg total) by mouth 2 (two) times a day 4 025 Discontin ued(Patie nt Reported) AMPHETAMINE ORAL Take 20 mg by mouth 2 (two) times a day 025 Discontin ued(Alter belén therapy) Active Problems Problem Noted Date Diagnosed Date S/P aortic valve replacement with bioprosthetic valve 03/03/2025 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 03/03/2025 Nonrheumatic aortic valve insufficiency 02/21/20 25 Nonrheumatic mitral valve regurgitation 02/21/20 Essential hypertension 03/14/2024 Aneurysm of ascending aorta [...] Encounters Date Type Department Care Team Description 03/07/2025 10:00 AM CDT - 03/07/2025 12:00 PM CDT Surgery [facility] Cardiac Catheterization Lab [address] [place] [address] Pako Chamorro MD LEFT HEART CATHETERIZATION WITH CORONARY ANGIOGRAPHY AND WITH OR WITHOUT LEFT VENTRICULOGRAM [id number] 03/07/2025 7:55 AM CDT - 03/07/2025 12:42 PM CDT Hospital Encounter [facility] Cardiac Catheterization Lab [address] [place] [address] Pako Chamorro MD S/P aortic valve replacement with bioprosthetic valve; Stenosis of prosthetic aortic valve with regurgitation Discharge Disposition: Discharge to home or self care 03/03/[address] [facility] Medicine Cardiothoracic Surgery [address] [facility] Advanced Medicine 8th Floor [address] Room [address] [address] Codey Olivas MD Status post aortic valve replacement with bioprosthetic valve (Primary Dx); Nonrheumatic aortic valve insufficiency; Follow-up visit for aortic valve replacement with bioprosthetic valve 03/02/2025 Telephone [facility] Cardiothoracic Surgery [address] [facility] 8th Floor [address] Room [address] [place], [place] [phone] Faviola Green MA Scheduling Appointments 03/01/2025 Telephone [facility] Cardiology [address] [place] [address] [address] [place] [address] Pako Chamorro MD 02/28/2025 2:30 PM CDT Office Visit [facility] Cardiothoracic Surgery [facility] 8th Floor [address] Room [address] [place], [place] [phone] Codey Olivas MD Status post aortic valve replacement with bioprosthetic valve (Primary Dx) 02/24/2025 Orders Only [facility] Cardiology [address] [place] [address] [place] [phone] Timmy Harding MD 02/22/2025 Orders Only [facility] Cardiology [address] [place] [address] [address] [place] [address] Jai Huang MD 02/20/2025 2:15 PM CDT Office Visit [facility] Cardiology [address] [place] [address] [address] [place] [address] Pako Chamorro MD Status post aortic valve replacement with bioprosthetic valve (Primary Dx); Aneurysm of ascending aorta without rupture; Essential hypertension; Nonrheumatic aortic valve insufficiency; Dyslipidemia; Nonrheumatic mitral valve regurgitation 02/16/2025 Results Follow-Up [facility] Cardiology [address] [place] [address] [place] [phone] Pako Chamorro MD Transthoracic Echo (TTE) Complete W Doppler/CF 02/14/2025 9:15 AM CDT Ancillary Procedure [facility] Cardiology [address] [place] [address] [address] [place] [address] Severe aortic insufficiency; SOB (shortness of breath) 02/14/2025 Telephone [facility] Cardiology [address] [place] [address] [address] [place] [phone] Pako Chamorro MD 02/09/2025 Telephone [facility] Cardiology [address] [place] [address] [address] [place] [phone] Pako Chamorro MD 02/08/2025 1:30 PM CDT - 02/08/2025 2:00 PM CDT Surgery [facility] GI Lab [address] [place] [address] Nichole Felipe DO TRANSESOPHAGEAL ECHOCARDIOGRAM 02/08/2025 1:19 PM CDT Anesthesia Event [facility] GI Lab [id number] [place] [address] Quita Dangelo MD 02/08/2025 12:20 PM CDT - 02/08/2025 3:25 PM CDT Hospital Encounter [facility] GI Lab [address] [place] [address] Pako Cahmorro MD Status post aortic valve replacement with bioprosthetic valve; Nonrheumatic aortic valve disorder, unspecified Discharge Disposition: Discharge to home or self care 01/24/2025 Telephone [facility] Cardiology [address] [place] [address] [place] [phone] Charley Ramirez NP Heart Problem 01/23/2025 Orders Only [facility] Cardiology at [address] [place] [address] Charley Ramirez NP Heart failure with reduced ejection fraction 01/20/2025 Telephone [facility] Cardiology [address] [place] [address] [place] [phone] Charley Ramirez NP Test Results 01/19/2025 1:00 PM CDT Office Visit [facility] Cardiology [address] [place] [address] [place] [phone] Charley Ramirez NP Heart failure with reduced ejection fraction (Primary Dx); Unintended weight loss; Status post aortic valve replacement with bioprosthetic valve; Aortic root enlargement; Hospital discharge follow-up 01/19/2025 Orders Only [facility] Information [facility] [address] [place] [address] Scanning, Provider 01/12/2025 Orders Only [facility] Medical Group Cardiology [address] [facility] [address] [place] [phone] Parveen Stockton MD 01/09/2025 Orders Only [facility] Medical [facility] Cardiology [address] [facility] [address] [place] [phone] Loretta Valdez NP 01/07/2025 Orders Only [facility] Information Management [address] [place] [address] Scanning, Provider 01/06/2025 Orders Only [facility] Medical Group Cardiology [address] [facility] [address] [place] [phone] Juani Alvarez MD 01/03/2025 Orders Only [facility] Information Management [address] [place] [address] Scanning, Provider from Last 3 Months Surgical History Surgery Date Site/Laterality Comments AORTIC VALVE REPLACEMENT TOTAL HIP ARTHROPLASTY Bilateral xs2 REPLACEMENT TOTAL KNEE Bilateral CERVICAL FUSION MULTIPLE TOOTH EXTRACTIONS SPINE SURGERY X3 CERVICAL SPINE SURGERY x3 IR PICC LINE PLACEMENT > 5 YEARS 11/17/2014 N/A CARDIAC CATHETERIZATION 03/07/2025 N/A Procedure: LEFT HEART CATHETERIZATION WITH CORONARY ANGIOGRAPHY AND WITH OR WITHOUT LEFT VENTRICULOGRAM [id number]; Surgeon: Pako Chamorro MD; Location: CARDIAC [facility]IS SPECIAL[facility]; Service: Cardiovascular; Laterality: N/A; Medical devices from this surgery are in the Medical Devices section. 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 Never 03/07/2025 Q2: How many drinks containi ng alcohol do you have on a typical day when you are drinking? Patient does not drink Q3: How often do you have si x or more drinks on one occasion? Never 03/07/2025 Personal Safety Answer Date Recorded Have you ever been in or are you currently in a harmful physical or emotional relationship or is someone making you feel afraid or unsafe? 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 Gender Identity Not on file Sexual Orientation Not on file Obstetrics History Last Filed Vital Signs Vital Sign Reading Time Taken Comments Blood Pressure 138/63 03/07/2025 11:10 AM CDT Pulse 87 03/07/2025 12:10 PM CDT Temperature 36.6 C (97.8 F) 03/07/2025 8:25 AM CDT Respiratory Rate 18 03/07/2025 8:25 AM CDT Oxygen Saturation 98% 03/07/2025 12:10 PM CDT Inhaled Oxygen Concentration - - Weight 76.2 kg (168 lb) 03/07/2025 8:25 AM CDT Height 185.4 cm (6' 1) 03/07/2025 8:25 AM CDT Body Mass Index 22.16 03/07/2025 8:25 AM CDT Plan of Treatment Health Maintenance Due Date Last Done Comments Colon Cancer Screening-Colonoscopy 1955 Depression Screening 1955 Prostate Cancer Screening-PSA 1955 DTaP/Tdap/Td Vaccine (1 - Tdap) 1967 Hepatitis B Screening 1974 Pneumococcal vaccine 65+ (1 of 2 - PCV) 1975 Zoster Vaccine (1 of 2) 2006 Well Visit 65+ 2021 Influenza Vaccine (#1) 2025 Fall Risk Assessment 03/07/2026 03/07/2025 Hepatitis C Screening Completed 07/08/2016 Medical Devices Implanted Type 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 Device Closure Vascade Od5 Fr Femoral Artery [id number] - [id number] Implanted:Qty: 1 on 04/21/2023 by Pako Chamorro MD at [facility] 02/04/2025 [id number] / / [id number] [facility] Device Closure Vascade Od5 Fr Femoral Artery [id number] - [id number] Implanted:Qty: 1 on 03/07/2025 by Pako Chamorro MD at [facility] 11/08/2026 700-500DX-[id number] / / [id number] Procedures Procedure Name Priority Date/Time Associated Diagnosis Comments POCT GLUCOSE DEVICE Routine 03/07/2025 1 0:14 AM CDT LEFT HEART CATHETERIZATION WITH CORONARY ANGIOGRAPHY AND WITH AND WITHOUT LEFT VENTRICULOGRAM Routine 03/07/2025 9:59 AM CDT S/P aortic valve replacement with bioprosthetic valve Stenosis of prosthetic aortic valve with regurgitation EGFR Routine 03/07/2025 8:38 AM CDT CBC WITHOUT DIFFERENTIAL Routine 03/07/2025 8:38 AM CDT BASIC METABOLIC PANEL Routine 03/07/2025 8:38 AM CDT POCT GLUCOSE DEVICE Routine 03/07/2025 8 :15 AM CDT POCT LIPID PANEL Routine 02/20/2025 1:28 PM CDT Dyslipidemia SCAN - LABS Routine 02/17/2025 3:37 PM CDT TRANSTHORACIC ECHO (TTE) COMPLETE W DOPPLER/CF WO CONTRAST Routine 02/14/2025 10:26 AM CDT Severe aortic insufficiency SOB (shortness of breath) TRANSESOPHAGEAL ECHO (JOHN PAUL) W DOPPLER/CF WO CONTRAST Routine 02/08/2025 2:25 PM CDT Status post aortic valve replacement with bioprosthetic valve Nonrheumatic aortic valve disorder, unspecified TRANSESOPHAGEAL ECHOCARDIOGRAM 02/08/2025 1:19 PM CDT Status post aortic valve replacement with bioprosthetic valve POCT GLUCOSE DEVICE Routine 02/08/2025 1 2:52 PM CDT XR CHEST PA LATERAL 2 VIEWS Routine 01/23/2025 8:10 AM CDT Heart failure with reduced ejection fraction SCAN - LABS 01/19/2025 SCAN - RADIOLOGY/IMAGING 01/19/2025 CARDIOLOGY DOCUMENT SCAN Routine 01/11/2025 7:55 AM CDT SCAN - LABS 01/11/2025 CARDIOLOGY DOCUMENT SCAN Routine 01/08/2025 4:53 PM CDT CARDIOLOGY DOCUMENT SCAN Routine 01/08/2025 3:36 PM CDT CARDIOLOGY DOCUMENT SCAN Routine 01/07/2025 4:51 PM CDT CARDIOLOGY DOCUMENT SCAN Routine 01/07/2025 3:34 PM CDT SCAN - RADIOLOGY/IMAGING 01/07/2025 CARDIOLOGY DOCUMENT SCAN Routine 01/06/2025 3:27 PM CDT CARDIOLOGY DOCUMENT SCAN Routine 01/05/2025 3:33 PM CDT CARDIOLOGY DOCUMENT SCAN 01/03/2025 SCAN - RADIOLOGY/IMAGING 01/02/2025 SERUM HEPATITIS PANEL Routine 07/08/2016 10:26 AM 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 from Last 3 Months or Most Recently Relevant to Health Maintenance Results * POCT glucose (03/07/2025 10:14 AM CDT) [facility] Signature Glucose, POC 132 70 - 199 mg/dL Blood 03/07/2025 10:1 4 AM CDT 03/07/2025 10:14 AM CDT us Pako Chamorro MD LAB POCT ORDERABLES - DEVICE Final Result [facility] [address] [place] [address] * LEFT HEART CATHETERIZATION WITH CORONARY ANGIOGRAPHY AND WITH AND WITHOUT LEFT VENTRICULOGRAM (03/07/2025 9:59 AM CDT) Anatomical Region Laterality Modality X-Ray Angiograph y Narrative 03/07/2025 10:08 AM CDT CARDIAC CATHETERIZATION REPORT Payal Green Jr. 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 Interestingly his last echo prior to that was February 2024 showing normal ejection fraction and no significant aortic regurgitation. Aortic root noticed to be dilated at 4.6 cm. Due to severe aortic regurgitation cardiac catheterization is being done to rule out CAD prior to open-heart surgery. PROCEDURES PERFORMED: Moderate sedation that started at 9:29 a.m. and ended at 9:59 a.m. a total duration 30 minutes using 4mg of Versed and 75mcg of fentanyl. The registered nurse was ramon santiago Selective left and right coronary angiogram. Right common femoral arterial angiogram. Deployment five Guyanese Vascade closure device. FINDINGS: Left main unremarkable. LAD is large artery that runs and wraps around the apex and has minimal irregularities. There is a medium diagonal 1 and diagonal 2 branches without significant obstruction. Left circumflex artery is a large artery and codominant with minimal irregularities. Right coronary artery is medium in caliber with minimal irregularities. Opening pressure 116/51 closing pressure 123/48. Right common femoral arterial angiogram shows no significant disease of the right common femoral artery. COMPLICATIONS: None ESTIMATED BLOOD LOSS: 5 mL PROCEDURAL DESCRIPTION: After informed consent patient was brought into the tender labor where she was draped and prepped in the usual manner. Moderate sedation was given and the right groin infiltrated using 1% lidocaine. Five Guyanese sheath was obtained using micropuncture needle and modified Seldinger technique. Selective left coronary angiogram was done using JL4 catheter with the tip of the catheter placed in the left main coronary artery. Selective right coronary angiogram was done using JR4 catheter with the tip of the catheter placed in the right coronary artery. Right common femoral arterial angiogram was done and deployedfive Guyanese Vascade closure device. Access site: Right common femoral artery. Hemostasis: five Guyanese Vascade closure device. CONCLUSIONS Minimal coronary irregularities. PLAN Proceed with the plan for aortic valve replacement/aortic root surgery if needed. us Pako Chamorro MD CV CARDIAC CATH PROC EDURES Final Result * eGFR (03/07/2025 8:38 AM CDT) eGFR 74 >=60 mL/min/1. 73 m2 Comment: Interpretive Data Reference Interval Normal >/= 90 mL/min/1.73m2 Mildly decreased* 60 - 89 mL/min/1.73m2 Mildly to moderately decreased 45 - 59 mL/min/1.73m2 Moderately to severely decreased 30 - 44 mL/min/1.73m2 Severely decreased 15 - 29 mL/min/1.73m2 Kidney Failure < 15 mL/min/1.73m2 *Relative to young adult level Estimated glomerular filtration rate is determined by the 2020 CKD-EPI equation recommended by the National Kidney Foundation (A Unifying Approach to GFR Estimation: Recommendations of the NKF-ASK Task Force on Reassessing the Inclusion of Race in Diagnosing Kidney Disease, JASN 2020). The CKD-EPI equation should not be used for patients with unstable renal function and has not been validated in children and those over 70. Current interpretive data was last reviewed 2021. Blood 03/07/2025 8:38 AM CDT 03/07/2025 8:38 AM CDT Pako Chamorro MD LAB BLOOD ORDERABLES Final Result [facility] [address] [place] [address] * (ABNORMAL) CBC without differential (03/07/2025 8:38 AM CDT) WBC 6.16 3.80 - 9.90 K/cumm Hgb 14.4 13.0 - 17.5 g/dL [facility] Hct 44.2 38.9 - 50.3 % [facility] Plt 197 150 - 400 K/cumm [facility] MPV 10.0 9.1 - 12.3 fL [facility] RBC 5.26 4.30 - 5.80 M/cumm [facility] MCV 84.0 81.3 - 96.4 fL [facility] MCH 27.4 27.1 - 33.3 pg [facility] MCHC 32.6 32.3 - 35.7 g/dL [facility] RDW CV 19.9(H) 11.1 - 14.9 % [facility] RDW SD 61.0(H) 35.7 - 48.1 fL [facility] NRBC abs 0.00 0.00 - 0.01 K/cumm [facility] Blood 03/07/2025 8:38 AM CDT 03/07/2025 8:39 AM CDT Narrative [facility] - 03/07/2025 8:48 AM CDT If most recent labs were drawn prior to 4 AM, draw only prior to initiating procedure. Pako Chamorro MD LAB BLOOD ORDERABLES Final Result [facility] [address] Department of Laboratories [place], [place] [id number] * (ABNORMAL) Basic metabolic panel (03/07/2025 8:38 AM CDT) Sodium 138 135 - 145 mmol/L Potassium, pl 4.6 3.3 - 4.9 mmol/L [facility] Chloride 105 97 - 110 mmol/L [facility] CO2 21(L) 22 - 32 mmol/L [facility] Anion gap 12 2 - 15 mmol/L [facility] BUN 43(H) 6 - 25 mg/dL [facility] Creatinine 1.09 0.80 - 1.30 mg/dL [facility] Glucose 114 70 - 199 mg/dL [facility] Comment: Interpretive Data Fasting glucose >/= 126 mg/dl is diagnostic for diabetes. Fasting is defined as no caloric intake for at least 8 hours. Fasting glucose between 100 mg/dl to 125 mg/dl is diagnostic of prediabetes. In a patient with classic symptoms of hyperglycemia or hyperglycemic crisis, a random glucose >/= 200 mg/dl is diagnostic for diabetes. In the absence of unequivocal hyperglycemia, results should be confirmed by repeat testing. The classification and Diagnosis of Diabetes Diabetes Care 2021; 46: S19-S40. Current interpretive data was last revised 2022. Calcium 9.8 8.5 - 10.3 mg/dL [facility] Blood 03/07/2025 8:38 AM CDT 03/07/2025 8:38 AM CDT us Pako Chamorro MD LAB BLOOD ORDERABLES Final Result [facility] [address] [employer] [place] [address] * POCT glucose (03/07/2025 8:15 AM CDT) Glucose, POC 116 70 - 199 mg/dL Blood 03/07/2025 8:15 AM CDT 03/07/2025 8:15 AM CDT Pako Chamorro MD LAB POCT ORDERABLES - DEVICE Final Result Performing Organization Address [facility] Co de Phone Number [facility] [address] [place] [address] * POCT lipid panel (02/20/2025 1:28 PM CDT) Cholesterol, POC 166 <200 MG/DL HDL, POC 54 >=40 mg/dL Triglycerides, POC 106 <=149 mg/dL LDL Cholesterol POC 92 <=129 mg/dL Chol/HDL Ratio, POC 1.7 NONE Non-HDL Cholesterol, POC 113 NONE mg/dL Cholesterol Total, POC 166 30 - 199 mg/dL Capillary blood 02/20/2025 1 :28 PM CDT us Pako Chamorro MD POINT OF CARE TEST O RDERABLES Final Result * SCAN - LABS (02/17/2025 3:37 PM CDT) us Historical Provider Final Res ult * TRANSTHORACIC ECHO (TTE) COMPLETE W DOPPLER/CF WO CONTRAST (02/14/2025 10:26 AM CDT) EF Mod BP 52 % CONS SCIMAGE Anatomical Region Laterality Modality Ultrasound 02/14/2025 9:03 AM CDT Narrative 02/14/2025 4:03 PM CDT [facility] Medical Group Cardiology [address] [facility] [address], [place] [address] [address] [facility] [address], [place] [address] P:[phone] P:[phone] Echocardiographic Report Patient Name: PAYAL GREEN L : 1955 Study Date: 02/14/2025 9:03:46 AM Sex: M 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 With Strain Analysis. INDICATIONS: I35.1 Nonrheumatic aortic (valve) insufficiency and R06.02 Shortness of breath. MEASUREMENTS: 2D/MM Value Range Doppler Value Range EF Mod BP 52 % [ 52 - 72 ] DOMINIC Vmax 0.95 cm2 [ 2.00 - 4.00 ] LV GLS -8.16 % AV Mean PG 27 mmHg LVIDd 2D 5.60 cm [ 4.20 - 5.80 ] AV Peak Boris 3.39 m/s [ 1.00 - 1.70 ] LVIDs 2D 4.02 cm [ 2.50 - 4.00 ] AV Peak PG 46 mmHg LVPWd 2D 1.11 cm [ 0.60 - 1.00 ] AV VTI 76.30 cm IVSd 2D 1.08 cm [ 0.60 - 1.00 ] LVOT Diam 1.98 cm [ 1.70 - 2.10 ] AoR Diam 2D 5.02 cm [ 3.10 - 3.70 ] LVOT Peak Boris 1.05 m/s [ 0.70 - 1.10 ] LA Volume 66.47 ml [ 18.00 - 58.00 ] LVOT VTI 24.86 cm LA Volume Index 33 cc/m2 [ 16 - 28 ] PV Peak Boris 0.72 m/s [ 0.40 - 0.80 ] RA Volume 51.89 ml TR Peak Boris 3.19 m/s [ 1.00 - 2.80 ] TR Peak PG 41 mmHg RVSP 49.00 mmHg [ 10.00 - 36.00 ] RV S` 6.58 mmHg Tapse 1.66 cm [ 1.71 - 5.00 ] 2D/MM Value Range Doppler Value Range - FINDINGS: Interpretation Site: Exam was interpreted at [facility]. Left Ventricle: Moderate concentric left ventricular hypertrophy. Mild enlargement of left ventricle cavity. Left ventricular systolic function at the lower limit of normal. Diastolic dysfunction is present. Increased left heart filling pressures based on elevated E/E`. Ejection fraction is measured at 52 %. Global Longitudinal Strain is -8 %. Right Ventricle: Normal right ventricular size. Normal right ventricular systolic function. Left Atrium: There is mild enlargement of left atrium. Right Atrium: Right atrium within upper limits of normal. Atrial Septum: Normal atrial septum. Mitral Valve: Moderate mitral annular calcification. Mild mitral valve regurgitation. Aortic Valve: Aortic valve not well visualized. Moderate bioprosthetic aortic stenosis, approaching severe stenosis. Peak Velocity of 3.30 m/s. Mean gradient of 27.0 mmHg. Moderate aortic valve regurgitation. Tricuspid Valve: Normal appearance of the tricuspid valve. Moderate pulmonary hypertension based on right ventricular systolic pressure. Estimated peak RVSP is 49 mmHg. Mild tricuspid regurgitation. Pulmonic Valve: Pulmonic valve not well visualized. Mild pulmonic regurgitation. Pericardium: Normal pericardium with no significant pericardial effusion. Aorta: Sinus of Valsalva is dilated. Sinus of Valsalva 4.9 cm. Ascending Aorta 4.8 cm. IVC: Dilated IVC with respiratory collapse consistent with elevated right atrial pressure (10-15 mmHg). CONCLUSIONS: Moderate LVH. Mild enlargement of left ventricle cavity. Left ventricular systolic function at the lower limit of normal. Diastolic dysfunction is present. Increased left heart filling pressures based on elevated E/E`. Ejection fraction is measured at 52 %. Global Longitudinal Strain is abnormal at -8 %. Normal right ventricular size and systolic function. Mild left atrial enlargement. Dense mitral annular calcification. Mild mitral valve regurgitation. Bioprosthetic aortic valve not well visualized. Moderate stenosis, approaching severe. V max 3.30 m/s. MG 27 mmHg. DVI 0.27. Moderate aortic valve regurgitation. Moderate pulmonary hypertension, RVSP 49 mmHg. Mild tricuspid regurgitation. Sinus of Valsalva and ascending aorta dilated. Sinus of Valsalva 4.9 cm. Ascending Aorta 4.8 cm. 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 With Strain Analysis. INDICATIONS: I35.1 Nonrheumatic aortic (valve) insufficiency and R06.02 Shortness ofbreath. MEASUREMENTS: 2D/MM Value Range Doppler ValueRange EF Mod BP 52 % [ 52 - 72 ] DOMINIC Vmax 0.95cm2 [ 2.00 - 4.00 ] LV GLS -8.16 % AV Mean PG 27mmHg LVIDd 2D 5.60 cm [ 4.20 - 5.80 ] AV Peak Boris 3.39m/s [ 1.00 - 1.70 ] LVIDs 2D 4.02 cm [ 2.50 - 4.00 ] AV Peak PG 46mmHg LVPWd 2D 1.11 cm [ 0.60 - 1.00 ] AV VTI 76.30cm IVSd 2D 1.08 cm [ 0.60 - 1.00 ] LVOT Diam 1.98cm [ 1.70 - 2.10 ] AoR Diam 2D 5.02 cm [ 3.10 - 3.70 ] LVOT Peak Boris 1.05m/s [ 0.70 - 1.10 ] LA Volume 66.47 ml [ 18.00 - 58.00 ] LVOT VTI 24.86cm LA Volume Index 33 cc/m2 [ 16 - 28 ] PV Peak Boris 0.72m/s [ 0.40 - 0.80 ] RA Volume 51.89 ml TR Peak Boris 3.19m/s [ 1.00 - 2.80 ] TR Peak PG 41 mmHg RVSP 49.00 mmHg [ 10.00 - 36.00 ] RV S` 6.58 mmHg Tapse 1.66 cm [ 1.71 - 5.00 ] 2D/MM Value Range Doppler ValueRange - FINDINGS: Interpretation Site: Exam was interpreted at [facility]. Left Ventricle: Moderate concentric left ventricular hypertrophy. Mild enlargement of leftventricle cavity. Left ventricular systolic function at the lower limit of normal.Diastolic dysfunction is present. Increased left heart filling pressures based onelevated E/E`. Ejection fraction is measured at 52 %. Global Longitudinal Strain is -8%. Right Ventricle: Normal right ventricular size. Normal right ventricular systolicfunction. Left Atrium: There is mild enlargement of left atrium. Right Atrium: Right atrium within upper limits of normal. Atrial Septum: Normal atrial septum. Mitral Valve: Moderate mitral annular calcification. Mild mitral valve regurgitation. Aortic Valve: Aortic valve not well visualized. Moderate bioprosthetic aortic stenosis,approaching severe stenosis. Peak Velocity of 3.30 m/s. Mean gradient of 27.0 mmHg.Moderate aortic valve regurgitation. Tricuspid Valve: Normal appearance of the tricuspid valve. Moderate pulmonary hypertensionbased on right ventricular systolic pressure. Estimated peak RVSP is 49 mmHg. Mildtricuspid regurgitation. Pulmonic Valve: Pulmonic valve not well visualized. Mild pulmonic regurgitation. Pericardium: Normal pericardium with no significant pericardial effusion. Aorta: Sinus of Valsalva is dilated. Sinus of Valsalva 4.9 cm. Ascending Aorta4.8 cm. IVC: Dilated IVC with respiratory collapse consistent with elevated rightatrial pressure (10-15 mmHg). CONCLUSIONS: Moderate LVH. Mild enlargement of left ventricle cavity. Left ventricularsystolic function at the lower limit of normal. Diastolic dysfunction is present.Increased left heart filling pressures based on elevated E/E`. Ejection fraction ismeasured at 52 %. Global Longitudinal Strain is abnormal at -8 %. Normal right ventricular size and systolic function. Mild left atrialenlargement. Dense mitral annular calcification. Mild mitral valve regurgitation. Bioprosthetic aortic valve not well visualized. Moderate stenosis,approaching severe. V max 3.30 m/s. MG 27 mmHg. DVI 0.27. Moderate aortic valve regurgitation. Moderate pulmonary hypertension, RVSP 49 mmHg. Mild tricuspidregurgitation. Sinus of Valsalva and ascending aorta dilated. Sinus of Valsalva 4.9 cm.Ascending Aorta 4.8 cm. Electronically Signed By: Nik mR MD, [facility] 02/14/2025 4:02:48 PM CDT us Pako Chamorro MD CV ECHO PROCEDURES F inal Result * TRANSESOPHAGEAL ECHO (JOHN PAUL) W DOPPLER/CF WO CONTRAST (02/08/2025 2:25 PM CDT) BSA 1.99 m2 CONS SCIMAGE Anatomical Region Laterality Modality Other Narrative 02/10/2025 3:45 PM CDT Transesophageal Echocardiogram Date of procedure: 02/08/2025 INDICATIONS: This is a 69 y.o. year old male who has no prior history of sedation or anesthesia problems. A JOHN PAUL has been requested for further assessment of aortic valve regurgitation and stenosis. PROCEDURE: After informed consent was obtained, IV sedation was given per anesthesia. The multiplane JOHN PAUL probe was inserted into the patients mouth and passed into the esophagus without difficulty. Standard images were then obtained using 2dmmode, colorflow and doppler. ANESTHESIA: sedation was performed via anesthesia department. COMPLICATIONS: There were no immediate complications. FINDINGS: Overall left ventricular systolic function is reduced, estimated EF 35%. Right ventricle is normal in size, appears mildly hypokinetic. Left atrium is dilated. Right atrium normal in appearance. Interatrial septum intact. Agitated saline was injected, negative bubble study. Mitral valve demonstrates mild mitral annular calcification, mild leaflet thickening. Mild mitral regurgitation is present. Tricuspid valve normal in appearance, mild tricuspid regurgitation. Pulmonic valve normal in appearance, trivial pulmonic regurgitation. Bioprosthetic aortic valve is present, and the leaflets are poorly visualized. There does appear to be leaflet thickening, with areas of mobile echogenicity for which thrombus can not be completely excluded versus pannus formation/leaflet degeneration. Aortic stenosis appears to be present, suspect at least moderate . Unable to planimeter valve area due to poor visualization. Moderate and probable severe aortic regurgitation is present, mostly paravalvular regurgitation. Aortic root and ascending aorta is dilated at 4.6 cm. Pericardium normal in appearance. Conclusions: -Reduced LV EF, estimated 35%. -Negative bubble study. -Mild mitral regurgitation. -Bioprosthetic aortic valve poorly visualized. Leaflet thickening is present, along with areas of mobile echogenicity for which thrombus versus pannus cannot be completely excluded. At least moderate aortic stenosis is present. There is moderate and probable severe aortic regurgitation, mostly paravalvular regurgitation. -Dilated aortic root and ascending aorta at 4.6 cm -Nichole Tippah, DO, FACC Pako Chamorro MD CV ECHO PROCEDURES F inal Result * POCT glucose (02/08/2025 12:52 PM CDT) Glucose, POC 108 70 - 199 mg/dL Blood 02/08/2025 12:5 2 PM CDT 02/08/2025 12:52 PM CDT Pako Chamorro MD LAB POCT ORDERABLES - DEVICE Final Result [address] [id number] [facility] Department [place] [address] * XR Chest Pa Lateral 2 Views (01/23/2025 8:10 AM CDT) Anatomical Region Laterality Modality Body, Chest N/A Radiographic Marlene ging Charley Ramirez NP IMG XR PROCEDURES Final R esult * SCAN - RADIOLOGY/IMAGING (01/19/2025) Anatomical Region Laterality Modality Other Charley Ramirez NP Final Res ult * SCAN - LABS (01/19/2025) Provider Scanning Final Result * Cardiology Document Scan (01/11/2025 7:55 AM CDT) Anatomical Region Laterality Modality Other Parveen Stockton MD CV CARDIAC SERVICES PROC EDURES Final Result * SCAN - LABS (01/11/2025) Provider Scanning Final Result * Cardiology Document Scan (01/08/2025 4:53 PM CDT) Anatomical Region Laterality Modality Other Jai Huang MD CV CARDIAC SERVICES PROCEDU RES Final Result * Cardiology Document Scan (01/08/2025 3:36 PM CDT) Anatomical Region Laterality Modality Other Jai Huang MD CV CARDIAC SERVICES PROCEDU RES Final Result * Cardiology Document Scan (01/07/2025 4:51 PM CDT) Anatomical Region Laterality Modality Other Jai Huang MD CV CARDIAC SERVICES PROCEDU RES Final Result * Cardiology Document Scan (01/07/2025 3:34 PM CDT) Anatomical Region Laterality Modality Other Jai Huang MD CV CARDIAC SERVICES PROCEDU RES Final Result * SCAN - RADIOLOGY/IMAGING (01/07/2025) Anatomical Region Laterality Modality Other Provider Scanning Final Result * Cardiology Document Scan (01/06/2025 3:27 PM CDT) Anatomical Region Laterality Modality Other Loretta Valdez NP CV CARDIAC SERVICES PROCEDUR ES Final Result * Cardiology Document Scan (01/05/2025 3:33 PM CDT) Anatomical Region Laterality Modality Other Juani Alvarez MD CV CARDIAC SERVICES PROCEDU RES Final Result * Cardiology Document Scan (01/03/2025) Anatomical Region Laterality Modality Other Provider Scanning CV CARDIAC SERVICES PROCEDURES Final Result * SCAN - RADIOLOGY/IMAGING (01/02/2025) Anatomical Region Laterality Modality Other Provider Scanning Final Result * Serum Hepatitis panel (07/08/2016 10:26 AM 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) HAV ab, IgM Nonreactive CDR HISTORICAL [...] RNA Detection and Quantitation by Real-Time Reverse Blood Bank Custodian-PCR (RT-PCR). Current interpretive data was last revised on 2016. HBV surface ag Nonreactive CDR HISTORICAL RESULTS Serum 07/08/2016 10:2 6 AM 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 us Historical Provider LAB BLOOD ORDERABLES Latrice kuhn Result CDR HISTORICAL RESULTS from Last 3 Months or Most Recently Relevant to Health Maintenance Insurance [id number] MEDICARE ADVANTAGE [facility] MEDICARE ADVANTAGE Advance Directives For more information, please contact: [phone] * Full Code (Latest Code Status on File) Date Activated Date Inactivated Comments 04/21/2023 1:20 PM 04/21/2023 8:17 PM Care Teams Cyberathlete Relationship Specialty Start Date End Date Harry Malagon MD PCP - General 09/26/16
--- OUTSIDE RECORDS SUMMARY | 2025-03-13 15:56 | XMS_ITS | Encounter Summary ---
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 Gender Identity Not on file Sexual Orientation Not on file documented as of this encounter Plan of Treatment Not on file documented as of this encounter Procedures Procedure Name Priority Date/Time Associated Diagnosis Comments CARDIOLOGY DOCUMENT SCAN 01/03/2025 SCAN - RADIOLOGY/IMAGING 01/02/2025 documented in this encounter Results * Cardiology Document Scan (01/03/2025) Anatomical Region Laterality Modality Other us Provider Scanning CV CARDIAC SERVICES PROCEDURES Final Result * SCAN - RADIOLOGY/IMAGING (01/02/2025) Anatomical Region Laterality Modality Other us Provider Scanning Final Result documented in this encounter Visit Diagnoses Not on filedocumented in this encounter Care Teams Craps Dealer Relationship Specialty Start Date End Date Harry Malagon MD PCP - General 09/26/16 documented as of this encounter
--- OUTSIDE RECORDS SUMMARY | 2025-03-13 15:56 | XMS_ITS | Encounter Summary ---
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 Gender Identity Not on file Sexual Orientation Not on file documented as of this encounter Plan of Treatment Not on file documented as of this encounter Procedures Procedure Name Priority Date/Time Associated Diagnosis Comments SCAN - RADIOLOGY/IMAGING 01/07/2025 documented in this encounter Results * SCAN - RADIOLOGY/IMAGING (01/07/2025) Anatomical Region Laterality Modality Other us Provider Scanning Final Result documented in this encounter Visit Diagnoses Not on filedocumented in this encounter Care Teams Can Line Examiner Relationship Specialty Start Date End Date Harry Malagon MD PCP - General 09/26/16 documented as of this encounter
[2025-03-13 16:00] LABS: Hematocrit 42.6 % (42.0-52.0); Hemoglobin 13.6 g/dL (14.0-18.0); Immature Granulocyte Percent A 0.3 % (0-0.5); Lymphocytes Absolute Auto 0.93 K/mm3 (0.9-3.2); Mean Corpuscular HGB Conc 31.9 g/dl (32-36); Mean Corpuscular Hemoglobin 27.6 pg (26-34); Mean Corpuscular Volume 86.4 fl (80-100); Nucleated Red Blood Cells Absolute Auto 0.000 K/mm3 (0.0-0.012); Nucleated Red Blood Cells Perc 0.0 % (0.0-0.2); Platelet Count Result 168 k/mm3 (150-375); Red Blood Count 4.93 M/mm3 (4.6-6.20); White Blood Count 6.5 K/mm3 (4.5-10.0)
[2025-03-13 16:22] LABS: Alanine Aminotransferase 20 U/L (6-50); Albumin Level 3.9 g/dL (3.5-5.1); Alkaline Phosphatase 56 U/L (38-126); Anion Gap 10 mmol/L (4-12); Aspartate Amino Transferase 24 U/L (17-59); Bilirubin,Total 0.4 mg/dL (0.2-1.3); Blood Urea Nitrogen 44 mg/dL (9-20); Calcium 9.0 mg/dL (8.4-10.2); Carbon Dioxide 26 mmol/L (22-30); Chloride 101 mmol/L (98-107); Estimated Glomerular Filt Rate > 60; Glucose 96 mg/dL (65-110); Potassium 4.7 mmol/L (3.4-5.0); Sodium 137 mmol/L (137-145); Total Protein 7.4 g/dL (6.3-8.2)
== END 2025-03-13 15:26 | disposition home or self-care (01) ==
PROVIDERS: PCP Internal Medicine; Visit Provider Internal Medicine
DX: I11.0 Hypertensive heart disease with heart failure (principal); I50.9 Heart failure, unspecified; I50.21 Acute systolic (congestive) heart failure
CPT/HCPCS: 36415; 80053; 85025

== ENCOUNTER 2025-05-12 12:19 | Outpatient (CLI) | payer MEDICARE, SELFPAY ==
[2025-05-12 13:28] LABS: Hematocrit 41.3 % (42.0-52.0); Hemoglobin 13.0 g/dL (14.0-18.0); Immature Granulocyte Percent A 0.4 % (0-0.5); Lymphocytes Absolute Auto 0.81 K/mm3 (0.9-3.2); Mean Corpuscular HGB Conc 31.5 g/dl (32-36); Mean Corpuscular Hemoglobin 29.3 pg (26-34); Mean Corpuscular Volume 93.0 fl (80-100); Nucleated Red Blood Cells Absolute Auto 0.000 K/mm3 (0.0-0.012); Nucleated Red Blood Cells Perc 0.0 % (0.0-0.2); Platelet Count Result 171 k/mm3 (150-375); Red Blood Count 4.44 M/mm3 (4.6-6.20); White Blood Count 5.2 K/mm3 (4.5-10.0)
[2025-05-12 14:02] LABS: Iron 76 ug/dL (49-181)
[2025-05-12 14:11] LABS: Percent Iron Saturation 26 % (20-50)
[2025-05-12 14:43] LABS: Ferritin 174.00 ng/mL (11.1-264)
== END 2025-05-12 12:20 | disposition home or self-care (01) ==
PROVIDERS: PCP Internal Medicine; Visit Provider Internal Medicine
DX: D64.9 Anemia, unspecified (principal)
CPT/HCPCS: 36415; 82728; 83540; 83550; 85025